=== PATIENT | female | born 1925 | race Caucasian/White ===

== ENCOUNTER 2016-10-11 13:05 | Inpatient (IN) ==
--- NOTE | 2016-10-11 13:19 | Emergency Department Note ---
Disposition Clinical Impression: CHF (congestive heart failure) Qualifiers: Congestive heart failure type: combined Congestive heart failure chronicity: acute on chronic Qualified Code(s): I50.43 - Acute on chronic combined systolic (congestive) and diastolic (congestive) heart failure Disposition: Admitted As Inpatient Condition: Fair SOB HPI - General Chief Complaint: ED Shortness of Breath/Dyspnea Stated Complaint: "CHF", DEVI, sent from Dr. Urbina Time Seen by Provider: 10/11/16 13:17 Source: patient, family Mode of arrival: EMS Limitations: no limitations Nursing Notes Reviewed: Yes Vital Signs Reviewed: Yes - History of Present Illness This is an 89-year-old who was seen by the loss prevention agent I spoke to about her care. Patient has increasing peripheral edema and shortness of breath with stage IV kidney disease. She does have a shunt for dialysis but refuses dialysis. The loss prevention agent sent the patient here for admission and possible IV Lasix diuresis. Pt Subjective Complaint: shortness of breath Onset (ago): Just [employer] Severity: moderate Consistency/Duration: constant Improves with: other Worsens with: nothing Known history of: congestive heart failure Associated symptoms: Denies: fever, cough Cough present: No - Related Data Home Medications Medication Instructions Recorded Confirmed Calcitriol [Rocaltrol] 0.25 mcg PO 1200 07/26/15 10/11/16 Furosemide [Lasix] 40 mg PO BID 07/26/15 10/11/16 Levothyroxine [Synthroid] 100 mcg PO QAM 07/26/15 10/11/16 Pravastatin Sodium [Pravachol] 80 mg PO 1200 07/26/15 10/11/16 TraZODone 25 mg PO 07/27/16 10/11/16 Allopurinol [Zyloprim] 100 mg PO 1200 10/11/16 10/11/16 Ascorbate Calcium [Vitamin C] 500 mg PO 10/11/16 10/11/16 Ergocalciferol (VITAMIN D2) 50,000 unit PO SA 10/11/16 10/11/16 [Vitamin D2] Gluc/MSM/C/[place]/Prim 1 each PO QAM 10/11/16 10/11/16 [Joint Support Complex Softgel] LORazepam [Ativan] 1 mg PO 10/11/16 10/11/16 Loratadine [Claritin] 10 mg PO QAM 10/11/16 10/11/16 Metoprolol Tartrate [Lopressor] 75 mg PO BID 10/11/16 10/11/16 Warfarin [Coumadin] 2.5 mg PO QAM 10/11/16 10/11/16 Allergies Allergy/AdvReac Type Severity Reaction Status Date / Time acetaminophen [From Percocet] Allergy Rash Verified 07/21/16 15:54 codeine Allergy Rash Verified 07/21/16 15:54 Oxycodone [From Percocet] Allergy Rash Verified 07/21/16 15:54 Constitutional: Denies: fever, chills, weakness, weight change Eyes: Denies: eye pain, eye discharge, vision change ENT ED: Denies: ear pain, throat pain, dental pain, hearing loss, epistaxis, congestion, dysphagia Cardiovascular: Reports: dyspnea on exertion. Denies: chest pain, palpitations , edema, syncope Respiratory: Reports: dyspnea. Denies: cough, wheezes, hemoptysis, stridor Gastrointestinal: Denies: abdominal pain, nausea, vomiting, diarrhea, constipation, hematemesis, melena, hematochezia Genitourinary: Denies: dysuria, frequency, hematuria, discharge Musculoskeletal: Denies: back pain, neck pain, arthralgia, myalgia Integumentary: Denies: rash, abrasion, lesions Neurological: Denies: headache, weakness, numbness, paresthesias, confusion, abnormal gait, vertigo Psychiatric: Denies: anxiety, depression, suicidal thoughts, homicidal thoughts , auditory hallucinations, visual hallucinations Endocrine: Denies: fatigue Hematological/Lymphatic: Denies: easy bleeding, easy bruising Allergic/Immunologic: Denies: facial swelling, urticaria Past Medical History - Past Medical History Medical history: Reports: atrial fibrillation, CHF (Diastolic), DVT, GI bleed, hyperlipidemia, hypertension, peripheral artery disease, renal disease (Stage IV ), SVT, thyroid disease, TIA, other (Carotid stenosis) Surgical history: Reports: cataract, cholecystectomy, other (Left arm fistula) Psychiatric history: Reports: no psych history LPN CARE MANAGER history: Reports: no LPN CARE MANAGER history - Social History Smoking Status: Never smoker Smokeless Tobacco Status: No Alcohol use: Reports: none Drug use: Reports: none Physical Exam - General Limitations: no limitations General appearance: alert, in no apparent distress - Head Head exam: atraumatic, normocephalic, normal inspection - Eye Eye exam: Present: normal appearance, PERRL, EOMI - ENT ENT exam: normal exam, normal oropharynx, mucous membranes moist - Neck Neck exam: Present: normal inspection, full ROM, trachea midline - Chest Chest inspection: Present: normal inspection, symmetric chest wall rise - Respiratory Respiratory exam: Present: other (Rales) - Cardiovascular Cardiovascular exam: Present: tachycardia - Abdominal Exam Abdominal exam: Present: soft, Non-Tender. Absent: tenderness, distention, guarding, rebound, rigidity - Extremities Exam Extremities exam: Present: pedal edema - Expanded Lower Extremity Exam Neurovascular/Tendon exam: Absent: motor deficit, sensory deficit, tendon deficit Gait: not tested/not observed - Back Exam Back exam: Present: normal inspection, full ROM. Absent: tenderness - Neurological Exam Neurological exam: Present: alert, oriented X3 - Psychiatric Psychiatric exam: Present: normal affect, normal mood - Skin Skin exam: Present: warm, dry, intact, normal color Course - Reevaluation(s) Reevaluation #1: 89-year-old with a history renal insufficiency was had increasing shortness of breath and peripheral edema. Patient was seen by the loss prevention agent today and felt was fluid overloaded center here to be diuresed. Time: 16:02 - Consultations Consultation #1: Discussed with , admit. Time: 16:02 Vital Signs Temperature 98.2 F 10/11/16 13:14 Pulse Rate 111 10/11/16 13:14 Respiratory Rate 18 10/11/16 13:14 Blood Pressure 135/111 10/11/16 13:14 O2 Sat by Pulse Oximetry 92 L 10/11/16 13:14 Temperature 97.5 F L 10/12/16 15:39 Pulse Rate 109 10/12/16 15:39 Respiratory Rate 16 10/12/16 15:39 Blood Pressure 146/90 10/12/16 15:39 O2 Sat by Pulse Oximetry 99 10/12/16 15:39 Oxygen Delivery Oxygen Delivery Room Air Shortness of Breath/Dyspnea - Lab Data Result diagrams: 10/12/16 06:51 10/12/16 06:51 Lab Results 10/11/16 10/11/16 10/11/16 Range/Units 14:38 14:38 14:38 WBC 8.1 (4.3-11.1) K/mcL RBC 4.11 (3.82-4.97) M/mcL Hgb 12.8 (11.5-15.4) g/dL Hct 39.8 (35.3-44.9) % MCV 96.8 (83.0-100.0) fL MCH 31.1 (28.0-33.3) pg MCHC 32.2 (31.6-35.5) g/dL RDW 14.2 (11.5-14.5) % Plt Count 141 (140-400) K/mcL MPV 10.6 (9.4-12.4) fL Immature Gran % 0.4 (0-4) % Seg Neutrophils % 66.3 % Lymphocytes % 24.9 % Monocytes % 6.8 % Eosinophils % 1.1 % Basophils % 0.5 % Neutrophils # 5.4 (1.6-8.9) K/mcL Lymphocytes # 2.0 (0.6-4.6) K/mcL Monocytes # 0.6 (0.0-1.3) K/mcL Eosinophils # 0.1 (0.0-0.6) K/mcL Basophils # 0.0 (0.0-0.2) K/mcL PT 48.7 H* (9.4-12.1) Seconds INR 4.3 APTT 39.8 H (26.0-36.0) Seconds Sodium 144 (136-145) mEq/L Potassium 3.7 (3.5-4.5) mEq/L Chloride 98 (98-109) mEq/L Carbon Dioxide 32 H (19-29) mEq/L BUN 33 H (7-20) mg/dL Creatinine 2.39 H (0.57-1.11) mg/dL Est GFR ( Amer) 23 L (> 60) Est GFR (Non-Af Amer) 19 L (> 60) BUN/Creatinine Ratio 14 (6-26) Glucose 154 H (70-99) mg/dL Calculated Osmolality 308 H (280-300) Calcium 9.5 (8.6-10.8) mg/dL Troponin I (0-0.03) ng/mL B-Natriuretic Peptide (0-100) pg/mL TSH (0.350-4.840) mcIU/mL 10/11/16 10/11/16 10/11/16 Range/Units 14:38 14:38 14:38 WBC (4.3-11.1) K/mcL RBC (3.82-4.97) M/mcL Hgb (11.5-15.4) g/dL Hct (35.3-44.9) % MCV (83.0-100.0) fL MCH (28.0-33.3) pg MCHC (31.6-35.5) g/dL RDW (11.5-14.5) % Plt Count (140-400) K/mcL MPV (9.4-12.4) fL Immature Gran % (0-4) % Seg Neutrophils % % Lymphocytes % % Monocytes % % Eosinophils % % Basophils % % Neutrophils # (1.6-8.9) K/mcL Lymphocytes # (0.6-4.6) K/mcL Monocytes # (0.0-1.3) K/mcL Eosinophils # (0.0-0.6) K/mcL Basophils # (0.0-0.2) K/mcL PT (9.4-12.1) Seconds INR APTT (26.0-36.0) Seconds Sodium (136-145) mEq/L Potassium (3.5-4.5) mEq/L Chloride (98-109) mEq/L Carbon Dioxide (19-29) mEq/L BUN (7-20) mg/dL Creatinine (0.57-1.11) mg/dL Est GFR ( Amer) (> 60) Est GFR (Non-Af Amer) (> 60) BUN/Creatinine Ratio (6-26) Glucose (70-99) mg/dL Calculated Osmolality (280-300) Calcium (8.6-10.8) mg/dL Troponin I 0.05 H* (0-0.03) ng/mL B-Natriuretic Peptide 1475 H (0-100) pg/mL TSH 3.501 (0.350-4.840) mcIU/mL
[2016-10-11 14:52] LABS: Basophils % 0.5 %; Eosinophils # 0.1 K/mcL (0.0-0.6); Eosinophils % 1.1 %; Hematocrit 39.8 % (35.3-44.9); Hemoglobin 12.8 g/dL (11.5-15.4); Immature Granulocytes % 0.4 % (0-4); Lymphocytes % 24.9 %; Mean Corpuscular HGB Conc 32.2 g/dL (31.6-35.5); Mean Corpuscular Hemoglobin 31.1 pg (28.0-33.3); Mean Corpuscular Volume 96.8 fL (83.0-100.0); Mean Platelet Volume 10.6 fL (9.4-12.4); Monocytes # 0.6 K/mcL (0.0-1.3); Monocytes % 6.8 %; Neutrophils # 5.4 K/mcL (1.6-8.9); Platelet Count 141 K/mcL (140-400); Red Blood Count 4.11 M/mcL (3.82-4.97); Red Cell Distribution Width 14.2 % (11.5-14.5); Segmented Neutrophils % 66.3 %
[2016-10-11 14:59] LABS: Activated Partial Thrombo Time 39.8 Seconds (26.0-36.0)
[2016-10-11 15:01] LABS: Calcium 9.5 mg/dL (8.6-10.8); Potassium 3.7 mEq/L (3.5-4.5)
[2016-10-11] MEDS ORDERED: Furosemide 40 MG/4 ML VIAL IVP ONE (15:06)
[2016-10-11 15:15] LABS: INR 4.3; Prothrombin Time 48.7 Seconds (9.4-12.1)
[2016-10-11] MEDS ORDERED: Naloxone 0.4 MG/ML INJ IVP PRN (17:08)
--- NOTE | 2016-10-11 17:17 | Internal Med History&Physical ---
Date of Encounter: 10/11/16 Time of Encounter: 17:14 Assessment and Plan (1) CHF (congestive heart failure) Current visit: Yes Status: Acute Acute on chronic CHF exacerbation with pulmonary edema Received one dose lasix in ER Will give additional 40mg IVP stat Lasix IV 40g bid Resume home dose of lopressor Not on ACEI/ARBs consider starting if renal function remains stable BiPAP now and prn to ease the work of breathing Strict intake/output monitoring Daily weight checks ECHO ordered Cardio consult a.m Patient is high risk for decompensation to respiratory failure However, she is DNR/DNI Plan of care discussed with family, verbalized understanding Qualifiers: Congestive heart failure type: combined Congestive heart failure chronicity : acute on chronic Qualified Code(s): I50.43 - Acute on chronic combined systolic (congestive) and diastolic (congestive) heart failure (2) Supratherapeutic INR Current visit: Yes Status: Acute Hold INR Monitor PT/PTT DVT prophylaxis with SCDs (3) Atrial fibrillation Current visit: Yes Status: Chronic Rate uncontrolled Resume lopressor and titrate up prn INR supratherapeutic, hold coumadin for now Risk of bleeding , hx of GI bleed Continuous cardiac monitoring Qualifiers: Atrial fibrillation type: unspecified Qualified Code(s): I48.91 - Unspecified atrial fibrillation (4) CKD (chronic kidney disease) stage 4, GFR 15-29 ml/min Current visit: Yes Status: Chronic Stable creatinine patient does not want hemodialysis Renal consult (5) DM type 2 (diabetes mellitus, type 2) Current visit: Yes Status: Chronic FS ACHS Diabetic diet Supplemental insulin Qualifiers: Diabetes mellitus complication status: with kidney complications Diabetes mellitus complication detail: with chronic kidney disease Diabetes mellitus intermediate designer insulin use: without group home use Chronic kidney disease stage: stage 4 (severe) Qualified Code(s): E11.22 - Type 2 diabetes mellitus with diabetic chronic kidney disease; N18.4 - Chronic kidney disease, stage 4 (severe ) (6) Gout Current visit: Yes Status: Chronic Hold allopurinol for now Qualifiers: Gout site: unspecified site Gout etiology: unspecified cause Chronicity: chronic Presence of tophus: without tophus Qualified Code(s): M1A.9XX0 - Chronic gout, unspecified, without tophus (tophi) (7) Hyperlipidemia Current visit: Yes Status: Chronic Resume home meds Qualifiers: Hyperlipidemia type: unspecified Qualified Code(s): E78.5 - Hyperlipidemia , unspecified (8) Hypothyroidism Current visit: Yes Status: Chronic TSH check Resume home dose of levothyroxine Qualifiers: Hypothyroidism type: unspecified Qualified Code(s): E03.9 - Hypothyroidism , unspecified Internal Medicine - H&P: HPI Chief complaint: Shortness of breath Admitted From: Home Plans for Post Hospital Care: Hospice - Home History of present illness: Ms. Solis is a 89 year old female with PMH of Afib on Coumadin, CKD IV, HD, Diastolic CHF, Hypothyroidism, TIA on home oxygen and home hospice Patient was seen at bedside in company of her daughter She presents with 6 weeks history of progressive lower extremity swelling, now involving her hips and abdomen, shortness of breath initially on minimal exertion, now at rest with 4-5 pillow orthopnea, patient is only able to sit upright now. Associated dry cough, anorexia, early satiety and abdominal distension. She denies fever or chills She denies chest pain or palpitations No bleeding from any orifices She reports chronic constipation with no diarrhea. She has been increasingly taking her home po lasix from alternate days now to daily but with no improvement, hence her presentation to ER. She reports insomnia as a result of orthopnea Denies any other complains Patient is DNR/DNI Past Med Surg Social Fam HX - Past Medical History Medical history: atrial fibrillation, CHF (Diastolic), DVT, GI bleed, hyperlipidemia, hypertension, peripheral artery disease, renal disease (Stage IV ), SVT, thyroid disease, TIA, other (Carotid stenosis) Psychiatric history: no psych history - Past Surgical History Surgical History: cataract, cholecystectomy, other (Left arm fistula) - Social History Smoking Status: Never smoker Smokeless Tobacco Status: No Alcohol use: none Drug use: none - Family History Mother Family Member Ethnicity: Non- Living Status: Hx Family Cardiac Disorders: Yes Hx Family Respiratory Disorders: Yes Hx Family Cancer: No Hx Family GI Disorders: No Hx Family Endocrine Disorder: No Hx Family Neuromuscular Disorders: No Hx Family Neurologic Disorders: No Hx Family HEENT Disorders: No Hx Family Autoimmune Disorders: No Internal Medicine - H&P: Meds Calcitriol [Rocaltrol] 0.25 mcg PO 1200 07/26/15 [History] Furosemide [Lasix] 40 mg PO BID 10/25/15 [History] Levothyroxine [Synthroid] 100 mcg PO QAM 07/26/15 [History] Pravastatin Sodium [Pravachol] 80 mg PO 1200 07/26/15 [History] TraZODone 25 mg PO 07/27/16 [History] Allopurinol [Zyloprim] 100 mg PO 1200 10/11/16 [History] Ascorbate Calcium [Vitamin C] 500 mg PO HS 10/11/16 [History] Ergocalciferol (VITAMIN D2) [Vitamin D2] 50,000 unit PO SA 10/11/16 [History] Gluc/MSM/C/[place]/Prim [Joint Support Complex Softgel] 1 each PO QA 07/18 [History] LORazepam [Ativan] 1 mg PO 10/11/16 [History] Loratadine [Claritin] 10 mg PO QA 10/11/16 [History] Metoprolol Tartrate [Lopressor] 75 mg PO BID 10/11/16 [History] Warfarin [Coumadin] 2.5 mg PO QA 10/11/16 [History] Allergies acetaminophen [From Percocet] Allergy (Verified 07/21/16 15:54) Rash codeine Allergy (Verified 07/21/16 15:54) Rash Oxycodone [From Percocet] Allergy (Verified 07/21/16 15:54) Rash All Systems PM: A 10-system review of systems was performed and is negative for pertinent findings except as documented above in the HPI. - Constitutional Constitutional: no chills, no fever(s), no night sweats - EENT Eyes: no change in vision, no discharge, no pain, no photophobia Ears: no ear discharge, no ear pain, no tinnitus Nose, mouth and throat: no dysphagia, no nasal discharge, no neck pain, no sore throat - Cardiovascular Cardiovascular ROS IM: as per HPI - Respiratory Respiratory: as per HPI - Gastrointestinal Gastrointestinal: as per HPI - Genitourinary Genitourinary: as per HPI - Musculoskeletal Musculoskeletal ROS IM: as per HPI - Integumentary Integumentary IM: as per HPI - Neurological Neurological ROS: as per HPI - Hematologic/Lymphatic Hematologic/Lymphatic: as per HPI - Constitutional Vitals: Temp Pulse Resp BP Pulse Ox 98.2 F 105 18 150/101 99 10/11/16 13:14 10/11/16 15:30 10/11/16 15:30 10/11/16 15:30 10/11/16 15:30 Exam: Physical Exam VSS. HR 105, RR 20-22, O2sat 100% on 2L oxygen by nasa cannula General: Dyspneic unable to complete sentences, not in painful distress, not using accessory muscles of respiration HEENT: Not cyanotic, anicteric, conjunctiva is not pale Chest: Equal chest movement on exam, bilateal coarse crackles up to mid-lung Heart: S1, S2, irregular, JVD up to the jaw, no murmurs Abdomen: Abdominal wall edema, Sacral edema, no tenderness to palpation, bowel sounds present. RUQ scar Extremities: Bilateral pitting pedal edema up to the thighs, no ulcers. Internal Med - H&P Results - Labs CBC & Chem 7: 10/11/16 14:38 10/11/16 14:38 Labs: Labs and Imaging reviewed: INR 4.3 CBC WN Chem with Cr at baseline 2.39 Troponin 0.05 BNP 1475 CXR: Pulmonary edema
[2016-10-11] MEDS: Furosemide 40 MG/4 ML VIAL IVP SCH (20:31)
[2016-10-11] MEDS: Ascorbic Acid 500 MG TABLET PO SCH (20:31)
[2016-10-11] MEDS: *HR* LORazepam 1 MG TABLET PO SCH (20:32)
[2016-10-11] MEDS: traZODone 50 MG TABLET PO SCH (20:32)
[2016-10-12 07:29] LABS: Basophils % 0.4 %; Eosinophils % 0.4 %; Hematocrit 39.9 % (35.3-44.9); Hemoglobin 12.9 g/dL (11.5-15.4); Immature Granulocytes % 0.2 % (0-4); Lymphocytes # 2.3 K/mcL (0.6-4.6); Lymphocytes % 28.7 %; Mean Corpuscular HGB Conc 32.3 g/dL (31.6-35.5); Mean Corpuscular Hemoglobin 31.3 pg (28.0-33.3); Mean Corpuscular Volume 96.8 fL (83.0-100.0); Monocytes # 0.6 K/mcL (0.0-1.3); Neutrophils # 5.1 K/mcL (1.6-8.9); Platelet Count 137 K/mcL (140-400); Red Blood Count 4.12 M/mcL (3.82-4.97); Red Cell Distribution Width 14.3 % (11.5-14.5); Segmented Neutrophils % 63.3 %
[2016-10-12 07:32] LABS: Albumin 3.3 g/dL (3.5-5.0); Albumin/Globulin Ratio 1.2 (1.1-2.2); Bilirubin,Total 0.8 mg/dL (0.2-1.2); Calcium 9.4 mg/dL (8.6-10.8); Globulin 2.8 g/dL (2.4-3.5); Potassium 3.7 mEq/L (3.5-4.5); Total Protein 6.1 g/dL (6.0-8.3)
[2016-10-12 07:45] LABS: INR 3.5; Prothrombin Time 39.6 Seconds (9.4-12.1)
[2016-10-12 07:48] LABS: Activated Partial Thrombo Time 37.7 Seconds (26.0-36.0)
--- NOTE | 2016-10-12 08:42 | Cardiology Consult Note ---
Date of Encounter: 10/12/16 Time of Encounter: 09:00 Assessment and Plan (1) CHF (congestive heart failure) Current Visit: Yes Status: Acute Per Cardiology: BNP elevated at 1475. Chest x-ray shows moderate pulmonary edema. On IV Lasix 40 mg twice a day. According to medical records patient net negative 350ml. On BB. Discussed with Dr. Torres, will switch to IV Bumex 1 mg twice a day. Continue with strict I&O, daily weights, fluid restriction. Education reinforced regarding low sodium diet and fluid restriction at home. Of note, patient recently discharged home with hospice care. At this time it appears they do not wish to rescind and elect to continue with hospice. Most recent echo in 2013 showed EF preserved 60%, no segmental wall motion abnormalities, diastolic function not assessed. Echo is currently ordered. I had lengthy discussion with patient and daughter, and at this point they would like to proceed with echo as ordered. Further recs after echo. Consult placed to palliative care for re- evaluation. Patient DNR/DNI/Comfort Care arrest. Qualifiers: Congestive heart failure type: combined Congestive heart failure chronicity : acute on chronic Qualified Code(s): I50.43 - Acute on chronic combined systolic (congestive) and diastolic (congestive) heart failure (2) CKD (chronic kidney disease) stage 4, GFR 15-29 ml/min Current Visit: Yes Status: Chronic Per Cardiology: History of CKD stage IV. Kidney function currently around baseline. Patient declines hemodialysis. (3) Atrial fibrillation Current Visit: Yes Status: Chronic Per Cardiology: Known history of atrial fibrillation and according to last office visit taking Cardizem CD 180 mg by mouth daily and metoprolol tartrate 50 mg by mouth twice a day, however daughter reports Cardizem has now been stopped and patient now on Lopressor 75 mg by mouth twice a day. Patient remains atrial fibrillation on telemetry with average heart rate in the 100s. Will increase to 100 mg by mouth twice a day for optimization of heart rate and blood pressure control. Qualifiers: Atrial fibrillation type: unspecified Qualified Code(s): I48.91 - Unspecified atrial fibrillation (4) Supratherapeutic INR Current Visit: Yes Status: Acute Per Cardiology: INR 4.3 on arrival. On Coumadin as outpatient. Currently on hold by primary service. Recommend resuming when/if able. Denies any active bleeding or blood loss. Discussion w patient/family: The assessment and plan as outlined above was discussed with the patient and/or family members who expressed understanding and agreement. All questions were answered. Thank you for involving us in the care of your patient. Please call with any questions. History of Present Illness Consult date: 10/12/16 Requesting physician: Zach Nielsen Consult reason: CHF Chief complaint: SOB History of present illness: Ms. Solis is a 89 year old female with a relevant past medical history of hyperlipidemia, hypertension, peripheral artery disease, hypothyroidism, TIA, DVT, history of nicotine abuse, and CHF. Seen by Dr. Urbina with cardiology yesterday and since the ER for worsening edema and shortness of breath. Of note , patient is DNR/couple care arrest/DNI and does not to proceed with hemodialysis. Patient seen today with daughter at bedside. They report she was recently discharged towards end of August to hospice care. They report increased bilateral lower actually swelling with short of breath over the past few days not responding to increased doses of Lasix. She reports worsening short of breath at rest and dry cough. Reports difficulty laying flat and sleeping. She denies any chest pain or palpitations. Denies any active bleeding or blood loss with Coumadin therapy being managed through hospice. Daughter reports Cardizem CD 180 mg discontinued and metoprolol was increased from 50 mg by mouth twice a day to 75 mg by mouth twice a day by hospice as well. They confirmed her desire to be DNR/couple care arrest/DNI. They also confirmed desire to not proceed with hemodialysis and has seen nephrology in the past. Past Med Surg Social Fam HX - Past Medical History Attestation: Yes The following information was validated with the patient. Source: patient, old records reviewed, obtained from family Medical history: atrial fibrillation, CHF, DVT, GI bleed, hyperlipidemia, hypertension, peripheral artery disease, renal disease, SVT, thyroid disease, TIA, other Psychiatric history: no psych history - Past Surgical History Surgical History: cataract, cholecystectomy, other - Social History Smoking Status: Never smoker Smokeless Tobacco Status: No Alcohol use: none Drug use: none - Family History Mother Family Member Ethnicity: Non- Living Status: Hx Family Cardiac Disorders: Yes Hx Family Respiratory Disorders: Yes Hx Family Cancer: No Hx Family GI Disorders: No Hx Family Endocrine Disorder: No Hx Family Neuromuscular Disorders: No Hx Family Neurologic Disorders: No Hx Family HEENT Disorders: No Hx Family Autoimmune Disorders: No Medications and Allergies Calcitriol [Rocaltrol] 0.25 mcg PO 1200 07/26/15 [History] Furosemide [Lasix] 40 mg PO BID 07/26/15 [History] Levothyroxine [Synthroid] 100 mcg PO QAM 07/26/15 [History] Pravastatin Sodium [Pravachol] 80 mg PO 1200 07/26/15 [History] TraZODone 25 mg PO HS 07/27/16 [History] Allopurinol [Zyloprim] 100 mg PO 1200 10/11/16 [History] Ascorbate Calcium [Vitamin C] 500 mg PO HS 10/11/16 [History] Ergocalciferol (VITAMIN D2) [Vitamin D2] 50,000 unit PO SA 10/11/16 [History] Gluc/MSM/C/[place]/Manganes/Prim [Joint Support Complex Softgel] 1 each PO QA 07/18 [History] LORazepam [Ativan] 1 mg PO HS 10/11/16 [History] Loratadine [Claritin] 10 mg PO QAM 10/11/16 [History] Metoprolol Tartrate [Lopressor] 75 mg PO BID 10/11/16 [History] Warfarin [Coumadin] 2.5 mg PO QAM 10/11/16 [History] Allergies acetaminophen [From Percocet] Allergy (Verified 07/21/16 15:54) Rash codeine Allergy (Verified 07/21/16 15:54) Rash Oxycodone [From Percocet] Allergy (Verified 07/21/16 15:54) Rash All Systems Review: A 10-system review of systems was performed and is negative for pertinent findings except as documented above in the HPI. - Constitutional Constitutional: daytime sleepiness, fatigue, lethargy - Cardiovascular Cardiovascular: as per HPI, dyspnea at rest, dyspnea on exertion, irregular heart rhythm, leg edema - Respiratory Respiratory: cough, dyspnea Physical Examination Vital Signs, Last 4 Hours Temp Pulse Resp BP Pulse Ox 10/12/16 07:40 97.4 F L 113 16 151/98 98 General: Conversant, No Apparent Distress HEENT: Atraumatic, Normocephaly, Mucus Membranes Moist Neck: Normal carotid pulses Cardiac: No Murmur, Other (Irregular irregular) Lungs: Other (Respirations mildly labored at rest, scattered rhonchi to bilateral bases) Neuro: Alert and responsive, No focal deficits noted Abdomen: Soft, Non-Tender, Other (Nondistended) Skin: No rashes noted on visualized skin Musculoskeletal: No Chest Wall Tenderness Extremities: Normal Pulses, Other (+2-3 pitting edema tro bilateral LE) Other: Powers draining clear yellow urine Results 10/12/16 06:51 10/12/16 06:51 Lab Results Laboratory Tests 09/06/16 09/22/16 10/11/16 12:47 12:30 14:38 INR 4.3 Creatinine Est GFR (Non-Af Amer) 15 L 22 L Troponin I B-Natriuretic Peptide Albumin TSH 10/11/16 10/11/16 10/11/16 14:38 14:38 14:38 INR Creatinine Est GFR (Non-Af Amer) Troponin I 0.05 H* B-Natriuretic Peptide 1475 H Albumin TSH 3.501 10/12/16 10/12/16 06:51 06:51 INR 3.5 Creatinine 2.42 H Est GFR (Non-Af Amer) 19 L Troponin I B-Natriuretic Peptide Albumin 3.3 L TSH ITS Impressions Chest X-Ray 10/11/16 13:12 IMPRESSION: CHF with moderate pulmonary edema that has increased from prior exam. D/ / Morris Delgado MD / Morris Delgado MD Interpreting Provider: Morris Delgado MD Intake & Output 10/09/16 10/10/16 10/11/16 10/12/16 23:59 23:59 23:59 23:59 Weight 88.632 kg 86.4 kg Active Medications Ascorbic Acid (Vitamin C) 500 mg PO HS [facility] Stop: 04/12/17 21:01 Last Admin: 10/11/16 20:31 Dose: 500 mg Calcitriol (Rocaltrol) 0.25 mcg PO 1200 [facility] Stop: 04/13/17 12:01 Ergocalciferol (Drisdol (50,000 Unit)) 50,000 unit PO SA [facility] Stop: 04/16/17 17:02 Furosemide (Lasix) 40 mg IVP ONCE ONE Stop: 10/12/16 09:01 Furosemide (Lasix) 40 mg IVP BID [facility] Stop: 04/12/17 21:01 Last Admin: 10/11/16 20:31 Dose: 40 mg Levothyroxine Sodium (Synthroid) 100 mcg PO QAM [facility] Stop: 04/13/17 09:01 Lorazepam (Ativan) 1 mg PO HS [facility] Stop: 04/12/17 21:01 Last Admin: 10/11/16 20:32 Dose: 1 mg Metoprolol Tartrate (Lopressor) 75 mg PO BID [facility] Stop: 04/12/17 21:01 Last Admin: 10/11/16 20:32 Dose: 75 mg Naloxone HCl (Narcan) 0.4 mg IVP Q2MIN PRN PRN Reason: Opioid Reversal Stop: 04/12/17 17:09 Pharmacy Profile Note (Patient Taking Own Medication) 0 each PO QAM [facility] Stop: 04/13/17 09:01 Trazodone HCl (Trazodone) 50 mg PO [facility] Stop: 04/12/17 21:01 Last Admin: 10/11/16 20:32 Dose: 50 mg - Imaging and Cardiology Chest Xray: report reviewed Echo: pending, report reviewed - EKG Interpretation EKG results cardiology: personally reviewed (Cody gibson with RVR in the 100s), other (24 hour telemetry reviewed with average heart rate 105, atrial fibrillation) Consult Discharge Plan - Plan Referrals: NO,PCP [Primary Care Provider] -
[2016-10-12] MEDS: MSM PO SCH (08:49)
[2016-10-12] MEDS: [UNRECOGNIZED DRUG - OTHER] PO SCH (08:49)
[2016-10-12] MEDS: GLUC PO SCH (08:49)
[2016-10-12] MEDS: Furosemide 40 MG/4 ML VIAL IVP SCH (08:49)
[2016-10-12] MEDS: BORON PO SCH (08:49)
[2016-10-12] MEDS ORDERED: Furosemide 40 MG/4 ML VIAL IVP ONE (09:00)
[2016-10-12] MEDS: Bumetanide 1 MG/4 ML VIAL IVP SCH ×2 (11:57→16:58)
--- NOTE | 2016-10-12 13:34 | Palliative - Consult Note ---
Date of Encounter: 10/12/16 Time of Encounter: 13:30 - Assessment and Plan (1) Dyspnea Current Visit: Yes Status: Acute Assessment and plan: Improved from admission. Continues on IV bumex/supportive oxygen. Echo pending. Cardiology eval reviewed. Qualifiers: Dyspnea type: unspecified Qualified Code(s): R06.00 - Dyspnea, unspecified (2) Counseling regarding advanced care planning and goals of care Current Visit: Yes Status: Acute Assessment and plan: Discussion with pt and daughter, DARREL Etienne. We have copy of pt living will on record, but not POA and Jaimie agreed to bring this in with next visit. She is established DNR/DNI at this time. Jaimie states pt was enrolled in [facility] from a referral from primary physician in the community. Called and confirmed she is enrolled with renal disease diagnosis. Stated that pt did not desire to pursue dialysis for her renal failure. At this point, they are desiring to resume hospice care when pt is discharged, however, daughter and pt desiring to proceed with echocardiogram and lab testing to see status of illnesses. Jaimie states that it took a while for lasix to be adjusted at home and that if this were done sooner, she thinks pt may have not had to come to hospital. Will follow closely and assist as needed. (3) CKD (chronic kidney disease) stage 4, GFR 15-29 ml/min Current Visit: Yes Status: Chronic (4) Atrial fibrillation Current Visit: Yes Status: Chronic Qualifiers: Atrial fibrillation type: unspecified Qualified Code(s): I48.91 - Unspecified atrial fibrillation (5) CHF (congestive heart failure) Current Visit: Yes Status: Acute Qualifiers: Congestive heart failure type: combined Congestive heart failure chronicity : acute on chronic Qualified Code(s): I50.43 - Acute on chronic combined systolic (congestive) and diastolic (congestive) heart failure Palliative-CN HPI - Data of Consult Consult date: 10/12/16 Requesting Physician: Zach Nielsen MD Primary Care Provider: PCP NO - Consult Narrative History of present illness: Ms. Solis is a 89 year old female with a history of stage IV renal disease, CHF, atrial fibrillation, Diabetes, Gout and Hypothyroidism, who presented with increasing shortness of breath and edema. According to daughter Jaimie (DARREL) at bedside, pt enrolled in hospice in Sep for renal disease, as she did not want dialysis. Over the last several weeks, pt has had increased difficulty with sleeping and becoming uncomfortable. Edema began to increase. Jaimie states that pt Lasix was only PRN at that time, and she attempted to contact Hospice to have this increased. Hospice did increase on Monday, but daughter states pt was "too far behind the 8-ball". Patient had a pre-scheduled appt with vision specialist, so daughter went ahead with that visit, and it was recommended she come to ER. Patient currently leaving for echo. Cardiology has seen pt. She states she feels better and breathing well. States slept well for first time in a long time last night. She is established DNR/DNI. CC: Zach Nielsen MD Past Med Surg Social Fam HX - Past Medical History Medical history: atrial fibrillation, CHF, DVT, GI bleed, hyperlipidemia, hypertension, peripheral artery disease, renal disease, SVT, thyroid disease, TIA, other Psychiatric history: no psych history - Past Surgical History Surgical History: cataract, cholecystectomy, other - Social History Smoking Status: Never smoker Smokeless Tobacco Status: No Alcohol use: none Drug use: none - Family History Mother Family Member Ethnicity: Non- Living Status: Hx Family Cardiac Disorders: Yes Hx Family Respiratory Disorders: Yes Hx Family Cancer: No Hx Family GI Disorders: No Hx Family Endocrine Disorder: No Hx Family Neuromuscular Disorders: No Hx Family Neurologic Disorders: No Hx Family HEENT Disorders: No Hx Family Autoimmune Disorders: No Medications and Allergies Calcitriol [Rocaltrol] 0.25 mcg PO 1200 07/26/15 [History] Furosemide [Lasix] 40 mg PO BID 07/26/15 [History] Levothyroxine [Synthroid] 100 mcg PO QAM 07/26/15 [History] Pravastatin Sodium [Pravachol] 80 mg PO 1200 07/26/15 [History] TraZODone 25 mg PO HS 07/27/16 [History] Allopurinol [Zyloprim] 100 mg PO 1200 10/11/16 [History] Ascorbate Calcium [Vitamin C] 500 mg PO HS 10/11/16 [History] Ergocalciferol (VITAMIN D2) [Vitamin D2] 50,000 unit PO SA 10/11/16 [History] Gluc/MSM/C/[place]/Manganes/Prim [Joint Support Complex Softgel] 1 each PO QAM 07/18 [History] LORazepam [Ativan] 1 mg PO HS 10/11/16 [History] Loratadine [Claritin] 10 mg PO QAM 10/11/16 [History] Metoprolol Tartrate [Lopressor] 75 mg PO BID 10/11/16 [History] Warfarin [Coumadin] 2.5 mg PO QAM 10/11/16 [History] Allergies acetaminophen [From Percocet] Allergy (Verified 07/21/16 15:54) Rash codeine Allergy (Verified 07/21/16 15:54) Rash Oxycodone [From Percocet] Allergy (Verified 07/21/16 15:54) Rash Review of systems: insomnia, poor appetite, shortness of breath, increased swelling of abdomen, lower extremies Palliative Care-Exam - Constitutional Vitals: Temp Pulse Resp BP Pulse Ox 97.3 F L 100 14 132/83 96 10/12/16 11:40 10/12/16 11:40 10/12/16 11:40 10/12/16 11:40 10/12/16 11:40 General appearance: Present: no acute distress - Head Head Exam: Present: normal inspection, normocephalic - Eye Eye exam: Present: normal appearance, PERRL - Expanded Respiratory Exam Location: rales: Left, Right, Lower - Cardiovascular Cardiovascular exam: Present: irregular rhythm - GI/Abdominal Exam GI/Abdominal exam: Present: distended, normal bowel sounds, soft - Catheter Type: Urethral (Powers) Additional comments: with clear yellow urine - Extremities Exam Additional comments: 3+ edema to lower extremities bilaterally - Neurological Exam Neurological exam: Present: alert, oriented X3, strengths equal and symetr throughout - Skin Skin exam: Present: dry, pallor, warm Additional comments: Some blistering to lower extremities Internal Medicine - CN: Reslt - Labs CBC & Chem 7: 10/12/16 06:51 10/12/16 06:51 Labs: Short CBC 10/12/16 Range/Units 06:51 WBC 8.1 (4.3-11.1) K/mcL Hgb 12.9 (11.5-15.4) g/dL Hct 39.9 (35.3-44.9) % Plt Count 137 L (140-400) K/mcL Neutrophils # 5.1 (1.6-8.9) K/mcL BMP 10/12/16 06:51 Sodium 145 Potassium 3.7 Chloride 98 Carbon Dioxide 35 H BUN 35 H Creatinine 2.42 H Glucose 123 H Calcium 9.4 Liver Function 10/12/16 Range/Units 06:51 Total Bilirubin 0.8 (0.2-1.2) mg/dL AST 29 (5-34) Units/L ALT 23 (0-55) Units/L Alkaline Phosphatase 57 (38-126) Units/L Albumin 3.3 L (3.5-5.0) g/dL - ABG Interpretation ABG results: PT/INR, D-dimer PT 39.6 Seconds (9.4-12.1) H 10/12/16 06:51 Consult Discharge Plan - Plan Referrals: NO,PCP [Primary Care Provider] - Palliative Quality Palliative Quality: Screen for Code Status: Yes, Screen for Goals of Care: Yes, Screen for Pain: Yes, If Pain Regimen Started, Initiate Bowel Regimen: NA, Screen for Nausea/Vomitting: Yes
--- NOTE | 2016-10-12 13:35 | Electrocardiograph Report ---
[facility] Test Date: 2016-10-11 Pat Name: Farida Solis Department: 103 Room: 2A47 Gender: F Manager Art: MSC : 1925 Requested By: Ra Michaels Order Number: [id number] Reading MD: Julianna Castillo Measurements Intervals [place] Rate: 107 P: CO: 0 QRS: -42 QRSD: 106 T: -12 QT: 357 QTc: 420 Interpretive Statements ATRIAL FIBRILLATION WITH RAPID VENTRICULAR RESPONSE MARKED LEFT AXIS DEVIATION NONSPECIFIC T-WAVE ABNORMALITY Electronically Signed On 10-12-16 13:34:54 EST by Julianna Castillo
--- NOTE | 2016-10-12 13:54 | Nephrology Consult Note ---
Date of Encounter: 10/12/16 Time of Encounter: 13:52 History of Present Illness - History of Present Illness This is an 89-year-old white female has been followed as an outpatient for stage IV chronic kidney disease. Patient was last in the office approximately a year ago. At that time her creatinine was 1.98 and GFR was 24. Currently the patient's creatinine is 139 with a GFR of 19. Patient was admitted for further evaluation and management of increasing swelling and shortness of breath. She has been diagnosed with diastolic congestive heart failure. She has a history of atrial fibrillation. Patient reports over the past few weeks using been experiencing increasing swelling despite taking Lasix 40 mg IV daily. She has worsening shortness of breath as well as some orthopnea. She denies any nausea vomiting fevers chills or chest pain. The patient has an AV fistula in place but she has never required dialysis. The patient has stage IV chronic kidney disease. She exhibits some slow progression since she was last seen a year ago. She currently is making urine. I would continue with the current diuretic regimen. We should monitor her I' s and O's closely. Lungs she can achieve negative fluid balance with improvement in her swelling and shortness of breath I would continue with medical treatment. At this point, I do not believe that the patient requires initiation of dialysis. I did have a discussion with the patient and the family. Should her renal function worsened during the course of treatment for congestive heart failure and if dialysis should become necessary the patient agrees that she would at that time be willing to have dialysis. Past Med Surg Social Fam HX - Past Medical History Medical history: atrial fibrillation, CHF, DVT, GI bleed, hyperlipidemia, hypertension, peripheral artery disease, renal disease, SVT, thyroid disease, TIA, other Psychiatric history: no psych history - Past Surgical History Surgical History: cataract, cholecystectomy, other - Social History Smoking Status: Never smoker Smokeless Tobacco Status: No Alcohol use: none Drug use: none - Family History Mother Family Member Ethnicity: Non- Living Status: Hx Family Cardiac Disorders: Yes Hx Family Respiratory Disorders: Yes Hx Family Cancer: No Hx Family GI Disorders: No Hx Family Endocrine Disorder: No Hx Family Neuromuscular Disorders: No Hx Family Neurologic Disorders: No Hx Family HEENT Disorders: No Hx Family Autoimmune Disorders: No Medications and Allergies Calcitriol [Rocaltrol] 0.25 mcg PO 1200 07/26/15 [History] Furosemide [Lasix] 40 mg PO BID 07/26/15 [History] Levothyroxine [Synthroid] 100 mcg PO QAM 07/26/15 [History] Pravastatin Sodium [Pravachol] 80 mg PO 1200 07/26/15 [History] TraZODone 25 mg PO HS 07/27/16 [History] Allopurinol [Zyloprim] 100 mg PO 1200 10/11/16 [History] Ascorbate Calcium [Vitamin C] 500 mg PO HS 10/11/16 [History] Ergocalciferol (VITAMIN D2) [Vitamin D2] 50,000 unit PO SA 10/11/16 [History] Gluc/MSM/C/[place]/Manganes/Prim [Joint Support Complex Softgel] 1 each PO QAM 07/18 [History] LORazepam [Ativan] 1 mg PO HS 10/11/16 [History] Loratadine [Claritin] 10 mg PO QAM 10/11/16 [History] Metoprolol Tartrate [Lopressor] 75 mg PO BID 10/11/16 [History] Warfarin [Coumadin] 2.5 mg PO QAM 10/11/16 [History] Allergies acetaminophen [From Percocet] Allergy (Verified 07/21/16 15:54) Rash codeine Allergy (Verified 07/21/16 15:54) Rash Oxycodone [From Percocet] Allergy (Verified 07/21/16 15:54) Rash Review of Systems Constitutional: as per HPI Eyes: bilateral: blurred vision (patient denies), diplopia (patient denies) Nose, mouth and throat: no dizziness, no headache(s) Cardiovascular: dyspnea, dyspnea on exertion, edema, irregular heart rhythm, orthopnea, palpitations, no chest pain Respiratory: dyspnea, dyspnea on exertion Gastrointestinal: no abdominal pain, no change in bowel habits Musculoskeletal: no muscle weakness, no numbness Integumentary: no hirsutism, no striae Neurological: weakness Psychiatric: no depression, no difficulty concentrating Endocrine: as per HPI Hematologic/Lymphatic: no easy bruising, no lymphadenopathy Exam - Vital Signs Vital signs: Initial Vital Signs Temp Pulse Resp BP Pulse Ox 98.2 F 111 18 135/111 92 L 10/11/16 13:14 10/11/16 13:14 10/11/16 13:14 10/11/16 13:14 10/11/16 13:14 Vital Signs - Last 8 Hours Temp Pulse Resp BP Pulse Ox 10/12/16 11:40 97.3 F L 100 14 132/83 96 10/12/16 07:40 97.4 F L 113 16 151/98 98 Intake and Output 10/11/16 10/12/16 10/12/16 23:59 07:59 15:59 Intake Total 50 / 50 Output Total 350 / 350 Balance -300 / -300 Intake: Oral 50 / 50 Output: Catheter 350 / 350 Other: Meal Lunch Percent of Meal Consumed 10% Weight 86.4 kg Patient Weight 10/12/16 23:59 Weight 86.4 kg - General Appearance Exam: Patient is sitting up in a chair. She is alert and oriented in no acute distress. Lungsbreath sounds otherwise clear. Heart irregular rate and rhythm consistent with atrial fibrillation. Abdomen shows normal bowel sounds are bruits masses, megaly or tenderness. Lower extremity showed 2+ lower extremity swelling. There is a functioning AV fistula in the upper portion of the left arm. Results - Lab Results 10/12/16 06:51 10/12/16 06:51 Most recent lab results Calcium 9.4 mg/dL (8.6-10.8) 10/12/16 06:51 Consult Discharge Plan - Plan Referrals: NO,PCP [Primary Care Provider] -
--- NOTE | 2016-10-12 15:00 | Event Note ---
Date of Encounter: 10/12/16 Time of Encounter: 15:00 - Cardiology Event Note Patient resting comfortably in chair with family visiting. Patient reports would be open to proceeding with hemodialysis now if deemed necessary. Echo pending. Continue with diuresis. We'll continue to follow. All questions answered.
--- NOTE | 2016-10-12 15:30 | Event Note ---
Date of Encounter: 10/12/16 Time of Encounter: 15:30 Nephrology consult reviewed and appreciated - pt now open to dialysis if needed. Did discuss with family that I called and verified with [facility] that they enrolled her with a diagnosis of renal disease in September, so this would affect discharge plan. Hospice may need transitioned to home health. Family verbalized understanding. Will follow clinical course.
--- NOTE | 2016-10-12 15:43 | ECHO - Doppler Report ---
Echocardiogram Name: Farida Solis Date of Study: 10/12/2016 Date: 1925 Ht: 63.0 in Medical Record#: [id number] Age: 89 Wt: 190.0 lb Gender: Female BSA: 1.89 Order #: [id number] Location: [facility] IP Room #: 2A47 Reading Physician: Kelly Wright DO Green Material Value Added Assessor: Stu Seo RDCS Ordering Physician: Zach Nielsen MD Primary Physician: None Indications: Congestive heart failure Impressions: LVEF 20%. Global LV systolic dysfunction with mild basal and mid inferior wall hypokinesis. No evidence of LV thrombus on this study although apex is not well seen in all views. Normal RV size with mild to moderate reduction in function. Mild aortic regurgitation. Moderate mitral regurgitation. Mild pulmonic regurgitation. Tricuspid regurgitation appears moderate if not severe in some views. Mild to moderate pulmonary hypertension, RVSP 46 mmHg. IVC is not dilated but demonstrates <50% respiratory collapse. Trivial pericardial effusion. A pleural effusion is present. Since prior echo, 05/07/2014, LV systolic function has declined. Report communicated to ordering provider by [place]. Left Ventricular Wall Motion: Rest Echo Findings The apex, apical inferior, mid inferior, basal inferior, apical anterior, mid anterior, basal anterior, apical septal, mid inferior septal, basal inferior septal, apical lateral, mid anterior lateral, basal anterior lateral, mid anterior septal, mid inferior lateral, basal anterior septal and basal inferior lateral peacock were hypokinetic. Findings: Study Quality * Technically adequate exam. ECG Findings * Atrial fibrillation. Mitral Valve * No mitral stenosis. * Mild mitral annular calcification * Mildly thickened mitral valve leaflets. * Moderate mitral regurgitation. Aortic Valve * Aortic valve not well visualized. * Mild aortic regurgitation. * No aortic stenosis. Tricuspid Valve * Normal tricuspid valve structure. * Moderate-severe tricuspid regurgitation. * Estimated RA pressure is 8 mmHg. * Estimated RVSP is 46 mmHg. * Mild to moderate pulmonary hypertension. Pulmonic Valve * Pulmonic valve is not well visualized. * No pulmonic stenosis. * Mild pulmonic regurgitation. Pulmonary Artery * Pulmonary artery not well visualized. Left Atrium * Moderately dilated left atrium. Left Ventricle * Indeterminate diastolic function. * LVEF 20%. * Normal LV size. Right Ventricle * Normal size with mild to moderate reduction in function. Right Atrium * Severely dilated right atrium. Interatrial Septum * No evidence of PFO by color Doppler. IVC * The IVC is not dilated. * < 50% respiratory change. Aorta * Normally sized aortic root. Pericardium * There is a trivial pericardial effusion present. Pleural Effusion * A pleural effusion is present. History Hypertension Hypercholesteremia Family History of CAD Congestive Heart Failure 05/07/14 a Previous Echo was performed. Measurements: BP: 132/ 83 2D Normal Values IVSd: 1.00 cm 0.6 - 1.0 cm LVIDd: 4.50 cm 3.7 - 5.6 cm LVPWd: 1.00 cm 0.6 - 1.1 cm LVIDs: 3.60 cm 1.5 - 3.6 cm AO: 2.60 cm < 4.0 cm LA: 3.80 cm 2.0 - 4.0cm %FS: 20.00 cm >25 % LA volume: 95 Mitral Valve Peak E:1.27 m/sec Peak E' Lat Jignesh:7.9 cm/s Peak E' Med Jignesh:5.36 cm/s E/E' Lat Ratio:16.1 E/E' Med Ratio:23.7 Aortic Valve AI pressure Half-time: 282.00 msec Tricuspid Valve TV Regurg Peak Grad: 38.00mmHg TV Regurg Peak Jignesh: 3.07m/sec Updated by Kelly Wright on 10/12/2016 3:34:46 PM electronically signed on 10/12/2016 3:37:30 PM with status of Final Wall Motion Felder: 1=Normal, 2=Hypokinesis, 3=Akinesis, 4=Dyskinesis, 5=Aneurysmal, 6=Hyperkinetic, X=Not Visualized (Blank)=Missing
--- NOTE | 2016-10-12 17:14 | Internal Med Progress Note ---
Date of Encounter: 10/12/16 Time of Encounter: 09:45 - Assessment and plan (1) CHF exacerbation Current Visit: Yes Status: Acute Assessment and plan: Patient has evidence of significant volume overload. Echocardiogram shows LV ejection fraction of 20%. Patient was seen by cardiology team and treatments to continue diuresis with intravenous Lasix. Her chronic kidney disease is also possibly contributing to her volume overload. I have discussed with the patient about nephrology consultation, and the patient is willing to discuss treatment options including hemodialysis. I have discussed with the Dr Sarmiento Qualifiers: Congestive heart failure type: systolic Qualified Code(s): I50.23 - Acute on chronic systolic (congestive) heart failure (2) Supratherapeutic INR Current Visit: Yes Status: Acute Assessment and plan: Hold warfarin for now. Monitor INR. Pharmacy to dose adjust warfarin based on INR. (3) Atrial fibrillation Current Visit: Yes Status: Chronic Assessment and plan: Rate is reasonably controlled. Continue metoprolol. Clinical Practice Consultant is consulted Qualifiers: Atrial fibrillation type: unspecified Qualified Code(s): I48.91 - Unspecified atrial fibrillation (4) CKD (chronic kidney disease) stage 4, GFR 15-29 ml/min Current Visit: Yes Status: Chronic Assessment and plan: Chronic kidney disease possibly contribute to volume overload in addition to systolic congestive heart failure. Nephrology consultation with Dr. Sarmiento (5) DM type 2 (diabetes mellitus, type 2) Current Visit: Yes Status: Chronic Assessment and plan: Blood sugars are well controlled. Diabetes diet. Monitor Accu-Cheks. Qualifiers: Diabetes mellitus complication status: with kidney complications Diabetes mellitus complication detail: with chronic kidney disease Diabetes mellitus terminal system operator insulin use: without terminal system operator use Chronic kidney disease stage: stage 4 (severe) Qualified Code(s): E11.22 - Type 2 diabetes mellitus with diabetic chronic kidney disease; N18.4 - Chronic kidney disease, stage 4 (severe ) (6) Hypothyroidism Current Visit: Yes Status: Chronic Assessment and plan: Continue Synthroid. TSH is normal. Qualifiers: Hypothyroidism type: unspecified Qualified Code(s): E03.9 - Hypothyroidism , unspecified (7) Acute and chronic respiratory failure with hypoxia Current Visit: Yes Status: Acute Assessment and plan: Possibly contributed with pulmonary edema. Continue supplemental oxygen / BiPAP - Subjective Interval history: Pt is seen and examined at the bedside and chart reviewed. Pt reports feeling a little better today. Denies significant pain, nausea, vomiting, fever, chills. I have discussed with the patient and the daughter at the bedside regarding her chronic renal disease. They are open to discuss with the tire mold engraver Dr. Persaud, regarding treatment options including hemodialysis. - Constitutional Vitals: Temp Pulse Resp BP Pulse Ox 97.5 F L 109 16 146/90 99 10/12/16 15:39 10/12/16 15:39 10/12/16 15:39 10/12/16 15:39 10/12/16 15:39 Exam: General: Not in acute distress at the time of my evaluation Lungs: Clear to auscultation Cardiac: Irregular rhythm. Systolic murmur Abdomen: Soft, non tender. Bowel sounds present Neurological: Alert and oriented. No gross localizing deficits Psych: Not agrressive or agitated Extremities: Bilateral lower extremity edema present Skin: No generalized rash Internal Medicine: Result - Labs CBC & Chem 7: 10/12/16 06:51 10/12/16 06:51 Labs: Short CBC 10/12/16 Range/Units 06:51 WBC 8.1 (4.3-11.1) K/mcL Hgb 12.9 (11.5-15.4) g/dL Hct 39.9 (35.3-44.9) % Plt Count 137 L (140-400) K/mcL Neutrophils # 5.1 (1.6-8.9) K/mcL BMP 10/12/16 06:51 Sodium 145 Potassium 3.7 Chloride 98 Carbon Dioxide 35 H BUN 35 H Creatinine 2.42 H Glucose 123 H Calcium 9.4 Liver Function 10/12/16 Range/Units 06:51 Total Bilirubin 0.8 (0.2-1.2) mg/dL AST 29 (5-34) Units/L ALT 23 (0-55) Units/L Alkaline Phosphatase 57 (38-126) Units/L Albumin 3.3 L (3.5-5.0) g/dL - ABG Interpretation ABG results: PT/INR, D-dimer PT 39.6 Seconds (9.4-12.1) H 10/12/16 06:51 - Impressions ITS Impressions Chest X-Ray 10/11/16 13:12 IMPRESSION: CHF with moderate pulmonary edema that has increased from prior exam. D/ / Morris Delgado MD / Morris Delgado MD Interpreting Provider: Morris Delgado MD - VTE Documentation of Mechanical Device: Intermittent pneumatic compression device Consult Discharge Plan - Plan Referrals: NO,PCP [Primary Care Provider] -
[2016-10-12] MEDS ORDERED: Warfarin perPT PO PRN (18:00)
[2016-10-12] MEDS: traZODone 50 MG TABLET PO SCH (20:10)
[2016-10-12] MEDS: *HR* LORazepam 1 MG TABLET PO SCH (20:10)
[2016-10-12] MEDS: Ascorbic Acid 500 MG TABLET PO SCH (20:10)
[2016-10-13 06:02] LABS: Hemoglobin 13.1 g/dL (11.5-15.4); Mean Corpuscular Volume 97.2 fL (83.0-100.0); Mean Platelet Volume 10.9 fL (9.4-12.4); Platelet Count 137 K/mcL (140-400); Red Blood Count 4.22 M/mcL (3.82-4.97); Red Cell Distribution Width 14.4 % (11.5-14.5)
[2016-10-13 06:04] LABS: INR 2.7; Prothrombin Time 29.7 Seconds (9.4-12.1)
[2016-10-13 06:23] LABS: Calcium 9.2 mg/dL (8.6-10.8); Potassium 3.4 mEq/L (3.5-4.5)
[2016-10-13] MEDS: [UNRECOGNIZED DRUG - OTHER] PO SCH (08:35)
[2016-10-13] MEDS: BORON PO SCH (08:35)
[2016-10-13] MEDS: MSM PO SCH (08:35)
[2016-10-13] MEDS: GLUC PO SCH (08:35)
--- NOTE | 2016-10-13 09:43 | Palliative Progress Note ---
Date of Encounter: 10/13/16 Time of Encounter: 09:40 - Assessment and plan (1) Dyspnea Current Visit: Yes Status: Acute Assessment and plan: Improved from admission, still with significant edema. Echo results noted - EF 20%. Patient deciding on heart cath. Qualifiers: Dyspnea type: unspecified Qualified Code(s): R06.00 - Dyspnea, unspecified (2) Counseling regarding advanced care planning and goals of care Current Visit: Yes Status: Acute Assessment and plan: Will continue to follow closely. She is aware heart cath may lead to dialysis - is discussing with daughter DARREL Etienne. I discussed that FADIA will have to most likely work on another discharge plan if dialysis is initiated as she is enrolled in [facility] for renal disease. (3) CKD (chronic kidney disease) stage 4, GFR 15-29 ml/min Current Visit: Yes Status: Chronic (4) Atrial fibrillation Current Visit: Yes Status: Chronic Qualifiers: Atrial fibrillation type: unspecified Qualified Code(s): I48.91 - Unspecified atrial fibrillation (5) CHF (congestive heart failure) Current Visit: Yes Status: Acute Qualifiers: Congestive heart failure type: combined Congestive heart failure chronicity : acute on chronic Qualified Code(s): I50.43 - Acute on chronic combined systolic (congestive) and diastolic (congestive) heart failure - Time Spent With Patient Total time spent is greater than 50% in coordination of care (as documented) at patient's floor/unit and/or counseling patient: 25 - 35 minutes - Subjective Interval history: Patient in bathroom - assisted back to chair. States breathing better, however does not think edema has improved. 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 Awaiting daughters arrival to assist pt with decision making. Denies pain. + small BM this am - Constitutional Vitals: Abnormal lab results Plt Count 137 K/mcL (140-400) L 10/13/16 05:40 PT 29.7 Seconds (9.4-12.1) H 10/13/16 05:40 APTT 37.7 Seconds (26.0-36.0) H 10/12/16 06:51 Potassium 3.4 mEq/L (3.5-4.5) L 10/13/16 05:40 Carbon Dioxide 34 mEq/L (19-29) H 10/13/16 05:40 BUN 35 mg/dL (7-20) H 10/13/16 05:40 Creatinine 2.41 mg/dL (0.57-1.11) H 10/13/16 05:40 Est GFR ( Amer) 23 (> 60) L 10/13/16 05:40 Est GFR (Non-Af Amer) 19 (> 60) L 10/13/16 05:40 Glucose 140 mg/dL (70-99) H 10/13/16 05:40 Calculated Osmolality 308 (280-300) H 10/13/16 05:40 Troponin I 0.05 ng/mL (0-0.03) H* 10/11/16 14:38 B-Natriuretic Peptide 1475 pg/mL (0-100) H 10/11/16 14:38 Albumin 3.3 g/dL (3.5-5.0) L 10/12/16 06:51 General appearance: Present: no acute distress - Respiratory Respiratory exam: Present: decreased breath sounds, CTAB - Cardiovascular Cardiovascular exam: Present: irregular rhythm - GI/Abdominal GI/Abdominal exam: Present: distended, normal bowel sounds, soft - Additional comments: Powers with clear yellow urine - Neurological Exam Neurological exam: Present: alert, oriented X3, strengths equal and symetr throughout - Skin Skin exam: Present: dry, warm Palliative Quality Palliative Quality: Screen for Code Status: Yes, Screen for Goals of Care: Yes, Screen for Pain: Yes, If Pain Regimen Started, Initiate Bowel Regimen: NA, Screen for Nausea/Vomitting: Yes - Labs CBC & Chem 7: 10/13/16 05:40 10/13/16 05:40 Labs: Laboratory Results - last 24 hr 10/13/16 10/13/16 10/13/16 05:40 05:40 05:40 WBC 7.8 RBC 4.22 Hgb 13.1 Hct 41.0 MCV 97.2 MCH 31.0 MCHC 32.0 RDW 14.4 Plt Count 137 L MPV 10.9 PT 29.7 H INR 2.7 Sodium 144 Potassium 3.4 L Chloride 99 Carbon Dioxide 34 H BUN 35 H Creatinine 2.41 H Est GFR ( Amer) 23 L Est GFR (Non-Af Amer) 19 L BUN/Creatinine Ratio 15 Glucose 140 H Calculated Osmolality 308 H Calcium 9.2 - ABG Interpretation ABG results: PT/INR, D-dimer PT 29.7 Seconds (9.4-12.1) H 10/13/16 05:40 Consult Discharge Plan - Plan Referrals: NO,PCP [Primary Care Provider] -
[2016-10-13] MEDS: Bumetanide 1 MG/4 ML VIAL IVP SCH ×2 (09:50→17:44)
--- NOTE | 2016-10-13 11:20 | Cardiology Progress Note ---
Date of Encounter: 10/13/16 Time of Encounter: 11:17 Assessment and Plan (1) Cardiomyopathy Current Visit: Yes Status: Acute EF previously 60% in 2014. Echo yesterday shows EF is 20%--global LV systolic dysfunction with mild basal and mid inferior wall hypokinesis. No evidence of LV thrombus. Normal RV size and mild-moderate reduction in function. Mild AR, moderate MR, TR appears moderate if not severe in some views. Mild-moderate phtn. Trivial pericardial effusion, pleural effusion noted. No known hx of CAD--no prior LHC. Given new low EF, recommend LHC to evaluate ischemic cause. However, it is likely that would develop contrast induced nephropathy, necessitating dialysis given her stage 4 CKD. This was discussed in detail with pt and family. All R/B/ A discussed, including option of medical management and no LHC. 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 Current INR 2.7--hold Coumadin. LHC when INR is in acceptable range. Continue BB, but switch to long acting. No KAYLA-I due to renal function. Qualifiers: Cardiomyopathy type: unspecified Qualified Code(s): I42.9 - Cardiomyopathy , unspecified (2) CHF exacerbation Current Visit: Yes Status: Acute BNP elevated at 1475. Chest x-ray shows moderate pulmonary edema. On IV Bumex 1 mg twice a day. I/O -180mL yesterday, -90mL today, not having success with diuresis at this point--complicated by stage 4 CKD/lack of output. Continue with strict I&O, daily weights, fluid restriction. Education reinforced regarding low sodium diet and fluid restriction at home. Echo in 2013 showed EF preserved 60%, no segmental wall motion abnormalities. Echo yesterday EF now 20%-global with mild basal and mid inferior wall hypokinesis. Plan as above. Discussed in detail with pt and family regarding LHC vs. medical management. They are aware that she will likely require dialysis if they proceed with LHC. LHC once INR is in acceptable range. Holding Coumadin. Qualifiers: Congestive heart failure type: systolic Qualified Code(s): I50.23 - Acute on chronic systolic (congestive) heart failure (3) Atrial fibrillation Current Visit: Yes Status: Chronic Per Cardiology: Lopressor increased yesterday to 100mg BID. 12 hour tele AVG HR 101. Will continue to monitor and adjust meds as necessary. Switch to long acting BB in AM. Qualifiers: Atrial fibrillation type: unspecified Qualified Code(s): I48.91 - Unspecified atrial fibrillation (4) CKD (chronic kidney disease) stage 4, GFR 15-29 ml/min Current Visit: Yes Status: Chronic Per Cardiology: History of CKD stage IV. Kidney function currently around baseline. Patient agreeable to hemodialysis if necessary. Nephrology following. Discussion w patient/family: The assessment and plan as outlined above was discussed with the patient and/or family members who expressed understanding and agreement. All questions were answered. Thank you for involving us in the care of your patient. Please call with any questions. I will discuss all the above with Dr. Torres and make changes as necessary. Subjective Principal diagnosis: CMP, CHF Interval history: Pt denies any acute complaints this AM. Reports breathing has improved, but not much improvement in lower extremity edema. Echo resulted--EF has declined from 60% in 2013 to current 20%--global with mild basal and mid inferior wall hypokinesis. Objective Vital Signs, Last 4 Hours Temp Pulse Resp BP Pulse Ox 10/13/16 10:40 98.2 F 109 17 134/89 98 Vital Signs Temp Pulse Resp BP Pulse Ox 10/13/16 10:40 98.2 F 109 17 134/89 98 10/13/16 06:38 98.4 F 103 19 144/63 93 L 10/13/16 05:36 97.9 F 108 17 135/93 99 10/13/16 01:29 97.8 F 107 18 145/89 98 10/12/16 20:10 100 10/12/16 19:54 98.1 F 116 19 146/92 100 10/12/16 15:39 97.5 F L 109 16 146/90 99 10/12/16 11:40 97.3 F L 100 14 132/83 96 Intake and Output 10/12/16 10/13/16 10/13/16 23:59 07:59 15:59 Intake Total 420 / 420 240 / 240 120 / 120 Output Total 450 / 450 Balance 420 / 420 -210 / -210 120 / 120 Intake: Oral 420 / 420 240 / 240 120 / 120 Output: Catheter 450 / 450 Other: Meal Dinner Breakfast Percent of Meal Consumed 30% 10% Weight 86.228 kg Patient Weight 10/13/16 23:59 Weight 86.228 kg General: Conversant, No Apparent Distress HEENT: Atraumatic, Normocephaly, Mucus Membranes Moist Neck: No JVD, Normal carotid pulses Cardiac: Other (irregularly irregular) Lungs: Other (diminished) Neuro: Alert and responsive, No focal deficits noted Abdomen: Soft, Non-Tender Skin: No rashes noted on visualized skin Musculoskeletal: No Chest Wall Tenderness Extremities: Other (2-3+ BLE edema up to thighs) Results 10/13/16 05:40 10/13/16 05:40 Lab Results 10/13/16 10/13/16 10/13/16 05:40 05:40 05:40 WBC 7.8 Hgb 13.1 Hct 41.0 Plt Count 137 L INR 2.7 Sodium 144 Potassium 3.4 L Chloride 99 Carbon Dioxide 34 H BUN 35 H Creatinine 2.41 H Glucose 140 H Calcium 9.2 Short CBC 10/13/16 Range/Units 05:40 WBC 7.8 (4.3-11.1) K/mcL Hgb 13.1 (11.5-15.4) g/dL Hct 41.0 (35.3-44.9) % Plt Count 137 L (140-400) K/mcL BMP 10/13/16 Range/Units 05:40 Sodium 144 (136-145) mEq/L Potassium 3.4 L (3.5-4.5) mEq/L Chloride 99 (98-109) mEq/L Carbon Dioxide 34 H (19-29) mEq/L BUN 35 H (7-20) mg/dL Creatinine 2.41 H (0.57-1.11) mg/dL Glucose 140 H (70-99) mg/dL Calcium 9.2 (8.6-10.8) mg/dL Active Medications Ascorbic Acid (Vitamin C) 500 mg PO HS THAIS Stop: 04/12/17 21:01 Last Admin: 10/12/16 20:10 Dose: 500 mg Bumetanide (Bumex) 1 mg IVP BIDDIURETIC THAIS Stop: 04/13/17 11:01 Last Admin: 10/13/16 09:50 Dose: 1 mg Calcitriol (Rocaltrol) 0.25 mcg PO 1200 THAIS Stop: 04/13/17 12:01 Last Admin: 10/12/16 11:57 Dose: 0.25 mcg Ergocalciferol (Drisdol (50,000 Unit)) 50,000 unit PO SA [facility] Stop: 04/16/17 17:02 Potassium Chloride (Potassium Chloride 10 Meq/100ml) 10 meq in 100 mls @ 100 mls/hr IVPB Q1H [facility] Stop: 10/13/16 14:44 Levothyroxine Sodium (Synthroid) 100 mcg PO QAM [facility] Stop: 04/13/17 09:01 Last Admin: 10/13/16 08:35 Dose: 100 mcg Lorazepam (Ativan) 1 mg PO [facility] Stop: 04/12/17 21:01 Last Admin: 10/12/16 20:10 Dose: 1 mg Metoprolol Tartrate (Lopressor) 100 mg PO BID [facility] Stop: 04/12/17 21:01 Last Admin: 10/13/16 08:35 Dose: 100 mg Naloxone HCl (Narcan) 0.4 mg IVP Q2MIN PRN PRN Reason: Opioid Reversal Stop: 04/12/17 17:09 Pharmacy Profile Note (Patient Taking Own Medication) 0 each PO QAM [facility] Stop: 04/13/17 09:01 Last Admin: 10/13/16 08:35 Dose: Not Given Trazodone HCl (Trazodone) 50 mg PO [facility] Stop: 04/12/17 21:01 Last Admin: 10/12/16 20:10 Dose: 50 mg - Imaging and Cardiology Echo: report reviewed (EF 20%, global LV systolic dysfunction with mild basal and mid inferior wall hypokinesis. No evidence of LV thrombus, normal RV size with mild-moderate reduction in function, mild AR, moderate MR, TR appears moderate if not severe in some views. Mild-moderate pulmonary htn, trivial pericardial effusion, pleural effusion noted.) - EKG Interpretation EKG results cardiology: other (12 hour tele AVG HR 102, A-Fib.) - VTE Documentation of Mechanical Device: Intermittent pneumatic compression device Consult Discharge Plan - Plan Referrals: NO,PCP [Primary Care Provider] -
--- NOTE | 2016-10-13 11:33 | Nephrology Progress Note ---
Date of Encounter: 10/13/16 Time of Encounter: 10:10 Subjective Principal diagnosis: CMP, CHF Interval history: Sitting up in bed, daughter at bedside. States she is breathing easier today. Daughter states patient to have LHC today. A/P-Discussed with patient and daughter risk of LHC with potential loss of renal fct requiring dialysis. Both verbalize understanding. Patient has left brachiocephalic AVF +bruit/faint thrill. Cardiology to evaluate CHF is adequately treated prior to procedure. Objective - Vital Signs Vital signs: Vital Signs Temp Pulse Resp BP Pulse Ox 10/13/16 10:40 98.2 F 109 17 134/89 98 10/13/16 06:38 98.4 F 103 19 144/63 93 L 10/13/16 05:36 97.9 F 108 17 135/93 99 10/13/16 01:29 97.8 F 107 18 145/89 98 10/12/16 20:10 100 10/12/16 19:54 98.1 F 116 19 146/92 100 10/12/16 15:39 97.5 F L 109 16 146/90 99 10/12/16 11:40 97.3 F L 100 14 132/83 96 Intake and Output 10/12/16 10/13/16 10/13/16 23:59 07:59 15:59 Intake Total 420 / 420 240 / 240 120 / 120 Output Total 450 / 450 Balance 420 / 420 -210 / -210 120 / 120 Intake: Oral 420 / 420 240 / 240 120 / 120 Output: Catheter 450 / 450 Other: Meal Dinner Breakfast Percent of Meal Consumed 30% 10% Weight 86.228 kg Patient Weight 10/13/16 23:59 Weight 86.228 kg - General Appearance General appearance: Present: frail EENT: Present: mucous membranes moist Neck: Present: no JVD Respiratory: Present: clear Cardiology: Present: irregular rhythm Additional Comments: 1+ pitting pedal and thigh edema. Has compression boots on. Gastrointestinal: Present: normoactive bowel sounds, no tenderness, no guarding Integumentary: Present: warm and dry Neurologic: Present: alert and oriented x3 Psychiatric: Present: mood/affect appropriate, cooperative - Lab 10/13/16 05:40 10/13/16 05:40 Most recent lab results Calcium 9.2 mg/dL (8.6-10.8) 10/13/16 05:40 - VTE Documentation of Mechanical Device: Intermittent pneumatic compression device Consult Discharge Plan - Plan Referrals: NO,PCP [Primary Care Provider] -
--- NOTE | 2016-10-13 20:11 | Internal Med Progress Note ---
Date of Encounter: 10/13/16 Time of Encounter: 13:20 - Assessment and plan (1) CHF exacerbation Current Visit: Yes Status: Acute Assessment and plan: Patient has evidence of significant volume overload. Echocardiogram shows LV ejection fraction of 20%. Pt is now on IV bumetanide. No significant diuresis at this time. Station Attendant recommends left heart catheterization - cardiology and the nephrology teams reportedly discussed at length with the patient and her daughter about the potential worsening renal function necessitating HD. Further management per cardiology team. Qualifiers: Congestive heart failure type: systolic Qualified Code(s): I50.23 - Acute on chronic systolic (congestive) heart failure (2) Supratherapeutic INR Current Visit: Yes Status: Acute Assessment and plan: Warfarin held for possible left heart catheterization. (3) Atrial fibrillation Current Visit: Yes Status: Chronic Assessment and plan: Rate is reasonably controlled. Continue metoprolol. Station Attendant is following the patient Qualifiers: Atrial fibrillation type: unspecified Qualified Code(s): I48.91 - Unspecified atrial fibrillation (4) CKD (chronic kidney disease) stage 4, GFR 15-29 ml/min Current Visit: Yes Status: Chronic Assessment and plan: Chronic kidney disease possibly contribute to volume overload in addition to systolic congestive heart failure. Nephrologis Dr. De La Vega is following the pt (5) DM type 2 (diabetes mellitus, type 2) Current Visit: Yes Status: Chronic Assessment and plan: Blood sugars are well controlled. Diabetes diet. Monitor Accu-Cheks. Qualifiers: Diabetes mellitus complication status: with kidney complications Diabetes mellitus complication detail: with chronic kidney disease Diabetes mellitus ferry terminal supervisor insulin use: without ferry terminal supervisor use Chronic kidney disease stage: stage 4 (severe) Qualified Code(s): E11.22 - Type 2 diabetes mellitus with diabetic chronic kidney disease; N18.4 - Chronic kidney disease, stage 4 (severe ) (6) Hypothyroidism Current Visit: Yes Status: Chronic Assessment and plan: Continue Synthroid. TSH is normal. Qualifiers: Hypothyroidism type: unspecified Qualified Code(s): E03.9 - Hypothyroidism , unspecified (7) Acute and chronic respiratory failure with hypoxia Current Visit: Yes Status: Acute Assessment and plan: Possibly contributed with pulmonary edema. Continue supplemental oxygen - Subjective Interval history: Pt is seen and examined at the bedside and chart reviewed. Pt reports feeling a little better today - shortness of breath and leg swelling improving. Denies significant pain, nausea, vomiting, fever, chills. Pt's daughter is not at the bedside. - Constitutional Vitals: Temp Pulse Resp BP Pulse Ox 97.6 F 111 18 128/100 99 10/13/16 16:04 10/13/16 16:04 10/13/16 16:04 10/13/16 16:04 10/13/16 16:04 Exam: General: Not in acute distress at the time of my evaluation Lungs: Bilateral basal crackles present Cardiac: Regular rate and rhythm. No significant murmurs Abdomen: Soft, non tender. Bowel sounds present Neurological: Alert and oriented. No gross localizing deficits Psych: Not agrressive or agitated Extremities: Bilateral lower extremity edema Skin: No generalized rash Internal Medicine: Result - Labs CBC & Chem 7: 10/13/16 05:40 10/13/16 05:40 Labs: Short CBC 10/13/16 Range/Units 05:40 WBC 7.8 (4.3-11.1) K/mcL Hgb 13.1 (11.5-15.4) g/dL Hct 41.0 (35.3-44.9) % Plt Count 137 L (140-400) K/mcL BMP 10/13/16 05:40 Sodium 144 Potassium 3.4 L Chloride 99 Carbon Dioxide 34 H BUN 35 H Creatinine 2.41 H Glucose 140 H Calcium 9.2 - ABG Interpretation ABG results: PT/INR, D-dimer PT 29.7 Seconds (9.4-12.1) H 10/13/16 05:40 - VTE Documentation of Mechanical Device: Intermittent pneumatic compression device Consult Discharge Plan - Plan Referrals: NO,PCP [Primary Care Provider] -
[2016-10-13] MEDS: Ascorbic Acid 500 MG TABLET PO SCH (20:56)
[2016-10-13] MEDS: *HR* LORazepam 1 MG TABLET PO SCH (20:56)
[2016-10-13] MEDS: traZODone 50 MG TABLET PO SCH (20:57)
[2016-10-14 04:36] LABS: Hematocrit 37.6 % (35.3-44.9); Mean Corpuscular HGB Conc 31.9 g/dL (31.6-35.5); Mean Corpuscular Hemoglobin 31.3 pg (28.0-33.3); Mean Corpuscular Volume 97.9 fL (83.0-100.0); Mean Platelet Volume 10.6 fL (9.4-12.4); Platelet Count 121 K/mcL (140-400); Red Blood Count 3.84 M/mcL (3.82-4.97); Red Cell Distribution Width 14.4 % (11.5-14.5)
[2016-10-14 04:55] LABS: Calcium 9.2 mg/dL (8.6-10.8); Potassium 3.8 mEq/L (3.5-4.5)
[2016-10-14 05:03] LABS: INR 2.4; Prothrombin Time 26.9 Seconds (9.4-12.1)
[2016-10-14] MEDS: BORON PO SCH (07:44)
[2016-10-14] MEDS: GLUC PO SCH (07:44)
[2016-10-14] MEDS: [UNRECOGNIZED DRUG - OTHER] PO SCH (07:44)
[2016-10-14] MEDS: MSM PO SCH (07:44)
--- NOTE | 2016-10-14 08:26 | Nephrology Progress Note ---
Date of Encounter: 10/14/16 Time of Encounter: 08:23 - Assessment and Plan (1) CKD (chronic kidney disease) stage 4, GFR 15-29 ml/min Current Visit: Yes Status: Chronic The patient has late stage XLII early stage V chronic kidney disease. Renal function is relatively stable. She continues to have signs and symptoms of acute systolic congestive heart failure. Urine output appears to be somewhat marginal. She still has a great deal of edema. I'm going to add Zaroxolyn to her medical regimen. (2) Systolic CHF, acute Current Visit: Yes Status: Acute (3) Atrial fibrillation Current Visit: Yes Status: Chronic Qualifiers: Atrial fibrillation type: unspecified Qualified Code(s): I48.91 - Unspecified atrial fibrillation Subjective Principal diagnosis: CMP, CHF Interval history: Patient reports that her breathing is better. Urine output is recorded is only 450 mL. She has continued lower extremity swelling. She has not lost any weight according to the nursing notes. She continues on Bumex 1 mg twice a day. She is going to eventually have a cardiac catheterization because of a new reduction in her left ventricular ejection fraction. Renal function remains relatively stable. Objective - Vital Signs Vital signs: Vital Signs Temp Pulse Resp BP Pulse Ox 10/14/16 07:28 97.4 F L 110 18 139/94 99 10/14/16 04:30 97.9 F 109 16 132/85 98 10/13/16 23:35 97.8 F 112 18 133/82 97 10/13/16 20:52 98 10/13/16 20:07 97.7 F 119 18 138/77 98 10/13/16 16:04 97.6 F 111 18 128/100 99 10/13/16 10:40 98.2 F 109 17 134/89 98 Intake and Output 10/13/16 10/14/16 10/14/16 23:59 07:59 15:59 Intake Total 150 / 150 Balance 150 / 150 Intake: Oral 150 / 150 Other: Weight 87.55 kg Patient Weight 10/14/16 23:59 Weight 87.55 kg - General Appearance Exam: Patient is alert. She is in no acute distress. Lungs diminished breath sounds. Heart irregular rate and rhythm. Abdomen is benign. There is 2+ lower extremity swelling up to the patient's knees and up to the thigh slightly. There is a functioning AV fistula in the left arm. - Lab 10/14/16 04:22 10/14/16 04:22 Most recent lab results Calcium 9.2 mg/dL (8.6-10.8) 10/14/16 04:22 - VTE Documentation of Mechanical Device: Intermittent pneumatic compression device Consult Discharge Plan - Plan Referrals: NO,PCP [Primary Care Provider] -
[2016-10-14] MEDS: Metoprolol XL (24 HR) Succ 50 MG TAB.ER.24H PO SCH (08:58)
[2016-10-14] MEDS: Bumetanide 1 MG/4 ML VIAL IVP SCH ×2 (08:58→17:01)
[2016-10-14] MEDS: metOLazone 5 MG TABLET PO SCH (09:02)
--- NOTE | 2016-10-14 09:12 | Cardiology Progress Note ---
Date of Encounter: 10/14/16 Time of Encounter: 09:09 Assessment and Plan (1) Cardiomyopathy Current Visit: Yes Status: Acute EF previously 60% in 2014. Echo shows EF is 20%--global LV systolic dysfunction with mild basal and mid inferior wall hypokinesis. No evidence of LV thrombus. Normal RV size and mild-moderate reduction in function. Mild AR, moderate MR, TR appears moderate if not severe in some views. Mild-moderate phtn. Trivial pericardial effusion, pleural effusion noted. No known hx of CAD--no prior LHC. Given new low EF, recommend LHC to evaluate ischemic cause. However, it is likely that would develop contrast induced nephropathy, necessitating dialysis given her stage 4 CKD. This was discussed in detail with pt and family. All R/B/ A discussed, including option of medical management and no LHC. Pt is agreeable to proceed with LHC and is aware it may cause her to go on dialysis group home. Current INR 2.4--holding Coumadin. LHC when INR is in acceptable range. Continue BB. No KAYLA-I due to renal function. Qualifiers: Cardiomyopathy type: unspecified Qualified Code(s): I42.9 - Cardiomyopathy , unspecified (2) CHF exacerbation Current Visit: Yes Status: Acute BNP elevated at 1475. Chest x-ray shows moderate pulmonary edema. On IV Bumex 1 mg twice a day. I/O positive +360mL yesterday, not having success with diuresis at this point--complicated by stage 4 CKD/lack of output. Zaroxolyn started by Dr. Sarmiento to improve diuresis. Continue with strict I&O, daily weights, fluid restriction. Education reinforced regarding low sodium diet and fluid restriction at home. Echo in 2013 showed EF preserved 60%, no segmental wall motion abnormalities. Echo currently EF now 20%-global with mild basal and mid inferior wall hypokinesis. Plan as above. Discussed in detail with pt and family regarding LHC vs. medical management. They are aware that she will likely require dialysis if they proceed with LHC. LHC once INR is in acceptable range. Holding Coumadin. Qualifiers: Congestive heart failure type: systolic Qualified Code(s): I50.23 - Acute on chronic systolic (congestive) heart failure (3) Atrial fibrillation Current Visit: Yes Status: Chronic Per Cardiology: BB switched to long acting this AM--Toprol XL 200mg daily. 12 hour tele AVG HR 106. Anticoagulated on Coumadin, but on hold to have LHC. INR still therapeutic 2.4. Consider starting heparin gtt when <2.0 for CVA prevention with her A-Fib. Discussed with Dr. Torres. Will add Digoxin (renal dosing) 125mcg QOD for better rate control. Continue to monitor. Qualifiers: Atrial fibrillation type: unspecified Qualified Code(s): I48.91 - Unspecified atrial fibrillation (4) CKD (chronic kidney disease) stage 4, GFR 15-29 ml/min Current Visit: Yes Status: Chronic Management per nephrology. The patient has late stage XLII early stage V chronic kidney disease. Renal function is relatively stable. Discussion w patient/family: The assessment and plan as outlined above was discussed with the patient and/or family members who expressed understanding and agreement. All questions were answered. Thank you for involving us in the care of your patient. Please call with any questions. I will discuss all the above with Dr. Torres and make changes as necessary. Subjective Principal diagnosis: CMP, CHF Interval history: Pt denies any acute complaints this AM--sleeping but responsive. Echo--EF has declined from 60% in 2014 to current 20%--global with mild basal and mid inferior wall hypokinesis. Objective Vital Signs, Last 4 Hours Temp Pulse Resp BP Pulse Ox 10/14/16 07:28 97.4 F L 110 18 139/94 99 Vital Signs Temp Pulse Resp BP Pulse Ox 10/14/16 07:28 97.4 F L 110 18 139/94 99 10/14/16 04:30 97.9 F 109 16 132/85 98 10/13/16 23:35 97.8 F 112 18 133/82 97 10/13/16 20:52 98 10/13/16 20:07 97.7 F 119 18 138/77 98 10/13/16 16:04 97.6 F 111 18 128/100 99 10/13/16 10:40 98.2 F 109 17 134/89 98 Intake and Output 10/13/16 10/14/16 10/14/16 23:59 07:59 15:59 Intake Total 150 / 150 Balance 150 / 150 Intake: Oral 150 / 150 Other: Weight 87.55 kg Patient Weight 10/14/16 23:59 Weight 87.55 kg General: Conversant, No Apparent Distress HEENT: Atraumatic, Normocephaly, Mucus Membranes Moist Neck: Normal carotid pulses Cardiac: Other (irregularly irregular) Lungs: Other (diminished) Neuro: Alert and responsive, No focal deficits noted Abdomen: Soft, Non-Tender Skin: No rashes noted on visualized skin Musculoskeletal: No Chest Wall Tenderness Extremities: Other (2-3+ BLE edema extending to thighs. ) Results 10/14/16 04:22 10/14/16 04:22 Lab Results 10/14/16 10/14/16 10/14/16 04:22 04:22 04:22 WBC 8.2 Hgb 12.0 Hct 37.6 Plt Count 121 L INR 2.4 Sodium 144 Potassium 3.8 Chloride 98 Carbon Dioxide 38 H BUN 36 H Creatinine 2.56 H Glucose 113 H Calcium 9.2 Short CBC 10/14/16 Range/Units 04:22 WBC 8.2 (4.3-11.1) K/mcL Hgb 12.0 (11.5-15.4) g/dL Hct 37.6 (35.3-44.9) % Plt Count 121 L (140-400) K/mcL BMP 10/14/16 Range/Units 04:22 Sodium 144 (136-145) mEq/L Potassium 3.8 (3.5-4.5) mEq/L Chloride 98 (98-109) mEq/L Carbon Dioxide 38 H (19-29) mEq/L BUN 36 H (7-20) mg/dL Creatinine 2.56 H (0.57-1.11) mg/dL Glucose 113 H (70-99) mg/dL Calcium 9.2 (8.6-10.8) mg/dL Active Medications Ascorbic Acid (Vitamin C) 500 mg PO HS THAIS Stop: 04/12/17 21:01 Last Admin: 10/13/16 20:56 Dose: 500 mg Bumetanide (Bumex) 1 mg IVP BIDDIURETIC THAIS Stop: 04/13/17 11:01 Last Admin: 10/14/16 08:58 Dose: 1 mg Calcitriol (Rocaltrol) 0.25 mcg PO 1200 THAIS Stop: 04/13/17 12:01 Last Admin: 10/13/16 12:22 Dose: 0.25 mcg Ergocalciferol (Drisdol (50,000 Unit)) 50,000 unit PO SA [facility] Stop: 04/16/17 17:02 Levothyroxine Sodium (Synthroid) 100 mcg PO QAM [facility] Stop: 04/13/17 09:01 Last Admin: 10/14/16 08:58 Dose: 100 mcg Lorazepam (Ativan) 1 mg PO HS [facility] Stop: 04/12/17 21:01 Last Admin: 10/13/16 20:56 Dose: 1 mg Metolazone (Zaroxolyn) 5 mg PO DAILY [facility] Stop: 04/15/17 09:01 Last Admin: 10/14/16 09:02 Dose: 5 mg Metoprolol Succinate (Toprol Xl) 200 mg PO DAILY [facility] Stop: 04/15/17 09:01 Last Admin: 10/14/16 08:58 Dose: 200 mg Naloxone HCl (Narcan) 0.4 mg IVP Q2MIN PRN PRN Reason: Opioid Reversal Stop: 04/12/17 17:09 Pharmacy Profile Note (Patient Taking Own Medication) [facility] [place]: 04/13/17 09:01 Last Admin: 10/14/16 07:44 Dose: Not Given Trazodone HCl (Trazodone) 50 mg PO HS [facility] Stop: 04/12/17 21:01 Last Admin: 10/13/16 20:57 Dose: 50 mg - Imaging and Cardiology Echo: report reviewed - EKG Interpretation EKG results cardiology: other (12 hour tele AVG HR 106, A-Fib.) - VTE Documentation of Mechanical Device: Intermittent pneumatic compression device Consult Discharge Plan - Plan Referrals: NO,PCP [Primary Care Provider] -
[2016-10-14] MEDS: *HR* Digoxin 0.125 MG TABLET PO SCH (10:39)
--- NOTE | 2016-10-14 11:03 | Event Note ---
Date of Encounter: 10/14/16 Time of Encounter: 11:00 Patient awake in bed, daughter at bedside. Nephrology and Cardiology notes reviewed. Patient with no current complaints other than discomfort from catheter. INR still 2.4 so heart cath will not be done today. Palliative following from distance at this point. Will f/u on clinical status Monday.
--- NOTE | 2016-10-14 12:30 | Event Note ---
Date of Encounter: 10/14/16 Time of Encounter: 12:30 - Cardiology Event Note Discussed with Dr. Torres, who is osteologist over the weekend. Possible LHC this weekend if INR trends down to acceptable range of 1.8 or less. NPO after midnight and will re-evaluate in AM.
--- NOTE | 2016-10-14 13:22 | Internal Med Progress Note ---
Date of Encounter: 10/14/16 Time of Encounter: 11:00 - Assessment and plan (1) CHF exacerbation Current Visit: Yes Status: Acute Assessment and plan: Patient has evidence of significant volume overload. Echocardiogram shows LV ejection fraction of 20%. Pt is now on IV bumetanide and metolazone. No significant diuresis at this time. Jewel Bearing Driller recommends left heart catheterization - cardiology and the nephrology teams reportedly discussed at length with the patient and her daughter about the potential worsening renal function necessitating HD. Further management per cardiology team. Can discontinue gould catheter Qualifiers: Congestive heart failure type: systolic Qualified Code(s): I50.23 - Acute on chronic systolic (congestive) heart failure (2) Supratherapeutic INR Current Visit: Yes Status: Resolved Assessment and plan: Warfarin held for possible left heart catheterization. (3) Atrial fibrillation Current Visit: Yes Status: Chronic Assessment and plan: Rate is reasonably controlled. Continue metoprolol. Jewel Bearing Driller is following the patient Qualifiers: Atrial fibrillation type: unspecified Qualified Code(s): I48.91 - Unspecified atrial fibrillation (4) CKD (chronic kidney disease) stage 4, GFR 15-29 ml/min Current Visit: Yes Status: Chronic Assessment and plan: Chronic kidney disease possibly contribute to volume overload in addition to systolic congestive heart failure. Nephrologis Dr. De La Vega is following the pt (5) DM type 2 (diabetes mellitus, type 2) Current Visit: Yes Status: Chronic Assessment and plan: Blood sugars are well controlled. Diabetes diet. Monitor Accu-Cheks. Qualifiers: Diabetes mellitus complication status: with kidney complications Diabetes mellitus complication detail: with chronic kidney disease Diabetes mellitus lens maker insulin use: without fci use Chronic kidney disease stage: stage 4 (severe) Qualified Code(s): E11.22 - Type 2 diabetes mellitus with diabetic chronic kidney disease; N18.4 - Chronic kidney disease, stage 4 (severe ) (6) Hypothyroidism Current Visit: Yes Status: Chronic Assessment and plan: Continue Synthroid. TSH is normal. Qualifiers: Hypothyroidism type: unspecified Qualified Code(s): E03.9 - Hypothyroidism , unspecified (7) Acute and chronic respiratory failure with hypoxia Current Visit: Yes Status: Acute Assessment and plan: Possibly contributed with pulmonary edema. Continue supplemental oxygen - Subjective Interval history: Pt is seen and examined at the bedside and chart reviewed. Pt reports feeling well today - shortness of breath and leg swelling improving. Denies significant pain, nausea, vomiting, fever, chills. She reports discomfort with Gould catheter and is requesting to remove. Pt's daughter is not at the bedside. - Constitutional Vitals: Temp Pulse Resp BP Pulse Ox 97.5 F L 110 18 136/72 99 10/14/16 11:10 10/14/16 11:10 10/14/16 11:10 10/14/16 11:10 10/14/16 11:10 Exam: General: Not in acute distress at the time of my evaluation Lungs: Occasional bibasilar crackles Cardiac: Irregular rhythm Abdomen: Soft, non tender. Bowel sounds present Neurological: Alert and oriented. No gross localizing deficits Psych: Not agrressive or agitated Extremities: Bilateral lower extremity edema Skin: No generalized rash Internal Medicine: Result - Labs CBC & Chem 7: 10/14/16 04:22 10/14/16 04:22 Labs: Short CBC 10/14/16 Range/Units 04:22 WBC 8.2 (4.3-11.1) K/mcL Hgb 12.0 (11.5-15.4) g/dL Hct 37.6 (35.3-44.9) % Plt Count 121 L (140-400) K/mcL [facility] 10/14/16 04:22 Sodium 144 Potassium 3.8 Chloride 98 Carbon Dioxide 38 H BUN 36 H Creatinine 2.56 H Glucose 113 H Calcium 9.2 - ABG Interpretation ABG results: PT/INR, D-dimer PT 26.9 Seconds (9.4-12.1) H 10/14/16 04:22 - VTE Documentation of Mechanical Device: Intermittent pneumatic compression device Consult Discharge Plan - Plan Referrals: NO,PCP [Primary Care Provider] -
[2016-10-14 15:30] LABS: Bilirubin,Urine Negative (Negative); Blood,Urine Large (Negative); Clarity,Urine Cloudy (Clear); Color,Urine Yellow (Yellow); Glucose,Urine (UA) Normal (Normal); Ketones,Urine Negative (Negative); Leukocyte Esterase,Urine Small (Negative); Nitrite,Urine Negative (Negative); Protein,Urine 100 mg/dL (Neg-Trace); Urobilinogen,Urine Normal (Normal)
[2016-10-14 15:31] LABS: Bacteria,Urine Moderate per hpf (None-Few); Hyaline Casts,Urine None Seen per lpf (None-Few); RBC,Urine TNTC per hpf (0-3); Squamous Epithelial Cell,Urine Moderate per lpf (None-Few); WBC,Urine 50-100 per hpf (0-3)
[2016-10-14] MEDS: Ascorbic Acid 500 MG TABLET PO SCH (20:21)
[2016-10-14] MEDS: *HR* LORazepam 1 MG TABLET PO SCH (20:21)
[2016-10-14] MEDS: traZODone 50 MG TABLET PO SCH (20:22)
[2016-10-15 07:26] LABS: Albumin 3.1 g/dL (3.5-5.0); Albumin/Globulin Ratio 1.1 (1.1-2.2); Calcium 9.6 mg/dL (8.6-10.8); Globulin 2.7 g/dL (2.4-3.5); Potassium 3.6 mEq/L (3.5-4.5); Total Protein 5.8 g/dL (6.0-8.3)
[2016-10-15 08:04] LABS: Hemoglobin A1C 6.3 %
[2016-10-15 08:07] LABS: Prothrombin Time 22.1 Seconds (9.4-12.1)
[2016-10-15] MEDS ORDERED: *HR* Phytonadione 5 MG TABLET PO ONE (08:47)
--- NOTE | 2016-10-15 08:50 | Event Note ---
Date of Encounter: 10/15/16 Time of Encounter: 07:00 - Cardiology Event Note Laboratory Tests 10/15/16 10/15/16 06:46 07:58 INR 2.0 Creatinine 2.44 H Est GFR (Non-Af Amer) 19 L Patient resting comfortably sleeping flat this morning. Denies any chest pain. Reports overall short of breath has improved. INR 2.0. Discussed and reviewed with Dr. Torres, will give vitamin K 2.5 mg by mouth 1 now. Repeat INR around 10 AM. Plan for left heart catheterization today. Further recs after catheterization.
--- NOTE | 2016-10-15 09:00 | Nephrology Progress Note ---
Date of Encounter: 10/15/16 Time of Encounter: 08:45 - Assessment and Plan (1) CKD (chronic kidney disease) stage 4, GFR 15-29 ml/min Current Visit: Yes Status: Chronic Renal fct stable. Urine output good. Edema improved. Discussed with patient and daughter risk of LHC with potential loss of renal fct requiring dialysis. Both verbalize understanding. Patient has left brachiocephalic AVF +bruit/faint thrill. Subjective Principal diagnosis: CMP, CHF Interval history: Laying flat in bed on side. Daughter at bedside. States breathing easier and swelling decreased. Daughter states INR improved and may do LHC today. Objective - Vital Signs Vital signs: Vital Signs Temp Pulse Resp BP Pulse Ox 10/15/16 07:57 97.4 F L 94 18 147/85 96 10/15/16 04:42 98.0 F 117 10 142/85 94 L 10/14/16 23:56 97.7 F 102 18 171/99 96 10/14/16 20:37 97.8 F 120 18 153/93 98 10/14/16 15:58 97.7 F 100 18 136/86 96 10/14/16 11:10 97.5 F L 110 18 136/72 99 Intake and Output 10/14/16 10/15/16 10/15/16 23:59 07:59 15:59 Intake Total 360 / 360 Output Total 650 / 650 400 / 400 Balance -290 / -290 -400 / -400 Intake: Oral 360 / 360 Output: Urine 200 / 200 400 / 400 Catheter 450 / 450 Other: Meal Dinner Percent of Meal Consumed 15% - General Appearance General appearance: Present: well-developed, well-nourished, appears started age EENT: Present: mucous membranes moist Neck: Present: no JVD Respiratory: Present: clear Cardiology: Present: regular rate, regular rhythm Additional Comments: Mild -1+ pitting edema LE Gastrointestinal: Present: normoactive bowel sounds, no tenderness Integumentary: Present: warm and dry Psychiatric: Present: mood/affect appropriate, cooperative - Lab 10/14/16 04:22 10/15/16 06:46 Most recent lab results Calcium 9.6 mg/dL (8.6-10.8) 10/15/16 06:46 - VTE Documentation of Mechanical Device: Intermittent pneumatic compression device Consult Discharge Plan - Plan Referrals: NO,PCP [Primary Care Provider] -
[2016-10-15] MEDS: Bumetanide 1 MG/4 ML VIAL IVP SCH ×2 (10:09→17:25)
[2016-10-15] MEDS: Lactobacillus 1 EACH CAP.SPRINK PO SCH ×2 (10:09→22:00)
[2016-10-15] MEDS: Metoprolol XL (24 HR) Succ 50 MG TAB.ER.24H PO SCH (10:09)
[2016-10-15] MEDS: metOLazone 5 MG TABLET PO SCH (10:10)
[2016-10-15] MEDS: BORON PO SCH (10:10)
[2016-10-15] MEDS: GLUC PO SCH (10:10)
[2016-10-15] MEDS: MSM PO SCH (10:10)
[2016-10-15] MEDS: [UNRECOGNIZED DRUG - OTHER] PO SCH (10:10)
[2016-10-15 11:15] LABS: INR 1.8; Prothrombin Time 19.6 Seconds (9.4-12.1)
[2016-10-15] MEDS ORDERED: Heparin 1,000 UNITS/500 mL NS 500 ML ONE (12:09)
[2016-10-15] MEDS ORDERED: Verapamil 5 MG/2 ML VIAL ONE (12:09)
[2016-10-15] MEDS ORDERED: 0.9 % Sodium Chloride 1,000 ML ONE ×2 (12:09→12:45)
[2016-10-15] MEDS ORDERED: *HR* Heparin 10,000 UNIT/10 ML VIAL ONE (12:09)
[2016-10-15] MEDS ORDERED: Nitroglycerin 1,000 MCG/10 ML VIAL IV ONE (12:09)
--- NOTE | 2016-10-15 12:22 | Pre-Sedation Evaluation ---
Pre-sedation evaluation - Pre-sedation checklist Date of procedure: 10/15/16 Procedure: Heart Cath Recent Vitals: Last Vital Signs Temp 97.5 F L 10/15/16 11:26 Pulse 111 10/15/16 11:26 Resp 18 10/15/16 11:26 BP 136/82 10/15/16 11:26 Pulse Ox 100 10/15/16 11:26 H&P (including ROS) documented in medical record: Yes Previous reaction to sedatives/anesthetics: No Dietary Status: NPO after Midnight Dentition: No loose teeth or bridges ASA Classification *see protocol: CLASS II-Mild systemic disease Plan of Care: Pt appropriate candidate for procedure/moderate/conscious sedation , Risks/benefits of procedure/sedation discussed w/ patient/family (Likelihood of KATE and need for temporary or permanent dialysis understood by patient and family. Nephrology has been following and AVF has been in place in anticipation of expected renal decline and dialysis in the near future.)
[2016-10-15] MEDS ORDERED: *HR* FentaNYL (PF) 100 MCG/2 ML VIAL ONE (12:45)
[2016-10-15] MEDS ORDERED: *HR* Midazolam HCl 2 MG/2 ML VIAL ONE (12:45)
--- NOTE | 2016-10-15 13:32 | Event Note ---
Date of Encounter: 10/15/16 Time of Encounter: 13:30 - Cardiology Event Note Nonischemic cardiomyopathy with EF 20% by echo. Limited contrast - 17cc given. LAD - 50%, LCx proximal 60%, OM 70% L PDA 50%. Amiodarone initiated and coumadin resumed.
--- NOTE | 2016-10-15 13:35 | Invasive Diagnostic Lab Proc ---
Name: Farida Solis Date of Study: 10/15/2016 Date: 1925 Ht: 63.0in Medical Record#: [id number] Age: 89 Wt: 194.01lb Gender: Female BSA: 1.91 Order #: [id number] BMI: 34.37 Physicians Procedure Physician: Steve Torres MD, [facility] Referring MD: Lino Urbina MD Referring MD: Staff Name Position Time In Kale Collins RN Monitor 12:40 PM Belkis Chow RN Integrity Specialist 12:40 PM Winnie Land RT (R) Scrub 12:40 PM Indications Indication Unstable Angina Procedures Performed Procedure L HRT ARTERY/VENTRICLE ANGIO Pre-Procedure Checklist Informed consent is complete signed and on chart. H\T\P is on chart. ID band is on and ID verified with patient. Patient NPO for procedure The procedure was described for the patient and questions were answered. Blood Pressure: 136/82 ECG is on chart. Rhythm: Atrial Fibrillation Plan of Care Patient will tolerate the procedure without complications. Adequate level of comfort will be maintained. Hemodynamics will remain stable Patient will recover from procedure without complications. Respiratory function will be maintained. Cardiac rhythm will remain stable. Patient temperature will be maintained. Patient and/or family have verbalized understanding of the procedure. Patient Education Chief Complaint/Reason for Test: Cardiac Cath Developmental Category: Geriatric (65+ years) Developmentally Appropriate for Age: Yes Learning Barriers: None Education Needs: Procedure Education Method: Verbal Information Taught: Cardiac Cath Educational Evaluation: Able to repeat information Intravenous Access Time IV Size Location DC'd Fluid/Drip Rate Units RN 12:42 PM EPIV Rt upper arm 0.9NaCl 25 ml/hr Belkis Chow RN Allergies codeine acetaminophen Oxycodone NKDA Vital Signs Time BP (mmHg) HR (bpm) O2 Sat. RR (bpm) LOC 12:41 PM 136 / 82 111 100 % 18 5 = Fully awake and oriented or at pre-proc level 12:41 PM / % 4 = Oriented but drowsy 12:56 PM / % 4 = Oriented but drowsy 12:54 PM 102 / 78 118 98 % 27 Procedural Medications Time Medication Dose Units Method Given By 12:41 PM Oxygen 2 L/min nasal cannula Belkis Chow RN 12:55 PM Versed 2 mg Intravenous Parsley, Belkis RN 12:55 PM Fentanyl 25 mcg Intravenous Belkis Chow RN 12:57 PM Lidocaine 2% 1 ml Subcutaneous Steve Torres MD, [facility] 12:58 PM Heparin 4000 units Nitroglycerin 200 mcg Verapamil 2.5 mg Intraarterial Steve Torres MD, [facility] ASA Classification: CLASS II- Mild systemic disease (i.e. well-controlled diabetes, hypertension, asthma, cigarette smoking) Nadine Score Preprocedure Postprocedure Activity 2- Moves 4 extremities sustained head lift Activity 2- Moves 4 extremities sustained head lift Circulation 2- SBP +/= 20 points of pre-anesthetic level Circulation 2- SBP +/= 20 points of pre-anesthetic level Consciousness 2- Awake and alert oriented x 3 Consciousness 1- Responds to verbal stimuli drowsy O2 Saturation 2- Able to maintain O2 satruation of 92% on room air O2 Saturation 1- Needs O2 inhalation to maintain O2 saturation of 90% Respiratory 2- Able to deep breathe and cough well Respiratory 2- Able to deep breathe and cough well Total Score 10 Total Score 8 Contrast Agent: Isovue Diagnostic Contrast: 17 ml Total Contrast: 17 ml Fluoro Dose: 473 mGy Procedure Log Time Note Enter By 12:39 PM CathStat 12:40 PM Pt arrived to tag and label cutter 2 at 12:40 [email or web address] 12:40 PM Kale Collins RN Position: Monitor [facility]: 12[email or web address] 12[facility] PM Belkis Chow RN Position: Integrity Specialist Time in: 12:40 [email or web address] 12:41 PM Winnie Land RT (R) Position: Scrub Time in: 12:40 [email or web address] 12:41 PM Patient charges- Angio tray pack, Navilyst 3mm J, Pulse Oximetry and ACIST tubing and transducer [email or web address] 12:41 PM ASA Class CLASS II- Mild systemic disease (i.e. well-controlled diabetes, hypertension, asthma, cigarette smoking) [email or web address] 12:41 PM Meet and greet completed [email or web address] 12:41 PM Sign in performed according to hospital policy. [email or web address] 12:41 PM Procedure start 12:41 [email or web address] 12:41 PM Case Start 12:41 PM Time: 12:41 Patient comfortable and pain free: Yes [email or web address] 12:41 PM Time: 12:41LOC: 5 = Fully awake and oriented or at pre-proc level [email or web address] 12:41 PM Time: 12:41 Oxygen on at 2 L/min per nasal cannula by Belkis Chow RN [email or web address] 12:41 PM Hair removed from procedure site in procedure lab using clippers. Right wrist \T\ right groin prepped with Chloraprep by Winnie Land (R) then patient draped. Skin intact. [email or web address] 12:44 PM Vitals capture started with the following parameters, Patient=Adult, Interval=5 min, Initial Rcbadcjb=427 mmHg, Deflation Rate=5 mmHg, Cuff placed on Right Arm 12:44 PM Reference ECG taken 12:44 PM Recorded ECG: BM=429 Condition=Condition 1 12:46 PM Vitals capture stopped. 12:47 PM Vitals capture started with the following parameters, Patient=Adult, Interval=5 min, Initial Ojomysxw=531 mmHg, Deflation Rate=5 mmHg, Cuff placed on Right Arm 12:50 PM Vitals capture stopped. 12:52 PM Vitals capture started with the following parameters, Patient=Adult, Interval=5 min, Initial Skenelqv=120 mmHg, Deflation Rate=5 mmHg, Cuff placed on Right Arm 12:54 PM DO=236 bpm, OOLR=369/78 mmhg, SpO2=98.0 %, Resp=27 B/min, Comment=afib 12:55 PM Time: 12:55 Versed 2 mg Intravenous Given by Belkis Chow RN csmith 12:55 PM Time: 12:55 Fentanyl 25 mcg Intravenous Given by Belkis Chow RN csmith 12:56 PM Time: 12:41 Patient comfortable and pain free: Yes csmith 12:56 PM Time: 12:41LOC: 4 = Oriented but drowsy csmith 12:57 PM Time out performed according to hospital policy csmith 12:57 PM Time: 12:57 1 ml Lidocaine 2% to right radial Subcutaneous Given by Steve Torres MD, [facility] csmith 12:58 PM Access obtained by percutaneous puncture. 5/6Fr 10cm Terumo Glidesheath sheath placed in right Radial artery. [id number] csmith 12:58 PM Time: 12:58 Patient given 4,000 units Heparin, 200 mcg Nitroglycerin, and 2.5 mg Verapamil Intraarterial by Steve Torres MD, [facility] csmith 12:59 PM 0.035 260cm Navilyst 3mmJ wire [id number] csmith 12:59 PM 5Fr TIG catheter inserted over the wire DN csmith 01:00 PM Vitals capture stopped. 01:01 PM Wire removed csmith 01:01 PM 0.035 150cm VSI Leopoldo-Torque wire [id number] csmith 01:02 PM Recorded Pressure: Ao, DO=395, Condition=Condition 1 (Aorta) Ao 97/60/76 01:05 PM Catheter removed csmith 01:05 PM 5Fr JL 3.5 catheter inserted over the wire [id number] csmith 01:06 PM LCA angiography performed in multiple views. csmith 01:06 PM Recorded Pressure: Ao, WX=088, Condition=Condition 1 (Aorta) Ao 93/69/80 01:06 PM difficulty in obtaining NIBP d/t LE edema and R arm arterial sheath and L arm shunt, will rely on AO for pressures during the cath csmith 01:07 PM Lesion found in Proximal Circumflex. Pre Stenosis: 60 Pre RONNIE Flow: csmith 01:07 PM Lesion found in 1st Marginal. Pre Stenosis: 80 Pre RONNIE Flow: csmith 01:08 PM Lesion found in Mid LAD. Pre Stenosis: 60 Pre RONNIE Flow: csmith 01:09 PM Lesion found in 1st LPL. Pre Stenosis: 60 Pre RONNIE Flow: csmith 01:09 PM Catheter removed csmith 01:09 PM 5Fr 3DRC catheter inserted over the wire [id number] csmith 01:11 PM Recorded Pressure: Ao, WV=450, Condition=Condition 1 (Aorta) Ao 120/69/90 01:12 PM Time: 12:56LOC: 4 = Oriented but drowsy csmith 01:12 PM Time: 12:56 Patient comfortable and pain free: Yes csmith 01:12 PM Catheter removed csmith 01:14 PM 5Fr AL1 catheter inserted over the wire [id number] csmith 01:14 PM Recorded Pressure: Ao, WU=401, Condition=Condition 1 (Aorta) Ao 124/72/95 01:15 PM NIBP STAT measurement started. 01:16 PM Catheter removed csmith 01:18 PM 5Fr Pigtail catheter inserted over the wire [facility] csmith 01:18 PM Pressure channel 2 zeroed. 01:18 PM Recorded Pressure: LV, HN=722, Condition=Condition 1 (Left Ventricle) LV 139/13/23 01:18 PM Vitals capture stopped. 01:18 PM Recorded Pressure: LV, Ao, [place]=575, Condition=Condition 1 (Left Ventricle) LV 141/14/39, (Aorta) Ao 137/78/104 01:19 PM Catheter selectively placed in left ventricle csmith 01:19 PM Procedure completed at 13:19 csmith 01:20 PM Sign out completed: Radiation Dose 473 mGy Fluoro Time: 6.4 Isovue 370 - 200ml contrast 17 ml given by Steve Torres MD, [facility]. Complications: NoneCardiac Rehab Consult needed: NoConfirmed administered medications: Yes csmith 01:22 PM Arterial sheath pulled, Vasc Band closure device used and was Successful S/N. csmith 01:22 PM 12 ml air in Vasc Band. csmith 01:22 PM Post ECG Atrial Fibrillation csmith 01:22 PM Post Blood Pressure 141/72 csmith 01:22 PM 13:22 Post Pulses Right radial 1+ csmith 01:22 PM Information taught Vasc Band csmith 01:22 PM Education needs Responsibilities of Patient in Care csmith 01:22 PM Learning barriers :None csmith 01:22 PM Education Methods Verbal csmith 01:22 PM Education evaluation Able to repeat information csmith 01:22 PM Site status No bleeding/hematoma - Rt Wrist as reported by Winnie Land RT (R) at 13:22 csmith 01:22 PM Plavix, Effient or Brilinta given No csmith 01:22 PM Family placed in consult room. csmith 01:29 PM Patient out of room: 13:[email or web address] Complications Complication None Hemodynamics Pressures Site Systolic/A Wave Diastolic/V Wave Mean AO 97 60 76 AO 93 69 80 AO 120 69 90 AO 124 72 95 LV 139 13 23 LV 141 14 39 AO 137 78 104 Post Procedure Information Blood Pressure: 141/72 mmHg Rhythm: Atrial Fibrillation Post procedural instructions were given Closure Device Time Device Success/Fail 10/15/2016 1:23:00 PM Mechanical compression Successful Site Checks Time Location Status Staff Sheath In? Note 01:22 PM Rt Wrist No bleeding/hematoma Winnie Land RT (R) Pulses Time Site Pre-Procedure Post-Procedure Note 10/15/2016 12:43:00 PM Bilateral DP 2+ 10/15/2016 12:43:00 PM Right radial 1+ normal lucrecia's test 1:22:00 PM Right radial 1+ Updated by RT Nona(R) on 10/15/2016 1:29:57 PM electronically signed on 10/15/2016 1:30:23 PM with status of Final
[2016-10-15] MEDS ORDERED: *HR* Heparin 5,000 UNIT/ML VIAL IVP PRN ×2 (13:39)
[2016-10-15] MEDS ORDERED: Heparin 25,000 UNIT/500 ML D5W 25,000 UNIT/500 ML MLS IVC SCH (13:45)
--- NOTE | 2016-10-15 14:08 | Invasive Diagnostic Lab ---
Mary Name: Farida Solis Date of Study: 10/15/2016 Date: 1925 Ht: 160.0 cm /63.0 in Medical Record#: [id number] Age: 89 Wt: 88. kg / 194.01 lb Account/Order#: [id number] Gender: Female BSA: 1.91 Order #: [id number] Fluoro Dose: 473 mGy BMI: 34.37 Procedure Physician: Steve Torres MD, [facility] Referring MD: Lino Urbina MD Referring MD: Procedures Performed: LEFT HEART CATH Indications: Unstable Angina, Congestive Heart Failure Impressions: Nonischemic cardiomyopathy with EF 20% by echo Severe 1 vessel disease, otherwise moderate disease 17cc contrast Recommendations: Optimal medical therapy of patient's disease. Aggressive risk factor modification. Hydration with NS 50cc/hr x 4 hours History/Risk Factors: CKD GOUT Diabetes Dyslipidemia CHF Procedure Access obtained in the right Radial artery by percutaneous puncture Complications: None Contrast: Isovue 17ml Closure Device: Mechanical compression Hemodynamics: Pressures Site Systolic/ A Wave Diastolic/ V Wave End Diastolic/ Mean HR AO 97 60 76 117 AO 93 69 80 118 AO 120 69 90 116 AO 124 72 95 116 LV 139 13 23 116 LV 141 14 39 116 AO 137 78 104 117 Coronary Dominance: Left Lesion Findings/Interventions * Left Main Coronary Artery The LMCA is angiographically free of disease. * Left Anterior Descending There is a 50-60% stenosis in the Mid LAD. * Circumflex There is a 50-60% stenosis in the Proximal Circumflex. There is a 70-80% stenosis in the 1st Marginal. There is a 50-60% stenosis in the LPDA. * Right Coronary Artery The right is non-dominant and does not appear to have any critical lesions with nonselective angiography under fluoro Updated by RT Nona(R) on 10/15/2016 1:28:59 PM Steve Torres MD, FACC electronically signed on 10/15/2016 2:04:16 PM with status of Final
[2016-10-15 14:36] LABS: Hematocrit 38.1 % (35.3-44.9); Hemoglobin 12.2 g/dL (11.5-15.4); Mean Corpuscular Hemoglobin 31.1 pg (28.0-33.3); Mean Corpuscular Volume 97.2 fL (83.0-100.0); Mean Platelet Volume 10.8 fL (9.4-12.4); Platelet Count 141 K/mcL (140-400); Red Blood Count 3.92 M/mcL (3.82-4.97); Red Cell Distribution Width 14.2 % (11.5-14.5)
[2016-10-15 14:37] LABS: INR 2.1; Prothrombin Time 22.6 Seconds (9.4-12.1)
[2016-10-15] MEDS: 0.9 % Sodium Chloride 1,000 ML IVC SCH (14:50)
[2016-10-15 14:57] LABS: Activated Partial Thrombo Time 114.8 Seconds (26.0-36.0)
[2016-10-15 15:07] LABS: Heparin anti-factor XA UFH 0.64 IU/mL (0.30-0.70)
[2016-10-15] MEDS: hydrALAZINE 25 MG TABLET PO SCH ×2 (17:25→23:40)
[2016-10-15] MEDS ORDERED: *HR* Warfarin 5 MG TABLET PO ONE (18:00)
[2016-10-15] MEDS ORDERED: Acetaminophen 325 MG TABLET PO PRN (18:09)
[2016-10-15] MEDS ORDERED: Artificial Tears SOLN 15 ML BOTTLE BOTH EYES PRN (18:43)
--- NOTE | 2016-10-15 18:53 | Internal Med Progress Note ---
Date of Encounter: 10/15/16 Time of Encounter: 14:00 - Assessment and plan (1) CHF exacerbation Current Visit: Yes Status: Acute Assessment and plan: Patient has evidence of significant volume overload. Echocardiogram shows LV ejection fraction of 20%. Pt is now on IV bumetanide and metolazone. No significant diuresis at this time. Pt is s/p cardiac cath today and shows 50% stenosis in LAD, 60% stenosis in proximal LCx, 70% stenosis in OM, 50% stenosis left PDA. [facility] is following the pt. Qualifiers: Congestive heart failure type: systolic Qualified Code(s): I50.23 - Acute on chronic systolic (congestive) heart failure (2) Supratherapeutic INR Current Visit: Yes Status: Resolved Assessment and plan: INR is therapeutic. Warfarin is restarted today. [facility] recommended heparin infusion, while INR is subtherapeutic. (3) Atrial fibrillation Current Visit: Yes Status: Chronic Assessment and plan: Rate is reasonably controlled. Continue metoprolol and amiodarone. [facility] is following the patient Qualifiers: Atrial fibrillation type: unspecified Qualified Code(s): I48.91 - Unspecified atrial fibrillation (4) CKD (chronic kidney disease) stage 4, GFR 15-29 ml/min Current Visit: Yes Status: Chronic Assessment and plan: Chronic kidney disease possibly contribute to volume overload in addition to systolic congestive heart failure. Pt is s/p cardiac cath today - will monitor renal function closely. Nephrologis Dr. De La Vega is following the pt (5) DM type 2 (diabetes mellitus, type 2) Current Visit: Yes Status: Chronic Assessment and plan: Blood sugars are well controlled. Diabetes diet. Monitor Accu-Cheks. Qualifiers: Diabetes mellitus complication status: with kidney complications Diabetes mellitus complication detail: with chronic kidney disease Diabetes mellitus longterm insulin use: without longterm use Chronic kidney disease stage: stage 4 (severe) Qualified Code(s): E11.22 - Type 2 diabetes mellitus with diabetic chronic kidney disease; N18.4 - Chronic kidney disease, stage 4 (severe ) (6) Hypothyroidism Current Visit: Yes Status: Chronic Assessment and plan: Continue Synthroid. TSH is normal. Qualifiers: Hypothyroidism type: unspecified Qualified Code(s): E03.9 - Hypothyroidism , unspecified (7) Acute and chronic respiratory failure with hypoxia Current Visit: Yes Status: Acute Assessment and plan: Possibly contributed with pulmonary edema. Continue supplemental oxygen (8) UTI (urinary tract infection) Current Visit: Yes Status: Ruled-out Assessment and plan: Urinalysis was abnormal but urine cultures are negative. Antibiotics discontinued. Qualifiers: Urinary tract infection type: acute cystitis Hematuria presence: without hematuria Qualified Code(s): N30.00 - Acute cystitis without hematuria - Subjective Interval history: Pt is seen and examined at the bedside and chart reviewed. Pt reports feeling well today - shortness of breath and leg swelling improving. Denies significant pain, nausea, vomiting, fever, chills. Pt is s/p Cardiac catheterization today. - Constitutional Vitals: Temp Pulse Resp BP Pulse Ox 97.7 F 109 18 141/75 97 10/15/16 17:46 10/15/16 17:46 10/15/16 17:46 10/15/16 17:46 10/15/16 17:46 Exam: General: Not in acute distress at the time of my evaluation Lungs: B/L posterior basal crackles present Cardiac: Irregular rhythm. No significant murmurs Abdomen: Soft, non tender. Bowel sounds present Neurological: Alert and oriented. No gross localizing deficits Psych: Not agrressive or agitated Extremities: B/L leg edema present Skin: No generalized rash Internal Medicine: Result - Labs CBC & Chem 7: 10/15/16 14:15 10/15/16 06:46 Labs: Short CBC 10/15/16 Range/Units 14:15 WBC 7.8 (4.3-11.1) K/mcL Hgb 12.2 (11.5-15.4) g/dL Hct 38.1 (35.3-44.9) % Plt Count 141 (140-400) K/mcL BMP 10/15/16 06:46 Sodium 146 H Potassium 3.6 Chloride 98 Carbon Dioxide 37 H BUN 38 H Creatinine 2.44 H Glucose 105 H Calcium 9.6 Liver Function 10/15/16 Range/Units 06:46 Total Bilirubin 1.0 (0.2-1.2) mg/dL AST 23 (5-34) Units/L ALT 16 (0-55) Units/L Alkaline Phosphatase 55 (38-126) Units/L Albumin 3.1 L (3.5-5.0) g/dL - ABG Interpretation ABG results: PT/INR, D-dimer PT 22.6 Seconds (9.4-12.1) H 10/15/16 14:15 - VTE Documentation of Mechanical Device: Intermittent pneumatic compression device Consult Discharge Plan - Plan Referrals: Cayetano Trevizo DO [Partnered Physician] - (web request on 10/15/2016 at [phone])
[2016-10-15] MEDS: traZODone 50 MG TABLET PO SCH (22:00)
[2016-10-15] MEDS: Ascorbic Acid 500 MG TABLET PO SCH (22:00)
[2016-10-15] MEDS: *HR* LORazepam 1 MG TABLET PO SCH (22:01)
--- NOTE | 2016-10-16 07:17 | Cardiology Progress Note ---
Date of Encounter: 10/16/16 Time of Encounter: 07:15 Assessment and Plan (1) CHF (congestive heart failure) Current Visit: Yes Status: Acute Per Cardiology: BNP elevated at 1475. Current Chest x-ray shows moderate pulmonary edema-- no significant change. EF down from 60% in 2013 to now 20%. On IV Bumex 1 mg twice a day. According to medical records, net total I&O - 200ml during hospital stay. Continue with strict I&O, daily weights, fluid restriction. Kidney function remains about baseline status post catheterization currently. Nephrology following. Discussed with the primary service this morning, okay to increase diuresis if okay with nephrology. Patient and family remain agreeable to consider dialysis if deemed appropriate. Patient may benefit clinically from dialysis. Patient remains DNR/DNI/Comfort Care arrest. Qualifiers: Congestive heart failure type: combined Congestive heart failure chronicity : acute on chronic Qualified Code(s): I50.43 - Acute on chronic combined systolic (congestive) and diastolic (congestive) heart failure (2) Cardiomyopathy Current Visit: Yes Status: Acute Per Cardiology: EF previously 60% in 2013. Echo shows EF is 20%--global LV systolic dysfunction with mild basal and mid inferior wall hypokinesis. No evidence of LV thrombus. Normal RV size and mild-moderate reduction in function. Mild AR, moderate MR, TR appears moderate if not severe in some views. Mild-moderate phtn. Trivial pericardial effusion, pleural effusion noted. Suspect multifactorial ( tachycardia-induced from afib with RVR?). Continue BB. No KAYLA-I due to renal function. Qualifiers: Cardiomyopathy type: unspecified Qualified Code(s): I42.9 - Cardiomyopathy , unspecified (3) Atrial fibrillation Current Visit: Yes Status: Chronic Per Cardiology: Remains A. fib with RVR. Average heart rate on telemetry the past 24 hours 105, atrial fibrillation. On Toprol XL 200mg daily, digoxin 0.125 mg by mouth every other day (renal dosing), and now on amiodarone 200 mg by mouth daily. Continue with rate control strategy. Anticipate will continue to be difficult to rate control until volume status improves. We'll continue to monitor. Do not anticipate DC cardioversion will be warranted in this situation. Regarding long-term anticoagulation, Coumadin was on hold for catheterization. Now on IV heparin drip until Coumadin back to therapeutic range 2.0-3.0. Current INR 1.8 this morning. Need to monitor closely with underlying anemia. Qualifiers: Atrial fibrillation type: unspecified Qualified Code(s): I48.91 - Unspecified atrial fibrillation (4) CKD (chronic kidney disease) stage 4, GFR 15-29 ml/min Current Visit: Yes Status: Chronic Per Cardiology: Patient has left brachiocephalic AVF +bruit/faint thrill. Nephrology currently following. Patient and family remain agreeable to consider dialysis if deemed appropriate. Will continue to monitor s/p catheterization. Monitor closely with diuresis. (5) CAD (coronary artery disease) Current Visit: Yes Status: Chronic Per Cardiology: Catheterization from yesterday reviewed and showed mid LAD 50-60% stenosis, proximal circumflex 50-60% stenosis, OM1 70-80% stenosis, left PDA 50-60% stenosis. No intervention performed. Per Dr. Torres, patient with nonischemic cardiomyopathy. On aspirin, statin, beta bhavik. Remains chest pain-free. Qualifiers: Coronary Disease-Associated Artery/Lesion type: [place] artery [place] vs. transplanted heart: [place] heart Associated angina: angina presence unspecified Qualified Code(s): I25.10 - Atherosclerotic heart disease of [place] coronary artery without angina pectoris (6) Mental status change Current Visit: Yes Status: Acute Per Cardiology: Per review of records patient apparently had a mental status change yesterday evening. Head CT showed no acute intracranial findings. Discussed with primary service, apparently has brain MRI pending today for further evaluation. Patient appears back to baseline functioning. Qualifiers: Altered mental status type: unspecified Qualified Code(s): R41.82 - Altered mental status, unspecified (7) Supratherapeutic INR Current Visit: Yes Status: Resolved Per Cardiology: INR 4.3 on arrival. On Coumadin as outpatient. Discussion w patient/family: The assessment and plan as outlined above was discussed with the patient and/or family members who expressed understanding and agreement. All questions were answered. Thank you for involving us in the care of your patient. Please call with any questions. Subjective Principal diagnosis: CMP, CHF Interval history: Patient seen today with family at bedside. Up out of bed to chair. Remains somewhat somnolent. She reports overall short of breath has improved somewhat during stay, however not back to baseline. She denies any chest pain or palpitations. Denies any concerns with her right wrist site. Denies any active bleeding or blood loss. Objective Vital Signs, Last 4 Hours Temp Pulse Resp BP Pulse Ox 10/16/16 06:33 97.5 F L 111 14 159/97 96 General: Conversant, No Apparent Distress HEENT: Atraumatic, Normocephaly Cardiac: No Murmur, Other (Irregular irregular) Lungs: Other (Bilateral crackles, slightly labored with speaking) Neuro: Alert and responsive, No focal deficits noted Abdomen: Soft, Non-Tender, Other (obese) Skin: Other (Right wrist site dry and intact, no hematoma, no ecchymosis, no bleeding, right radial pulse 2+ palpable) Extremities: Other (+2 nonpitting bilateral lower extremity edema) Results 10/16/16 06:58 10/16/16 06:58 Lab Results Laboratory Tests 10/15/16 06:46 Creatinine 2.44 H Est GFR (Non-Af Amer) [address] 10/15/16 18:59 IMPRESSION: No acute intracranial abnormality. Findings were discussed with Dr. Gonzalez of the [facility] emergency department at 7:49 pm on 10/15/2016. D/ / Sunny Collins MD / Sunny Collins MD Interpreting Provider: Sunny Collins MD Chest X-Ray 10/15/16 19:56 IMPRESSION: No significant interval change of congestive heart failure with persistent bilateral pleural effusions. D/ / Annika Urbina MD / Annika Urbina MD Interpreting Provider: Annika Urbina MD Intake & Output 10/13/16 10/14/16 10/15/16 10/16/16 23:59 23:59 23:59 23:59 Intake Total 810 / 810 560 / 560 220 / 220 Output Total 450 / 450 1250 / 1250 400 / 400 400 / 400 Balance 360 / 360 -690 / -690 -180 / -180 -400 / -400 Weight 86.228 kg 87.55 kg Active Medications Acetaminophen (Tylenol) 650 mg PO Q6HR PRN PRN Reason: Pain Stop: 04/16/17 18:10 Last Admin: 10/15/16 18:30 Dose: 650 mg Amiodarone HCl (Cordarone) 200 mg PO DAILY [facility] Stop: 04/17/17 09:01 Artificial Tears (Akwa Tears) 1 drop BOTH EYES QID PRN; Protocol PRN Reason: Dry Eyes Stop: 04/16/17 21:01 Ascorbic Acid (Vitamin C) 500 mg PO HS [facility] Stop: 04/12/17 21:01 Last Admin: 10/15/16 22:00 Dose: 500 mg Bumetanide (Bumex) 1 mg IVP BIDDIURETIC [facility] Stop: 04/13/17 11:01 Last Admin: 10/15/16 17:25 Dose: 1 mg Calcitriol (Rocaltrol) 0.25 mcg PO 1200 [facility] Stop: 04/13/17 12:01 Last Admin: 10/15/16 14:50 Dose: 0.25 mcg Digoxin (Lanoxin) 0.125 mg PO QOD [facility] Stop: 04/15/17 10:01 Last Admin: 10/14/16 10:39 Dose: 0.125 mg Ergocalciferol (Drisdol (50,000 Unit)) 50,000 unit PO SA [facility] Stop: 04/16/17 17:02 Last Admin: 10/15/16 17:25 Dose: 50,000 unit Heparin Sodium (Porcine) (Heparin) 6,100 unit 70 unit/kg (6100 unit) IVP Q6HR PRN PRN Reason: SEE COMMENTS Stop: 04/16/17 13:40 Heparin Sodium (Porcine) (Heparin) 3,100 unit 35 unit/kg (3100 unit) IVP Q6H PRN PRN Reason: SEE COMMENTS Stop: 04/16/17 13:40 Hydralazine HCl (Hydralazine) 25 mg PO Q8HR [facility] Stop: 04/16/17 16:01 Last Admin: 10/15/16 23:40 Dose: 25 mg Heparin Sodium/Dextrose (Heparin 25,000 Unit/500 Ml D5w) 25,000 unit in 500 mls @ 24.514 mls/hr IVC .[id number] [facility]IS; 14 UNIT/KG/HR PRN Reason: Protocol Stop: 04/16/17 13:46 Last Titration: 10/15/16 15:06 Dose: 0 unit/kg/hr, 0 mls/hr Sodium Chloride (0.9 % Sodium Chloride) 1,000 mls @ 50 mls/hr IVC .Q20H [facility] Stop: 04/16/17 14:16 Last Admin: 10/15/16 14:50 Dose: 50 mls/hr Isosorbide Dinitrate (Isordil) 5 mg PO TIDAC [facility] Stop: 04/16/17 16:31 Last Admin: 10/15/16 17:25 Dose: 5 mg Lactobacillus Acidophilus/Rhamnosus (Culturelle) 1 each PO BID [facility] Stop: 04/16/17 09:01 Last Admin: 10/15/16 22:00 Dose: 1 each Levothyroxine Sodium (Synthroid) 100 mcg PO QAM [facility] Stop: 04/13/17 09:01 Last Admin: 10/15/16 10:10 Dose: 100 mcg Lorazepam (Ativan) 1 mg PO HS [facility] Stop: 04/12/17 21:01 Last Admin: 10/15/16 22:01 Dose: 1 mg Metolazone (Zaroxolyn) 5 mg PO DAILY [facility] Stop: 04/15/17 09:01 Last Admin: 10/15/16 10:10 Dose: 5 mg Metoprolol Succinate (Toprol Xl) 200 mg PO DAILY [facility] Stop: 04/15/17 09:01 Last Admin: 10/15/16 10:09 Dose: 200 mg Naloxone HCl (Narcan) 0.4 mg IVP Q2MIN PRN PRN Reason: Opioid Reversal Stop: 04/12/17 17:09 Pharmacy Profile Note (Patient Taking Own Medication) 0 each PO QAM [facility] Stop: 04/13/17 09:01 Last Admin: 10/15/16 10:10 Dose: Not Given Trazodone HCl (Trazodone) 50 mg PO HS [facility] Stop: 04/12/17 21:01 Last Admin: 10/15/16 22:00 Dose: 50 mg - Imaging and Cardiology Chest Xray: report reviewed Cardiac cath: report reviewed - EKG Interpretation EKG results cardiology: other (avg HR 105 past 12 hrs on tele, afib) - VTE Documentation of Mechanical Device: Intermittent pneumatic compression device Consult Discharge Plan - Plan Referrals: Cayetano Trevizo DO [Partnered Physician] - (web request on 10/15/2016 at 1530)
[2016-10-16 07:28] LABS: Hematocrit 34.8 % (35.3-44.9); Hemoglobin 11.3 g/dL (11.5-15.4); Mean Corpuscular HGB Conc 32.5 g/dL (31.6-35.5); Mean Corpuscular Hemoglobin 31.4 pg (28.0-33.3); Mean Corpuscular Volume 96.7 fL (83.0-100.0); Mean Platelet Volume 10.7 fL (9.4-12.4); Platelet Count 124 K/mcL (140-400); Red Cell Distribution Width 14.1 % (11.5-14.5)
[2016-10-16 07:33] LABS: INR 1.8; Prothrombin Time 19.8 Seconds (9.4-12.1)
[2016-10-16 07:41] LABS: Calcium 9.3 mg/dL (8.6-10.8); Potassium 3.3 mEq/L (3.5-4.5)
--- NOTE | 2016-10-16 08:32 | Nephrology Progress Note ---
Date of Encounter: 10/16/16 Time of Encounter: 08:05 - Assessment and Plan (1) CKD (chronic kidney disease) stage 4, GFR 15-29 ml/min Current Visit: Yes Status: Chronic S/P LHC with minimal contrast. Renal fct stable. Urine output documented 400cc. Will continue to follow. Subjective Principal diagnosis: CMP, CHF Interval history: Sitting on edge of bed, eating breakfast. Denies CP. No new complaints. Objective - Vital Signs Vital signs: Vital Signs Temp Pulse Resp BP Pulse Ox 10/16/16 07:54 97.6 F 119 18 154/92 96 10/16/16 06:33 97.5 F L 111 14 159/97 96 10/16/16 03:07 97.3 F L 111 16 139/85 90 L 10/15/16 21:23 97.9 F 84 13 146/97 97 10/15/16 19:50 97.8 F 113 18 152/98 10/15/16 19:35 97.9 F 107 15 147/101 10/15/16 19:20 97.7 F 120 18 167/105 10/15/16 19:05 97.9 F 116 16 158/104 10/15/16 18:50 97.7 F 114 14 145/74 10/15/16 17:46 97.7 F 109 18 141/75 97 10/15/16 15:00 97 10/15/16 11:26 97.5 F L 111 18 136/82 100 Intake and Output 10/15/16 10/16/16 10/16/16 23:59 07:59 15:59 Intake Total 120 / 120 Output Total 400 / 400 Balance 120 / 120 -400 / -400 Intake: Oral 120 / 120 Output: Urine 400 / 400 Other: Blood Glucose* 111 - General Appearance General appearance: Present: well-developed, well-nourished, appears started age EENT: Present: mucous membranes moist Neck: Present: no JVD Respiratory: Present: clear Cardiology: Present: irregular rhythm Additional Comments: 1-2+pitting, knees down. Gastrointestinal: Present: normoactive bowel sounds, no tenderness Integumentary: Present: warm and dry Neurologic: Present: alert and oriented x3 Psychiatric: Present: mood/affect appropriate, cooperative - Lab 10/16/16 06:58 01/15/17 06:58 Most recent lab results Calcium 9.3 mg/dL (8.6-10.8) 10/16/16 06:58 - VTE Documentation of Mechanical Device: Intermittent pneumatic compression device Consult Discharge Plan - Plan Referrals: Cayetano Trevizo DO [Partnered Physician] - (web request on 10/15/2016 at 1535)
[2016-10-16] MEDS: 0.9 % Sodium Chloride 1,000 ML IVC SCH (09:30)
[2016-10-16] MEDS: Lactobacillus 1 EACH CAP.SPRINK PO SCH ×2 (09:30→21:01)
[2016-10-16] MEDS: hydrALAZINE 25 MG TABLET PO SCH ×3 (09:30→23:52)
[2016-10-16] MEDS: Bumetanide 1 MG/4 ML VIAL IVP SCH ×2 (09:30→17:18)
[2016-10-16] MEDS: Metoprolol XL (24 HR) Succ 50 MG TAB.ER.24H PO SCH (09:31)
[2016-10-16] MEDS: metOLazone 5 MG TABLET PO SCH (09:31)
[2016-10-16] MEDS: *HR* Amiodarone 200 MG TABLET PO SCH (09:31)
[2016-10-16] MEDS: *HR* Digoxin 0.125 MG TABLET PO SCH (09:32)
[2016-10-16] MEDS: BORON PO SCH (09:33)
[2016-10-16] MEDS: MSM PO SCH (09:33)
[2016-10-16] MEDS: GLUC PO SCH (09:33)
[2016-10-16] MEDS: [UNRECOGNIZED DRUG - OTHER] PO SCH (09:33)
[2016-10-16 10:39] LABS: Activated Partial Thrombo Time 30.1 Seconds (26.0-36.0)
--- NOTE | 2016-10-16 12:11 | Internal Med Progress Note ---
Date of Encounter: 10/16/16 Time of Encounter: 09:00 - Assessment and plan (1) CHF exacerbation Current Visit: Yes Status: Acute Assessment and plan: Patient has evidence of significant volume overload. Echocardiogram shows LV ejection fraction of 20%. Pt is now on IV bumetanide and metolazone. Pt is s/p cardiac cath on 10/15/16 and shows 50% stenosis in LAD, 60% stenosis in proximal LCx, 70% stenosis in OM, 50% stenosis left PDA. Dairy Farm Operator and sports physical therapist following the pt. Qualifiers: Congestive heart failure type: systolic Qualified Code(s): I50.23 - Acute on chronic systolic (congestive) heart failure (2) Supratherapeutic INR Current Visit: Yes Status: Resolved Assessment and plan: INR is subtherapeutic now. Warfarin is restarted on 10/15/16. Dairy Farm Operator recommended bridging heparin infusion, while INR is subtherapeutic. (3) Atrial fibrillation Current Visit: Yes Status: Chronic Assessment and plan: Rate is reasonably controlled. Continue metoprolol, digoxin and amiodarone. Dairy Farm Operator is following the patient Qualifiers: Atrial fibrillation type: unspecified Qualified Code(s): I48.91 - Unspecified atrial fibrillation (4) CKD (chronic kidney disease) stage 4, GFR 15-29 ml/min Current Visit: Yes Status: Chronic Assessment and plan: Chronic kidney disease possibly contributing to volume overload in addition to systolic congestive heart failure. Pt is s/p cardiac cath on 10/15/16 - will monitor renal function closely for contrast induced nephropathy. Nephrologis Dr. De La Vega is following the pt (5) DM type 2 (diabetes mellitus, type 2) Current Visit: Yes Status: Chronic Assessment and plan: Blood sugars are well controlled. Hemoglobin A1c 6.3%. Diabetes diet. Monitor Accu-Cheks. Qualifiers: Diabetes mellitus complication status: with kidney complications Diabetes mellitus complication detail: with chronic kidney disease Diabetes mellitus mcc insulin use: without mcc use Chronic kidney disease stage: stage 4 (severe) Qualified Code(s): E11.22 - Type 2 diabetes mellitus with diabetic chronic kidney disease; N18.4 - Chronic kidney disease, stage 4 (severe ) (6) Hypothyroidism Current Visit: Yes Status: Chronic Assessment and plan: Continue Synthroid. TSH is normal. Qualifiers: Hypothyroidism type: unspecified Qualified Code(s): E03.9 - Hypothyroidism , unspecified (7) Acute and chronic respiratory failure with hypoxia Current Visit: Yes Status: Acute Assessment and plan: Possibly contributed with pulmonary edema. Continue supplemental oxygen (8) UTI (urinary tract infection) Current Visit: Yes Status: Ruled-out Assessment and plan: Urinalysis was abnormal but urine cultures are negative. Antibiotics discontinued. Qualifiers: Urinary tract infection type: acute cystitis Hematuria presence: without hematuria Qualified Code(s): N30.00 - Acute cystitis without hematuria (9) Hypokalemia Current Visit: Yes Status: Acute Assessment and plan: Replenish potassium (10) CAD (coronary artery disease) Current Visit: Yes Status: Chronic Assessment and plan: cardiac cath on 10/15/16 showed 50% stenosis in LAD, 60% stenosis in proximal LCx , 70% stenosis in OM, 50% stenosis left PDA. Qualifiers: Coronary Disease-Associated Artery/Lesion type: [place] artery [place] vs. transplanted heart: [place] heart Associated angina: angina presence unspecified Qualified Code(s): I25.10 - Atherosclerotic heart disease of [place] coronary artery without angina pectoris (11) Pleural effusion due to CHF (congestive heart failure) Current Visit: Yes Status: Acute - Subjective Interval history: Pt is seen and examined at the bedside and chart reviewed. Pt reports feeling well today. Last night patient had an episode of slurred speech and a stroke protocol was started. CT head was negative for bleed. NIH stroke score was 3. Patient does not report any slurred speech this morning. Shortness of breath and leg swelling improving. Denies significant pain, nausea, vomiting, fever, chills. - Constitutional Vitals: Temp Pulse Resp BP Pulse Ox 97.7 F 109 16 133/84 98 10/16/16 11:12 10/16/16 11:12 10/16/16 11:12 10/16/16 11:12 10/16/16 11:12 Exam: General: Not in acute distress at the time of my evaluation Lungs: Bilateral posterobasal crackles Cardiac: Irregular rhythm. No significant murmurs Abdomen: Soft, non tender. Bowel sounds present Neurological: Alert and oriented. Able to move extremities. No gross localizing deficits Psych: Not aggressive or agitated Extremities: Bilateral leg edema Skin: No generalized rash Internal Medicine: Result - Labs CBC & Chem 7: 10/16/16 06:58 10/16/16 06:58 Labs: Short CBC 10/15/16 10/16/16 Range/Units 14:15 06:58 WBC 7.8 7.3 (4.3-11.1) K/mcL Hgb 12.2 11.3 L (11.5-15.4) g/dL Hct 38.1 34.8 L (35.3-44.9) % Plt Count 141 124 L (140-400) K/mcL BMP 10/16/16 06:58 Sodium 144 Potassium 3.3 L Chloride 97 L Carbon Dioxide 36 H BUN 38 H Creatinine 2.10 H Glucose 107 H Calcium 9.3 - ABG Interpretation ABG results: PT/INR, D-dimer PT 19.8 Seconds (9.4-12.1) H 10/16/16 06:58 - Impressions Impressions Head CT 10/15/16 18:59 IMPRESSION: No acute intracranial abnormality. Findings were discussed with Dr. Gonzalez of the [facility] emergency department at 7:49 pm on 10/15/2016. D/ / Sunny Collins MD / Sunny Collins MD Interpreting Provider: Sunny Collins MD Chest X-Ray 10/15/16 19:56 IMPRESSION: No significant interval change of congestive heart failure with persistent bilateral pleural effusions. D/ / Annika Urbina MD / Annika Urbina MD Interpreting Provider: Annika Urbina MD - VTE Documentation of Mechanical Device: Intermittent pneumatic compression device Consult Discharge Plan - Plan Referrals: Cayetano Trevizo DO [Partnered Physician] - (web request on 10/15/2016 at 2151)
[2016-10-16] MEDS ORDERED: *HR* Warfarin 5 MG TABLET PO ONE (18:00)
[2016-10-16 18:43] LABS: Activated Partial Thrombo Time > 360.0 Seconds (26.0-36.0)
[2016-10-16 18:49] LABS: Heparin anti-factor XA UFH 1.51 IU/mL (0.30-0.70)
[2016-10-16] MEDS: *HR* LORazepam 1 MG TABLET PO SCH (21:01)
[2016-10-16] MEDS: traZODone 50 MG TABLET PO SCH (21:01)
[2016-10-16] MEDS: Ascorbic Acid 500 MG TABLET PO SCH (21:01)
[2016-10-17 03:57] LABS: Hematocrit 35.4 % (35.3-44.9); Hemoglobin 11.6 g/dL (11.5-15.4); Mean Corpuscular HGB Conc 32.8 g/dL (31.6-35.5); Mean Corpuscular Hemoglobin 31.2 pg (28.0-33.3); Mean Corpuscular Volume 95.2 fL (83.0-100.0); Mean Platelet Volume 10.4 fL (9.4-12.4); Platelet Count 130 K/mcL (140-400); Red Blood Count 3.72 M/mcL (3.82-4.97); Red Cell Distribution Width 14.2 % (11.5-14.5)
[2016-10-17 04:04] LABS: INR 1.9; Prothrombin Time 21.3 Seconds (9.4-12.1)
[2016-10-17 04:16] LABS: Calcium 9.7 mg/dL (8.6-10.8); Magnesium 1.1 mg/dL (1.6-2.6); Potassium 3.2 mEq/L (3.5-4.5)
[2016-10-17] MEDS: 0.9 % Sodium Chloride 1,000 ML IVC SCH (06:29)
[2016-10-17] MEDS: Lactobacillus 1 EACH CAP.SPRINK PO SCH ×2 (08:02→21:20)
[2016-10-17] MEDS: *HR* Amiodarone 200 MG TABLET PO SCH (08:02)
[2016-10-17] MEDS: hydrALAZINE 25 MG TABLET PO SCH ×2 (08:02→17:34)
[2016-10-17] MEDS: metOLazone 5 MG TABLET PO SCH (08:03)
[2016-10-17] MEDS: Bumetanide 1 MG/4 ML VIAL IVP SCH ×2 (08:03→17:33)
[2016-10-17] MEDS: Metoprolol XL (24 HR) Succ 50 MG TAB.ER.24H PO SCH (08:03)
[2016-10-17] MEDS ORDERED: *HR* Heparin 5,000 UNIT/ML VIAL IVP PRN ×2 (08:35)
[2016-10-17] MEDS ORDERED: *HR* Heparin 5,000 UNIT/ML VIAL IVP ONE (08:35)
[2016-10-17] MEDS ORDERED: Heparin 25,000 UNIT/500 ML D5W 25,000 UNIT/500 ML MLS IVC SCH (08:45)
--- NOTE | 2016-10-17 08:57 | Nephrology Progress Note ---
Date of Encounter: 10/17/16 Time of Encounter: 08:45 - Assessment and Plan (1) CKD (chronic kidney disease) stage 4, GFR 15-29 ml/min Current Visit: Yes Status: Chronic S/P LHC with minimal contrast. Renal fct stable. No evidence of contrast induced nephropathy. Urine output documented 750cc. Will continue to follow. Subjective Principal diagnosis: CMP, CHF Interval history: Sitting up in chair, eating breakfast. Denies CP. No new complaints. Objective - Vital Signs Vital signs: Vital Signs Temp Pulse Resp BP Pulse Ox 10/17/16 08:11 98 10/17/16 07:06 98 F 96 16 181/66 100 10/17/16 05:14 98.3 F 76 18 130/74 97 10/17/16 00:53 97.8 F 94 18 124/73 98 10/16/16 21:04 97.7 F 97 18 148/69 98 10/16/16 15:45 97.5 F L 112 18 148/82 96 10/16/16 11:12 97.7 F 109 16 133/84 98 Intake and Output 10/16/16 10/17/16 10/17/16 23:59 07:59 15:59 Intake Total 692 / 692 1000 / 1000 Output Total 1700 / 1700 Balance 692 / 692 -700 / -700 Intake: IV Fluids 152 / 152 1000 / 1000 0.9 % Sodium Chloride 1, 1000 / 1000 000 ML @ 50 mls/hr IVC . Q20H [facility] Rx#:[id number] Heparin 25,000 UNIT/500 152 / 152 ML D5W 25,000 unit In 500 ml @ 14 UNIT/KG/HR 24. 514 mls/hr IVC .[id number] [facility] Rx#:[id number] Oral 540 / 540 Output: Urine 1700 / 1700 Other: Meal Dinner Percent of Meal Consumed 95% - General Appearance General appearance: Present: well-developed, well-nourished, appears started age EENT: Present: mucous membranes moist Neck: Present: no JVD Respiratory: Present: clear Cardiology: Present: irregular rhythm Additional Comments: 1= LE pitting edema Gastrointestinal: Present: normoactive bowel sounds, no tenderness Integumentary: Present: warm and dry Neurologic: Present: alert and oriented x3 Psychiatric: Present: mood/affect appropriate, cooperative - Lab 10/17/16 03:38 10/17/16 03:38 Most recent lab results Calcium 9.7 mg/dL (8.6-10.8) 10/17/16 03:38 Magnesium 1.1 mg/dL (1.6-2.6) L 10/17/16 03:38 - VTE Documentation of Mechanical Device: Intermittent pneumatic compression device Consult Discharge Plan - Plan Referrals: Cayetano Trevizo DO [Partnered Physician] - (web request on 10/15/2016 at 1622)
[2016-10-17] MEDS: GLUC PO SCH (09:09)
[2016-10-17] MEDS: [UNRECOGNIZED DRUG - OTHER] PO SCH (09:09)
[2016-10-17] MEDS: MSM PO SCH (09:09)
[2016-10-17] MEDS: BORON PO SCH (09:09)
--- NOTE | 2016-10-17 10:12 | Cardiology Progress Note ---
Date of Encounter: 10/17/16 Time of Encounter: 10:09 Assessment and Plan (1) CHF exacerbation Current Visit: Yes Status: Acute BNP elevated at 1475. Chest x-ray shows moderate pulmonary edema. On IV Bumex 1 mg twice a day. I/O cumulative -208mL, not having success with diuresis at this point--complicated by stage 4 CKD/lack of output. Zaroxolyn on board as well. Discussed with nephrology--will increase Bumex to 2mg IV BID to see if this helps with diuresis. Continue with strict I&O, daily weights, fluid restriction. Education reinforced regarding low sodium diet and fluid restriction at home. Echo in 2013 showed EF preserved 60%, no segmental wall motion abnormalities. Echo currently EF now 20%-global with mild basal and mid inferior wall hypokinesis. LHC revealed NICMP--severe 1 vessel CAD 70-80% 1st marginal stenosis not amendable to PCI, otherwise moderate disease. May be tachycardia induced. Will continue to follow fluid status/diuresis. Qualifiers: Congestive heart failure type: systolic Qualified Code(s): I50.23 - Acute on chronic systolic (congestive) heart failure (2) Cardiomyopathy Current Visit: Yes Status: Acute Per Cardiology: LHC reveals NICMP--severe 1 vessel CAD not amendable to PCI, otherwise moderate disease. EF previously 60% in 2014. Echo shows EF is 20%--global LV systolic dysfunction with mild basal and mid inferior wall hypokinesis. No evidence of LV thrombus. Normal RV size and mild-moderate reduction in function. Mild AR, moderate MR, TR appears moderate if not severe in some views. Mild-moderate phtn. Trivial pericardial effusion, pleural effusion noted. Suspect multifactorial (tachycardia-induced from afib with RVR?). Continue BB. No KAYLA- I due to renal function. Qualifiers: Cardiomyopathy type: unspecified Qualified Code(s): I42.9 - Cardiomyopathy , unspecified (3) Atrial fibrillation Current Visit: Yes Status: Chronic Per Cardiology: Rate improved. Average heart rate on telemetry the past 12 hours 94, atrial fibrillation. On Toprol XL 200mg daily, digoxin 0.125 mg by mouth every other day (renal dosing), and now on amiodarone 200 mg by mouth daily. Continue with rate control strategy. Anticipate will continue to be difficult to rate control until volume status improves. We'll continue to monitor. Do not anticipate DC cardioversion will be warranted in this situation. Regarding long-term anticoagulation, Coumadin was on hold for catheterization. Now on IV heparin drip until Coumadin back to therapeutic range 2.0-3.0. Current INR 1.9 this morning. Will go ahead and stop heparin gtt. Qualifiers: Atrial fibrillation type: unspecified Qualified Code(s): I48.91 - Unspecified atrial fibrillation (4) CKD (chronic kidney disease) stage 4, GFR 15-29 ml/min Current Visit: Yes Status: Chronic S/P LHC with minimal contrast. Renal fct stable. No evidence of contrast induced nephropathy. Nephrology following. Renal function has actually improved this AM--creatinine 1.99. Discussion w patient/family: The assessment and plan as outlined above was discussed with the patient and/or family members who expressed understanding and agreement. All questions were answered. Thank you for involving us in the care of your patient. Please call with any questions. I will discuss all the above with Dr. Hammer and make changes as necessary. Subjective Principal diagnosis: CMP, CHF Interval history: Pt denies any acute complaints this AM--denies chest pain, reports no worsening of dyspnea. Lower extremity edema no improvement. Cumulative I/O -208mL. 12 hour tele AVG HR 94, A-Fib. Objective Vital Signs, Last 4 Hours Temp Pulse Resp BP Pulse Ox 10/17/16 09:00 97 10/17/16 08:11 98 10/17/16 07:06 98 F 96 16 181/66 100 Vital Signs Temp Pulse Resp BP Pulse Ox 10/17/16 09:00 97 10/17/16 08:11 98 10/17/16 07:06 98 F 96 16 181/66 100 10/17/16 05:14 98.3 F 76 18 130/74 97 10/17/16 00:53 97.8 F 94 18 124/73 98 10/16/16 21:04 97.7 F 97 18 148/69 98 10/16/16 15:45 97.5 F L 112 18 148/82 96 10/16/16 11:12 97.7 F 109 16 133/84 98 Intake and Output 10/16/16 10/17/16 10/17/16 23:59 07:59 15:59 Intake Total 692 / 692 1000 / 1000 Output Total 1700 / 1700 Balance 692 / 692 -700 / -700 Intake: IV Fluids 152 / 152 1000 / 1000 0.9 % Sodium Chloride 1, 1000 / 1000 000 ML @ 50 mls/hr IVC . Q20H [facility] Rx#:[id number] Heparin 25,000 UNIT/500 152 / 152 ML D5W 25,000 unit In 500 ml @ 14 UNIT/KG/HR 24. 514 mls/hr IVC .[id number] [facility] Rx#:[id number] Oral 540 / 540 Output: Urine 1700 / 1700 Other: Meal Dinner Percent of Meal Consumed 95% General: Conversant, No Apparent Distress HEENT: Atraumatic, Normocephaly, Mucus Membranes Moist Neck: No JVD, Normal carotid pulses Cardiac: Other (irregularly irregular) Lungs: Other (diminished) Neuro: Alert and responsive, No focal deficits noted Abdomen: Soft, Non-Tender Skin: No rashes noted on visualized skin Musculoskeletal: No Chest Wall Tenderness Extremities: Other (2-3+ BLE edema extending to thighs.) Results 10/17/16 03:38 10/17/16 03:38 Lab Results 10/16/16 10/16/16 10/16/16 06:58 17:00 22:30 WBC Hgb Hct Plt Count INR 1.8 APTT 30.1 > 360.0 H* D 109.1 H D Sodium Potassium Chloride Carbon Dioxide BUN Creatinine Glucose Calcium Magnesium 10/17/16 10/17/16 10/17/16 03:38 03:38 03:38 WBC 6.4 Hgb 11.6 Hct 35.4 Plt Count 130 L INR 1.9 APTT Sodium 144 Potassium 3.2 L Chloride 95 L Carbon Dioxide 38 H BUN 34 H Creatinine 1.99 H Glucose 99 Calcium 9.7 Magnesium 1.1 L 10/17/16 07:58 WBC Hgb Hct Plt Count INR APTT 33.3 D Sodium Potassium Chloride Carbon Dioxide BUN Creatinine Glucose Calcium Magnesium Short CBC 10/17/16 Range/Units 03:38 WBC 6.4 (4.3-11.1) K/mcL Hgb 11.6 (11.5-15.4) g/dL Hct 35.4 (35.3-44.9) % Plt Count 130 L (140-400) K/mcL BMP 10/17/16 Range/Units 03:38 Sodium 144 (136-145) mEq/L Potassium 3.2 L (3.5-4.5) mEq/L Chloride 95 L (98-109) mEq/L Carbon Dioxide 38 H (19-29) mEq/L BUN 34 H (7-20) mg/dL Creatinine 1.99 H (0.57-1.11) mg/dL Glucose 99 (70-99) mg/dL Calcium 9.7 (8.6-10.8) mg/dL Impressions Brain MRI 10/16/16 10:00 IMPRESSION: 1. No acute intracranial abnormality. Specifically, no acute infarction. 2. Diffuse parenchymal volume loss and sequela of chronic microvascular ischemic changes. 3. Chronic occlusion of the left internal carotid artery. D/ / Arlene Khan MD / Arlene Khan MD Interpreting Provider: Arlene Khan MD Active Medications Acetaminophen (Tylenol) 650 mg PO Q6HR PRN PRN Reason: Pain Stop: 04/16/17 18:10 Last Admin: 10/15/16 18:30 Dose: 650 mg Amiodarone HCl (Cordarone) 200 mg PO DAILY [facility] Stop: 04/17/17 09:01 Last Admin: 10/17/16 08:02 Dose: 200 mg Artificial Tears (Akwa Tears) 1 drop BOTH EYES QID PRN; Protocol PRN Reason: Dry Eyes Stop: 04/16/17 21:01 Ascorbic Acid (Vitamin C) 500 mg PO HS [facility] Stop: 04/12/17 21:01 Last Admin: 10/16/16 21:01 Dose: 500 mg Bisacodyl (Dulcolax) 5 mg PO DAILY PRN PRN Reason: Constipation Stop: 04/17/17 11:04 Last Admin: 10/16/16 11:16 Dose: 5 mg Bumetanide (Bumex) 1 mg IVP BIDDIURETIC [facility] Stop: 04/13/17 11:01 Last Admin: 10/17/16 08:03 Dose: 1 mg Calcitriol (Rocaltrol) 0.25 mcg PO 1200 [facility] Stop: 04/13/17 12:01 Last Admin: 10/16/16 11:16 Dose: 0.25 mcg Digoxin (Lanoxin) 0.125 mg PO QOD [facility] Stop: 04/15/17 10:01 Last Admin: 10/16/16 09:32 Dose: 0.125 mg Ergocalciferol (Drisdol (50,000 Unit)) 50,000 unit PO SA [facility] Stop: 04/16/17 17:02 Last Admin: 10/15/16 17:25 Dose: 50,000 unit Heparin Sodium (Porcine) (Heparin) 4,000 unit IVP Q6HR PRN PRN Reason: SEE COMMENTS Stop: 04/18/17 08:36 Heparin Sodium (Porcine) (Heparin) 2,000 unit IVP Q6H PRN PRN Reason: SEE COMMENTS Stop: 04/18/17 08:36 Hydralazine HCl (Hydralazine) 25 mg PO Q8HR [facility] Stop: 04/16/17 16:01 Last Admin: 10/17/16 08:02 Dose: 25 mg Sodium Chloride (0.9 % Sodium Chloride) 1,000 mls @ 50 mls/hr IVC .Q20H [facility] Stop: 04/16/17 14:16 Last Admin: 10/17/16 06:29 Dose: 50 mls/hr Heparin Sodium/Dextrose (Heparin 25,000 Unit/500 Ml D5w) 25,000 unit in 500 mls @ 19.996 mls/hr IVC .Q24H [facility]; 11.42 UNIT/KG/HR PRN Reason: Protocol Stop: 04/18/17 08:46 Last Admin: 10/17/16 09:22 Dose: 11.42 unit/kg/hr, 19.996 mls/hr Isosorbide Dinitrate (Isordil) 5 mg PO TIDAC [facility] Stop: 04/16/17 16:31 Last Admin: 10/17/16 08:05 Dose: 5 mg Lactobacillus Acidophilus/Rhamnosus (Culturelle) 1 each PO BID [facility] Stop: 04/16/17 09:01 Last Admin: 10/17/16 08:02 Dose: 1 each Levothyroxine Sodium (Synthroid) 100 mcg PO QAM [facility] Stop: 04/13/17 09:01 Last Admin: 10/17/16 08:03 Dose: 100 mcg Lorazepam (Ativan) 1 mg PO HS [facility] Stop: 04/12/17 21:01 Last Admin: 10/16/16 21:01 Dose: 1 mg Metolazone (Zaroxolyn) 5 mg PO DAILY [facility] Stop: 04/15/17 09:01 Last Admin: 10/17/16 08:03 Dose: 5 mg Metoprolol Succinate (Toprol Xl) 200 mg PO DAILY [facility] Stop: 04/15/17 09:01 Last Admin: 10/17/16 08:03 Dose: 200 mg Naloxone HCl (Narcan) 0.4 mg IVP Q2MIN PRN PRN Reason: Opioid Reversal Stop: 04/12/17 17:09 Pharmacy Profile Note (Patient Taking Own Medication) 0 each PO QAM [facility] Stop: 04/13/17 09:01 Last Admin: 10/17/16 09:09 Dose: Not Given Potassium Chloride (Potassium Chloride) 20 meq PO DAILY [facility] Stop: 04/17/17 09:01 Last Admin: 10/17/16 08:03 Dose: 20 meq Trazodone HCl (Trazodone) 50 mg PO HS [facility] Stop: 04/12/17 21:01 Last Admin: 10/16/16 21:01 Dose: 50 mg - Imaging and Cardiology Echo: report reviewed Cardiac cath: report reviewed - EKG Interpretation EKG results cardiology: other (12 hour tele AVG HR 94, A-Fib.) - VTE Documentation of Mechanical Device: Intermittent pneumatic compression device Consult Discharge Plan - Plan Referrals: Cayetano Trevizo DO [Partnered Physician] - (web request on 10/15/2016 at 1537)
[2016-10-17] MEDS ORDERED: Bumetanide 1 MG/4 ML VIAL IVP ONE (10:17)
--- NOTE | 2016-10-17 11:53 | Event Note ---
Date of Encounter: 10/17/16 Time of Encounter: 11:50 Brief visit with pt/daughter. Cath results noted from this weekend. Renal function slightly improved. Cardiology/nephrology notes reviewed. Patient still with significant edema despite diuretics. D/W Bobbi Temple who will be speaking with Dr. Sarmiento. Patient and daughter Jaimie desire [facility] Home health care upon discharge and do not want re-enrolled in hospice at this time. Palliative will follow at a distance.
[2016-10-17] MEDS: Aspirin 81 MG TAB.CHEW PO SCH (12:47)
--- NOTE | 2016-10-17 13:56 | Internal Med Progress Note ---
Date of Encounter: 10/17/16 Time of Encounter: 13:54 - Assessment and plan (1) Acute and chronic respiratory failure with hypoxia Current Visit: Yes Status: Acute Assessment and plan: Possibly contributed with pulmonary edema. Continue supplemental oxygen (2) CHF exacerbation Current Visit: Yes Status: Acute Assessment and plan: Patient still has b/l massive lower leg swelling. Echocardiogram shows LV ejection fraction of 20%. Pt is now on IV bumetanide and metolazone. Pt is s/p cardiac cath on 10/15/16 and shows 50% stenosis in LAD, 60% stenosis in proximal LCx, 70% stenosis in OM, 50% stenosis left PDA. Press Assistant And Feeder and cataloging assistant following the pt. Qualifiers: Congestive heart failure type: systolic Qualified Code(s): I50.23 - Acute on chronic systolic (congestive) heart failure (3) Atrial fibrillation Current Visit: Yes Status: Chronic Assessment and plan: Rate is controlled. Continue metoprolol, digoxin and amiodarone. Press Assistant And Feeder is following the patient Qualifiers: Atrial fibrillation type: unspecified Qualified Code(s): I48.91 - Unspecified atrial fibrillation (4) CKD (chronic kidney disease) stage 4, GFR 15-29 ml/min Current Visit: Yes Status: Chronic Assessment and plan: Chronic kidney disease possibly contributing to volume overload in addition to systolic congestive heart failure. Pt is s/p cardiac cath on 10/15/16 - will monitor renal function closely for contrast induced nephropathy. Nephrologis Dr. De La Vega is following the pt (5) DM type 2 (diabetes mellitus, type 2) Current Visit: Yes Status: Chronic Assessment and plan: Blood sugars are well controlled. Hemoglobin A1c 6.3%. Diabetes diet. Monitor Accu-Cheks. Qualifiers: Diabetes mellitus complication status: with kidney complications Diabetes mellitus complication detail: with chronic kidney disease Diabetes mellitus intermediate project manager insulin use: without longterm use Chronic kidney disease stage: stage 4 (severe) Qualified Code(s): E11.22 - Type 2 diabetes mellitus with diabetic chronic kidney disease; N18.4 - Chronic kidney disease, stage 4 (severe ) (6) Supratherapeutic INR Current Visit: Yes Status: Resolved Assessment and plan: INR is subtherapeutic now. Warfarin is restarted on 10/15/16. Press Assistant And Feeder recommended bridging heparin infusion, until INR is therapeutic. - Time Spent With Patient 25 - 35 minutes - Subjective Interval history: Patient seen at the bedside. Denies any complaints of bilateral lower leg swelling. Being followed by renal and cardiology. denies wanting to go back to hospice. - Constitutional Vitals: Temp Pulse Resp BP Pulse Ox 97.3 F L 97 16 150/83 98 10/17/16 10:58 10/17/16 10:58 10/17/16 10:58 10/17/16 10:58 10/17/16 10:58 General appearance: Present: A&O X 3, no acute distress Exam: General: Conversant, No Apparent Distress HEENT: Atraumatic, Normocephaly, Mucus Membranes Moist Neck: No JVD, Normal carotid pulses Cardiac: Other (irregularly irregular) Lungs: Other (diminished) Neuro: Alert and responsive, No focal deficits noted Abdomen: Soft, Non-Tender Skin: No rashes noted on visualized skin Musculoskeletal: No Chest Wall Tenderness Extremities: Other (2-3+ BLE edema extending to thighs.) Internal Medicine: Result - Labs CBC & Chem 7: 10/17/16 03:38 10/17/16 03:38 Labs: Short CBC 10/17/16 Range/Units 03:38 WBC 6.4 (4.3-11.1) K/mcL Hgb 11.6 (11.5-15.4) g/dL Hct 35.4 (35.3-44.9) % Plt Count 130 L (140-400) K/mcL BMP 10/17/16 03:38 Sodium 144 Potassium 3.2 L Chloride 95 L Carbon Dioxide 38 H BUN 34 H Creatinine 1.99 H Glucose 99 Calcium 9.7 - ABG Interpretation ABG results: PT/INR, D-dimer PT 21.3 Seconds (9.4-12.1) H 10/17/16 03:38 - Impressions Impressions Brain MRI 10/16/16 10:00 IMPRESSION: 1. No acute intracranial abnormality. Specifically, no acute infarction. 2. Diffuse parenchymal volume loss and sequela of chronic microvascular ischemic changes. 3. Chronic occlusion of the left internal carotid artery. D/ / Arlene Khan MD / Arlene Khan MD Interpreting Provider: Arlene Khan MD - VTE Documentation of Mechanical Device: Intermittent pneumatic compression device Consult Discharge Plan - Plan Referrals: Cayetano Trevizo DO [Partnered Physician] - (web request on 10/15/2016 at 1530)
[2016-10-17] MEDS: *HR* Warfarin 2 MG TABLET PO SCH (17:34)
[2016-10-17] MEDS ORDERED: Warfarin perPT PO PRN (18:00)
[2016-10-17] MEDS: *HR* LORazepam 1 MG TABLET PO SCH (21:19)
[2016-10-17] MEDS: traZODone 50 MG TABLET PO SCH (21:19)
[2016-10-17] MEDS: Ascorbic Acid 500 MG TABLET PO SCH (21:20)
[2016-10-18] MEDS: 0.9 % Sodium Chloride 1,000 ML IVC SCH (01:44)
[2016-10-18] MEDS: hydrALAZINE 25 MG TABLET PO SCH ×4 (01:45→23:47)
[2016-10-18] MEDS: MSM PO SCH (07:44)
[2016-10-18] MEDS: GLUC PO SCH (07:44)
[2016-10-18] MEDS: BORON PO SCH (07:44)
[2016-10-18] MEDS: [UNRECOGNIZED DRUG - OTHER] PO SCH (07:44)
[2016-10-18] MEDS: Aspirin 81 MG TAB.CHEW PO SCH (07:51)
[2016-10-18] MEDS: *HR* Digoxin 0.125 MG TABLET PO SCH (07:51)
[2016-10-18] MEDS: metOLazone 5 MG TABLET PO SCH (07:51)
[2016-10-18] MEDS: Lactobacillus 1 EACH CAP.SPRINK PO SCH ×2 (07:51→21:02)
[2016-10-18] MEDS: *HR* Amiodarone 200 MG TABLET PO SCH (07:51)
[2016-10-18] MEDS: Metoprolol XL (24 HR) Succ 50 MG TAB.ER.24H PO SCH (07:51)
[2016-10-18] MEDS: Bumetanide 1 MG/4 ML VIAL IVP SCH ×2 (07:52→16:49)
--- NOTE | 2016-10-18 08:17 | Nephrology Progress Note ---
Date of Encounter: 10/18/16 Time of Encounter: 08:15 - Assessment and Plan (1) CKD (chronic kidney disease) stage 4, GFR 15-29 ml/min Current Visit: Yes Status: Chronic Patient continues to have significant lower extremity edema. Her urine output increased yesterday after increasing the Bumex. She also continues on metolazone 5 mg daily. Today's lab is pending. She needs continued diuresis. It seems as though she is responding adequately to the increased dose of Bumex. I will continue the same medical regimen for now. She is on a maintenance IV at 50 mL per hour. Reason is uncertain. I will take the liberty of discontinuing the maintenance IV. (2) Systolic CHF, acute Current Visit: Yes Status: Acute (3) Atrial fibrillation Current Visit: Yes Status: Chronic Qualifiers: Atrial fibrillation type: unspecified Qualified Code(s): I48.91 - Unspecified atrial fibrillation Subjective Principal diagnosis: CMP, CHF Interval history: The patient denies any new complaints. She denies any shortness of breath. Bumex was increased yesterday. Urine output is recorded as 3.6 L. Today's lab is pending. The patient's lower extremity edema looks essentially the same. Objective - Vital Signs Vital signs: Vital Signs Temp Pulse Resp BP Pulse Ox 10/18/16 07:05 97.6 F 88 16 154/75 96 10/18/16 04:58 98.2 F 92 16 158/86 10/18/16 04:21 98.2 F 92 16 158/86 99 10/18/16 01:30 97.3 F L 94 16 145/85 10/18/16 01:26 97.3 F L 94 16 145/85 96 10/17/16 21:42 97.8 F 103 18 155/77 99 10/17/16 21:30 98.7 F 103 18 155/77 10/17/16 16:19 97.9 F 98 16 149/78 99 10/17/16 10:58 97.3 F L 97 16 150/83 98 10/17/16 09:00 97 Intake and Output 10/17/16 10/18/16 10/18/16 23:59 07:59 15:59 Intake Total 120 / 120 1000 / 1000 Output Total 1000 / 1000 850 / 850 Balance -880 / -880 150 / 150 Intake: IV Fluids 1000 / 1000 0.9 % Sodium Chloride 1, 1000 / 1000 000 ML @ 50 mls/hr IVC . Q20H [facility] Rx#:[id number] Oral 120 / 120 Output: Urine 1000 / 1000 850 / 850 Other: Meal BEETS # Voids 2 Weight 81.828 kg Patient Weight 10/18/16 23:59 Weight 81.828 kg - General Appearance Exam: Patient is in no acute distress. She is alert and oriented. Lungs diminished breath sounds. Heart irregular rate and rhythm consistent with atrial fibrillation. Abdomen is benign. Patient continues to have 2+ lower extremity swelling. There is a functioning AV fistula in the left arm. - Lab 10/17/16 03:38 10/17/16 03:38 Most recent lab results Calcium 9.7 mg/dL (8.6-10.8) 10/17/16 03:38 Magnesium 1.1 mg/dL (1.6-2.6) L 10/17/16 03:38 - VTE Documentation of Mechanical Device: Intermittent pneumatic compression device Consult Discharge Plan - Plan Referrals: Cayetano Trevizo DO [Partnered Physician] - (web request on 10/15/2016 at 1536)
[2016-10-18 08:41] LABS: Basophils % 0.3 %; Eosinophils # 0.2 K/mcL (0.0-0.6); Hematocrit 35.2 % (35.3-44.9); Hemoglobin 11.5 g/dL (11.5-15.4); Immature Granulocytes % 0.3 % (0-4); Lymphocytes # 2.2 K/mcL (0.6-4.6); Lymphocytes % 31.3 %; Mean Corpuscular HGB Conc 32.7 g/dL (31.6-35.5); Mean Corpuscular Hemoglobin 31.4 pg (28.0-33.3); Mean Corpuscular Volume 96.2 fL (83.0-100.0); Mean Platelet Volume 10.3 fL (9.4-12.4); Monocytes # 0.8 K/mcL (0.0-1.3); Neutrophils # 3.8 K/mcL (1.6-8.9); Platelet Count 125 K/mcL (140-400); Red Blood Count 3.66 M/mcL (3.82-4.97); Red Cell Distribution Width 14.3 % (11.5-14.5); Segmented Neutrophils % 54.1 %
[2016-10-18 08:55] LABS: Albumin 3.1 g/dL (3.5-5.0); Albumin/Globulin Ratio 1.1 (1.1-2.2); Bilirubin,Total 0.9 mg/dL (0.2-1.2); Calcium 9.3 mg/dL (8.6-10.8); Globulin 2.8 g/dL (2.4-3.5); Potassium 3.9 mEq/L (3.5-4.5); Total Protein 5.9 g/dL (6.0-8.3)
--- NOTE | 2016-10-18 09:52 | Cardiology Progress Note ---
Date of Encounter: 10/18/16 Time of Encounter: 09:49 Assessment and Plan (1) CHF exacerbation Current Visit: Yes Status: Acute On IV Bumex 2 mg BID--was increased yesterday. Output has improved I/O today - 2460Ml, cumulative -1818mL. Zaroxolyn on board as well. Still with lower extremity edema--may have slight improvement today. Expect pt to have chronic lower extremity edema--this is not entirely new. Will continue with increased Bumex. Continue with strict I&O, daily weights, fluid restriction. Education reinforced regarding low sodium diet and fluid restriction at home. Echo in 2013 showed EF preserved 60%, no segmental wall motion abnormalities. Echo currently EF now 20%-global with mild basal and mid inferior wall hypokinesis. [facility] revealed NICMP--severe 1 vessel CAD 70-80% 1st marginal stenosis not amendable to PCI, otherwise moderate disease. May be tachycardia induced. Will continue to follow fluid status/diuresis. Qualifiers: Congestive heart failure type: systolic Qualified Code(s): I50.23 - Acute on chronic systolic (congestive) heart failure (2) Cardiomyopathy Current Visit: Yes Status: Acute Per Cardiology: C reveals NICMP--severe 1 vessel CAD not amendable to PCI, otherwise moderate disease. EF previously 60% in 2014. Echo shows EF is 20%--global LV systolic dysfunction with mild basal and mid inferior wall hypokinesis. No evidence of LV thrombus. Normal RV size and mild-moderate reduction in function. Mild AR, moderate MR, TR appears moderate if not severe in some views. Mild-moderate phtn. Trivial pericardial effusion, pleural effusion noted. Suspect multifactorial (tachycardia-induced from afib with RVR?). Continue BB. No KAYLA- I due to renal function. Qualifiers: Cardiomyopathy type: unspecified Qualified Code(s): I42.9 - Cardiomyopathy , unspecified (3) Atrial fibrillation Current Visit: Yes Status: Chronic Per Cardiology: Rate improved. Average heart rate on telemetry the past 12 hours 92, atrial fibrillation. On Toprol XL 200mg daily, digoxin 0.125 mg by mouth every other day (renal dosing), and amiodarone 200 mg by mouth daily. Continue with rate control strategy. Anticipate will continue to be difficult to rate control until volume status improves. We'll continue to monitor. Do not anticipate DC cardioversion will be warranted in this situation. Regarding long-term anticoagulation, on Coumadin. INR yesterday 1.9--pharmacy dosing/managing while inpt. Qualifiers: Atrial fibrillation type: unspecified Qualified Code(s): I48.91 - Unspecified atrial fibrillation (4) CKD (chronic kidney disease) stage 4, GFR 15-29 ml/min Current Visit: Yes Status: Chronic Nephrology following. Currently stable--creatinine 1.99. (5) CAD (coronary artery disease) Current Visit: Yes Status: Chronic Per Cardiology: Catheterization from yesterday reviewed and showed mid LAD 50-60% stenosis, proximal circumflex 50-60% stenosis, OM1 70-80% stenosis, left PDA 50-60% stenosis. No intervention performed. Per Dr. Torres, patient with nonischemic cardiomyopathy. On aspirin, statin, beta bhavik. Qualifiers: Coronary Disease-Associated Artery/Lesion type: [place] artery [place] vs. transplanted heart: [place] heart Associated angina: angina presence unspecified Qualified Code(s): I25.10 - Atherosclerotic heart disease of [place] coronary artery without angina pectoris (6) Essential hypertension Current Visit: Yes Status: Acute BP not at goal--150s systolic. Will increase Hydralazine to 50mg TID. Discussion w patient/family: The assessment and plan as outlined above was discussed with the patient and/or family members who expressed understanding and agreement. All questions were answered. Thank you for involving us in the care of your patient. Please call with any questions. I will discuss all the above with Dr. Hammer and make changes as necessary. Subjective Principal diagnosis: CMP, CHF Interval history: Pt denies any acute complaints this AM--denies chest pain, reports no worsening of dyspnea. Bumex was increased yesterday and per I/O recordings has had improved diuresis. I/O today -2460mL. Cumulative now -1818mL. Renal function remains stable. 12 hour tele AVG HR 92, A-Fib Objective Vital Signs, Last 4 Hours Temp Pulse Resp BP Pulse Ox 10/18/16 07:05 97.6 F 88 16 154/75 96 Vital Signs Temp Pulse Resp BP Pulse Ox 10/18/16 07:05 97.6 F 88 16 154/75 96 10/18/16 04:58 98.2 F 92 16 158/86 10/18/16 04:21 98.2 F 92 16 158/86 99 10/18/16 01:30 97.3 F L 94 16 145/85 10/18/16 01:26 97.3 F L 94 16 145/85 96 10/17/16 21:42 97.8 F 103 18 155/77 99 10/17/16 21:30 98.7 F 103 18 155/77 10/17/16 16:19 97.9 F 98 16 149/78 99 10/17/16 10:58 97.3 F L 97 16 150/83 98 Intake and Output 10/17/16 10/18/16 10/18/16 23:59 07:59 15:59 Intake Total 120 / 120 1000 / 1000 Output Total 1000 / 1000 850 / 850 Balance -880 / -880 150 / 150 Intake: IV Fluids 1000 / 1000 0.9 % Sodium Chloride 1, 1000 / 1000 000 ML @ 50 mls/hr IVC . Q20H THAIS Rx#:[id number] Oral 120 / 120 Output: Urine 1000 / 1000 850 / 850 Other: Meal BEETS # Voids 2 Weight 81.828 kg Patient Weight 10/18/16 23:59 Weight 81.828 kg General: Conversant, No Apparent Distress HEENT: Atraumatic, Normocephaly, Mucus Membranes Moist Neck: Normal carotid pulses Cardiac: Other (irregularly irregular) Lungs: Normal Breath Sounds, No Wheeze, Rales, Rhonchi Neuro: Alert and responsive, No focal deficits noted Abdomen: Soft, Non-Tender Skin: No rashes noted on visualized skin Musculoskeletal: No Chest Wall Tenderness Extremities: Other (2+ BLE edema) Results 10/18/16 08:30 10/18/16 08:30 Lab Results 10/18/16 10/18/16 08:30 08:30 WBC 7.0 Hgb 11.5 Hct 35.2 L Plt Count 125 L Sodium 144 Potassium 3.9 Chloride 98 Carbon Dioxide 36 H BUN 31 H Creatinine 1.99 H Glucose 109 H Calcium 9.3 Total Bilirubin 0.9 AST 24 ALT 16 Alkaline Phosphatase 48 Short CBC 10/18/16 Range/Units 08:30 WBC 7.0 (4.3-11.1) K/mcL Hgb 11.5 (11.5-15.4) g/dL Hct 35.2 L (35.3-44.9) % Plt Count 125 L (140-400) K/mcL Neutrophils # 3.8 (1.6-8.9) K/mcL BMP 10/18/16 Range/Units 08:30 Sodium 144 (136-145) mEq/L Potassium 3.9 (3.5-4.5) mEq/L Chloride 98 (98-109) mEq/L Carbon Dioxide 36 H (19-29) mEq/L BUN 31 H (7-20) mg/dL Creatinine 1.99 H (0.57-1.11) mg/dL Glucose 109 H (70-99) mg/dL Calcium 9.3 (8.6-10.8) mg/dL Liver Function 10/18/16 Range/Units 08:30 Total Bilirubin 0.9 (0.2-1.2) mg/dL AST 24 (5-34) Units/L ALT 16 (0-55) Units/L Alkaline Phosphatase 48 (38-126) Units/L Albumin 3.1 L (3.5-5.0) g/dL Active Medications Acetaminophen (Tylenol) 650 mg PO Q6HR PRN PRN Reason: Pain Stop: 04/16/17 18:10 Last Admin: 10/15/16 18:30 Dose: 650 mg Amiodarone HCl (Cordarone) 200 mg PO DAILY THAIS Stop: 04/17/17 09:01 Last Admin: 10/18/16 07:51 Dose: 200 mg Artificial Tears (Akwa Tears) 1 drop BOTH EYES QID PRN; Protocol PRN Reason: Dry Eyes Stop: 04/16/17 21:01 Ascorbic Acid (Vitamin C) 500 mg PO HS THAIS Stop: 04/12/17 21:01 Last Admin: 10/17/16 21:20 Dose: 500 mg Aspirin (Aspirin) 81 mg PO DAILY THAIS Stop: 04/18/17 12:31 Last Admin: 10/18/16 07:51 Dose: 81 mg Atorvastatin Calcium (Lipitor) 20 mg PO HS THAIS Stop: 04/18/17 21:01 Last Admin: 10/17/16 21:20 Dose: 20 mg Bisacodyl (Dulcolax) 5 mg PO DAILY PRN PRN Reason: Constipation Stop: 04/17/17 11:04 Last Admin: 10/17/16 12:47 Dose: 5 mg Bumetanide (Bumex) 2 mg IVP BIDDIURETIC THAIS Stop: 04/18/17 17:01 Last Admin: 10/18/16 07:52 Dose: 2 mg Calcitriol (Rocaltrol) 0.25 mcg PO 1200 THAIS Stop: 04/13/17 12:01 Last Admin: 10/17/16 10:50 Dose: 0.25 mcg Digoxin (Lanoxin) 0.125 mg PO QOD THAIS Stop: 04/15/17 10:01 Last Admin: 10/18/16 07:51 Dose: 0.125 mg Ergocalciferol (Drisdol (50,000 Unit)) 50,000 unit PO SA THAIS Stop: 04/16/17 17:02 Last Admin: 10/15/16 17:25 Dose: 50,000 unit Hydralazine HCl (Hydralazine) 25 mg PO Q8HR THAIS Stop: 04/16/17 16:01 Last Admin: 10/18/16 07:51 Dose: 25 mg Isosorbide Dinitrate (Isordil) 5 mg PO TIDAC THAIS Stop: 04/16/17 16:31 Last Admin: 10/18/16 07:54 Dose: 5 mg Lactobacillus Acidophilus/Rhamnosus (Culturelle) 1 each PO BID THAIS Stop: 04/16/17 09:01 Last Admin: 10/18/16 07:51 Dose: 1 each Levothyroxine Sodium (Synthroid) 100 mcg PO QAM THAIS Stop: 04/13/17 09:01 Last Admin: 10/18/16 07:51 Dose: 100 mcg Lorazepam (Ativan) 1 mg PO HS THAIS Stop: 04/12/17 21:01 Last Admin: 10/17/16 21:19 Dose: 1 mg Metolazone (Zaroxolyn) 5 mg PO DAILY THAIS Stop: 04/15/17 09:01 Last Admin: 10/18/16 07:51 Dose: 5 mg Metoprolol Succinate (Toprol Xl) 200 mg PO DAILY THAIS Stop: 04/15/17 09:01 Last Admin: 10/18/16 07:51 Dose: 200 mg Naloxone HCl (Narcan) 0.4 mg IVP Q2MIN PRN PRN Reason: Opioid Reversal Stop: 04/12/17 17:09 Pharmacy Profile Note (Patient Taking Own Medication) 0 each PO QAM THAIS Stop: 04/13/17 09:01 Last Admin: 10/18/16 07:44 Dose: Not Given Potassium Chloride (Potassium Chloride) 20 meq PO DAILY [facility] Stop: 04/17/17 09:01 Last Admin: 10/18/16 07:52 Dose: 20 meq Trazodone HCl (Trazodone) 50 mg PO HS [facility] Stop: 04/12/17 21:01 Last Admin: 10/17/16 21:19 Dose: 50 mg Warfarin Sodium (Coumadin Perpt) 1 each PO DAILY@1800 PRN PRN Reason: SEE COMMENTS Stop: 04/18/17 18:01 Warfarin Sodium (Coumadin) 2 mg PO 1800 [facility] Stop: 04/18/17 18:01 Last Admin: 10/17/16 17:34 Dose: 2 mg - Imaging and Cardiology Echo: report reviewed Cardiac cath: report reviewed - EKG Interpretation EKG results cardiology: other (12 hour tele AVG HR 92, A-Fib.) - VTE Documentation of Mechanical Device: Intermittent pneumatic compression device Consult Discharge Plan - Plan Referrals: Cayetano Trevizo DO [Partnered Physician] - (web request on 10/15/2016 at 1538)
[2016-10-18 11:08] LABS: INR 2.6; Prothrombin Time 28.8 Seconds (9.4-12.1)
--- NOTE | 2016-10-18 14:43 | Internal Med Progress Note ---
Date of Encounter: 10/18/16 Time of Encounter: 14:40 - Assessment and plan (1) Acute and chronic respiratory failure with hypoxia Current Visit: Yes Status: Acute Assessment and plan: Possibly contributed with pulmonary edema. Continue supplemental oxygen continued on IV diuretics as directed by cardio and renal recommendations. maintaining sats currentlly at 2 l NC. (2) CHF exacerbation Current Visit: Yes Status: Acute Assessment and plan: Patient still has b/l massive lower leg swelling. Echocardiogram shows LV ejection fraction of 20%. Pt is now on IV bumetanide and metolazone. Pt is s/p cardiac cath on 10/15/16 and shows 50% stenosis in LAD, 60% stenosis in proximal LCx, 70% stenosis in OM, 50% stenosis left PDA. 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 IV fluid has been stopped. will continue to monitor. Qualifiers: Congestive heart failure type: systolic Qualified Code(s): I50.23 - Acute on chronic systolic (congestive) heart failure (3) Atrial fibrillation Current Visit: Yes Status: Chronic Assessment and plan: Rate is controlled. Continue metoprolol, digoxin and amiodarone. Cardiology is following the patient Qualifiers: Atrial fibrillation type: unspecified Qualified Code(s): I48.91 - Unspecified atrial fibrillation (4) CKD (chronic kidney disease) stage 4, GFR 15-29 ml/min Current Visit: Yes Status: Chronic Assessment and plan: Chronic kidney disease possibly contributing to volume overload in addition to systolic congestive heart failure. Pt is s/p cardiac cath on 10/15/16 - nephrology following, will follow recommendations. (5) DM type 2 (diabetes mellitus, type 2) Current Visit: Yes Status: Chronic Assessment and plan: Blood sugars are well controlled. Hemoglobin A1c 6.3%. Diabetes diet. Monitor Accu-Cheks. Qualifiers: Diabetes mellitus complication status: with kidney complications Diabetes mellitus complication detail: with chronic kidney disease Diabetes mellitus termite exterminator insulin use: without termite exterminator use Chronic kidney disease stage: stage 4 (severe) Qualified Code(s): E11.22 - Type 2 diabetes mellitus with diabetic chronic kidney disease; N18.4 - Chronic kidney disease, stage 4 (severe ) (6) Supratherapeutic INR Current Visit: Yes Status: Resolved Assessment and plan: INR is subtherapeutic now. Warfarin is restarted on 10/15/16. INR therapeutic today, will conitnue coumadin, heparin has been stopped. - Time Spent With Patient 25 - 35 minutes - Subjective Interval history: Patient seen at the bedside. Still has bilateral lower leg swelling. Being followed by renal and cardiology. denies wanting to go back to hospice. - Constitutional Vitals: Temp Pulse Resp BP Pulse Ox 97.7 F 92 16 128/74 98 10/18/16 11:01 10/18/16 11:01 10/18/16 11:01 10/18/16 11:01 10/18/16 11:01 General appearance: Present: A&O X 3, no acute distress Exam: General appearance: Present: A&O X 3, no acute distress General: Conversant, No Apparent Distress HEENT: Atraumatic, Normocephaly, Mucus Membranes Moist Neck: No JVD, Normal carotid pulses Cardiac: Other (irregularly irregular) Lungs: b/l mild basal creptns, no wheezing. Neuro: Alert and responsive, No focal deficits noted Abdomen: Soft, Non-Tender Skin: No rashes noted on visualized skin Musculoskeletal: No Chest Wall Tenderness Extremities: Other (2-3+ BLE edema extending to thighs.) Internal Medicine: Result - Labs CBC & Chem 7: 10/18/16 08:30 10/18/16 08:30 Labs: Short CBC 10/18/16 Range/Units 08:30 WBC 7.0 (4.3-11.1) K/mcL Hgb 11.5 (11.5-15.4) g/dL Hct 35.2 L (35.3-44.9) % Plt Count 125 L (140-400) K/mcL Neutrophils # 3.8 (1.6-8.9) K/mcL BMP 10/18/16 08:30 Sodium 144 Potassium 3.9 Chloride 98 Carbon Dioxide 36 H BUN 31 H Creatinine 1.99 H Glucose 109 H Calcium 9.3 Liver Function 10/18/16 Range/Units 08:30 Total Bilirubin 0.9 (0.2-1.2) mg/dL AST 24 (5-34) Units/L ALT 16 (0-55) Units/L Alkaline Phosphatase 48 (38-126) Units/L Albumin 3.1 L (3.5-5.0) g/dL - ABG Interpretation ABG results: PT/INR, D-dimer PT 28.8 Seconds (9.4-12.1) H 10/18/16 10:49 - VTE Documentation of Mechanical Device: Intermittent pneumatic compression device Consult Discharge Plan - Plan Referrals: Cayetano Trevizo DO [Partnered Physician] - (web request on 10/15/2016 at 153)
[2016-10-18] MEDS: *HR* Warfarin 2 MG TABLET PO SCH (17:00)
--- NOTE | 2016-10-18 17:04 | Electrocardiograph Report ---
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
[2016-10-18] MEDS: Ascorbic Acid 500 MG TABLET PO SCH (21:02)
[2016-10-18] MEDS: traZODone 50 MG TABLET PO SCH (21:02)
[2016-10-18] MEDS: *HR* LORazepam 1 MG TABLET PO SCH (21:02)
[2016-10-19 04:51] LABS: INR 2.7; Prothrombin Time 30.4 Seconds (9.4-12.1)
[2016-10-19 06:29] LABS: Albumin 2.9 g/dL (3.5-5.0); Albumin/Globulin Ratio 1.1 (1.1-2.2); Bilirubin,Total 0.9 mg/dL (0.2-1.2); Calcium 9.4 mg/dL (8.6-10.8); Globulin 2.6 g/dL (2.4-3.5); Potassium 3.9 mEq/L (3.5-4.5); Total Protein 5.5 g/dL (6.0-8.3)
[2016-10-19] MEDS: Lactobacillus 1 EACH CAP.SPRINK PO SCH ×2 (08:48→21:25)
[2016-10-19] MEDS: *HR* Amiodarone 200 MG TABLET PO SCH (08:48)
[2016-10-19] MEDS: Bumetanide 1 MG/4 ML VIAL IVP SCH ×2 (08:49→17:12)
[2016-10-19] MEDS: Metoprolol XL (24 HR) Succ 50 MG TAB.ER.24H PO SCH (08:49)
[2016-10-19] MEDS: hydrALAZINE 25 MG TABLET PO SCH ×2 (08:49→17:11)
[2016-10-19] MEDS: Aspirin 81 MG TAB.CHEW PO SCH (08:49)
[2016-10-19] MEDS: metOLazone 5 MG TABLET PO SCH (08:49)
[2016-10-19] MEDS: MSM PO SCH (08:50)
[2016-10-19] MEDS: BORON PO SCH (08:50)
[2016-10-19] MEDS: [UNRECOGNIZED DRUG - OTHER] PO SCH (08:50)
[2016-10-19] MEDS: GLUC PO SCH (08:50)
--- NOTE | 2016-10-19 09:04 | Event Note ---
Date of Encounter: 10/19/16 Time of Encounter: 08:50 Patient up in chair, daughter at bedside. Discussed with them that goals of care have been established and currently palliative not managing any symptoms, so will sign off. Please re-consult if needed.
--- NOTE | 2016-10-19 09:37 | Nephrology Progress Note ---
Date of Encounter: 10/19/16 Time of Encounter: 09:30 - Assessment and Plan (1) CKD (chronic kidney disease) stage 4, GFR 15-29 ml/min Current Visit: Yes Status: Chronic S/P LHC with minimal contrast. Renal fct stable. Continues to have significant LE edema. Excellent urine output. Will continue to follow. Subjective Principal diagnosis: CMP, CHF Interval history: Sitting up in chair. States tired all of the time. Daughter at bedside. Denies CP. No new complaints. Objective - Vital Signs Vital signs: Vital Signs Temp Pulse Resp BP Pulse Ox 10/19/16 08:04 96 10/19/16 06:35 98.4 F 93 16 158/67 96 10/19/16 04:25 98.4 F 89 16 147/79 96 10/19/16 00:12 98.4 F 104 16 160/85 96 10/18/16 21:10 94 L 10/18/16 19:25 98.6 F 108 17 134/73 96 10/18/16 15:00 98.4 F 80 16 150/82 98 10/18/16 11:01 97.7 F 92 16 128/74 98 Intake and Output 10/18/16 10/19/16 10/19/16 23:59 07:59 15:59 Intake Total 120 / 120 Output Total 900 / 900 300 / 300 Balance -900 / -900 -300 / -300 120 / 120 Intake: Oral 120 / 120 Output: Urine 900 / 900 300 / 300 Other: Meal Breakfast Percent of Meal Consumed 75% Stool Size Moderate Stool Consistency soft Stool Characteristics Normal for Patient Stool Color Brown Weight 82 kg Patient Weight 10/19/16 23:59 Weight 82 kg - General Appearance General appearance: Present: well-developed, well-nourished, appears started age EENT: Present: mucous membranes moist Respiratory: Present: clear Cardiology: Present: edema, irregular rhythm Additional Comments: 1-2+ knees down Gastrointestinal: Present: normoactive bowel sounds, no tenderness Integumentary: Present: warm and dry Neurologic: Present: alert and oriented x3 Psychiatric: Present: mood/affect appropriate, cooperative - Lab 10/18/16 08:30 10/19/16 05:50 Most recent lab results Calcium 9.4 mg/dL (8.6-10.8) 10/19/16 05:50 Magnesium 1.1 mg/dL (1.6-2.6) L 10/17/16 03:38 - VTE Documentation of Mechanical Device: Intermittent pneumatic compression device Consult Discharge Plan - Plan Referrals: Cayetano Trevizo DO [Partnered Physician] - (web request on 10/15/2016 at 2730)
--- NOTE | 2016-10-19 10:10 | Cardiology Progress Note ---
Date of Encounter: 10/19/16 Time of Encounter: 10:08 Assessment and Plan (1) CHF exacerbation Current Visit: Yes Status: Acute On IV Bumex 2 mg BID--Output has improved I/O today -1250mL, cumulative - 2460mL. Zaroxolyn on board as well. Still with lower extremity edema. Expect pt to have chronic lower extremity edema--this is not entirely new. Will continue with increased Bumex. Continue with strict I&O, daily weights, fluid restriction. Education reinforced regarding low sodium diet and fluid restriction at home. Echo in 2013 showed EF preserved 60%, no segmental wall motion abnormalities. Echo currently EF now 20%-global with mild basal and mid inferior wall hypokinesis. LHC revealed NICMP--severe 1 vessel CAD 70-80% 1st marginal stenosis not amendable to PCI, otherwise moderate disease. May be tachycardia induced. Will continue to follow fluid status/diuresis. Qualifiers: Congestive heart failure type: systolic Qualified Code(s): I50.23 - Acute on chronic systolic (congestive) heart failure (2) Cardiomyopathy Current Visit: Yes Status: Acute Per Cardiology: LHC reveals NICMP--severe 1 vessel CAD not amendable to PCI, otherwise moderate disease. EF previously 60% in 2013. Echo shows EF is 20%--global LV systolic dysfunction with mild basal and mid inferior wall hypokinesis. No evidence of LV thrombus. Normal RV size and mild-moderate reduction in function. Mild AR, moderate MR, TR appears moderate if not severe in some views. Mild-moderate phtn. Trivial pericardial effusion, pleural effusion noted. Suspect multifactorial (tachycardia-induced from afib with RVR?). Continue BB. No KAYLA- I due to renal function. Qualifiers: Cardiomyopathy type: unspecified Qualified Code(s): I42.9 - Cardiomyopathy , unspecified (3) Atrial fibrillation Current Visit: Yes Status: Chronic Per Cardiology: Rate improved. Average heart rate on telemetry the past 12 hours 90, atrial fibrillation. On Toprol XL 200mg daily, digoxin 0.125 mg by mouth every other day (renal dosing), and amiodarone 200 mg by mouth daily. Continue with rate control strategy. Anticipate will continue to be difficult to rate control until volume status improves. We'll continue to monitor. Do not anticipate DC cardioversion will be warranted in this situation. Regarding long-term anticoagulation, on Coumadin. INR yesterday 2.7--pharmacy dosing/managing while inpt. Qualifiers: Atrial fibrillation type: unspecified Qualified Code(s): I48.91 - Unspecified atrial fibrillation (4) CKD (chronic kidney disease) stage 4, GFR 15-29 ml/min Current Visit: Yes Status: Chronic S/P LHC with minimal contrast. Renal fct stable. Nephrology following. (5) CAD (coronary artery disease) Current Visit: Yes Status: Chronic Per Cardiology: Catheterization from yesterday reviewed and showed mid LAD 50-60% stenosis, proximal circumflex 50-60% stenosis, OM1 70-80% stenosis, left PDA 50-60% stenosis. No intervention performed. Per Dr. Torres, patient with nonischemic cardiomyopathy. On aspirin, statin, beta bhavik. Qualifiers: Coronary Disease-Associated Artery/Lesion type: [place] artery [place] vs. transplanted heart: [place] heart Associated angina: angina presence unspecified Qualified Code(s): I25.10 - Atherosclerotic heart disease of [place] coronary artery without angina pectoris (6) Essential hypertension Current Visit: Yes Status: Acute BP not at goal--150s systolic. Increased Hydralazine to 50mg TID yesterday. Discussion w patient/family: The assessment and plan as outlined above was discussed with the patient and/or family members who expressed understanding and agreement. All questions were answered. Thank you for involving us in the care of your patient. Please call with any questions. I will discuss all the above with Dr. Hammer and make changes as necessary. Subjective Principal diagnosis: CMP, CHF Interval history: Pt denies any acute complaints this AM--denies chest pain, reports no worsening of dyspnea. Continues to have improved diuresis. I/O today -1250mL. Cumulative now -3518mL. Renal function remains stable. 12 hour tele AVG HR 90, A-Fib Objective Vital Signs, Last 4 Hours Temp Pulse Resp BP Pulse Ox 10/19/16 08:04 96 10/19/16 06:35 98.4 F 93 16 158/67 96 Vital Signs Temp Pulse Resp BP Pulse Ox 10/19/16 08:04 96 10/19/16 06:35 98.4 F 93 16 158/67 96 10/19/16 04:25 98.4 F 89 16 147/79 96 10/19/16 00:12 98.4 F 104 16 160/85 96 10/18/16 21:10 94 L 10/18/16 19:25 98.6 F 108 17 134/73 96 10/18/16 15:00 98.4 F 80 16 150/82 98 10/18/16 11:01 97.7 F 92 16 128/74 98 Intake and Output 10/18/16 10/19/16 10/19/16 23:59 07:59 15:59 Intake Total 120 / 120 Output Total 900 / 900 300 / 300 Balance -900 / -900 -300 / -300 120 / 120 Intake: Oral 120 / 120 Output: Urine 900 / 900 300 / 300 Other: Meal Breakfast Percent of Meal Consumed 75% Stool Size Moderate Stool Consistency soft Stool Characteristics Normal for Patient Stool Color Brown Weight 82 kg Patient Weight 10/19/16 23:59 Weight 82 kg General: Conversant, No Apparent Distress HEENT: Atraumatic, Normocephaly, Mucus Membranes Moist Neck: Normal carotid pulses Cardiac: Other (irregularly irregular) Lungs: Normal Breath Sounds, No Wheeze, Rales, Rhonchi Neuro: Alert and responsive, No focal deficits noted Abdomen: Soft, Non-Tender Skin: No rashes noted on visualized skin Musculoskeletal: No Chest Wall Tenderness Extremities: Other (2+ BLE edema) Results 10/18/16 08:30 10/19/16 05:50 Lab Results 10/18/16 10/19/16 10/19/16 10:49 04:30 05:50 INR 2.6 2.7 Sodium 144 Potassium 3.9 Chloride 96 L Carbon Dioxide 39 H BUN 30 H Creatinine 1.96 H Glucose 101 H Calcium 9.4 Total Bilirubin 0.9 AST 25 ALT 16 Alkaline Phosphatase 50 BMP 10/19/16 Range/Units 05:50 Sodium 144 (136-145) mEq/L Potassium 3.9 (3.5-4.5) mEq/L Chloride 96 L (98-109) mEq/L Carbon Dioxide 39 H (19-29) mEq/L BUN 30 H (7-20) mg/dL Creatinine 1.96 H (0.57-1.11) mg/dL Glucose 101 H (70-99) mg/dL Calcium 9.4 (8.6-10.8) mg/dL Liver Function 10/19/16 Range/Units 05:50 Total Bilirubin 0.9 (0.2-1.2) mg/dL AST 25 (5-34) Units/L ALT 16 (0-55) Units/L Alkaline Phosphatase 50 (38-126) Units/L Albumin 2.9 L (3.5-5.0) g/dL Active Medications Acetaminophen (Tylenol) 650 mg PO Q6HR PRN PRN Reason: Pain Stop: 04/16/17 18:10 Last Admin: 10/15/16 18:30 Dose: 650 mg Amiodarone HCl (Cordarone) 200 mg PO DAILY THAIS Stop: 04/17/17 09:01 Last Admin: 10/19/16 08:48 Dose: 200 mg Artificial Tears (Akwa Tears) 1 drop BOTH EYES QID PRN; Protocol PRN Reason: Dry Eyes Stop: 04/16/17 21:01 Ascorbic Acid (Vitamin C) 500 mg PO HS THAIS Stop: 04/12/17 21:01 Last Admin: 10/18/16 21:02 Dose: 500 mg Aspirin (Aspirin) 81 mg PO DAILY THAIS Stop: 04/18/17 12:31 Last Admin: 10/19/16 08:49 Dose: 81 mg Atorvastatin Calcium (Lipitor) 20 mg PO HS THAIS Stop: 04/18/17 21:01 Last Admin: 10/18/16 21:02 Dose: 20 mg Bisacodyl (Dulcolax) 5 mg PO DAILY PRN PRN Reason: Constipation Stop: 04/17/17 11:04 Last Admin: 10/18/16 12:00 Dose: 5 mg Bumetanide (Bumex) 2 mg IVP BIDDIURETIC THAIS Stop: 04/18/17 17:01 Last Admin: 10/19/16 08:49 Dose: 2 mg Calcitriol (Rocaltrol) 0.25 mcg PO 1200 THAIS Stop: 04/13/17 12:01 Last Admin: 10/18/16 11:52 Dose: 0.25 mcg Digoxin (Lanoxin) 0.125 mg PO QOD THAIS Stop: 04/15/17 10:01 Last Admin: 10/18/16 07:51 Dose: 0.125 mg Ergocalciferol (Drisdol (50,000 Unit)) 50,000 unit PO SA THAIS Stop: 04/16/17 17:02 Last Admin: 10/15/16 17:25 Dose: 50,000 unit Hydralazine HCl (Hydralazine) 50 mg PO Q8HR [facility] Stop: 04/19/17 16:01 Last Admin: 10/19/16 08:49 Dose: 50 mg Isosorbide Dinitrate (Isordil) 5 mg PO TIDAC [facility] Stop: 04/16/17 16:31 Last Admin: 10/19/16 08:56 Dose: 5 mg Lactobacillus Acidophilus/Rhamnosus (Culturelle) 1 each PO BID THAIS Stop: 04/16/17 09:01 Last Admin: 10/19/16 08:48 Dose: 1 each Levothyroxine Sodium (Synthroid) 100 mcg PO QAM [facility] Stop: 04/13/17 09:01 Last Admin: 10/19/16 08:49 Dose: 100 mcg Lorazepam (Ativan) 1 mg PO HS [facility] Stop: 04/12/17 21:01 Last Admin: 10/18/16 21:02 Dose: 1 mg Metolazone (Zaroxolyn) 5 mg PO DAILY THAIS Stop: 04/15/17 09:01 Last Admin: 10/19/16 08:49 Dose: 5 mg Metoprolol Succinate (Toprol Xl) 200 mg PO DAILY [facility] Stop: 04/15/17 09:01 Last Admin: 10/19/16 08:49 Dose: 200 mg Naloxone HCl (Narcan) 0.4 mg IVP Q2MIN PRN PRN Reason: Opioid Reversal Stop: 04/12/17 17:09 Pharmacy Profile Note (Patient Taking Own Medication) 0 each PO QAM [facility] Stop: 04/13/17 09:01 Last Admin: 10/19/16 08:50 Dose: Not Given Potassium Chloride (Potassium Chloride) 20 meq PO DAILY THAIS Stop: 04/17/17 09:01 Last Admin: 10/19/16 08:49 Dose: 20 meq Trazodone HCl (Trazodone) 50 mg PO HS [facility] Stop: 04/12/17 21:01 Last Admin: 10/18/16 21:02 Dose: 50 mg Warfarin Sodium (Coumadin Perpt) 1 each PO DAILY@1800 PRN PRN Reason: SEE COMMENTS Stop: 04/18/17 18:01 Warfarin Sodium (Coumadin) 2 mg PO 1800 [facility] Stop: 04/18/17 18:01 Last Admin: 10/18/16 17:00 Dose: 2 mg - Imaging and Cardiology Echo: report reviewed Cardiac cath: report reviewed - EKG Interpretation EKG results cardiology: other (12 hour tele AVG HR 90, A-Fib) - VTE Documentation of Mechanical Device: Intermittent pneumatic compression device Consult Discharge Plan - Plan Referrals: Cayetano Trevizo DO [Partnered Physician] - (web request on 10/15/2016 at 1530)
--- NOTE | 2016-10-19 13:05 | Internal Med Progress Note ---
Date of Encounter: 10/19/16 Time of Encounter: 13:03 - Assessment and plan (1) Acute and chronic respiratory failure with hypoxia Current Visit: Yes Status: Acute Assessment and plan: Possibly contributed to pulmonary edema. Continue supplemental oxygen continued on IV diuretics as directed by cardio and renal recommendations. good urine output. maintaining sats currentlly at 2 l NC. (2) CHF exacerbation Current Visit: Yes Status: Acute Assessment and plan: Patient still has b/l lower leg swelling. Echocardiogram shows LV ejection fraction of 20%. Pt is now on IV bumetanide and metolazone. Pt is s/p cardiac cath on 10/15/16 and shows 50% stenosis in LAD, 60% stenosis in proximal LCx, 70 % stenosis in OM, 50% stenosis left PDA. [employer] and manager business planning following the pt. IV fluid has been stopped. will continue to monitor. Qualifiers: Congestive heart failure type: systolic Qualified Code(s): I50.23 - Acute on chronic systolic (congestive) heart failure (3) Atrial fibrillation Current Visit: Yes Status: Chronic Assessment and plan: Rate is controlled. Continue metoprolol, digoxin and amiodarone. Cardiology is following the patient Qualifiers: Atrial fibrillation type: unspecified Qualified Code(s): I48.91 - Unspecified atrial fibrillation (4) CKD (chronic kidney disease) stage 4, GFR 15-29 ml/min Current Visit: Yes Status: Chronic Assessment and plan: Chronic kidney disease possibly contributing to volume overload in addition to systolic congestive heart failure. Pt is s/p cardiac cath on 10/15/16 - nephrology following, will follow recommendations. (5) DM type 2 (diabetes mellitus, type 2) Current Visit: Yes Status: Chronic Assessment and plan: Blood sugars are well controlled. Hemoglobin A1c 6.3%. Diabetes diet. Monitor Accu-Cheks. Qualifiers: Diabetes mellitus complication status: with kidney complications Diabetes mellitus complication detail: with chronic kidney disease Diabetes mellitus fci insulin use: without fci use Chronic kidney disease stage: stage 4 (severe) Qualified Code(s): E11.22 - Type 2 diabetes mellitus with diabetic chronic kidney disease; N18.4 - Chronic kidney disease, stage 4 (severe ) (6) Supratherapeutic INR Current Visit: Yes Status: Resolved Assessment and plan: Warfarin is restarted on 1/14/17. INR therapeutic today, will conitnue coumadin , heparin has been stopped. - Time Spent With Patient 25 - 35 minutes - Subjective Interval history: Patient seen at the bedside. Still has bilateral lower leg swelling. Being followed by renal and cardiology. denies any other complains other than feeling weak and tired. - Constitutional Vitals: Temp Pulse Resp BP Pulse Ox 98.2 F 105 14 95/54 96 10/19/16 10:54 10/19/16 10:54 10/19/16 10:54 10/19/16 10:54 10/19/16 10:54 General appearance: Present: A&O X 3, no acute distress Exam: General appearance: Present: A&O X 3, no acute distress General: Conversant, No Apparent Distress HEENT: Atraumatic, Normocephaly, Mucus Membranes Moist Neck: No JVD, Normal carotid pulses Cardiac: Other (irregularly irregular) Lungs: b/l clear, no wheezing. Neuro: Alert and responsive, No focal deficits noted Abdomen: Soft, Non-Tender Skin: No rashes noted on visualized skin Musculoskeletal: No Chest Wall Tenderness Extremities: Other (2-3+ BLE edema extending to thighs.) Internal Medicine: Result - Labs CBC & Chem 7: 10/18/16 08:30 10/19/16 05:50 Labs: BMP 10/19/16 05:50 Sodium 144 Potassium 3.9 Chloride 96 L Carbon Dioxide 39 H BUN 30 H Creatinine 1.96 H Glucose 101 H Calcium 9.4 Liver Function 10/19/16 Range/Units 05:50 Total Bilirubin 0.9 (0.2-1.2) mg/dL AST 25 (5-34) Units/L ALT 16 (0-55) Units/L Alkaline Phosphatase 50 (38-126) Units/L Albumin 2.9 L (3.5-5.0) g/dL - ABG Interpretation ABG results: PT/INR, D-dimer PT 30.4 Seconds (9.4-12.1) H 10/19/16 04:30 - VTE Documentation of Mechanical Device: Intermittent pneumatic compression device Consult Discharge Plan - Plan Referrals: Cayetano Trevizo DO [Partnered Physician] - (web request on 10/15/2016 at 1536)
[2016-10-19] MEDS: *HR* Warfarin 2 MG TABLET PO SCH (17:11)
[2016-10-19] MEDS: *HR* LORazepam 1 MG TABLET PO SCH (21:25)
[2016-10-19] MEDS: Ascorbic Acid 500 MG TABLET PO SCH (21:25)
[2016-10-19] MEDS: traZODone 50 MG TABLET PO SCH (21:25)
[2016-10-20] MEDS: hydrALAZINE 25 MG TABLET PO SCH ×3 (00:38→17:02)
[2016-10-20 05:06] LABS: INR 2.9; Prothrombin Time 32.7 Seconds (9.4-12.1)
[2016-10-20] MEDS: Metoprolol XL (24 HR) Succ 50 MG TAB.ER.24H PO SCH (07:52)
[2016-10-20] MEDS: Bumetanide 1 MG/4 ML VIAL IVP SCH ×2 (07:53→17:02)
[2016-10-20] MEDS: metOLazone 5 MG TABLET PO SCH (07:53)
[2016-10-20] MEDS: Aspirin 81 MG TAB.CHEW PO SCH (07:53)
[2016-10-20] MEDS: Lactobacillus 1 EACH CAP.SPRINK PO SCH ×2 (07:53→20:01)
[2016-10-20] MEDS: *HR* Amiodarone 200 MG TABLET PO SCH (07:53)
[2016-10-20] MEDS: *HR* Digoxin 0.125 MG TABLET PO SCH (07:54)
[2016-10-20] MEDS: [UNRECOGNIZED DRUG - OTHER] PO SCH (07:54)
[2016-10-20] MEDS: GLUC PO SCH (07:54)
[2016-10-20] MEDS: BORON PO SCH (07:54)
[2016-10-20] MEDS: MSM PO SCH (07:54)
--- NOTE | 2016-10-20 09:23 | Cardiology Progress Note ---
Date of Encounter: 10/20/16 Time of Encounter: 08:30 Assessment and Plan (1) CHF exacerbation Current Visit: Yes Status: Acute On IV Bumex 2 mg BID--Output has improved I/O today -1200mL, cumulative - 4448mL. Zaroxolyn on board as well. Lower extremity edema appears to be improved --recommend application of KAYLA wraps to BLE today. Keeps legs elevated when able. Expect pt to have chronic lower extremity edema--this is not entirely new. Will continue with increased Bumex. Continue with strict I&O, daily weights, fluid restriction. Education reinforced regarding low sodium diet and fluid restriction at home. TTE 2014: EF preserved 60%, no segmental wall motion abnormalities. Current TTE: EF 20%-global with mild basal and mid inferior wall hypokinesis. LHC demonstrated NICMP--severe 1 vessel CAD 70-80% 1st marginal stenosis not amendable to PCI, otherwise moderate disease. Suspect cardiomyopathy may be tachycardia induced. Will continue to follow fluid status/diuresis. Qualifiers: Congestive heart failure type: systolic Qualified Code(s): I50.23 - Acute on chronic systolic (congestive) heart failure (2) Cardiomyopathy Current Visit: Yes Status: Acute Per Cardiology: LHC reveals NICMP--severe 1 vessel CAD not amendable to PCI, otherwise moderate disease. EF previously 60% in 2014. Echo shows EF is 20%--global LV systolic dysfunction with mild basal and mid inferior wall hypokinesis. No evidence of LV thrombus. Normal RV size and mild-moderate reduction in function. Mild AR, moderate MR, TR appears moderate if not severe in some views. Mild-moderate phtn. Trivial pericardial effusion, pleural effusion noted. Suspect multifactorial (tachycardia-induced from afib with RVR?). Continue BB and diuretics. No ACEi/ARB due to renal insufficiency. Qualifiers: Cardiomyopathy type: unspecified Qualified Code(s): I42.9 - Cardiomyopathy , unspecified (3) Essential hypertension Current Visit: Yes Status: Acute BP not at goal--150s systolic. Increased Hydralazine to 50mg TID yesterday. (4) Atrial fibrillation Current Visit: Yes Status: Chronic Per Cardiology: Average heart rate on telemetry the past 12 hours 96, atrial fibrillation. ContinueToprol XL 200mg daily, digoxin 0.125 mg by mouth every other day (renal dosing), and amiodarone 200 mg by mouth daily. Recommend continuation of rate control strategy--she is asymptomatic. Anticipate will continue to be difficult to rate control until volume status improves. We'll continue to monitor. Do not anticipate DC cardioversion will be warranted in this situation. On Coumadin for anticoagulation, pharmacy dosing as inpt. Qualifiers: Atrial fibrillation type: unspecified Qualified Code(s): I48.91 - Unspecified atrial fibrillation (5) CAD (coronary artery disease) Current Visit: Yes Status: Chronic Per Cardiology: LHC: mid LAD 50-60% stenosis, proximal circumflex 50-60% stenosis, OM1 70-80% stenosis, left PDA 50-60% stenosis, medical management recommended. Per Dr. Torres, patient with nonischemic cardiomyopathy. Continue aspirin, statin, beta bhavik. Qualifiers: Coronary Disease-Associated Artery/Lesion type: [place] artery [place] vs. transplanted heart: [place] heart Associated angina: angina presence unspecified Qualified Code(s): I25.10 - Atherosclerotic heart disease of [place] coronary artery without angina pectoris (6) CKD (chronic kidney disease) stage 4, GFR 15-29 ml/min Current Visit: Yes Status: Chronic Kidney function stable. Discussion w patient/family: The assessment and plan as outlined above was discussed with the patient and/or family members who expressed understanding and agreement. All questions were answered. Thank you for involving us in the care of your patient. Please call with any questions. The patient will be discussed and reviewed with Dr. Hammer; changes to be made accordingly. Subjective Principal diagnosis: CMP, CHF Interval history: Seen and examined. Denies acute complaints overnight. Concern with generalized weakness. CHF education discussed. Objective Vital Signs, Last 4 Hours Temp Pulse Resp BP Pulse Ox 10/20/16 08:10 97 10/20/16 07:36 98.0 F 99 16 127/80 96 General: Conversant HEENT: Atraumatic, Normocephaly Cardiac: Other (irregularly irregular) Lungs: Other (Bibasilar rales) Neuro: Alert and responsive Abdomen: Soft Skin: No rashes noted on visualized skin Musculoskeletal: No Chest Wall Tenderness Extremities: Other (Large BLE, +2-3 edema to knees) Results 10/18/16 08:30 10/19/16 05:50 Lab Results 10/20/16 04:45 INR 2.9 - Imaging and Cardiology Echo: report reviewed Cardiac cath: report reviewed Other Results: Tele: avg HR=96 afib - EKG Interpretation EKG results cardiology: personally reviewed - VTE Documentation of Mechanical Device: Intermittent pneumatic compression device Consult Discharge Plan - Plan Referrals: Cayetano Trevizo DO [Primary Care Provider] - (web request on 10/15/2016 at 1535 )
--- NOTE | 2016-10-20 13:36 | Nephrology Progress Note ---
Date of Encounter: 10/20/16 Time of Encounter: 13:10 - Assessment and Plan (1) CKD (chronic kidney disease) stage 4, GFR 15-29 ml/min Current Visit: Yes Status: Chronic No current labs, ordered. LE edema improving. Documented urine output 300 cc for yesterday, though family members state voided at least 500cc for family member yesterday. Will continue to follow. Subjective Principal diagnosis: CMP, CHF Interval history: Sitting up in chair. several family members in room at bedside. Daughter states LE swelling improved. Denies CP. No new complaints. Objective - Vital Signs Vital signs: Vital Signs Temp Pulse Resp BP Pulse Ox 10/20/16 11:20 98.2 F 98 17 132/74 96 10/20/16 08:10 97 10/20/16 07:36 98.0 F 99 16 127/80 96 10/20/16 04:30 98.5 F 93 14 138/70 96 10/20/16 00:06 97.9 F 112 14 132/78 97 10/19/16 20:19 97.5 F L 82 14 167/61 99 10/19/16 20:12 98.4 F 110 16 134/73 96 10/19/16 15:52 98.7 F 75 16 126/70 96 Intake and Output 10/19/16 10/20/16 10/20/16 23:59 07:59 15:59 Intake Total 0 / 0 Output Total 1050 / 1050 700 / 700 Balance 0 / 0 -1050 / -1050 -700 / -700 Intake: Oral 0 / 0 Output: Urine 1050 / 1050 700 / 700 - General Appearance General appearance: Present: well-developed, well-nourished, appears started age EENT: Present: mucous membranes moist Neck: Present: no JVD Respiratory: Present: clear Cardiology: Present: edema, irregular rhythm Additional Comments: Edema improved, 1+ Gastrointestinal: Present: normoactive bowel sounds, no tenderness Integumentary: Present: warm and dry Neurologic: Present: alert and oriented x3 Psychiatric: Present: mood/affect appropriate, cooperative - Lab 10/18/16 08:30 10/19/16 05:50 Most recent lab results Calcium 9.4 mg/dL (8.6-10.8) 10/19/16 05:50 Magnesium 1.1 mg/dL (1.6-2.6) L 10/17/16 03:38 - VTE Documentation of Mechanical Device: Intermittent pneumatic compression device Consult Discharge Plan - Plan Referrals: Anabella Hodgson MD [Partnered Physician] - 10/21/16 1:30 pm
[2016-10-20 14:55] LABS: Albumin 2.9 g/dL (3.5-5.0); Albumin/Globulin Ratio 1.2 (1.1-2.2); Bilirubin,Total 0.7 mg/dL (0.2-1.2); Calcium 9.4 mg/dL (8.6-10.8); Globulin 2.4 g/dL (2.4-3.5); Potassium 3.8 mEq/L (3.5-4.5); Total Protein 5.3 g/dL (6.0-8.3)
--- NOTE | 2016-10-20 16:01 | Internal Med Progress Note ---
Date of Encounter: 10/20/16 Time of Encounter: 15:55 - Assessment and plan (1) Acute and chronic respiratory failure with hypoxia Current Visit: Yes Status: Acute Assessment and plan: Possibly contributed to pulmonary edema. Continue supplemental oxygen continued on IV diuretics as directed by cardio and renal recommendations. good urine output. maintaining sats currentlly at 2 l NC. (2) CHF exacerbation Current Visit: Yes Status: Acute Assessment and plan: Patient still has b/l lower leg swelling. Echocardiogram shows LV ejection fraction of 20%. Pt is now on IV bumetanide and metolazone. Pt is s/p cardiac cath on 10/15/16 and shows 50% stenosis in LAD, 60% stenosis in proximal LCx, 70 % stenosis in OM, 50% stenosis left PDA. Retail Planning Manager and wave solder offbearer following the pt. IV fluid has been stopped. will continue to monitor. planned for transition to oral diuretics tomm. Qualifiers: Congestive heart failure type: systolic Qualified Code(s): I50.23 - Acute on chronic systolic (congestive) heart failure (3) Atrial fibrillation Current Visit: Yes Status: Chronic Assessment and plan: Rate is controlled. Continue metoprolol, digoxin and amiodarone. Cardiology is following the patient Qualifiers: Atrial fibrillation type: unspecified Qualified Code(s): I48.91 - Unspecified atrial fibrillation (4) CKD (chronic kidney disease) stage 4, GFR 15-29 ml/min Current Visit: Yes Status: Chronic Assessment and plan: Chronic kidney disease possibly contributing to volume overload in addition to systolic congestive heart failure. Pt is s/p cardiac cath on 10/15/16 - nephrology following, will follow recommendations. (5) DM type 2 (diabetes mellitus, type 2) Current Visit: Yes Status: Chronic Assessment and plan: Blood sugars are well controlled. Hemoglobin A1c 6.3%. Diabetes diet. Monitor Accu-Cheks. Qualifiers: Diabetes mellitus complication status: with kidney complications Diabetes mellitus complication detail: with chronic kidney disease Diabetes mellitus predatory animal exterminator insulin use: without predatory animal exterminator use Chronic kidney disease stage: stage 4 (severe) Qualified Code(s): E11.22 - Type 2 diabetes mellitus with diabetic chronic kidney disease; N18.4 - Chronic kidney disease, stage 4 (severe ) (6) Supratherapeutic INR Current Visit: Yes Status: Resolved Assessment and plan: Warfarin is restarted on 10/15/16. INR therapeutic , will conitnue coumadin, heparin has been stopped. - Time Spent With Patient 25 - 35 minutes - Subjective Interval history: Patient seen at the bedside. has bilateral lower leg swelling, looks mildly decreased and looks less tense. Being followed by renal and cardiology. denies any other complains other than feeling weak and tired. - Constitutional Vitals: Temp Pulse Resp BP Pulse Ox 98.2 F 98 17 132/74 96 10/20/16 11:20 10/20/16 11:20 10/20/16 11:20 10/20/16 11:20 10/20/16 11:20 General appearance: Present: A&O X 3, no acute distress Exam: General appearance: Present: A&O X 3, no acute distress General: Conversant, No Apparent Distress HEENT: Atraumatic, Normocephaly, Mucus Membranes Moist Neck: No JVD, Normal carotid pulses Cardiac: Other (irregularly irregular) Lungs: b/l clear, no wheezing. Neuro: Alert and responsive, No focal deficits noted Abdomen: Soft, Non-Tender Skin: No rashes noted on visualized skin Musculoskeletal: No Chest Wall Tenderness Extremities: Other (2-3+ BLE edema extending to thighs.) Internal Medicine: Result - Labs CBC & Chem 7: 10/18/16 08:30 10/20/16 14:30 Labs: BMP 10/20/16 14:30 Sodium 143 Potassium 3.8 Chloride 95 L Carbon Dioxide 40 H* Creatinine 2.28 H Glucose 174 H Calcium 9.4 Liver Function 10/20/16 Range/Units 14:30 Total Bilirubin 0.7 (0.2-1.2) mg/dL AST 22 (5-34) Units/L ALT 13 (0-55) Units/L Alkaline Phosphatase 47 (38-126) Units/L Albumin 2.9 L (3.5-5.0) g/dL - ABG Interpretation ABG results: PT/INR, D-dimer PT 32.7 Seconds (9.4-12.1) H 10/20/16 04:45 - VTE Documentation of Mechanical Device: Intermittent pneumatic compression device Consult Discharge Plan - Plan Referrals: Anabella Hodgson MD [Partnered Physician] - 10/21/16 1:30 pm
[2016-10-20] MEDS ORDERED: *HR* Warfarin 1 MG TABLET PO SCH (18:00)
[2016-10-20] MEDS: traZODone 50 MG TABLET PO SCH (20:01)
[2016-10-20] MEDS: *HR* LORazepam 1 MG TABLET PO SCH (20:02)
[2016-10-20] MEDS: Ascorbic Acid 500 MG TABLET PO SCH (20:02)
[2016-10-21] MEDS: hydrALAZINE 25 MG TABLET PO SCH ×4 (00:12→23:32)
[2016-10-21 05:09] LABS: INR 3.2; Prothrombin Time 36.1 Seconds (9.4-12.1)
[2016-10-21] MEDS: Lactobacillus 1 EACH CAP.SPRINK PO SCH ×2 (08:27→20:04)
[2016-10-21] MEDS: Bumetanide 1 MG/4 ML VIAL IVP SCH (08:27)
[2016-10-21] MEDS: Aspirin 81 MG TAB.CHEW PO SCH (08:27)
[2016-10-21] MEDS: [UNRECOGNIZED DRUG - OTHER] PO SCH (08:27)
[2016-10-21] MEDS: metOLazone 5 MG TABLET PO SCH (08:27)
[2016-10-21] MEDS: GLUC PO SCH (08:27)
[2016-10-21] MEDS: MSM PO SCH (08:27)
[2016-10-21] MEDS: Metoprolol XL (24 HR) Succ 50 MG TAB.ER.24H PO SCH (08:27)
[2016-10-21] MEDS: BORON PO SCH (08:27)
[2016-10-21] MEDS: *HR* Amiodarone 200 MG TABLET PO SCH (08:27)
--- NOTE | 2016-10-21 09:08 | Nephrology Progress Note ---
Date of Encounter: 10/21/16 Time of Encounter: 09:00 - Assessment and Plan (1) CKD (chronic kidney disease) stage 4, GFR 15-29 ml/min Current Visit: Yes Status: Chronic No current labs, ordered. Yesterdays renal fct stable. Excellent urine output, edema improved. If discharged will follow in office 1-2 weeks. Subjective Principal diagnosis: CMP, CHF Interval history: Sitting up in chair. several family members in room at bedside. Denies CP. No new complaints. Objective - Vital Signs Vital signs: Vital Signs Temp Pulse Resp BP Pulse Ox 10/21/16 07:35 98.2 F 94 18 133/75 97 10/21/16 04:56 98.5 F 91 18 159/67 92 L 10/21/16 00:09 98.8 F 109 16 129/75 95 10/20/16 20:58 98.5 F 113 18 132/80 95 10/20/16 20:16 94 L 10/20/16 20:15 94 L 10/20/16 16:16 98.1 F 92 18 129/7 95 10/20/16 11:20 98.2 F 98 17 132/74 96 Intake and Output 10/20/16 10/21/16 10/21/16 23:59 07:59 15:59 Intake Total 60 / 60 30 / 30 Output Total 850 / 850 100 / 100 Balance -790 / -790 -70 / -70 Intake: Oral 60 / 60 30 / 30 Output: Urine 850 / 850 100 / 100 - General Appearance General appearance: Present: well-developed, well-nourished, appears started age EENT: Present: mucous membranes moist Neck: Present: no JVD Respiratory: Present: clear Cardiology: Present: edema, regular rate, regular rhythm, irregular rhythm Additional Comments: Mild pitting Gastrointestinal: Present: normoactive bowel sounds, no tenderness Integumentary: Present: warm and dry Neurologic: Present: alert and oriented x3 Psychiatric: Present: mood/affect appropriate, cooperative - Lab 10/18/16 08:30 10/20/16 14:30 Most recent lab results Calcium 9.4 mg/dL (8.6-10.8) 10/20/16 14:30 Magnesium 1.1 mg/dL (1.6-2.6) L 10/17/16 03:38 - VTE Documentation of Mechanical Device: Intermittent pneumatic compression device Consult Discharge Plan - Plan Referrals: Anabella Hodgson MD [Partnered Physician] - 10/21/16 1:30 pm
--- NOTE | 2016-10-21 15:37 | Internal Med Progress Note ---
Date of Encounter: 10/21/16 Time of Encounter: 15:34 - Assessment and plan (1) Acute and chronic respiratory failure with hypoxia Current Visit: Yes Status: Acute Assessment and plan: Possibly contributed to pulmonary edema. Continue supplemental oxygen continued on IV diuretics as directed by cardio and renal recommendations. good urine output. maintaining sats currentlly at 2 l NC. (2) CHF exacerbation Current Visit: Yes Status: Acute Assessment and plan: Patient still has b/l lower leg swelling. Echocardiogram shows LV ejection fraction of 20%. Pt is now on IV bumetanide and metolazone. Pt is s/p cardiac cath on 10/15/16 and shows 50% stenosis in LAD, 60% stenosis in proximal LCx, 70 % stenosis in OM, 50% stenosis left PDA. Set Up And Lay Out Inspector and academic support assistant following the pt. IV fluid has been stopped. will continue to monitor. changed IV bumex to oral today and possible dc tomm. Qualifiers: Congestive heart failure type: systolic Qualified Code(s): I50.23 - Acute on chronic systolic (congestive) heart failure (3) Atrial fibrillation Current Visit: Yes Status: Chronic Assessment and plan: Rate is controlled. Continue metoprolol, digoxin and amiodarone. on coumadin Qualifiers: Atrial fibrillation type: unspecified Qualified Code(s): I48.91 - Unspecified atrial fibrillation (4) CKD (chronic kidney disease) stage 4, GFR 15-29 ml/min Current Visit: Yes Status: Chronic Assessment and plan: Chronic kidney disease possibly contributing to volume overload in addition to systolic congestive heart failure. Pt is s/p cardiac cath on 10/15/16 - nephrology following, possible plan for dc tomm. (5) DM type 2 (diabetes mellitus, type 2) Current Visit: Yes Status: Chronic Assessment and plan: Blood sugars are well controlled. Hemoglobin A1c 6.3%. Diabetes diet. Monitor Accu-Cheks. Qualifiers: Diabetes mellitus complication status: with kidney complications Diabetes mellitus complication detail: with chronic kidney disease Diabetes mellitus termite control servicer insulin use: without termite control servicer use Chronic kidney disease stage: stage 4 (severe) Qualified Code(s): E11.22 - Type 2 diabetes mellitus with diabetic chronic kidney disease; N18.4 - Chronic kidney disease, stage 4 (severe ) (6) Supratherapeutic INR Current Visit: Yes Status: Resolved Assessment and plan: Warfarin is restarted on 10/15/16. INR therapeutic , will conitnue coumadin, heparin has been stopped. - Time Spent With Patient 25 - 35 minutes - Subjective Interval history: Patient seen at the bedside. has bilateral lower leg swelling, looks improved. reports that she was able to walk on the hallway yesterday. Being followed by renal and cardiology. denies any other complains other than feeling weak and tired. - Constitutional Vitals: Temp Pulse Resp BP Pulse Ox 98.5 F 98 16 109/66 95 10/21/16 12:35 10/21/16 12:35 10/21/16 12:35 10/21/16 12:35 10/21/16 12:35 General appearance: Present: A&O X 3, no acute distress Exam: General appearance: Present: A&O X 3, no acute distress General: Conversant, No Apparent Distress HEENT: Atraumatic, Normocephaly, Mucus Membranes Moist Neck: No JVD, Normal carotid pulses Cardiac: Other (irregularly irregular) Lungs: b/l clear, no wheezing. Neuro: Alert and responsive, No focal deficits noted Abdomen: Soft, Non-Tender Skin: No rashes noted on visualized skin Musculoskeletal: No Chest Wall Tenderness Extremities: edema has improved, still has 1-2+ pitting edema Internal Medicine: Result - Labs CBC & Chem 7: 10/18/16 08:30 10/20/16 14:30 Labs: BMP 10/20/16 14:30 Sodium 143 Potassium 3.8 Chloride 95 L Carbon Dioxide 40 H* BUN 31 H Creatinine 2.28 H Glucose 174 H Calcium 9.4 Liver Function 10/20/16 Range/Units 14:30 Total Bilirubin 0.7 (0.2-1.2) mg/dL AST 22 (5-34) Units/L ALT 13 (0-55) Units/L Alkaline Phosphatase 47 (38-126) Units/L Albumin 2.9 L (3.5-5.0) g/dL - ABG Interpretation ABG results: PT/INR, D-dimer PT 36.1 Seconds (9.4-12.1) H 10/21/16 04:38 - VTE Documentation of Mechanical Device: Intermittent pneumatic compression device Consult Discharge Plan - Plan Referrals: Anabella Hodgson MD [Partnered Physician] - 10/21/16 1:30 pm
[2016-10-21] MEDS: Bumetanide 1 MG TABLET PO SCH (15:49)
[2016-10-21 16:15] LABS: Basophils % 0.3 %; Eosinophils # 0.1 K/mcL (0.0-0.6); Eosinophils % 1.7 %; Hematocrit 37.3 % (35.3-44.9); Immature Granulocytes % 0.4 % (0-4); Immature Platelets 5.4 % (1.1-6.1); Lymphocytes # 2.4 K/mcL (0.6-4.6); Lymphocytes % 32.5 %; Mean Corpuscular HGB Conc 32.2 g/dL (31.6-35.5); Mean Corpuscular Hemoglobin 31.2 pg (28.0-33.3); Mean Corpuscular Volume 96.9 fL (83.0-100.0); Mean Platelet Volume 10.6 fL (9.4-12.4); Monocytes # 0.8 K/mcL (0.0-1.3); Monocytes % 10.8 %; Platelet Count 146 K/mcL (140-400); Red Blood Count 3.85 M/mcL (3.82-4.97); Red Cell Distribution Width 14.1 % (11.5-14.5); Segmented Neutrophils % 54.3 %
[2016-10-21 16:26] LABS: Calcium 9.7 mg/dL (8.6-10.8); Potassium 4.1 mEq/L (3.5-4.5)
[2016-10-21] MEDS: traZODone 50 MG TABLET PO SCH (20:04)
[2016-10-21] MEDS: Ascorbic Acid 500 MG TABLET PO SCH (20:04)
[2016-10-21] MEDS: *HR* LORazepam 1 MG TABLET PO SCH (20:04)
[2016-10-21] MEDS ORDERED: Melatonin 3 MG TABLET PO SCH (23:30)
[2016-10-22 04:08] LABS: Basophils % 0.5 %; Eosinophils # 0.2 K/mcL (0.0-0.6); Eosinophils % 2.1 %; Hematocrit 35.3 % (35.3-44.9); Hemoglobin 11.5 g/dL (11.5-15.4); Immature Granulocytes % 0.3 % (0-4); Lymphocytes # 2.5 K/mcL (0.6-4.6); Lymphocytes % 34.1 %; Mean Corpuscular HGB Conc 32.6 g/dL (31.6-35.5); Mean Corpuscular Hemoglobin 31.3 pg (28.0-33.3); Mean Corpuscular Volume 95.9 fL (83.0-100.0); Mean Platelet Volume 10.8 fL (9.4-12.4); Monocytes # 0.8 K/mcL (0.0-1.3); Monocytes % 10.9 %; Neutrophils # 3.9 K/mcL (1.6-8.9); Platelet Count 129 K/mcL (140-400); Red Blood Count 3.68 M/mcL (3.82-4.97); Segmented Neutrophils % 52.1 %
[2016-10-22 04:11] LABS: INR 2.7; Prothrombin Time 29.9 Seconds (9.4-12.1)
[2016-10-22 04:21] LABS: Albumin/Globulin Ratio 1.1 (1.1-2.2); Bilirubin,Total 0.7 mg/dL (0.2-1.2); Calcium 9.9 mg/dL (8.6-10.8); Globulin 2.8 g/dL (2.4-3.5); Potassium 4.2 mEq/L (3.5-4.5); Total Protein 5.8 g/dL (6.0-8.3)
[2016-10-22 07:48] VITALS: BP 115/77
--- NOTE | 2016-10-22 09:39 | Nephrology Progress Note ---
Date of Encounter: 10/22/16 Time of Encounter: 09:33 - Assessment and Plan (1) CKD (chronic kidney disease) stage 4, GFR 15-29 ml/min Current Visit: Yes Status: Chronic Acute on chronic renal failure. Baseline creatinine around 2. serum creatinine is slowly trending up probably secondary to diuresis Wt has decreased from 87-81 kg Continue by mouth Bumex 2 mg twice a day, decrease metabolism to 5 mg 3 times a week can be d/c ed home from renal standpoint Advised to Monitor BP and daily weights at home after discharge, call for weight gain of 3 pounds a day or 5 pounds a week renal panel in 1 week, f/u with Dr. De La Vega in 2 weeks (2) Essential hypertension Current Visit: Yes Status: Acute BP stable. 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 Had cardiac cath, continue medical management Qualifiers: Congestive heart failure type: combined Congestive heart failure chronicity : acute on chronic Qualified Code(s): I50.43 - Acute on chronic combined systolic (congestive) and diastolic (congestive) heart failure (4) Secondary hyperparathyroidism Current Visit: Yes Status: Acute Continue calcitriol and vitamin D supplements. follow-up vitamin D and PTH levels as an outpatient. Subjective Principal diagnosis: CMP, CHF Interval history: Did not sleep well last night, denies chest pain or shortness of breath IV Bumex was changed to by mouth yesterday Bp is stable, heart rate 90-100, UO 745 ML, 200 ml neg fluid balance Objective - Vital Signs Vital signs: Vital Signs Temp Pulse Resp BP Pulse Ox 10/22/16 07:47 98.2 F 94 18 115/77 97 10/22/16 04:00 98.5 F 104 16 138/70 97 10/22/16 00:19 98.0 F 102 16 137/79 99 10/21/16 20:12 98 10/21/16 19:53 98.1 F 108 16 131/76 98 10/21/16 15:50 98.5 F 92 18 130/68 96 10/21/16 12:35 98.5 F 98 16 109/66 95 Intake and Output 10/21/16 10/22/16 10/22/16 23:59 07:59 15:59 Intake Total 200 / 200 Output Total 200 / 200 1999 Balance 0 0 -1999 Intake: Oral 200 / 200 Output: Urine 200 / 200 1999 Other: Meal Dinner Percent of Meal Consumed 75% # Voids 3 Weight 81 kg Blood Glucose* 143 Patient Weight 10/22/16 23:59 Weight 81 kg - General Appearance Exam: CVS; s1s2 present, irregular, no murmurs RESP; decreased air entry, clear to auscultation ABD; soft, NT, BS present, no organomegaly, EXT; 1+ edema, SEWER BRICKLAYER; wants to sleep, answering questions - Lab 10/22/16 03:50 10/22/16 03:50 Most recent lab results Calcium 9.9 mg/dL (8.6-10.8) 10/22/16 03:50 Magnesium 1.1 mg/dL (1.6-2.6) L 10/17/16 03:38 - VTE Documentation of Mechanical Device: Intermittent pneumatic compression device Consult Discharge Plan - Plan Referrals: Anabella Hodgson MD [Partnered Physician] - 10/21/16 1:30 pm Lino Urbina MD [Partnered Physician] - 11/01/16 9:00 am
[2016-10-22] MEDS: metOLazone 5 MG TABLET PO SCH (10:22)
[2016-10-22] MEDS: Aspirin 81 MG TAB.CHEW PO SCH (10:22)
[2016-10-22] MEDS: hydrALAZINE 25 MG TABLET PO SCH (10:22)
[2016-10-22] MEDS: *HR* Digoxin 0.125 MG TABLET PO SCH (10:22)
[2016-10-22] MEDS: Bumetanide 1 MG TABLET PO SCH (10:22)
[2016-10-22] MEDS: Metoprolol XL (24 HR) Succ 50 MG TAB.ER.24H PO SCH (10:23)
[2016-10-22] MEDS: Lactobacillus 1 EACH CAP.SPRINK PO SCH (10:23)
[2016-10-22] MEDS: *HR* Amiodarone 200 MG TABLET PO SCH (10:23)
[2016-10-22] MEDS: [UNRECOGNIZED DRUG - OTHER] PO SCH (10:25)
[2016-10-22] MEDS: BORON PO SCH (10:25)
[2016-10-22] MEDS: MSM PO SCH (10:25)
[2016-10-22] MEDS: GLUC PO SCH (10:25)
[2016-10-22 11:09] LABS: Bilirubin,Urine Negative (Negative); Blood,Urine Negative (Negative); Clarity,Urine Cloudy (Clear); Color,Urine Yellow (Yellow); Glucose,Urine (UA) Normal (Normal); Ketones,Urine Negative (Negative); Leukocyte Esterase,Urine Moderate (Negative); Nitrite,Urine Negative (Negative); PH,Urine 7.5 pH Units (5.0-8.0); Protein,Urine 100 mg/dL (Neg-Trace); Specific Gravity,Urine 1.012 (1.010-1.025); Urobilinogen,Urine Normal (Normal)
--- NOTE | 2016-10-22 11:12 | Discharge Summary ---
Date of Encounter: 10/22/16 Time of Encounter: 11:03 - Discharge Diagnosis (1) Acute and chronic respiratory failure with hypoxia Priority: Primary Status: Acute (2) CHF exacerbation Priority: Primary Status: Acute Qualifiers: Congestive heart failure type: systolic Qualified Code(s): I50.23 - Acute on chronic systolic (congestive) heart failure (3) Atrial fibrillation Priority: Primary Status: Chronic Qualifiers: Atrial fibrillation type: unspecified Qualified Code(s): I48.91 - Unspecified atrial fibrillation (4) CKD (chronic kidney disease) stage 4, GFR 15-29 ml/min Priority: Primary Status: Chronic (5) DM type 2 (diabetes mellitus, type 2) Priority: Secondary Status: Chronic Qualifiers: Diabetes mellitus complication status: with kidney complications Diabetes mellitus complication detail: with chronic kidney disease Diabetes mellitus halfway insulin use: without manager terminal use Chronic kidney disease stage: stage 4 (severe) Qualified Code(s): E11.22 - Type 2 diabetes mellitus with diabetic chronic kidney disease; N18.4 - Chronic kidney disease, stage 4 (severe ) (6) Supratherapeutic INR Priority: Primary Status: Resolved - Discharge Medications Prescriptions: HydrALAZINE 50 mg PO Q8HR #90 tablet Amiodarone [Cordarone] 200 mg PO DAILY #30 tablet Atorvastatin [Lipitor] 20 mg PO HS #30 tablet Bumetanide [Bumex] 2 mg PO BIDDIURETIC #60 tablet Ciprofloxacin HCl [Cipro] 500 mg PO BID #14 tablet Digoxin [Lanoxin] 0.125 mg PO QOD 30 Days Isosorbide DInitrate [Isordil] 5 mg PO TIDAC #90 tablet Metolazone [Zaroxolyn] 5 mg PO DAILY #60 tablet Metoprolol XL (24 HR) Succ [Toprol Xl] 200 mg PO DAILY #30 tab.er.24h Home Medications: Calcitriol [Rocaltrol] 0.25 mcg PO 1200 07/26/15 [History] Levothyroxine [Synthroid] 100 mcg PO QAM 07/26/15 [History] TraZODone 25 mg PO HS 07/27/16 [History] Allopurinol [Zyloprim] 100 mg PO 1200 10/11/16 [History] Ascorbate Calcium [Vitamin C] 500 mg PO HS 10/11/16 [History] Ergocalciferol (VITAMIN D2) [Vitamin D2] 50,000 unit PO SA 10/11/16 [History] Gluc/MSM/C/Tyrone/Manganes/Prim [Joint Support Complex Softgel] 1 each PO QAM 07/18 [History] LORazepam [Ativan] 1 mg PO HS 10/11/16 [History] Loratadine [Claritin] 10 mg PO QAM 10/11/16 [History] Warfarin [Coumadin] 2.5 mg PO QAM 10/11/16 [History] Amiodarone [Cordarone] 200 mg PO DAILY #30 tablet 10/22/16 [Rx] Atorvastatin [Lipitor] 20 mg PO HS #30 tablet 10/22/16 [Rx] Bumetanide [Bumex] 2 mg PO BIDDIURETIC #60 tablet 10/22/16 [Rx] Ciprofloxacin HCl [Cipro] 500 mg PO BID #14 tablet 10/22/16 [Rx] Digoxin [Lanoxin] 0.125 mg PO QOD 30 Days 10/22/16 [Rx] HydrALAZINE 50 mg PO Q8HR #90 tablet 10/22/16 [Rx] Isosorbide DInitrate [Isordil] 5 mg PO TIDAC #90 tablet 10/22/16 [Rx] Metolazone [Zaroxolyn] 5 mg PO DAILY #60 tablet 10/22/16 [Rx] Metoprolol XL (24 HR) Succ [Toprol Xl] 200 mg PO DAILY #30 tab.er.24h 10/22/16 [ Rx] Allergies/Adverse Reactions: Allergies acetaminophen [From Percocet] Allergy (Verified 07/21/16 15:54) Rash codeine Allergy (Verified 07/21/16 15:54) Rash Oxycodone [From Percocet] Allergy (Verified 07/21/16 15:54) Rash Date of admission: 10/11/16 18:51 Primary care physician: Cayetano Trevizo, Consults: 10/12/16 10:46 Consult to Palliative Care [CONS] Routine Comment: discussed with Pat Gao, patient has Hospice Consulting Provider: Palliative Care [place] 10/15/16 13:24 Consult to Cardiac Rehabilitation-Phase1 [CONS] Routine Comment: Reason for Consult: post op cath Call Completed: Yes Discharging clinician: Roman Lyles Anticipated date of discharge: 10/22/16 - Patient Status Disposition: Home Health Service Condition: Fair Functional capacity at discharge: uses cane/walker Overall status at discharge: patient is progressing back to baseline - Discharge Instructions Instructions: Heart Failure (DC) Follow Up With: Anabella Hodgson MD [Partnered Physician] - (Hospital follow-up requested via web. Office will call you next week with an appointment. Please have your blood drawn by the [facility] and sent to Dr. Montanez on October 25.) Lino Urbina MD [Partnered Physician] - 11/01/16 9:00 am Additional Instructions: Please have your PT/INR drawn on October 25 by home health nurse. Please have results faxed to PCP. - Diet and Activity Activity: as per physical therapy Diet: other (cardiac diet) Interval History: Ms. Solis is a 89 year old female with PMH of Afib on Coumadin, CKD IV, HD, Diastolic CHF, Hypothyroidism, TIA on home oxygen and home hospice She presents with 6 weeks history of progressive lower extremity swelling, now involving her hips and abdomen, shortness of breath initially on minimal exertion, now at rest with 4-5 pillow orthopnea, patient is only able to sit upright now. Associated dry cough, anorexia, early satiety and abdominal distension. She denies fever or chills She denies chest pain or palpitations No bleeding from any orifices She reports chronic constipation with no diarrhea. She has been increasingly taking her home po lasix from alternate days now to daily but with no improvement, hence her presentation to ER. She reports insomnia as a result of orthopnea Denies any other complains Patient is DNR/DNI Hospital course: Ms. Solis is a 89 year old female EF previously 60% in 2013. Echo on this admission shows EF is 20%--global LV systolic dysfunction with mild basal and mid inferior wall hypokinesis. No evidence of LV thrombus. Normal RV size and mild-moderate reduction in function. Mild AR, moderate MR, TR appears moderate if not severe in some views. Mild-moderate phtn. Trivial pericardial effusion, pleural effusion noted. No known hx of CAD--no prior LHC. Given new low EF, cardio recommended LHC to evaluate ischemic cause. Limited contrast - 17cc given. SHe underwent LHC , LAD - 50%, LCx proximal 60%, OM 70% L PDA 50%. Amiodarone initiated,Cath without severe disease. 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 she was continued on bb, digoxin, amiodarone, coumadin, asa, statin with which the rate was controlled and she improved clinically. renal was also consulted for assistance with diuresis, she was started on IV bumex and metolazone. her renal fxn improved gradually,the swelling has somewhat improved as well. she is bieng dc today in stable condition to [facility] and will f/u as OP with renal and cardiology. Her initial UA was negative however at the D of discharge, she complained of difficulty in passing urine with burning sensation, UA was done which shows positive leukocyte esterase, she is being discharged on oral ciprofloxacin to complete 7 days. Time spent discussing smoking cessation with patient: more than 10 minutes - Time Spent with Patient Total time spent providing and/or coordinating discharge services: Greater than 30 minutes - Constitutional Vitals: Temp Pulse Resp BP Pulse Ox 98.2 F 94 18 115/77 96 10/22/16 07:47 10/22/16 07:47 10/22/16 07:47 10/22/16 07:47 10/22/16 10:39 General appearance: Present: A&O X 3, no acute distress Exam: General: Conversant, No Apparent Distress HEENT: Atraumatic, Normocephaly, Mucus Membranes Moist Neck: Normal carotid pulses Cardiac: Other (irregularly irregular) Lungs: Normal Breath Sounds, No Wheeze, Rales, Rhonchi Neuro: Alert and responsive, No focal deficits noted Abdomen: Soft, Non-Tender Skin: No rashes noted on visualized skin Musculoskeletal: No Chest Wall Tenderness Extremities: Other (2+ BLE edema) - VTE Documentation of Mechanical Device: Intermittent pneumatic compression device
[2016-10-22 11:13] LABS: Bacteria,Urine Many per hpf (None-Few); Hyaline Casts,Urine Few per lpf (None-Few); Squamous Epithelial Cell,Urine Moderate per lpf (None-Few); WBC,Urine TNTC per hpf (0-3)
--- NOTE | 2016-10-22 11:14 | Physician Discharge Referral ---
Home Health/Hosp Referral Info Transfer to: Home Health Attending Provider: nissa horvath - Diagnosis (1) Acute and chronic respiratory failure with hypoxia Status: Acute (2) CHF exacerbation Status: Acute (3) Atrial fibrillation Status: Chronic (4) CKD (chronic kidney disease) stage 4, GFR 15-29 ml/min Status: Chronic (5) DM type 2 (diabetes mellitus, type 2) Status: Chronic (6) Supratherapeutic INR Status: Resolved - Respiratory Orders Oxygen / L per min (2l) Smoking Cessation: Smoking cessation has been advised. For more information, call the [employer] Tobacco Quit Line at 4-706-EAOU-NOW. - Diet/Nutrition Diet/Nutrition Orders: Regular - Activity Activity Orders: Ambulate, Chair, Walker - Services Needed Following services are medically necessary services: Nursing, Home Health Aide, Physical Therapy, Occupational Therapy - Transfer Medications Prescriptions: HydrALAZINE 50 mg PO Q8HR #90 tablet Amiodarone [Cordarone] 200 mg PO DAILY #30 tablet Atorvastatin [Lipitor] 20 mg PO HS #30 tablet Bumetanide [Bumex] 2 mg PO BIDDIURETIC #60 tablet Ciprofloxacin HCl [Cipro] 500 mg PO BID #14 tablet Digoxin [Lanoxin] 0.125 mg PO QOD 30 Days Isosorbide DInitrate [Isordil] 5 mg PO TIDAC #90 tablet Metolazone [Zaroxolyn] 5 mg PO DAILY #60 tablet Metoprolol XL (24 HR) Succ [Toprol Xl] 200 mg PO DAILY #30 tab.er.24h Home Medications: Calcitriol [Rocaltrol] 0.25 mcg PO 1200 07/26/15 [History] Levothyroxine [Synthroid] 100 mcg PO QAM 07/26/15 [History] TraZODone 25 mg PO HS 07/27/16 [History] Allopurinol [Zyloprim] 100 mg PO 1200 10/11/16 [History] Ascorbate Calcium [Vitamin C] 500 mg PO HS 10/11/16 [History] Ergocalciferol (VITAMIN D2) [Vitamin D2] 50,000 unit PO SA 10/11/16 [History] Gluc/MSM/C/Coats/[place]anganes/Prim [Joint Support Complex Softgel] 1 each PO QAM 07/18 [History] LORazepam [Ativan] 1 mg PO 10/11/16 [History] Loratadine [Claritin] 10 mg PO QAM 10/11/16 [History] Warfarin [Coumadin] 2.5 mg PO QAM 10/11/16 [History] Amiodarone [Cordarone] 200 mg PO DAILY #30 tablet 10/22/16 [Rx] Atorvastatin [Lipitor] 20 mg PO HS #30 tablet 10/22/16 [Rx] Bumetanide [Bumex] 2 mg PO BIDDIURETIC #60 tablet 10/22/16 [Rx] Ciprofloxacin HCl [Cipro] 500 mg PO BID #14 tablet 10/22/16 [Rx] Digoxin [Lanoxin] 0.125 mg PO QOD 30 Days 10/22/16 [Rx] HydrALAZINE 50 mg PO Q8HR #90 tablet 10/22/16 [Rx] Isosorbide DInitrate [Isordil] 5 mg PO TIDAC #90 tablet 10/22/16 [Rx] Metolazone [Zaroxolyn] 5 mg PO DAILY #60 tablet 10/22/16 [Rx] Metoprolol XL (24 HR) Succ [Toprol Xl] 200 mg PO DAILY #30 tab.er.24h 10/22/16 [ Rx] Allergies/Adverse Reactions: Allergies acetaminophen [From Percocet] Allergy (Verified 07/21/16 15:54) Rash codeine Allergy (Verified 07/21/16 15:54) Rash Oxycodone [From Percocet] Allergy (Verified 07/21/16 15:54) Rash Certification: Further, I certify that my clinical findings support that this patient is homebound (i.e. absences from home require considerable and taxing effort and are for medical reasons or episcopalian services or infrequently or short duration when for other reasons) because: Homebound Reason: Patient requires assistance of a person or device to safely leave home Attestation: My signature below is to certify that this patient is under my care and that I, or nurse practitioner, or a physician's office support assistant working with me, has a face-to -face encounter with this patient.
[2016-10-22] MEDS ORDERED: *HR* Warfarin 1 MG TABLET PO SCH (18:00)
== END 2016-10-22 15:00 | disposition home health service (06) | DRG 286 ==
LOC: EMEROO 13:05 → 2ANU 13:05 → SUATTDRO 18:51 → 2ANU 10-17 19:30
PROVIDERS: ADMIT Internal Medicine; ATTEND Internal Medicine Endocrinology, Diabetes & Metabolism

== ENCOUNTER 2016-10-26 09:41 | Inpatient (IN) ==
[2016-10-26 10:04] LABS: Basophils # 0.1 K/mcL (0.0-0.2); Basophils % 0.6 %; Eosinophils # 0.1 K/mcL (0.0-0.6); Eosinophils % 0.8 %; Hematocrit 42.9 % (35.3-44.9); Immature Granulocytes % 0.3 % (0-4); Lymphocytes # 2.6 K/mcL (0.6-4.6); Lymphocytes % 30.4 %; Mean Corpuscular HGB Conc 32.6 g/dL (31.6-35.5); Mean Corpuscular Hemoglobin 31.2 pg (28.0-33.3); Mean Corpuscular Volume 95.5 fL (83.0-100.0); Mean Platelet Volume 10.4 fL (9.4-12.4); Neutrophils # 4.8 K/mcL (1.6-8.9); Platelet Count 175 K/mcL (140-400); Red Blood Count 4.49 M/mcL (3.82-4.97); Red Cell Distribution Width 13.6 % (11.5-14.5); Segmented Neutrophils % 55.9 %
--- NOTE | 2016-10-26 10:12 | Emergency Department Note ---
Disposition Clinical Impression: ESRD (end stage renal disease) Chronic heart failure Qualifiers: Heart failure type: unspecified heart failure type Qualified Code(s): I50.9 - Heart failure, unspecified Abdominal pain Qualifiers: Abdominal location: generalized Qualified Code(s): R10.84 - Generalized abdominal pain Disposition: Admitted As Inpatient Condition: Serious Time of Disposition: 12:05 Arrhythmia/Palpitations HPI - General Chief Complaint: ED Arrhythmia/Palpitations Stated Complaint: low heart rate from PCP Source: patient, family Nursing Notes Reviewed: Yes Vital Signs Reviewed: Yes - History of Present Illness HPI Narrative: Patient is an 89-year-old female complains of sore pulse and abdominal pain and was brought over from her production support supervisor's office Dr. Urbina. Patient states that she has been having abdominal pain over the past 8 weeks. No imaging has been done. Patient has a history of A. fib and end-stage renal disease stage IV. Patient presents with slow heart rate in 40s. Patient states that she had chest pain 12 hours ago was 8 out of 10 last about 5 minutes midsternal pressure with radiation to both arms. Patient had second instance of chest pain 5 hours ago same pattern 10 out of 10 last about 5 minutes as well. Patient did not take any medication for. Patient is on Coumadin. Patient is not on aspirin - Related Data Home Medications Medication Instructions Recorded Confirmed Calcitriol [Rocaltrol] 0.25 mcg PO 1200 07/26/15 10/26/16 Levothyroxine [Synthroid] 100 mcg PO QAM 07/26/15 10/26/16 TraZODone 50 mg PO 07/27/16 10/26/16 Allopurinol [Zyloprim] 100 mg PO 1200 10/11/16 10/26/16 Ascorbate Calcium [Vitamin C] 500 mg PO 10/11/16 10/26/16 Ergocalciferol (VITAMIN D2) 50,000 unit PO SA 10/11/16 10/26/16 [Vitamin D2] Gluc/MSM/C/[place]/Prim 1 cap PO QAM 10/11/16 10/26/16 [Joint Support Complex Softgel] LORazepam [Ativan] 1 mg PO HS 10/11/16 10/26/16 Loratadine [Claritin] 10 mg PO QAM 10/11/16 10/26/16 Warfarin [Coumadin] 2.5 mg PO 1200 10/11/16 10/26/16 Bumetanide [Bumex] 2 mg PO BID 10/26/16 10/26/16 Metolazone [Zaroxolyn] 5 mg PO QMWF 10/26/16 10/26/16 Metoprolol XL (24 HR) Succ [Toprol 200 mg PO QAM 10/26/16 10/26/16 Xl] Previous Rx's Medication Instructions Recorded Amiodarone [Cordarone] 200 mg PO DAILY #30 tablet 10/22/16 Atorvastatin [Lipitor] 20 mg PO HS #30 tablet 10/22/16 Ciprofloxacin HCl [Cipro] 500 mg PO BID #14 tablet 10/22/16 Digoxin [Lanoxin] 0.125 mg PO QOD 30 Days 10/22/16 HydrALAZINE 50 mg PO Q8HR #90 tablet 10/22/16 Isosorbide DInitrate [Isordil] 5 mg PO TIDAC #90 tablet 10/22/16 Allergies Allergy/AdvReac Type Severity Reaction Status Date / Time acetaminophen [From Percocet] Allergy Rash Verified 10/26/16 09:50 codeine Allergy Rash Verified 10/26/16 09:50 Oxycodone [From Percocet] Allergy Rash Verified 10/26/16 09:50 Past Medical History - Past Medical History Attestation: Yes The following information was validated with the patient. Medical history: Reports: atrial fibrillation, CHF, DVT, GI bleed, hyperlipidemia, hypertension, peripheral artery disease, renal disease, SVT, thyroid disease, TIA, other Surgical history: Reports: cataract, cholecystectomy, other Psychiatric history: Reports: no psych history BIOLOGICAL SCIENCES PROFESSOR history: Reports: no BIOLOGICAL SCIENCES PROFESSOR history - Social History Smoking Status: Never smoker Smokeless Tobacco Status: No Alcohol use: Reports: none Drug use: Reports: none Physical Exam Vital Signs Temperature 97.7 F 10/26/16 09:47 Pulse Rate 44 10/26/16 09:47 Respiratory Rate 16 10/26/16 09:47 Blood Pressure 134/58 10/26/16 09:47 O2 Sat by Pulse Oximetry 97 10/26/16 09:47 Temperature 97.7 F 10/26/16 09:47 Pulse Rate 44 10/26/16 09:47 Respiratory Rate 16 01/25/17 09:47 Blood Pressure 134/58 01/25/17 09:47 O2 Sat by Pulse Oximetry 97 10/26/16 09:47 Oxygen Delivery Oxygen Delivery Room Air -General Appearance: Patient is a 89-year-old female who is alert and oriented 3. Patient appears very weak. Patient is slow to answer questions and speaks softly. -Neurological exam: Cranial nerves II-12 grossly intact no focal deficits observed - Head Head exam: atraumatic, normocephalic, normal inspection - Eye Eye exam: Present: normal appearance, PERRL, EOMI, negative for scleral icterus negative for conjunctival pallor - ENT ENT exam: normal exam, normal oropharynx, mucous membranes moist - Neck Neck exam: Present: normal inspection, full ROM, trachea midline, negative JVD - Chest Chest inspection: Present: Patient has bilateral equal rise and fall of chest wall. Non-tender to palpation. - Respiratory Respiratory exam: Clear to auscultation bilaterally without wheezes rales or rhonchi Cardiovascular Cardiovascular exam: Present: iregular rate, irregular rhythm, normal heart sounds, without murmurs rubs or gallops. Slight delay in pulse from right to left and upper extremities felt had right radial first - Abdominal Exam Abdominal exam: Present: soft, nondistended, tender to palpation diffusely Bowel sounds normoactive throughout all 4 quadrants. Negative for hyper or hyperresonance. - Extremities Exam Extremities exam: Present: normal inspection, full ROM - Psychiatric Psychiatric exam: Present: normal affect, normal mood - Skin Skin exam: Present: warm, dry, intact, normal color - General General appearance: alert, in no apparent distress Course Course Narrative: Patient seen and examined. Labs ordered UA ordered EKG ordered imaging ordered chest x-ray and CT abdomen and pelvis. - Reevaluation(s) Reevaluation #1: Patient suffered a transient for second loss of consciousness some spastic movements. Patient regained consciousness and was not confused. Transient loss was witnessed by nurse. Patient does have nausea following LOC and has been sent for CT of the head. Time: 10:40 - Consultations Consultation #1: Lab: critical level for troponin of 0.21 Time: 10:29 Consultation #2: Dr. Sarmiento 's consult and states that does not think that is primarily renal right now. He agrees that we need to find a source for possible abdominal pain and reason for her bradycardia. He states he will see the patient once she is admitted to the hospital. He states he will see the patient once patient is admitted Time: 10:49 Consultation #3: Dr. Treadwell of cardiology was consulted concerning the patient's condition. He states weight until we have digoxin level CVA start Digibind otherwise standby and further interventions the patient is not hypotensive 1152 hrs. gave update to the patient's digoxin level is 1.4. No Digibind will be given at this time. He agrees with this. He will be seen once she is admitted to the hospital. Time: 11:11 Additional Consultation(s): Dr. Leong was accepted for admission at [address] Doherty the Counter Help was consult the at 1258 hrs. Patient was accepted into the ICU. Vital Signs Temperature 97.7 F 10/26/16 09:47 Pulse Rate 44 10/26/16 09:47 Respiratory Rate 16 10/26/16 09:47 Blood Pressure 134/58 10/26/16 09:47 O2 Sat by Pulse Oximetry 97 10/26/16 09:47 Temperature 97.8 F 10/26/16 13:17 Pulse Rate 38 10/26/16 14:16 Respiratory Rate 16 10/26/16 14:16 Blood Pressure 131/52 10/26/16 14:16 O2 Sat by Pulse Oximetry 98 10/26/16 14:16 Oxygen Delivery Oxygen Delivery Nasal Cannula Arrhythmia/Palpitations - [facility] Narrative Medical decision making narrative: Ms. Wilson is an 89-year-old female who presents bradycardic and weak with a history of generalized abdominal pain 8 weeks who is brought in from Dr. Urbina' s office. Dr. Urbina is her production support supervisor. Patient has a history of stage IV heart failure and stage IV end-stage renal disease. Patient's history and exam concerning for worsening heart failure, worsening renal failure, patient is recently started on digoxin so it could be toxicity from that. Patient has abdominal pain past 8 weeks without clear source. Possible ischemic bowel is concerning as well. Cardiac workup initiated, CT of abdomen and pelvis ordered , lactate and UA ordered. Patient's CBC is unremarkable, and patient's BNP showed normal potassium level, BUN 39, creatinine of 4.60. Nephrology was consult to and will see the patient when she is admitted to the hospital. Patient also has a troponin level of 0.21. Digoxin level 1.4. No digibind recommended at this time. CT abdomen and pelvis that show any acute abnormalities. Patient does have a 3 mm AAA. Chest x-ray shows stable cardiomegaly with bilateral pleural effusions and bibasilar atelectasis. Head CT showed no acute intracranial abnormalities. Patient continues to feel ill. Admission is recommended at this time for follow -up inpatient care with cardiology and nephrology. Patient is otherwise stable and current condition. Patient's digoxin will be held. Patient will be monitored to see what happens when the digoxin has left system. Dr. Treadwell came to the emergency department and saw the patient. He decided to start Digibind on patient. Patient will be going to ICU for follow-up care. Patient is DNR CCA. Dr. Leong as the patient for admission. - Medical Records Medical records reviewed: Yes I reviewed the patient's medical records. - Lab Data Lab results reviewed: Yes I reviewed the patient's lab results. Lab results narrative: Short CBC 10/26/16 Range/Units 09:56 WBC 8.6 (4.3-11.1) K/mcL Hgb 14.0 D (11.5-15.4) g/dL Hct 42.9 (35.3-44.9) % Plt Count 175 (140-400) K/mcL Neutrophils # 4.8 (1.6-8.9) K/mcL BMP 10/26/16 Range/Units 09:56 Sodium 140 (136-145) mEq/L Potassium 4.1 (3.5-4.5) mEq/L Chloride 88 L (98-109) mEq/L Carbon Dioxide 38 H (19-29) mEq/L BUN 39 H (7-20) mg/dL Creatinine 4.60 H (0.57-1.11) mg/dL Glucose 139 H (70-99) mg/dL Calcium 10.0 (8.6-10.8) mg/dL Cardiac Enzymes 10/26/16 Range/Units 09:56 Troponin I 0.21 H* (0-0.03) ng/mL Urine 10/26/16 Range/Units 10:38 Urine Color [place] A (Yellow) Urine Clarity Slightly Hazy (Clear) Urine pH 5.0 (5.0-8.0) pH Units Ur Specific [place] 1.020 (1.010-1.025) Urine Protein 100 H (Neg-Trace) mg/dL Urine Glucose (UA) Normal (Normal) mg/dL Result diagrams: 10/26/16 09:56 10/26/16 14:03 Lab Results 10/26/16 10/26/16 10/26/16 Range/Units 09:52 09:56 09:56 WBC 8.6 (4.3-11.1) K/mcL RBC 4.49 (3.82-4.97) M/mcL Hgb 14.0 D (11.5-15.4) g/dL Hct 42.9 (35.3-44.9) % MCV 95.5 (83.0-100.0) fL MCH 31.2 (28.0-33.3) pg MCHC 32.6 (31.6-35.5) g/dL RDW 13.6 (11.5-14.5) % Plt Count 175 (140-400) K/mcL MPV 10.4 (9.4-12.4) fL Immature Gran % 0.3 (0-4) % Seg Neutrophils % 55.9 % Lymphocytes % 30.4 % Monocytes % 12.0 % Eosinophils % 0.8 % Basophils % 0.6 % Neutrophils # 4.8 (1.6-8.9) K/mcL Lymphocytes # 2.6 (0.6-4.6) K/mcL Monocytes # 1.0 (0.0-1.3) K/mcL Eosinophils # 0.1 (0.0-0.6) K/mcL Basophils # 0.1 (0.0-0.2) K/mcL PT 21.9 H (9.4-12.1) Seconds INR 2.0 Sodium 140 (136-145) mEq/L Potassium 4.1 (3.5-4.5) mEq/L Chloride 88 L (98-109) mEq/L Carbon Dioxide 38 H (19-29) mEq/L BUN 39 H (7-20) mg/dL Creatinine 4.60 H (0.57-1.11) mg/dL Est GFR ( Amer) 11 L (> 60) Est GFR (Non-Af Amer) 9 L (> 60) BUN/Creatinine Ratio 8 (6-26) Glucose 139 H (70-99) mg/dL Calculated Osmolality 302 H (280-300) Calcium 10.0 (8.6-10.8) mg/dL Phosphorus 4.0 (2.3-4.7) mg/dL Magnesium 1.0 L (1.6-2.6) mg/dL Lactate Dehydrogenase 270 (159-327) Units/L Troponin I (0-0.03) ng/mL Urine Color (Yellow) Urine Clarity (Clear) Urine pH (5.0-8.0) pH Units Ur Specific [place] (1.010-1.025) Urine Protein (Neg-Trace) mg/dL Urine Glucose (UA) (Normal) mg/dL Urine Ketones (Negative) mg/dL Urine Blood (Negative) Urine Nitrite (Negative) Urine Bilirubin (Negative) Urine Urobilinogen (Normal) mg/dL Ur Leukocyte Esterase (Negative) Urine Microscopic RBC (0-3) per hpf Urine Microscopic WBC (0-3) per hpf Ur Squamous Epith Cells (None-Few) per lpf Ur Renal Epithelial Cell (None-Few) per hpf Amorphous Sediment (Few) Urine Bacteria (None-Few) per hpf Hyaline Casts (None-Few) per lpf Ur Culture Indicated? (NO) Digoxin 1.4 (0.8-2.0) ng/mL 10/26/16 10/26/16 Range/Units 09:56 10:38 WBC (4.3-11.1) K/mcL RBC (3.82-4.97) M/mcL Hgb (11.5-15.4) g/dL Hct (35.3-44.9) % MCV (83.0-100.0) fL MCH (28.0-33.3) pg MCHC (31.6-35.5) g/dL RDW (11.5-14.5) % Plt Count (140-400) K/mcL MPV (9.4-12.4) fL Immature Gran % (0-4) % Seg Neutrophils % % Lymphocytes % % Monocytes % % Eosinophils % % Basophils % % Neutrophils # (1.6-8.9) K/mcL Lymphocytes # (0.6-4.6) K/mcL Monocytes # (0.0-1.3) K/mcL Eosinophils # (0.0-0.6) K/mcL Basophils # (0.0-0.2) K/mcL PT (9.4-12.1) Seconds INR Sodium (136-145) mEq/L Potassium (3.5-4.5) mEq/L Chloride (98-109) mEq/L Carbon Dioxide (19-29) mEq/L BUN (7-20) mg/dL Creatinine (0.57-1.11) mg/dL Est GFR ( Amer) (> 60) Est GFR (Non-Af Amer) (> 60) BUN/Creatinine Ratio (6-26) Glucose (70-99) mg/dL Calculated Osmolality (280-300) Calcium (8.6-10.8) mg/dL Phosphorus (2.3-4.7) mg/dL Magnesium (1.6-2.6) mg/dL Lactate Dehydrogenase (159-327) Units/L Troponin I 0.21 H* (0-0.03) ng/mL Urine Color [place] A (Yellow) Urine Clarity Slightly Hazy (Clear) Urine pH 5.0 (5.0-8.0) pH Units Ur Specific [place] 1.020 (1.010-1.025) Urine Protein 100 H (Neg-Trace) mg/dL Urine Glucose (UA) Normal (Normal) mg/dL Urine Ketones Trace H (Negative) mg/dL Urine Blood Negative (Negative) Urine Nitrite Negative (Negative) Urine Bilirubin Negative (Negative) Urine Urobilinogen Normal (Normal) mg/dL Ur Leukocyte Esterase Negative (Negative) Urine Microscopic RBC 3-5 H (0-3) per hpf Urine Microscopic WBC 5-15 H (0-3) per hpf Ur Squamous Epith Cells Many H (None-Few) per lpf Ur Renal Epithelial Cell Moderate H (None-Few) per hpf Amorphous Sediment Many H (Few) Urine Bacteria Many H (None-Few) per hpf Hyaline Casts Many H (None-Few) per lpf Ur Culture Indicated? YES A (NO) Digoxin (0.8-2.0) ng/mL - Radiology Data Radiology results reviewed: Yes I reviewed the patient's radiology results. Chest X-Ray 10/26/16 09:49 IMPRESSION: 1. Stable cardiomegaly with bilateral pleural effusions and bibasilar atelectasis. D/ / Curt Rosenthal MD / Curt Rosenthal MD Interpreting Provider: Curt Rosenthal MD Abdomen/Pelvis CT 10/26/16 10:20 IMPRESSION: 1. No acute abdominopelvic process demonstrated 2. Prominent gallbladder, unchanged from the prior study. Would correlate with any clinical findings of biliary obstruction 3. 3 cm abdominal aortic aneurysm 4. Cardiomegaly with small bilateral pleural effusions D/ / Sergio Walter MD / Sergio Walter MD Interpreting Provider: Sergio Walter MD Head CT 10/26/16 10:45 IMPRESSION: No acute intracranial abnormality. Age related changes including chronic small vessel ischemic disease and cerebral atrophy. D/ / 10/26/2016 11:33:02 Angy Gamez MD / [email or web address] Interpreting Provider: Angy Gamez MD - EKG Data EKG attestation: Yes I reviewed and interpreted this EKG. EKG results narrative: EKG taken 2509 2016 0950 hrs. shows bradycardia at a rate of 43 bpm no discernible P waves T-wave inversions in leads 23 V3 and V4 V5 and 6. ST depression in V5 and V6. Previous EKG taken 2509 2016 at 0909 hrs. which looks equivocal. Attestation Statement - Attestation Attestation: I examined this patient and my medical decision-making was reviewed with the Resident Physician. I agree with the documented findings, disposition and treatment plan as described except to the extent set forth below. Very compelling history for dig toxicity - recently started treatment, worsening renal function, signs on EKG both of dig effect (U-wave, T-wave changes, +/- scooped ST segment in one lead) and dig toxicity (junctional escape rhythm, PVCs, later in ED course runs of polymorphic VT). Dig level only 1.4 however. Cardiology evaluated pt in ED, elected to try Digibind and Magnesium. Re-affirmed DNR-CCA status. BP normal throughout the visit. Admitted. Critical care time: I was directly and primarily involved in the care of this pt for 35 minutes excluding procedures.
[2016-10-26 10:18] LABS: Potassium 4.1 mEq/L (3.5-4.5)
[2016-10-26 10:29] LABS: Prothrombin Time 21.9 Seconds (9.4-12.1)
[2016-10-26] MEDS ORDERED: Aspirin 81 MG TAB.CHEW PO ONE (10:30)
[2016-10-26] MEDS ORDERED: Promethazine 25 MG in 0.9 % Sodium Chloride 50 ML IVPB ONE (10:46)
[2016-10-26] MEDS ORDERED: *HR* Promethazine 25 MG/ML VIAL IVP PRN (10:46)
[2016-10-26 10:52] LABS: Bilirubin,Urine Negative (Negative); Blood,Urine Negative (Negative); Glucose,Urine (UA) Normal (Normal); Ketones,Urine Trace mg/dL (Negative); Leukocyte Esterase,Urine Negative (Negative); Nitrite,Urine Negative (Negative); Protein,Urine 100 mg/dL (Neg-Trace); Urobilinogen,Urine Normal (Normal)
[2016-10-26 10:53] LABS: Clarity,Urine Slightly Hazy (Clear); Color,Urine Orange (Yellow)
[2016-10-26 10:55] LABS: Squamous Epithelial Cell,Urine Many per lpf (None-Few)
[2016-10-26 11:02] LABS: Amorphous Sediment,Urine Many (Few); Hyaline Casts,Urine Many per lpf (None-Few)
[2016-10-26 11:03] LABS: Bacteria,Urine Many per hpf (None-Few); Renal Epithelial Cells,Urine Moderate per hpf (None-Few)
[2016-10-26 11:31] LABS: Digoxin 1.4 ng/mL (0.8-2.0)
--- NOTE | 2016-10-26 11:39 | Cardiology Consult Note ---
Date of Encounter: 10/26/16 Time of Encounter: 11:36 Assessment and Plan (1) Digoxin toxicity Current Visit: Yes Status: Acute - Clinical picture consistent with digoxin toxicity despite digoxin level of 1.4 - Patient having increasingly frequent runs of non-sustained V-tach and polymorphic/bi-directional V-tach - Also having bradycardia versus slow A-fib (p-waves intermittently present) - Reportedly hypotensive earlier this morning, normotensive currently - Will give Digibind, 1 Vial, repeat if needed - Will need admission to the ICU - Discussed goals of care with family, they do want the patient to be a DNR-CCA at this point - Will continue aggressive symptomatic and supportive care although the patient has a poor prognosis - Further recommendations pending attending evaluation Qualifiers: Encounter type: initial encounter Injury intent: accidental or unintentional Qualified Code(s): T46.0X1A - Poisoning by cardiac-stimulant glycosides and drugs of similar action, accidental (unintentional), initial encounter (2) Bradycardia Current Visit: Yes Status: Acute - likely secondary to digoxin toxicity versus acute renal failure - transcutaenous pacer pads placed in the ED - Continue to monitor closely with continuous cardiac monitoring - Aggressive electrolyte replacement, gave 4gm Magnesium in the ED since last Mag level was 1.1, repeat as indicated - K 4.1, follow closely - Further recommendations pending attending evaluation (3) ESRD (end stage renal disease) Current Visit: Yes Status: Acute - Significantly worse than baseline - Cr 4.6 from 2.42 - Oliguric now - Further recommendations pending nephrology evaluation, patient may need dialysis Discussion w patient/family: The assessment and plan as outlined above was discussed with the patient and/or family members who expressed understanding and agreement. All questions were answered. Thank you for involving us in the care of your patient. Please call with any questions. History of Present Illness Consult date: 10/26/16 Requesting physician: Jose Rowe Consult reason: Bradycardia Chief complaint: fatigue, sent from Dr. Urbina History of present illness: Ms. Solis is a 89 year old female who presents from Dr. Urbina's office after a f/u visit today from recent hospitalization for CHF. 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 Last EF from [facility] was 20% , down from 60%. She was also recently started on Digoxin. On Coumadin for A- fib. She presented to Dr. Urbina's office today and was noted to be hypotensive with SBP in the 90's, per report and was sent over to the ED. Patient reports feeling very fatigued and weak since hospital discharge, gradually worsening. Denies and chest pain. Does complain of decreased urination, shortness of breath, and chronic/unchanged epigastric abdominal pain. Family reports she has the abdominal pain daily. They are concerned about her fatigue and decreasing mental status. No appetite. Past Med Surg Social Fam HX - Past Medical History Medical history: atrial fibrillation, CHF, DVT, GI bleed, hyperlipidemia, hypertension, peripheral artery disease, renal disease, SVT, thyroid disease, TIA, other Psychiatric history: no psych history - Past Surgical History Surgical History: cataract, cholecystectomy, other - Social History Smoking Status: Never smoker Smokeless Tobacco Status: No Alcohol use: none Drug use: none - Family History Mother Family Member Ethnicity: Non- Living Status: Hx Family Cardiac Disorders: Yes Hx Family Respiratory Disorders: Yes Hx Family Cancer: No Hx Family GI Disorders: No Hx Family Endocrine Disorder: No Hx Family Neuromuscular Disorders: No Hx Family Neurologic Disorders: No Hx Family HEENT Disorders: No Hx Family Autoimmune Disorders: No Medications and Allergies Calcitriol [Rocaltrol] 0.25 mcg PO 1200 07/26/15 [History] Levothyroxine [Synthroid] 100 mcg PO QAM 07/26/15 [History] TraZODone 50 mg PO HS 07/27/16 [History] Allopurinol [Zyloprim] 100 mg PO 1200 10/11/16 [History] Ascorbate Calcium [Vitamin C] 500 mg PO HS 10/11/16 [History] Ergocalciferol (VITAMIN D2) [Vitamin D2] 50,000 unit PO SA 10/11/16 [History] Gluc/MSM/C/[place]anganes/Prim [Joint Support Complex Softgel] 1 cap PO QAM 07/18 [History] LORazepam [Ativan] 1 mg PO HS 10/11/16 [History] Loratadine [Claritin] 10 mg PO QAM 10/11/16 [History] Warfarin [Coumadin] 2.5 mg PO 1200 10/11/16 [History] Amiodarone [Cordarone] 200 mg PO DAILY #30 tablet 10/22/16 [Rx] Atorvastatin [Lipitor] 20 mg PO HS #30 tablet 10/22/16 [Rx] Ciprofloxacin HCl [Cipro] 500 mg PO BID #14 tablet 10/22/16 [Rx] Digoxin [Lanoxin] 0.125 mg PO QOD 30 Days 10/22/16 [Rx] HydrALAZINE 50 mg PO Q8HR #90 tablet 10/22/16 [Rx] Isosorbide DInitrate [Isordil] 5 mg PO TIDAC #90 tablet 10/22/16 [Rx] Bumetanide [Bumex] 2 mg PO BID 10/26/16 [History] Metolazone [Zaroxolyn] 5 mg PO QMWF 10/26/16 [History] Metoprolol XL (24 HR) Succ [Toprol Xl] 200 mg PO QAM 10/26/16 [History] Allergies acetaminophen [From Percocet] Allergy (Verified 10/26/16 09:50) Rash codeine Allergy (Verified 10/26/16 09:50) Rash Oxycodone [From Percocet] Allergy (Verified 10/26/16 09:50) Rash All Systems Review: A 10-system review of systems was performed and is negative for pertinent findings except as documented above in the HPI. - Constitutional Constitutional: anorexia, daytime sleepiness, fatigue, lethargy, malaise, weakness (generalized ), no fever(s), no headache(s), no night sweats - EENT Eyes: no blurred vision - Cardiovascular Cardiovascular: dyspnea at rest, dyspnea on exertion, leg edema, no chest pain at rest, no diaphoresis, no palpitations - Respiratory Respiratory: dyspnea, no cough, no hemoptysis, no wheezing - Gastrointestinal Gastrointestinal: abdominal pain, nausea - Genitourinary Genitourinary: no dysuria - Musculoskeletal Musculoskeletal: other (as per HPI) - Integumentary Integumentary: no rash - Neurological Neurological: no abnormal speech, no dizziness, no focal weakness, no loss of vision, no syncope - Hematological/Lymphatic Hematologic/Lymphatic: no easy bleeding, no easy bruising Physical Examination Vital Signs, Last 4 Hours Temp Pulse Resp BP Pulse Ox 10/26/16 10:48 41 16 132/59 96 10/26/16 09:47 97.7 F 44 16 134/58 97 General: Other (Somnolent, however, easily arousable, answers simple questions) HEENT: Atraumatic, Normocephaly, Mucus Membranes Moist Neck: No JVD, Normal carotid pulses Cardiac: Other (Systolic murmur, bradycardic, regular rhythm) Lungs: Other (Decreased breath sounds bilaterally, poor expiratory effort, no respiratory distress, Rales bilateral bases) Neuro: Alert and responsive, No focal deficits noted, Other (somnolent but is easily arousable, alert) Abdomen: Soft, Non-Tender Skin: No rashes noted on visualized skin Musculoskeletal: No Chest Wall Tenderness Extremities: No Clubbing, No Cyanosis, Normal Pulses, Other (mild peripheral edema to bilateral lower extremities, improved from previous ) Results 10/26/16 09:56 10/26/16 09:56 Lab Results 10/26/16 10/26/16 10/26/16 09:52 09:56 09:56 WBC 8.6 Hgb 14.0 D Hct 42.9 Plt Count 175 INR 2.0 Sodium 140 Potassium 4.1 Chloride 88 L Carbon Dioxide 38 H BUN 39 H Creatinine 4.60 H Glucose 139 H Calcium 10.0 Troponin I 10/26/16 09:56 WBC Hgb Hct Plt Count INR Sodium Potassium Chloride Carbon Dioxide BUN Creatinine Glucose Calcium Troponin I 0.21 H* - Imaging and Cardiology Chest Xray: report reviewed, image reviewed - EKG Interpretation EKG results cardiology: personally reviewed, sinus rhythm, other (inverted T- waves in leads II,III, aVF, V3-6, changed from previous on 10/15/16 which showed A-tach with RVR, LAFB, non-specific ST/T changes) Consult Discharge Plan - Plan Referrals: Anabella Hodgson MD [Primary Care Provider] -
[2016-10-26] MEDS ORDERED: *HR* HYDROmorphone 2 MG/ML SYRINGE IV ONE (11:45)
[2016-10-26] MEDS ORDERED: DIGOXIN IMMUNE FAB IVPB ONE ×2 (12:13→17:59)
[2016-10-26] MEDS ORDERED: SODIUM CHLORIDE 0.9% IVPB ONE ×2 (12:13→17:59)
[2016-10-26] MEDS ORDERED: Magnesium Sulfate 4 GM in D5% in Water 100 ML IVPB ONE ×2 (12:22→13:06)
--- NOTE | 2016-10-26 14:12 | Electrocardiograph Report ---
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
[2016-10-26 14:18] LABS: Magnesium 2.6 mg/dL (1.6-2.6); Potassium 4.1 mEq/L (3.5-4.5)
--- NOTE | 2016-10-26 14:23 | Pulmonology Consult Note ---
Date of Encounter: 10/26/16 Time of Encounter: 14:15 Assessment and Plan (1) Bradycardia Current Visit: Yes Status: Acute Bradycardia in this particular individual in light of her clinical history is more than likely due to dig toxicity. Aside from intermittent dosing with Digibind, given the patient's near end-stage renal disease and lack of intrinsic renal clearance of digoxin, the patient will require chemotherapy dialytic support for clearance of dig antibody complexes. To the same man, Dr. De La Vega was directly contacted by myself and per our conversation, he will arrange for a session of hemodialysis since the patient is stable from a hemodynamic viewpoint and does not profoundly hypervolemic, ultrafiltration will not be provided with dialytic support. In order to mitigate other potential factors additive to dig toxicity, magnesium and potassium levels will be carefully monitored and repleted as necessary in order to maintain them within normal acceptable ranges. I reviewed the management strategy with the patient family and all agree to proceed as outlined. As well known, both Lidocaine and Dilantin can be provided for control of ventricular arrhythmias if necessary (or "overdrive pacing"). Profound persistent symptomatic hemodynamically unstable bradycardia which is non- responsive to digoxin removal may require either temporary transvenous pacemaker placement,transcutaneous pacemaker use (which would pose some difficulties with this particular individual given her CODE STATUS) or intravenous pressor-catecholamine agents (which also have significant arrhythmogenic potential). Code(s): R00.1 - Bradycardia, unspecified SNOMED Code(s): 49428444 History of Present Illness Consult date: 10/26/16 Chief complaint: Bradycardia History of present illness: The patient is an 89-year-old female who was admitted to the intensive care unit with profound bradycardia, fatigue and mild abdominal discomfort. 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 While in the emergency room, the patient developed intermittent and persistent profound bradycardia suggestive of possible high-grade heart block (chronic atrial fibrillation) and several salvos of wide complex tachycardia consistent with ventricular tachycardia. Given the patient's history as outlined in conjunction with use of digoxin, concern was raised regarding dig toxicity hence aside from correcting electrolyte disturbance (hypomagnesemia, note normal potassium level ) the patient received Digibind intravenously. Since administration of Digibind and presumptive correction of hypomagnesemia, no additional salvos of wide complex tachycardia have been noted that the patient remains persistently bradycardic (atrial fibrillation as background). In spite of bradycardia, the patient has acceptable blood pressure, mentation and no longer complains of mild abdominal discomfort. Given the aforenoted clinical scenario, in spite of the fact that the patient's CODE STATUS is that of DNR CC DNI, the patient was admitted to the intensive care unit setting. Of note, the patient has undergone creation of left upper extremity AV fistula several years ago. According to the family and in specific the daughter, patient has not required access of the fistula for institution of dialytic support. Past Med Surg Social Fam HX - Past Medical History Medical history: atrial fibrillation, CHF, DVT, GI bleed, hyperlipidemia, hypertension, peripheral artery disease, renal disease, SVT, thyroid disease, TIA, other Psychiatric history: no psych history - Past Surgical History Surgical History: cataract, cholecystectomy, other - Social History Smoking Status: Never smoker Smokeless Tobacco Status: No Alcohol use: none Drug use: none - Family History Mother Family Member Ethnicity: Non- Living Status: Hx Family Cardiac Disorders: Yes Hx Family Respiratory Disorders: Yes Hx Family Cancer: No Hx Family GI Disorders: No Hx Family Endocrine Disorder: No Hx Family Neuromuscular Disorders: No Hx Family Neurologic Disorders: No Hx Family HEENT Disorders: No Hx Family Autoimmune Disorders: No Medications and Allergies Calcitriol [Rocaltrol] 0.25 mcg PO 1200 07/26/15 [History] Levothyroxine [Synthroid] 100 mcg PO QAM 07/26/15 [History] TraZODone 50 mg PO HS 07/27/16 [History] Allopurinol [Zyloprim] 100 mg PO 1200 10/11/16 [History] Ascorbate Calcium [Vitamin C] 500 mg PO HS 10/11/16 [History] Ergocalciferol (VITAMIN D2) [Vitamin D2] 50,000 unit PO SA 10/11/16 [History] Gluc/MSM/C/[place]/Manganes/Prim [Joint Support Complex Softgel] 1 cap PO QAM 07/18 [History] LORazepam [Ativan] 1 mg PO HS 10/11/16 [History] Loratadine [Claritin] 10 mg PO QAM 10/11/16 [History] Warfarin [Coumadin] 2.5 mg PO 1200 10/11/16 [History] Amiodarone [Cordarone] 200 mg PO DAILY #30 tablet 10/22/16 [Rx] Atorvastatin [Lipitor] 20 mg PO HS #30 tablet 10/22/16 [Rx] Ciprofloxacin HCl [Cipro] 500 mg PO BID #14 tablet 10/22/16 [Rx] Digoxin [Lanoxin] 0.125 mg PO QOD 30 Days 10/22/16 [Rx] HydrALAZINE 50 mg PO Q8HR #90 tablet 10/22/16 [Rx] Isosorbide DInitrate [Isordil] 5 mg PO TIDAC #90 tablet 10/22/16 [Rx] Bumetanide [Bumex] 2 mg PO BID 10/26/16 [History] Metolazone [Zaroxolyn] 5 mg PO QMWF 10/26/16 [History] Metoprolol XL (24 HR) Succ [Toprol Xl] 200 mg PO QAM 10/26/16 [History] Allergies acetaminophen [From Percocet] Allergy (Verified 10/26/16 09:50) Rash codeine Allergy (Verified 10/26/16 09:50) Rash Oxycodone [From Percocet] Allergy (Verified 10/26/16 09:50) Rash All Systems: A 10-system review of systems was performed and is negative for pertinent findings except as documented above in the HPI. - Constitutional Constitutional: as per HPI - Cardiovascular Cardiovascular: as per HPI - Respiratory Respiratory: as per HPI - Gastrointestinal Gastrointestinal: as per HPI - Genitourinary Genitourinary: as per HPI Physical Examination Vital Signs: Vital Signs, Last 4 Hours Pulse Resp BP Pulse Ox 10/26/16 13:00 16 155/57 10/26/16 12:45 41 16 155/57 98 General appearance: other (Elderly female, hard of hearing but in no distress. Vitals reviewed.) Eyes: nonicteric ENT: oropharynx moist Neck: no JVD Effort: normal Auscultation: bilateral: diminished breath sounds, other (Note absence of significant crackles.) Cardiovascular: irregular rhythm, murmur noted Gastrointestinal: normoactive bowel sounds, soft, non-distended Integumentary: normal, other (Note areas of ecchymosis upper extremities, no rash or eruption) Extremities: other (Very mild to minimal lower extremity and upper extremity edema, left upper extremity AV fistula palpable with thrill) normal mental status, non-focal exam mood appropriate Results - Laboratory Findings CBC and BMP: 10/26/16 09:56 10/26/16 09:56 PT/INR, D-dimer PT 21.9 Seconds (9.4-12.1) H 10/26/16 09:52 Abnormal lab findings: Abnormal lab results PT 21.9 Seconds (9.4-12.1) H 10/26/16 09:52 Chloride 88 mEq/L (98-109) L 10/26/16 09:56 Carbon Dioxide 38 mEq/L (19-29) H 10/26/16 09:56 BUN 39 mg/dL (7-20) H 10/26/16 09:56 Creatinine 4.60 mg/dL (0.57-1.11) H 10/26/16 09:56 Est GFR ( Amer) 11 (> 60) L 10/26/16 09:56 Est GFR (Non-Af Amer) 9 (> 60) L 10/26/16 09:56 Glucose 139 mg/dL (70-99) H 10/26/16 09:56 POC Glucose 147 (58-89) H 10/26/16 13:12 Calculated Osmolality 302 (280-300) H 10/26/16 09:56 Magnesium 1.0 mg/dL (1.6-2.6) L 10/26/16 09:56 Troponin I 0.21 ng/mL (0-0.03) H* 10/26/16 09:56 Urine Color [place] (Yellow) A 10/26/16 10:38 Urine Protein 100 mg/dL (Neg-Trace) H 10/26/16 10:38 Urine Ketones Trace mg/dL (Negative) H 10/26/16 10:38 Urine Microscopic RBC 3-5 per hpf (0-3) H 10/26/16 10:38 Urine Microscopic WBC 5-15 per hpf (0-3) H 10/26/16 10:38 Ur Squamous Epith Cells Many per lpf (None-Few) H 10/26/16 10:38 Ur Renal Epithelial Cell Moderate per hpf (None-Few) H 10/26/16 10:38 Amorphous Sediment Many (Few) H 10/26/16 10:38 Urine Bacteria Many per hpf (None-Few) H 10/26/16 10:38 Hyaline Casts Many per lpf (None-Few) H 10/26/16 10:38 Ur Culture Indicated? YES (NO) A 10/26/16 10:38 - Clinical Findings Intake & Output: Intake & Output 10/25/16 10/26/16 10/26/16 23:59 07:59 15:59 Intake Total Balance Consult Discharge Plan - Plan Referrals: Anabella Hodgson MD [Primary Care Provider] -
[2016-10-26] MEDS ORDERED: 0.9 % Sodium Chloride 250 ML IV PRN (14:28)
[2016-10-26] MEDS ORDERED: 0.9 % Sodium Chloride 1,000 ML PRIME SCH (14:30)
[2016-10-26] MEDS ORDERED: 0.9 % Sodium Chloride 2,000 ML ONE (14:37)
[2016-10-26 18:55] LABS: Magnesium 2.5 mg/dL (1.6-2.6); Potassium 4.4 mEq/L (3.5-4.5)
--- NOTE | 2016-10-27 07:51 | Nephrology Consult Note ---
Date of Encounter: 10/27/16 Time of Encounter: 07:49 Assessment and Plan (1) Acute kidney failure, unspecified Current Visit: Yes Status: Acute The patient has acute kidney injury superimposed on stage IV chronic kidney disease in the setting of hypotension bradycardia and recent treatment for acute systolic congestive heart failure. Patient was thought to be possibly dig toxic because of her cardiac arrhythmias and bradycardia. Patient underwent urgent dialysis last night following the administration of Digibind. Today she remains bradycardic. Repeat lab is currently pending. Her bradycardia may be more related to intrinsic conduction defects as well as other medications including amiodarone and metoprolol as well as the digoxin. All these medications are currently on hold. We will not proceed with dialysis again today unless we have an indication regards to electrolyte abnormalities and/or continued evidence for digoxin toxicity. The patient's volume status is adequate. Clinically she does not appear to be volume overloaded. Qualifiers: Acute renal failure type: unspecified Qualified Code(s): N17.9 - Acute kidney failure, unspecified (2) Chronic kidney disease, stage IV (severe) Current Visit: Yes Status: Acute (3) Chronic systolic CHF (congestive heart failure) Current Visit: Yes Status: Acute (4) Bradycardia Current Visit: Yes Status: Acute (5) Atrial fibrillation Current Visit: No Status: Chronic Qualifiers: Atrial fibrillation type: unspecified Qualified Code(s): I48.91 - Unspecified atrial fibrillation (6) CAD (coronary artery disease) Current Visit: No Status: Chronic Qualifiers: Coronary Disease-Associated Artery/Lesion type: [place] artery [place] vs. transplanted heart: [place] heart Associated angina: without angina Qualified Code(s): I25.10 - Atherosclerotic heart disease of [place] coronary artery without angina pectoris History of Present Illness - History of Present Illness This is an 89-year-old female who is following for stage IV chronic kidney disease. Patient was admitted with symptomatic bradycardia. 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 Patient was recently hospitalized for systolic congestive heart failure. At that time she underwent a cardiac catheterization. She had a single coronary lesion which was not amenable to intervention. She was noted to have an ejection fraction of 20%. She was discharged on amiodarone metoprolol and digoxin. Patient presents emergency room with bradycardia as well as intermittent V. tach. Patient was thought to be dig toxic. Her dig level was 1.4. Her creatinine is increased to 4.60. Patient was symptomatic complaining of fatigue. She denied any shortness of breath or chest discomfort. Patient received Digibind. Following that patient had urgent dialysis because of possible dig toxicity. This morning the patient feels tired. She denies any other complaints. She continues to experience bradycardia with a heart rate running in the low to mid 30s. The patient was unable to have her AV fistula successfully cannulated. She underwent insertion of a temporary dialysis catheter last evening in order to have urgent dialysis. Past Med Surg Social Fam HX - Past Medical History Medical history: atrial fibrillation, CHF, DVT, GI bleed, hyperlipidemia, hypertension, peripheral artery disease, renal disease, SVT, thyroid disease, TIA, other Psychiatric history: no psych history - Past Surgical History Surgical History: cataract, cholecystectomy, other - Social History Smoking Status: Never smoker Smokeless Tobacco Status: No Alcohol use: none Drug use: none - Family History Mother Adopted: [place]: RENUKA MCMAHAN Family Member Ethnicity: Non- Living Status: Cause of : HEART PROBLEMS Hx Family Cardiac Disorders: Yes Hx Family Respiratory Disorders: Yes Hx Family Cancer: No Hx Family GI Disorders: No Hx Family Genitourinary Disorders: No Hx Family Endocrine Disorder: No Hx Family Neuromuscular Disorders: No Hx Family Neurologic Disorders: No Hx Family HEENT Disorders: No Hx Family Autoimmune Disorders: No Medications and Allergies Calcitriol [Rocaltrol] 0.25 mcg PO 1200 07/26/15 [History] Levothyroxine [Synthroid] 100 mcg PO QAM 07/26/15 [History] TraZODone 50 mg PO HS 07/27/16 [History] Allopurinol [Zyloprim] 100 mg PO 1200 10/11/16 [History] Ascorbate Calcium [Vitamin C] 500 mg PO HS 10/11/16 [History] Ergocalciferol (VITAMIN D2) [Vitamin D2] 50,000 unit PO SA 10/11/16 [History] Gluc/MSM/C/[place]/Manganes/Prim [Joint Support Complex Softgel] 1 cap PO QAM 07/18 [History] LORazepam [Ativan] 1 mg PO HS 10/11/16 [History] Loratadine [Claritin] 10 mg PO QAM 10/11/16 [History] Warfarin [Coumadin] 2.5 mg PO 1200 10/11/16 [History] Amiodarone [Cordarone] 200 mg PO DAILY #30 tablet 10/22/16 [Rx] Atorvastatin [Lipitor] 20 mg PO HS #30 tablet 10/22/16 [Rx] Ciprofloxacin HCl [Cipro] 500 mg PO BID #14 tablet 10/22/16 [Rx] Digoxin [Lanoxin] 0.125 mg PO QOD 30 Days 10/22/16 [Rx] HydrALAZINE 50 mg PO Q8HR #90 tablet 10/22/16 [Rx] Isosorbide DInitrate [Isordil] 5 mg PO TIDAC #90 tablet 10/22/16 [Rx] Bumetanide [Bumex] 2 mg PO BID 10/26/16 [History] Metolazone [Zaroxolyn] 5 mg PO QMWF 10/26/16 [History] Metoprolol XL (24 HR) Succ [Toprol Xl] 200 mg PO QAM 10/26/16 [History] Allergies acetaminophen [From Percocet] Allergy (Verified 10/26/16 09:50) Rash codeine Allergy (Verified 10/26/16 09:50) Rash Oxycodone [From Percocet] Allergy (Verified 10/26/16 09:50) Rash Review of Systems Constitutional: malaise, weakness, no excessive sweating, no weight loss Eyes: bilateral: blurred vision (patient denies), diplopia (patient denies) Nose, mouth and throat: no dizziness, no headache(s) Cardiovascular: as per HPI, edema, irregular heart rhythm, slow heart rate Respiratory: dyspnea on exertion Gastrointestinal: no abdominal pain, no change in bowel habits Musculoskeletal: no muscle weakness, no numbness Neurological: as per HPI, weakness Psychiatric: no depression, no difficulty concentrating Endocrine: as per HPI Exam - Vital Signs Vital signs: Initial Vital Signs Temp Pulse Resp BP Pulse Ox 97.7 F 44 16 134/58 97 10/26/16 09:47 10/26/16 09:47 10/26/16 09:47 10/26/16 09:47 10/26/16 09:47 Vital Signs - Last 8 Hours Temp Pulse Resp BP Pulse Ox 10/27/16 05:45 35 18 105/55 100 10/27/16 04:57 97.5 F L 10/27/16 04:54 76 18 103/47 100 10/27/16 03:56 37 18 101/49 100 10/27/16 03:00 37 16 103/46 100 10/27/16 02:00 36 16 114/75 100 10/27/16 00:54 36 12 100/53 100 10/27/16 00:50 97.5 F L 10/27/16 00:25 97.4 F L 12 108/43 10/27/16 00:07 98/57 10/27/16 00:05 89/44 10/27/16 00:00 35 16 89/44 100 10/26/16 23:50 100/48 Intake and Output 10/26/16 10/26/16 10/27/16 15:59 23:59 07:59 Intake Total 600 / 600 50 / 50 Output Total 0 / 0 800 / 800 Balance 600 / 600 -750 / -750 Intake: IV Fluids 100 / 100 Digifab 40 MG In 0.9 % 100 / 100 Sodium Chloride 100 ML @ 200 mls/hr IVPB ONCE ONE Rx#:[id number] Oral 0 / 0 50 / 50 Intake, Rinseback and 500 / 500 Flushes Output: Urine 0 / 0 300 / 300 Total Dialysis Output 500 / 500 Other: Hemodialysis Net Fluid 413 0 Removed (mL) - General Appearance Exam: Patient is alert and oriented. She is in no acute distress. She appears fatigued. Neck is supple. Lungs diminished breath sounds especially in the bases otherwise clear. No rales wheezing or rhonchi. Heart regular rate and rhythm. There is systolic murmur. Heart rate is in the low to mid 30s. Abdomen normal bowel sounds are bruits masses or organomegaly or tenderness. Lower extremities show minimal swelling. There is an AV fistula in the upper portion of the left arm. There is a temporary dialysis catheter in the femoral vein. Results - Lab Results 10/26/16 09:56 10/26/16 18:38 Most recent lab results Calcium 10.0 mg/dL (8.6-10.8) 10/26/16 09:56 Phosphorus 4.0 mg/dL (2.3-4.7) 10/26/16 09:56 Magnesium 2.5 mg/dL (1.6-2.6) 01/25/17 18:38 Consult Discharge Plan - Plan Referrals: Anabella Hodgson MD [Primary Care Provider] -
--- NOTE | 2016-10-27 08:59 | Cardiology Progress Note ---
Date of Encounter: 10/27/16 Time of Encounter: 08:57 Assessment and Plan (1) Bradycardia Current Visit: Yes Status: Acute - No clear etiology and is likely multifactorial - Continues to have brief runs of non-sustained V-tach and returns to bradycardia in the 30s - Normotensive - Received dialysis last night - Will continue aggressive symptomatic and supportive care - AM labs pending will f/u on results - Mag level from 1.0 to 2.6 after 8grams given yesterday, did seem to help reduce although not eliminate VT occurrence although she remains bradycardic - Repeat EKG today 10/27 - Consult to EP placed today for possible PPM, discussed with Dr. Castillo, will evaluate the patient tomorrow unless clinical condition declines. - Will continue to follow closely - Further recommendations pending attending evaluation (2) Digoxin toxicity Current Visit: Yes Status: Acute - received 2 vials digibind, dialysis, and had a normal level prior - remains persistently bradycardic, will consider other causes as primary - Plan as above Qualifiers: Encounter type: initial encounter Injury intent: accidental or unintentional Qualified Code(s): T46.0X1A - Poisoning by cardiac-stimulant glycosides and drugs of similar action, accidental (unintentional), initial encounter (3) ESRD (end stage renal disease) Current Visit: Yes Status: Acute - Received HD last night - AM labs pending - Nephro following as well Discussion w patient/family: The assessment and plan as outlined above was discussed with the patient and/or family members who expressed understanding and agreement. All questions were answered. Thank you for involving us in the care of your patient. Please call with any questions. Subjective Principal diagnosis: Bradycardia Interval history: Family reports patient has still been having runs of V-tach and the patient remains bradycardic. Family also reports issues with "seizures" They describe generalized shaking that last very briefly but occurs only when the patient will have runs of VT. States the shaking resolves when her heart rate returns to the 30s. Has continued to be sleep and lethargic. Did receive dialysis last night. Objective Vital Signs, Last 4 Hours Temp Pulse Resp BP Pulse Ox 10/27/16 08:04 97.5 F L 10/27/16 05:45 35 18 105/55 100 General: Conversant (when spoken to), No Apparent Distress HEENT: Atraumatic, Normocephaly, Mucus Membranes Moist Neck: No JVD, Normal carotid pulses Cardiac: No Murmur, Other (bradycardic, rate in 30s) Lungs: Normal Breath Sounds, No Wheeze, Rales, Rhonchi (faint rales, significantly improved from yesterday ) Neuro: Alert and responsive (when spoken to GCS 14 (E3,V5,M6)), No focal deficits noted Abdomen: Soft, Non-Tender Skin: No rashes noted on visualized skin Musculoskeletal: No Chest Wall Tenderness Extremities: No Clubbing, No Cyanosis, Normal Pulses, Other (trace peripheral edema ) Results 10/27/16 09:20 10/26/16 18:38 Lab Results 10/26/16 18:38 Potassium 4.4 Magnesium 2.5 - VTE Reasons for not Prescribing Prophylaxis: Not indicated-Anticoagulated or INR therapeutic Consult Discharge Plan - Plan Referrals: Anabella Hodgson MD [Primary Care Provider] -
--- NOTE | 2016-10-27 09:21 | Event Note ---
Date of Encounter: 10/27/16 Time of Encounter: 09:14 Overnight, given the inability to achieve functionality of the left upper extremity AV fistula for dialysis, IR placed a temporary catheter. In spite of the fact that the patient underwent dialysis yesterday and in spite of the fact that electrolyte disturbances have been corrected (magnesium and potassium) the patient remains profoundly bradycardic. In spite of bradycardia, patient's clinical, mental status and hemodynamics are acceptable. Auscultation of the chest is notable for reduction of breath sounds at the bases with very faint crackles. Cardiac examination discloses an irregular rate and rhythm system systolic murmur. Extremities were warm there is trace edema at all extremity stations. The left upper extremity AV fistula is palpable and only minimal thrill is noted. In spite of appropriate treatment for possible dig toxicity, the patient's bradycardia has not improved. She has not experienced however any additional [place] complex tachycardia overnight following HD. Perhaps, the patient has primary conduction system failure as the etiology of persistent bradycardia and therefore if she is to receive aggressive care perhaps PPM will be necessary. Obviously, I defer this decision to the cardiology service.
[2016-10-27 09:34] LABS: Basophils % 0.3 %; Eosinophils % 0.4 %; Immature Granulocytes % 0.4 % (0-4); Lymphocytes # 2.1 K/mcL (0.6-4.6); Lymphocytes % 21.4 %; Mean Corpuscular HGB Conc 32.7 g/dL (31.6-35.5); Mean Corpuscular Hemoglobin 30.9 pg (28.0-33.3); Mean Corpuscular Volume 94.3 fL (83.0-100.0); Mean Platelet Volume 11.2 fL (9.4-12.4); Neutrophils # 6.8 K/mcL (1.6-8.9); Platelet Count 124 K/mcL (140-400); Red Cell Distribution Width 13.8 % (11.5-14.5); Segmented Neutrophils % 67.5 %
[2016-10-27 09:36] LABS: Hemoglobin 10.8 g/dL (11.5-15.4)
--- NOTE | 2016-10-27 09:41 | Pulmonology Progress Note ---
Date of Encounter: 10/27/16 Time of Encounter: 09:39 Assessment and Plan (1) Bradycardia Current Visit: Yes Status: Acute Patient continued to have nonsustained v-tach and return to bradycardia in the 30s overnight despite receiving 2 vials of digibind and dialysis yesterday. Yesterday bradycardia was suspected to be due to digoxin toxicity, though level was 1.4. In light of appropriate treatment for digoxin toxicity, bradycardia may be due to other causes including conduction disturbance/failure. Will defer additional management for bradycardia to Cardiology. (2) ESRD (end stage renal disease) Current Visit: Yes Status: Acute IR placed shunt yesterday, Dialysis performed last night. Will continue to monitor electrolytes and defer additional treatment to nephrology. Subjective Principal diagnosis: Bradycardia Interval history: Overnight reported patient had continued runs of v-tach overnight and patient returns to bradycardia despite 2 vials of digibind. Patient did receive dialysis last night with correction of electrolytes. Patient continues to be somnolent and very tired, but arousable. No additional complaints. Objective PUL Vital signs: Last Vital Signs Temp 97.5 F L 10/27/16 08:04 Pulse 35 10/27/16 05:45 Resp 18 10/27/16 05:45 BP 105/55 10/27/16 05:45 Pulse Ox 100 10/27/16 05:45 General appearance: no acute distress, alert, other (somnolent, but easily arousable) Eyes: nonicteric ENT: oropharynx moist Neck: supple, no JVD Effort: normal Auscultation: bilateral: diminished breath sounds Cardiovascular: irregular rhythm, murmur noted (systolic) Gastrointestinal: normoactive bowel sounds, soft, non-tender Integumentary: normal Extremities: no cyanosis, no edema, pink and warm, pulses normal Musculoskeletal: no deformities normal mental status, non-focal exam, pupils equal and round mood appropriate, affect normal Results - Laboratory Findings CBC and BMP: 10/27/16 09:20 10/27/16 09:20 PT/INR, D-dimer PT 21.9 Seconds (9.4-12.1) H 10/26/16 09:52 Abnormal lab findings: Abnormal lab results PT 21.9 Seconds (9.4-12.1) H 10/26/16 09:52 Chloride 88 mEq/L (98-109) L 10/26/16 09:56 Carbon Dioxide 38 mEq/L (19-29) H 10/26/16 09:56 BUN 39 mg/dL (7-20) H 10/26/16 09:56 Creatinine 4.60 mg/dL (0.57-1.11) H 10/26/16 09:56 Est GFR ( Amer) 11 (> 60) L 10/26/16 09:56 Est GFR (Non-Af Amer) 9 (> 60) L 10/26/16 09:56 Glucose 139 mg/dL (70-99) H 10/26/16 09:56 POC Glucose 94 (58-89) H 10/26/16 23:34 Calculated Osmolality 302 (280-300) H 10/26/16 09:56 Troponin I 0.21 ng/mL (0-0.03) H* 10/26/16 09:56 Urine Color [place] (Yellow) A 10/26/16 10:38 Urine Protein 100 mg/dL (Neg-Trace) H 10/26/16 10:38 Urine Ketones Trace mg/dL (Negative) H 10/26/16 10:38 Urine Microscopic RBC 3-5 per hpf (0-3) H 10/26/16 10:38 Urine Microscopic WBC 5-15 per hpf (0-3) H 10/26/16 10:38 Ur Squamous Epith Cells Many per lpf (None-Few) H 10/26/16 10:38 Ur Renal Epithelial Cell Moderate per hpf (None-Few) H 10/26/16 10:38 Amorphous Sediment Many (Few) H 10/26/16 10:38 Urine Bacteria Many per hpf (None-Few) H 10/26/16 10:38 Hyaline Casts Many per lpf (None-Few) H 10/26/16 10:38 Ur Culture Indicated? YES (NO) A 10/26/16 10:38 - Clinical Findings Intake & Output: Intake & Output 10/26/16 10/27/16 10/27/16 23:59 07:59 15:59 Intake Total 600 / 600 50 / 50 Output Total 0 / 0 800 / 800 Balance 600 / 600 -750 / -750 - VTE Reasons for not Prescribing Prophylaxis: Not indicated-Anticoagulated or INR therapeutic Consult Discharge Plan - Plan Referrals: Anabella Hodgson MD [Primary Care Provider] -
[2016-10-27 09:53] LABS: Ionized Calcium 0.98 mmol/L (1.15-1.35)
[2016-10-27 09:56] LABS: Alanine Aminotransferase 29 Units/L (0-55); Albumin 3.4 g/dL (3.5-5.0); Albumin/Globulin Ratio 1.3 (1.1-2.2); Alkaline Phosphatase 49 Units/L (38-126); Aspartate Amino Transferase 41 Units/L (5-34); BUN/Creatinine Ratio 6 (6-26); Bilirubin,Total 0.7 mg/dL (0.2-1.2); Calcium 8.8 mg/dL (8.6-10.8); Carbon Dioxide 28 mEq/L (19-29); Chloride 96 mEq/L (98-109); Globulin 2.7 g/dL (2.4-3.5); Glucose 119 mg/dL (70-99); Osmolality,Calculated 286 (280-300); Phosphorous 3.3 mg/dL (2.3-4.7); Potassium 4.9 mEq/L (3.5-4.5); Sodium 136 mEq/L (136-145); Total Protein 6.1 g/dL (6.0-8.3); eGFR For African Americans 16 (> 60); eGFR For Non-African Americans 13 (> 60)
[2016-10-27 10:01] LABS: Blood Urea Nitrogen 21 mg/dL (7-20)
[2016-10-27 10:52] LABS: Digoxin > 8.0 ng/mL (0.8-2.0)
[2016-10-27] MEDS ORDERED: ceFAZolin 2,000 MG in D5% in Water 100 ML IVPB ONE (12:34)
[2016-10-27 13:24] LABS: INR 1.9; Prothrombin Time 20.7 Seconds (9.4-12.1)
[2016-10-27 13:27] LABS: Activated Partial Thrombo Time 31.9 Seconds (26.0-36.0)
[2016-10-27] MEDS ORDERED: *HR* Midazolam HCl 2 MG/2 ML VIAL ONE (15:43)
[2016-10-27] MEDS ORDERED: *HR* FentaNYL (PF) 100 MCG/2 ML VIAL ONE (15:44)
[2016-10-27] MEDS ORDERED: Water for inj. (sterile) 10 ML IV ONE (15:44)
[2016-10-27] MEDS ORDERED: 0.9 % Sodium Chloride 500 ML ONE (15:44)
[2016-10-27] MEDS ORDERED: D5% in Water (Mini-Bag+) 100 ML IVPB ONE (15:44)
[2016-10-27] MEDS ORDERED: 0.9 % Sodium Chloride 1,000 ML ONE (16:26)
--- NOTE | 2016-10-27 16:32 | Pre-Sedation Evaluation ---
Pre-sedation evaluation - Pre-sedation checklist Date of procedure: 10/27/16 Procedure: Heart Cath Recent Vitals: Last Vital Signs Temp 97.3 F L 10/27/16 15:44 Pulse 35 10/27/16 13:00 Resp 25 10/27/16 13:00 BP 135/98 10/27/16 13:00 Pulse Ox 99 10/27/16 13:00 H&P (including ROS) documented in medical record: Yes Previous reaction to sedatives/anesthetics: No Dietary Status: NPO after Midnight Airway Assessment: Patient can open mouth completely, TMJ function normal Dentition: No loose teeth or bridges Possible difficult airway: No ASA Classification *see protocol: CLASS II-Mild systemic disease Plan of Care: Pt appropriate candidate for procedure/moderate/conscious sedation , Risks/benefits of procedure/sedation discussed w/ patient/family
[2016-10-27] MEDS ORDERED: *HR* Morphine 2 MG/ML SYRINGE IVP PRN (17:49)
[2016-10-27] MEDS ORDERED: Acetaminophen 325 MG TABLET PO PRN (17:49)
--- NOTE | 2016-10-27 18:03 | Invasive Diagnostic Lab ---
Dual Chamber Pacemaker Insertion Name: Farida Solis Date of Study: 10/27/2016 Date: 1925 Ht: 157.0 cm / 61.8 in Medical Record#: [id number] Age: 89 Wt: 72.0 kg / 158.7 lb Gender: Female BSA: 1.73 Location: Fluoro Dose: 111 mGy BMI: 29.21 Performing MD: Patricio Castillo MD, [facility] Procedures Performed: Procedure PM INSERTION DUAL LEADS Indications: Description Symptomatic bradycardia Impressions: * Successful implant of dual chamber pacemaker generator. Degree of difficulty was moderate. Appropriate functionality was observed at the end of the case. Procedure completed without incident. Recommendations: The patient will follow-up in 4-6 weeks for a post-pacemaker interrogation and evaluation with their Senior Software Developer. Procedure Description: After informed consent was obtained, the patient was brought to the laboratory in the fasting, post absorptive state. The left subclavicular region was prepped and draped in sterile fashion. Local anesthesia was performed using 1% Lidocaine. A 4cm incision was created two fingerbreadths below and parallel to the clavicle and carried down to the prepectoral fascia. At that level, a pocket was created to accomodate and size the hardware. This portion of the procedure used sharp dissection, blunt dissection and electrocautery. Venous access was obtained using a dual axillary vein stick with the modified Seldinger technique using two 7 Fr. Safe sheaths. The right ventricular lead was manipulated under direct fluoroscopy to find a physically stable and electrically optimal location in the RV [place]. Next, the right atrial lead was placed and again manipulated under direct fluoroscopy to find a physically stable electrically optimal location in the RA appendage. Hemostasis was obtained. The pocket was copiously irrigated with antibiotic solution. The device was connected to the leads in standard fashion and set screws deployed. The device was placed in the pocket. No anchoring sutures were placed. The wound was closed in layers starting with 2-0 Vicryl for the deep layer and 4-0 Vicryl for the skin. Steri-Strips were placed and 4x4s secured with tape. The patient tolerated the procedure well. Complications: None Disposition: The patient was returned to the recovery room. Patient will be scheduled to have a follow-up wound check in one week here at [facility]. PPM Device Information: Gambling Dealer Model Name Model No. Serial No. Medtronic Syd ADAMES MRI [id number] PPM Lead(s) Information: Gambling Dealer Model Name Model No. Serial No. Placement Medtronic CapSure Fix Novus 5076-52 [id number] RV Willits Medtronic CapSure Fix Novus [id number] [id number] RA appendage Device Measurement Data: Sensing (mV) Threshold (V) / (msec) Impedance (Ohms) Atrial Lead RV Lead 5 0.7 / 0.5 732 LV Lead Device Settings: MODE: AAIR-DDDR Lower Rate: 60 bpm ALLI Delay: Upper Rate: 120 bpm PAV Delay: Procedure Medications: Time Medication Dose Unit Route 04:31 PM Oxygen 2 L/min nasal cannula 04:37 PM Versed 1 Mg Intravenous 04:37 PM Fentanyl 25 Mcg Intravenous 04:34 PM Ancef 1 gram Intravenous 04:46 PM Lidocaine 2% 5 mL Subcutaneous Contrast: Isovue 0 ml. Complications: No complications occurred during the procedure. Complication None Updated by Patricio Castillo MD, FACC on 10/27/2016 5:56:16 PM electronically signed on 10/27/2016 5:57:23 PM with status of Final
[2016-10-27] MEDS: ceFAZolin 2,000 MG in D5% in Water 100 ML IVPB SCH (23:28)
[2016-10-28 03:18] LABS: Hematocrit 33.8 % (35.3-44.9); Mean Corpuscular HGB Conc 32.5 g/dL (31.6-35.5); Mean Corpuscular Hemoglobin 30.7 pg (28.0-33.3); Mean Corpuscular Volume 94.4 fL (83.0-100.0); Mean Platelet Volume 11.5 fL (9.4-12.4); Platelet Count 120 K/mcL (140-400); Red Blood Count 3.58 M/mcL (3.82-4.97); Red Cell Distribution Width 13.7 % (11.5-14.5)
[2016-10-28 03:32] LABS: Albumin 3.4 g/dL (3.5-5.0); Albumin/Globulin Ratio 1.2 (1.1-2.2); Bilirubin,Total 0.5 mg/dL (0.2-1.2); Calcium 8.7 mg/dL (8.6-10.8); Globulin 2.9 g/dL (2.4-3.5); Potassium 4.3 mEq/L (3.5-4.5); Total Protein 6.3 g/dL (6.0-8.3)
[2016-10-28] MEDS ORDERED: 0.9 % Sodium Chloride 250 ML IV PRN ×2 (08:09→10:26)
--- NOTE | 2016-10-28 08:09 | Nephrology Progress Note ---
Date of Encounter: 10/28/16 Time of Encounter: 08:07 - Assessment and Plan (1) Acute kidney failure, unspecified Current Visit: Yes Status: Acute Patient will undergo dialysis again today. She will be dialyzed on a 4K bath. No volume removal. If her renal function fails to improve she may require placement of a tunneled dialysis catheter until her fistula is usable. Qualifiers: Acute renal failure type: unspecified Qualified Code(s): N17.9 - Acute kidney failure, unspecified (2) Chronic kidney disease, stage IV (severe) Current Visit: Yes Status: Acute (3) Chronic systolic CHF (congestive heart failure) Current Visit: Yes Status: Acute (4) Bradycardia Current Visit: Yes Status: Acute (5) Atrial fibrillation Current Visit: No Status: Chronic Qualifiers: Atrial fibrillation type: unspecified Qualified Code(s): I48.91 - Unspecified atrial fibrillation (6) CAD (coronary artery disease) Current Visit: No Status: Chronic Qualifiers: Coronary Disease-Associated Artery/Lesion type: [place] artery [place] vs. transplanted heart: [place] heart Associated angina: without angina Qualified Code(s): I25.10 - Atherosclerotic heart disease of [place] coronary artery without angina pectoris Subjective Principal diagnosis: Bradycardia Interval history: Patient voices no complaints this morning. She is status post pacemaker placement yesterday. Heart rate is 60. Urine output was 500 mL yesterday. Azotemia is worse. She will undergo dialysis again today. Objective - Vital Signs Vital signs: Vital Signs Temp Pulse Resp BP Pulse Ox 10/28/16 06:00 60 20 132/53 98 10/28/16 05:00 60 21 138/70 98 10/28/16 04:00 59 21 115/46 98 10/28/16 03:00 97.6 F 59 21 146/67 100 10/28/16 02:00 59 17 156/61 100 10/28/16 01:00 59 17 153/65 100 10/28/16 00:00 59 18 140/58 100 10/27/16 23:00 97.6 F 70 18 120/57 100 10/27/16 22:00 70 16 139/67 100 10/27/16 21:00 73 16 119/55 98 10/27/16 20:02 98 F 73 18 126/62 98 10/27/16 20:00 98 F 73 18 126/62 98 10/27/16 19:32 98 10/27/16 19:30 98 F 73 18 126/62 98 10/27/16 19:00 97.9 F 74 18 122/58 98 10/27/16 18:31 97.9 F 74 23 136/87 100 10/27/16 17:49 97.8 F 73 17 144/71 100 10/27/16 15:44 97.3 F L 10/27/16 15:00 35 10/27/16 13:00 35 25 135/98 99 10/27/16 12:00 34 18 97/51 100 10/27/16 11:17 97.5 F L 10/27/16 11:00 36 16 121/82 97 10/27/16 09:00 35 15 109/47 97 Intake and Output 10/27/16 10/28/16 10/28/16 23:59 07:59 15:59 Intake Total 50 / 50 100 / 100 Output Total 200 / 200 250 / 250 Balance -150 / -150 -150 / -150 Intake: IV Fluids 100 / 100 Ancef 2,000 MG In 100 / 100 Dextrose 5% 100 ML @ 200 mls/hr IVPB Q8HR [facility] Rx#: [id number] Oral 50 / 50 Output: Urine 200 / 200 250 / 250 Other: Stool Size Small Moderate Stool Consistency formed formed Stool Color Brown Brown - General Appearance Exam: Patient is alert and oriented. She is in no acute distress. Lungs symmetric breath sounds otherwise clear. Heart regular rate and rhythm. She has a paced rhythm on the monitor with a heart rate of 60. Abdomen is benign. There is no lower extremity swelling. There is an AV fistula in the left arm. There is a temporary dialysis catheter in the femoral vein. - Lab 10/28/16 03:05 10/28/16 03:05 Most recent lab results Calcium 8.7 mg/dL (8.6-10.8) 10/28/16 03:05 Phosphorus 3.3 mg/dL (2.3-4.7) 10/27/16 09:20 Magnesium 2.0 mg/dL (1.6-2.6) 10/27/16 09:20 - VTE Reasons for not Prescribing Prophylaxis: Not indicated-Anticoagulated or INR therapeutic Documentation of Mechanical Device: Intermittent pneumatic compression device Consult Discharge Plan - Plan Referrals: Anabella Hodgson MD [Primary Care Provider] -
[2016-10-28] MEDS: ceFAZolin 2,000 MG in D5% in Water 100 ML IVPB SCH (08:20)
[2016-10-28] MEDS ORDERED: *HR* Amiodarone 200 MG TABLET PO SCH ×2 (09:00→12:30)
[2016-10-28] MEDS ORDERED: Metoprolol XL (24 HR) Succ 50 MG TAB.ER.24H PO SCH ×2 (09:00→12:30)
--- NOTE | 2016-10-28 09:15 | Event Note ---
Date of Encounter: 10/28/16 Time of Encounter: 09:10 Patient examined, chart and all data reviewed as well as recent imaging studies. The patient underwent implantation of permanent pacemaker yesterday. Device seemingly is functioning well and currently, the patient has acceptable heart rate as well as acceptable hemodynamics. Per my conversation with Dr. De La Vega, the patient will undergo another session of dialysis today. The patient currently denies any specific complaints other than notable fatigue. Examination of the chest reveals clear angel bilaterally save for faint bibasilar crackles. Exam is notable for faint systolic murmur. Abdomen was soft bowel sounds were present throughout. Her extremities were warm trace chronic edema noted upper and lower extremities. Patient will be transferred out of the intensive care unit today to to a telemetry monitoring. Based upon the evaluation performed to date, it is uncertain if the patient truly had digitalis toxicity. Profound bradycardia may more than likley been combinational effects of all rate control medications she was previously provided for treatment of A. fib with RVR (long-acting beta bhavik, amiodarone in combination with digoxin). Additional management per discretion of primary hospital service and cardiology service. Chas
--- NOTE | 2016-10-28 09:48 | Cardiology Progress Note ---
Date of Encounter: 10/28/16 Time of Encounter: 09:46 Assessment and Plan (1) Bradycardia Current Visit: Yes Status: Acute - PPM placed yesterday - HR 59-60 - Seems to have significantly improved patients mentation - Device interrogation today - Continue to hold home cardiac meds for now, will restart when appropriate - Further recommendations pending device interrogation and attending evaluation (2) Digoxin toxicity Current Visit: Yes Status: Acute - received 2 vials digibind, dialysis, and had a normal level prior - Continue to hold Dig Qualifiers: Encounter type: initial encounter Injury intent: accidental or unintentional Qualified Code(s): T46.0X1A - Poisoning by cardiac-stimulant glycosides and drugs of similar action, accidental (unintentional), initial encounter (3) ESRD (end stage renal disease) Current Visit: Yes Status: Acute - Cr increasing again - Dialysis scheduled for today - Further management per nephrology Discussion w patient/family: The assessment and plan as outlined above was discussed with the patient and/or family members who expressed understanding and agreement. All questions were answered. Thank you for involving us in the care of your patient. Please call with any questions. Subjective Principal diagnosis: Bradycardia Interval history: Pacemaker placed last night. Patient much more awake and alert now. Able to sit up in bed, communicating. No acute issues overnight. Objective Vital Signs, Last 4 Hours Temp Pulse Resp BP Pulse Ox 10/28/16 08:19 97.6 F 10/28/16 07:45 59 18 118/46 98 10/28/16 06:00 60 20 132/53 98 General: Conversant, No Apparent Distress HEENT: Atraumatic, Normocephaly, Mucus Membranes Moist Neck: No JVD, Normal carotid pulses Cardiac: Reg Rate and Rhythm, Normal S1 and S2, Other (faint systolic murmur) Lungs: Normal Breath Sounds, Other (faint rales B bases) Neuro: Alert and responsive, No focal deficits noted Abdomen: Soft, Non-Tender Skin: No rashes noted on visualized skin Musculoskeletal: Other (R chest wall tenderness, as expected s/p PPM placement ) Extremities: No Clubbing, No Cyanosis, Normal Pulses, Other (trace pedal edema, improved) Results 10/28/16 03:05 10/28/16 03:05 Lab Results 10/27/16 10/27/16 10/28/16 09:20 09:20 03:05 WBC 10.3 Hgb 11.0 L Hct 33.8 L Plt Count 120 L INR 1.9 APTT 31.9 Sodium 136 Potassium 4.9 H Chloride 96 L Carbon Dioxide 28 BUN 21 H D Creatinine 3.38 H Glucose 119 H Calcium 8.8 Magnesium 2.0 Total Bilirubin 0.7 AST 41 H ALT 29 Alkaline Phosphatase 49 10/28/16 03:05 WBC Hgb Hct Plt Count INR APTT Sodium 138 Potassium 4.3 Chloride 96 L Carbon Dioxide 30 H BUN 30 H Creatinine 4.23 H Glucose 111 H Calcium 8.7 Magnesium Total Bilirubin 0.5 AST 37 H ALT 24 Alkaline Phosphatase 51 - Imaging and Cardiology Chest Xray: pending - VTE Reasons for not Prescribing Prophylaxis: Not indicated-Anticoagulated or INR therapeutic Documentation of Mechanical Device: Intermittent pneumatic compression device Consult Discharge Plan - Plan Referrals: Anabella Hodgson MD [Primary Care Provider] -
[2016-10-28] MEDS ORDERED: 0.9 % Sodium Chloride 1,000 ML PRIME SCH (10:26)
[2016-10-28] MEDS ORDERED: *HR* Promethazine 25 MG/ML VIAL IVP PRN (10:26)
[2016-10-28] MEDS ORDERED: *HR* Morphine 2 MG/ML SYRINGE IVP PRN (10:26)
--- NOTE | 2016-10-28 17:01 | Event Note ---
Date of Encounter: 10/28/16 Time of Encounter: 16:00 I have evaluated the patient at the bedside and discussed the care with the patient's family. Farida was transferred from the ICU today after having a permanent pacemaker placed yesterday for bradycardia. On exam she is asleep in distress, heart regular rhythm, S1-S2, lungs clear, abdomen soft. Plan: Symptomatic bradycardia she had a pacemaker placed, Monitor on telemetry. Follow-up with nephrology tomorrow since she skipped hemodialysis today she may need hemodialysis. Discharge tomorrow. Continue her chronic medication.
[2016-10-29 06:52] LABS: Potassium 3.8 mEq/L (3.5-4.5)
[2016-10-29 06:53] LABS: Albumin/Globulin Ratio 1.1 (1.1-2.2); Bilirubin,Total 0.6 mg/dL (0.2-1.2); Calcium 8.8 mg/dL (8.6-10.8); Globulin 2.8 g/dL (2.4-3.5); Total Protein 5.8 g/dL (6.0-8.3)
[2016-10-29 07:25] LABS: Basophils % 0.3 %; Eosinophils # 0.1 K/mcL (0.0-0.6); Immature Granulocytes % 0.5 % (0-4); Lymphocytes # 2.6 K/mcL (0.6-4.6); Lymphocytes % 27.9 %; Mean Corpuscular HGB Conc 33.3 g/dL (31.6-35.5); Mean Corpuscular Hemoglobin 30.8 pg (28.0-33.3); Mean Corpuscular Volume 92.4 fL (83.0-100.0); Mean Platelet Volume 11.5 fL (9.4-12.4); Monocytes # 0.9 K/mcL (0.0-1.3); Monocytes % 9.6 %; Neutrophils # 5.6 K/mcL (1.6-8.9); Platelet Count 123 K/mcL (140-400); Red Blood Count 3.57 M/mcL (3.82-4.97); Red Cell Distribution Width 13.4 % (11.5-14.5); Segmented Neutrophils % 60.7 %
--- NOTE | 2016-10-29 08:45 | Nephrology Progress Note ---
Date of Encounter: 10/29/16 Time of Encounter: 08:43 - Assessment and Plan (1) Acute kidney failure, unspecified Current Visit: Yes Status: Acute Patient's renal function is improved today compared to yesterday. The plan is to not do any further dialysis and see where her renal function settles out. We will remove the temporary dialysis catheter from the femoral vein. The patient states she would agree to chronic hemodialysis if she ends up needing it Qualifiers: Acute renal failure type: unspecified Qualified Code(s): N17.9 - Acute kidney failure, unspecified (2) Chronic kidney disease, stage IV (severe) Current Visit: Yes Status: Acute (3) Chronic systolic CHF (congestive heart failure) Current Visit: Yes Status: Acute (4) Bradycardia Current Visit: Yes Status: Acute (5) Atrial fibrillation Current Visit: No Status: Chronic Qualifiers: Atrial fibrillation type: unspecified Qualified Code(s): I48.91 - Unspecified atrial fibrillation (6) CAD (coronary artery disease) Current Visit: No Status: Chronic Qualifiers: Coronary Disease-Associated Artery/Lesion type: [place] artery [place] vs. transplanted heart: [place] heart Associated angina: without angina Qualified Code(s): I25.10 - Atherosclerotic heart disease of [place] coronary artery without angina pectoris Subjective Principal diagnosis: Bradycardia Interval history: Patient ended up declining dialysis yesterday. Her renal function is actually better today. Sam urine output is recorded as 400 mL. Her only complaint is that of some right foot pain. Objective - Vital Signs Vital signs: Vital Signs Temp Pulse Resp BP Pulse Ox 10/29/16 08:14 97.5 F L 81 15 133/70 91 L 10/28/16 23:20 98.7 F 68 20 139/61 94 L 10/28/16 19:51 98.8 F 60 18 103/48 96 10/28/16 10:49 97.6 F 60 16 164/75 100 10/28/16 09:30 73 20 132/66 97 10/28/16 08:45 66 19 103/72 97 Intake and Output 10/28/16 10/29/16 10/29/16 23:59 07:59 15:59 Other: Weight 71 kg Blood Glucose* 175 Patient Weight 10/29/16 23:59 Weight 71 kg - General Appearance Exam: Patient is alert and oriented. She is in no acute distress. Lungsbreath sounds otherwise clear. Heart regular rate and rhythm. Heart rate is 68. Abdomen is benign. There is no lower extremity swelling. There is an AV fistula in the upper portion of the left arm. - Lab 10/29/16 06:26 10/29/16 06:26 Most recent lab results Calcium 8.8 mg/dL (8.6-10.8) 10/29/16 06:26 Phosphorus 3.3 mg/dL (2.3-4.7) 10/27/16 09:20 Magnesium 2.0 mg/dL (1.6-2.6) 10/27/16 09:20 - VTE Reasons for not Prescribing Prophylaxis: Not indicated-Anticoagulated or INR therapeutic Documentation of Mechanical Device: Intermittent pneumatic compression device Consult Discharge Plan - Plan Referrals: Anabella Hodgson MD [Primary Care Provider] -
[2016-10-29] MEDS ORDERED: *HR* Amiodarone 200 MG TABLET PO SCH ×2 (09:00)
[2016-10-29] MEDS ORDERED: Metoprolol XL (24 HR) Succ 50 MG TAB.ER.24H PO SCH (09:00)
[2016-10-29] MEDS: Metoprolol XL (24 HR) Succ 50 MG TAB.ER.24H PO SCH (09:31)
[2016-10-29] MEDS: *HR* Amiodarone 200 MG TABLET PO SCH (09:31)
[2016-10-29 11:07] LABS: INR 1.8; Prothrombin Time 20.3 Seconds (9.4-12.1)
[2016-10-29 11:10] LABS: Activated Partial Thrombo Time 28.7 Seconds (26.0-36.0)
--- NOTE | 2016-10-29 11:33 | Internal Med Progress Note ---
Date of Encounter: 10/29/16 Time of Encounter: 11:30 - Assessment and plan (1) Acute kidney injury superimposed on CKD Current Visit: Yes Status: Acute Assessment and plan: Improving Monitor renal function (2) Bradycardia Current Visit: Yes Status: Resolved Assessment and plan: Resolved s/p PCM Monitor closely (3) Chronic systolic CHF (congestive heart failure) Current Visit: Yes Status: Chronic Assessment and plan: NO current evidence of fluid overload, however, patient has been receiving HD d/c femoral catheter per renal recommendation Will restart home bumex at half dose On metoprolol and amiodarone, continue same BP is low normal, will continue to hold Isosorbide and Hydralazine for now Digoxin is held, continue same Per cardiology, restart Coumadin in one week, will continue to hold Monitor closely (4) Digoxin toxicity Current Visit: Yes Status: Resolved Assessment and plan: Resolved Qualifiers: Encounter type: initial encounter Injury intent: accidental or unintentional Qualified Code(s): T46.0X1A - Poisoning by cardiac-stimulant glycosides and drugs of similar action, accidental (unintentional), initial encounter (5) Essential hypertension Current Visit: Yes Status: Chronic Assessment and plan: As above (6) Atrial fibrillation Current Visit: No Status: Chronic Assessment and plan: as in CHF Qualifiers: Atrial fibrillation type: unspecified Qualified Code(s): I48.91 - Unspecified atrial fibrillation (7) CAD (coronary artery disease) Current Visit: No Status: Chronic Qualifiers: Coronary Disease-Associated Artery/Lesion type: [place] artery [place] vs. transplanted heart: [place] heart Associated angina: without angina Qualified Code(s): I25.10 - Atherosclerotic heart disease of [place] coronary artery without angina pectoris (8) DM type 2 (diabetes mellitus, type 2) Current Visit: No Status: Chronic Assessment and plan: FS acceptable Sliding scale prn Qualifiers: Diabetes mellitus complication status: with kidney complications Diabetes mellitus complication detail: with chronic kidney disease Diabetes mellitus [facility] insulin use: without [facility] use Chronic kidney disease stage: stage 4 (severe) Qualified Code(s): E11.22 - Type 2 diabetes mellitus with diabetic chronic kidney disease; N18.4 - Chronic kidney disease, stage 4 (severe ) (9) Gout Current Visit: No Status: Chronic Assessment and plan: Restart allopurinol Qualifiers: Gout site: unspecified site Gout etiology: unspecified cause Chronicity: chronic Presence of tophus: without tophus Qualified Code(s): M1A.9XX0 - Chronic gout, unspecified, without tophus (tophi) (10) Hyperlipidemia Current Visit: No Status: Chronic Qualifiers: Hyperlipidemia type: unspecified Qualified Code(s): E78.5 - Hyperlipidemia , unspecified (11) Hypothyroidism Current Visit: No Status: Chronic Qualifiers: Hypothyroidism type: unspecified Qualified Code(s): E03.9 - Hypothyroidism , unspecified - Subjective Interval history: 89 Y/O F DNR-CC-A who was admitted to the ICU wth Symptomatic bradycardia, LEYDA on CKD, Digoxin toxicity She has a PMH of CHFrEF EF 20%, Afib on Coumadin, CKD IV with baseline Cr of ~2 , DM2, Hypothyroid, Gout, HLD, chronic respiratory failure on home O2 She is seen at bedside with her daughter He only complain is of pain in the pacemaker site She is s/p PCM insertion 2 days ago She has also been receiving HD for LEYDA on CKD via a femoral catheter, nephrology is on board - Constitutional Vitals: Temp Pulse Resp BP Pulse Ox 97.5 F L 81 15 133/70 91 L 10/29/16 08:14 10/29/16 08:14 10/29/16 08:14 10/29/16 08:14 10/29/16 09:00 Gen: NAD, sitting up comfortably in bed HEENT: No JVD, moist oral mucosa Chest: R chest wall PCM pocket , clean wound dressing, mild tenderness Heart: S1, S2 only, irregular. Abdomen: Soft, not tender Extremities: Left forearm AVF, palpable thrill, no pedal edema Internal Medicine: Result - Labs CBC & Chem 7: 10/29/16 06:26 10/29/16 06:26 Labs: Short CBC 10/29/16 Range/Units 06:26 WBC 9.2 (4.3-11.1) K/mcL Hgb 11.0 L (11.5-15.4) g/dL Hct 33.0 L (35.3-44.9) % Plt Count 123 L (140-400) K/mcL Neutrophils # 5.6 (1.6-8.9) K/mcL BMP 10/29/16 06:26 Sodium 139 Potassium 3.8 Chloride 100 Carbon Dioxide 28 BUN 32 H Creatinine 3.24 H Glucose 102 H Calcium 8.8 Liver Function 10/29/16 Range/Units 06:26 Total Bilirubin 0.6 (0.2-1.2) mg/dL AST 30 (5-34) Units/L ALT 6 (0-55) Units/L Alkaline Phosphatase 52 (38-126) Units/L Albumin 3.0 L (3.5-5.0) g/dL - ABG Interpretation ABG results: PT/INR, D-dimer PT 20.3 Seconds (9.4-12.1) H 10/29/16 10:45 - Impressions Impressions Chest X-Ray 10/28/16 06:00 IMPRESSION: Cardiomegaly with an indwelling dual lead pacer device. No pneumothorax or other acute process. D/ / Óscar Ruiz MD / Óscar Ruiz MD Interpreting Provider: Óscar Ruiz MD Liver Ultrasound 10/28/16 11:30 IMPRESSION: Unchanged dilation of the common bile duct, likely related to prior cholecystectomy. The gallbladder fossa appears unremarkable. D/ / Judd Arteaga MD / Judd Arteaga MD Interpreting Provider: Judd Arteaga MD - VTE Reasons for not Prescribing Prophylaxis: Not indicated-Anticoagulated or INR therapeutic Documentation of Mechanical Device: Intermittent pneumatic compression device Consult Discharge Plan - Plan Referrals: Anabella Hodgson MD [Primary Care Provider] -
--- NOTE | 2016-10-29 15:29 | Cardiology Progress Note ---
Date of Encounter: 10/29/16 Time of Encounter: 15:27 Assessment and Plan (1) Bradycardia Current Visit: Yes Status: Resolved Status post PPM. Follow-up chest x-ray showed no complications. Follow-up device check showed normal functioning device. Follow-up will be scheduled by [facility]. She will have a device check in one week to assess her wound. Device check in one month. Restart Coumadin in 5 days. Follow-up with Dr. Urbina will be made in 2 weeks. Cardiology will sign off. Call with questions. (2) Acute kidney failure, unspecified Current Visit: Yes Status: Acute Following with nephrology with the plan to not repeat dialysis at this time but to continue to monitor closely. Qualifiers: Acute renal failure type: unspecified Qualified Code(s): N17.9 - Acute kidney failure, unspecified (3) Chronic heart failure Current Visit: Yes Status: Chronic Known EF 20% on TTE 10/12/16. Currently euvolemic on exam status post recent dialysis. Agree with restarting Bumex at discharge. CHF education reviewed with patient and family. Low-sodium diet and daily weights. Qualifiers: Heart failure type: systolic Qualified Code(s): I50.22 - Chronic systolic ( congestive) heart failure (4) Atrial fibrillation Current Visit: No Status: Chronic Rate controlled atrial fibrillation. Average heart rate was 82 bpm over the last 12 hours. Continue amiodarone and Toprol. Patient should restart her Coumadin in 5 days. Home health to draw INRs. Qualifiers: Atrial fibrillation type: unspecified Qualified Code(s): I48.91 - Unspecified atrial fibrillation Discussion w patient/family: The assessment and plan as outlined above was discussed with the patient and/or family members who expressed understanding and agreement. All questions were answered. Thank you for involving us in the care of your patient. Please call with any questions. Subjective Principal diagnosis: Bradycardia Interval history: Pt is doing well. Denies pain. Denies SOB. Objective Vital Signs, Last 4 Hours Temp Pulse Resp BP Pulse Ox 10/29/16 11:55 98.1 F 80 18 117/65 96 General: Conversant, No Apparent Distress HEENT: Atraumatic, Normocephaly, Mucus Membranes Moist Neck: No JVD, Normal carotid pulses Cardiac: Reg Rate and Rhythm, Normal S1 and S2, No Murmur, Other (Left upper chest dressing dry and intact) Lungs: Normal Breath Sounds, No Wheeze, Rales, Rhonchi Neuro: Alert and responsive, No focal deficits noted Abdomen: Soft, Non-Tender Skin: No rashes noted on visualized skin Musculoskeletal: No Chest Wall Tenderness Extremities: No Clubbing, No Cyanosis, No Edema, Normal Pulses Results 10/29/16 06:26 10/29/16 06:26 Lab Results 10/29/16 10/29/16 10/29/16 06:26 06:26 10:45 WBC 9.2 Hgb 11.0 L Hct 33.0 L Plt Count 123 L INR 1.8 APTT 28.7 Sodium 139 Potassium 3.8 Chloride 100 Carbon Dioxide 28 BUN 32 H Creatinine 3.24 H Glucose 102 H Calcium 8.8 Total Bilirubin 0.6 AST 30 ALT 6 Alkaline Phosphatase 52 - VTE Reasons for not Prescribing Prophylaxis: Not indicated-Anticoagulated or INR therapeutic Documentation of Mechanical Device: Intermittent pneumatic compression device Consult Discharge Plan - Plan Referrals: Anabella Hodgson MD [Primary Care Provider] -
[2016-10-29] MEDS: Bumetanide 1 MG TABLET PO SCH (17:46)
[2016-10-29] MEDS ORDERED: *HR* Warfarin 2.5 MG TABLET PO SCH (18:00)
[2016-10-29] MEDS: *HR* LORazepam 1 MG TABLET PO SCH (21:38)
[2016-10-29] MEDS: Ascorbic Acid 500 MG TABLET PO SCH (21:38)
[2016-10-29] MEDS: traZODone 50 MG TABLET PO PRN (22:12)
[2016-10-30 07:15] LABS: INR 1.6
[2016-10-30 07:18] LABS: Activated Partial Thrombo Time 27.8 Seconds (26.0-36.0)
[2016-10-30 07:25] LABS: Albumin 2.8 g/dL (3.5-5.0); Bilirubin,Total 0.7 mg/dL (0.2-1.2); Calcium 8.9 mg/dL (8.6-10.8); Globulin 2.9 g/dL (2.4-3.5); Potassium 3.7 mEq/L (3.5-4.5); Total Protein 5.7 g/dL (6.0-8.3)
--- NOTE | 2016-10-30 08:25 | Event Note ---
Date of Encounter: 10/30/16 Time of Encounter: 08:24 Patient is sleeping. I did not awaken her. I did discuss her status with the family member. Family member reports the patient has been feeling better. Her renal function continues to improve. She no longer requires dialysis. She is close to her previous baseline renal function.
[2016-10-30] MEDS: Bumetanide 1 MG TABLET PO SCH ×2 (09:26→17:52)
[2016-10-30] MEDS: Metoprolol XL (24 HR) Succ 50 MG TAB.ER.24H PO SCH (09:26)
[2016-10-30] MEDS: *HR* Amiodarone 200 MG TABLET PO SCH (09:27)
[2016-10-30] MEDS: Loratadine 10 MG TABLET PO SCH (09:27)
[2016-10-30] MEDS: Acetaminophen 325 MG TABLET PO PRN (11:58)
--- NOTE | 2016-10-30 15:59 | Internal Med Progress Note ---
Date of Encounter: 10/30/16 Time of Encounter: 13:00 - Assessment and plan (1) Acute kidney injury superimposed on CKD Current Visit: Yes Status: Acute Assessment and plan: Improving Monitor renal function (2) Bradycardia Current Visit: Yes Status: Resolved Assessment and plan: Resolved s/p PCM Monitor closely (3) Chronic systolic CHF (congestive heart failure) Current Visit: Yes Status: Chronic Assessment and plan: NO current evidence of fluid overload Continue Bumex at same dose On metoprolol and amiodarone, continue same BP is low normal, will continue to hold Isosorbide and Hydralazine for now Digoxin is held, continue same Per cardiology, restart Coumadin in one week, will continue to hold Monitor closely (4) Digoxin toxicity Current Visit: Yes Status: Resolved Assessment and plan: Resolved Qualifiers: Encounter type: initial encounter Injury intent: accidental or unintentional Qualified Code(s): T46.0X1A - Poisoning by cardiac-stimulant glycosides and drugs of similar action, accidental (unintentional), initial encounter (5) Essential hypertension Current Visit: Yes Status: Chronic Assessment and plan: As above (6) Atrial fibrillation Current Visit: No Status: Chronic Assessment and plan: as in CHF Qualifiers: Atrial fibrillation type: unspecified Qualified Code(s): I48.91 - Unspecified atrial fibrillation (7) CAD (coronary artery disease) Current Visit: No Status: Chronic Qualifiers: Coronary Disease-Associated Artery/Lesion type: [place] artery [place] vs. 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 Chronic kidney disease stage: stage 4 (severe) Qualified Code(s): E11.22 - Type 2 diabetes mellitus with diabetic chronic kidney disease; N18.4 - Chronic kidney disease, stage 4 (severe ) (9) Gout Current Visit: No Status: Chronic Assessment and plan: Restart allopurinol Qualifiers: Gout site: unspecified site Gout etiology: unspecified cause Chronicity: chronic Presence of tophus: without tophus Qualified Code(s): M1A.9XX0 - Chronic gout, unspecified, without tophus (tophi) (10) Hyperlipidemia Current Visit: No Status: Chronic Qualifiers: Hyperlipidemia type: unspecified Qualified Code(s): E78.5 - Hyperlipidemia , unspecified (11) Hypothyroidism Current Visit: No Status: Chronic Qualifiers: Hypothyroidism type: unspecified Qualified Code(s): E03.9 - Hypothyroidism , unspecified (12) Dysphagia Current Visit: Yes Status: Acute Assessment and plan: Speech eval noted Barium swallow am NPO tonight Qualifiers: Dysphagia type: unspecified Qualified Code(s): R13.10 - Dysphagia, unspecified - Subjective Interval history: 89 Y/O F DNR-CC-A who was admitted to the ICU wth Symptomatic bradycardia, LEYDA on CKD, Digoxin toxicity She has a PMH of CHFrEF EF 20%, Afib on Coumadin, CKD IV with baseline Cr of ~2 , DM2, Hypothyroid, Gout, HLD, chronic respiratory failure on home O2 She is seen at bedside with her daughter He only complain is of pain in the pacemaker site Her renal function has improved and is trending towards baseline She complained of "food sticking to her chest" last evening, she was placed on soft mechanical diet till speech eval Speech/Swallow eval today recommended Barum swallow She is otherwise stable - Constitutional Vitals: Temp Pulse Resp BP Pulse Ox 97.6 F 61 16 129/54 93 L 10/30/16 12:34 10/30/16 12:34 10/30/16 12:34 10/30/16 12:34 10/30/16 12:34 General appearance: Present: A&O X 3, pleasant, no acute distress - Head Head exam: Present: atraumatic, normocephalic - Eye Eye exam: Present: PERRL, conjuntiva pink, sclera anicteric Pupils: Present: PERRL - Neck Neck exam general surgery: Present: supple, trachea midline. Absent: lymphadenopathy - Respiratory Respiratory exam: Present: CTAB - Cardiovascular Cardiovascular exam: Present: irregular rhythm, +S1, +S2, systolic murmur - GI/Abdominal GI/Abdominal exam: Present: normal bowel sounds, soft, no peritoneal signs. Absent: tenderness - Extremities Exam Extremities exam: Absent: pedal edema Additional comments: LUE AVF thrill - Neurological Exam Neurological exam: Present: CN II-XII intact, oriented X3, no focal deficits. Absent: pronater drift, facial droop, speech deficit - Skin Skin exam: Present: dry Internal Medicine: Result - Labs CBC & Chem 7: 10/29/16 06:26 10/30/16 06:02 Labs: BMP 10/30/16 06:02 Sodium 141 Potassium 3.7 Chloride 101 Carbon Dioxide 28 BUN 34 H Creatinine 2.77 H Glucose 91 Calcium 8.9 Liver Function 10/30/16 Range/Units 06:02 Total Bilirubin 0.7 (0.2-1.2) mg/dL AST 31 (5-34) Units/L ALT 6 (0-55) Units/L Alkaline Phosphatase 50 (38-126) Units/L Albumin 2.8 L (3.5-5.0) g/dL - ABG Interpretation ABG results: PT/INR, D-dimer PT 17.0 Seconds (9.4-12.1) H 10/30/16 06:02 - VTE Reasons for not Prescribing Prophylaxis: Not indicated-Anticoagulated or INR therapeutic Documentation of Mechanical Device: Intermittent pneumatic compression device Consult Discharge Plan - Plan Referrals: Anabella Hodgson MD [Primary Care Provider] -
[2016-10-30] MEDS: Ascorbic Acid 500 MG TABLET PO SCH (20:49)
[2016-10-30] MEDS: *HR* LORazepam 1 MG TABLET PO SCH (20:49)
[2016-10-30] MEDS: traZODone 50 MG TABLET PO PRN (20:49)
[2016-10-31] MEDS: Acetaminophen 325 MG TABLET PO PRN (01:31)
[2016-10-31] MEDS: Loratadine 10 MG TABLET PO SCH (09:07)
[2016-10-31] MEDS: Bumetanide 1 MG TABLET PO SCH ×2 (09:07→16:45)
[2016-10-31] MEDS: Metoprolol XL (24 HR) Succ 50 MG TAB.ER.24H PO SCH (09:07)
[2016-10-31] MEDS: *HR* Amiodarone 200 MG TABLET PO SCH (09:07)
--- NOTE | 2016-10-31 10:11 | Nephrology Progress Note ---
Date of Encounter: 10/31/16 Time of Encounter: 10:10 - Assessment and Plan (1) Acute kidney failure, unspecified Current Visit: Yes Status: Acute Today's lab is pending. Hopefully the patient will not require any further dialysis. Qualifiers: Acute renal failure type: unspecified Qualified Code(s): N17.9 - Acute kidney failure, unspecified (2) Chronic kidney disease, stage IV (severe) Current Visit: Yes Status: Acute (3) Chronic systolic CHF (congestive heart failure) Current Visit: Yes Status: Chronic (4) Bradycardia Current Visit: Yes Status: Resolved (5) Atrial fibrillation Current Visit: No Status: Chronic Qualifiers: Atrial fibrillation type: unspecified Qualified Code(s): I48.91 - Unspecified atrial fibrillation (6) CAD (coronary artery disease) Current Visit: No Status: Chronic Qualifiers: Coronary Disease-Associated Artery/Lesion type: [place] artery [place] vs. transplanted heart: [place] heart Associated angina: without angina Qualified Code(s): I25.10 - Atherosclerotic heart disease of [place] coronary artery without angina pectoris Subjective Principal diagnosis: Bradycardia Interval history: The patient apparently is having some difficulty with swallowing. She reports that she has a good appetite. Today's lab is pending. Objective - Vital Signs Vital signs: Vital Signs Temp Pulse Resp BP Pulse Ox 10/31/16 07:08 97.5 F L 60 17 163/72 92 L 10/31/16 04:06 98.3 F 62 17 171/64 95 10/31/16 00:10 98.8 F 60 18 174/68 96 10/30/16 20:03 98.2 F 60 17 163/64 89 L 10/30/16 16:59 98.4 F 60 15 122/72 94 L 10/30/16 12:34 97.6 F 61 16 129/54 93 L Intake and Output 10/30/16 10/31/16 10/31/16 23:59 07:59 15:59 Intake Total 0 / 0 Output Total 0 / 0 Balance 0 / 0 Intake: Oral 0 / 0 Output: Urine 0 / 0 Other: Weight 69.9 kg Blood Glucose* 155 115 Patient Weight 10/31/16 23:59 Weight 69.9 kg - General Appearance Exam: Patient is resting comfortably. Lungs clear to auscultation. Heart irregular rate and rhythm. Abdomen is benign. There is minimal lower extremity swelling. There is an AV fistula in the left arm. - Lab 10/29/16 06:26 10/30/16 06:02 Most recent lab results Calcium 8.9 mg/dL (8.6-10.8) 10/30/16 06:02 Phosphorus 3.3 mg/dL (2.3-4.7) 10/27/16 09:20 Magnesium 2.0 mg/dL (1.6-2.6) 10/27/16 09:20 - VTE Reasons for not Prescribing Prophylaxis: Not indicated-Anticoagulated or INR therapeutic Documentation of Mechanical Device: Intermittent pneumatic compression device Consult Discharge Plan - Plan Referrals: Anabella Hodgson MD [Primary Care Provider] -
[2016-10-31 10:46] LABS: Albumin 2.8 g/dL (3.5-5.0); Bilirubin,Total 0.7 mg/dL (0.2-1.2); Calcium 9.3 mg/dL (8.6-10.8); Globulin 2.9 g/dL (2.4-3.5); Potassium 3.5 mEq/L (3.5-4.5); Total Protein 5.7 g/dL (6.0-8.3)
[2016-10-31] MEDS ORDERED: *HR* HYDROcodone/Acet 7.5/325 mg TABLET PO PRN (11:40)
[2016-10-31] MEDS ORDERED: *HR* HYDROcodone/Acet 5/325 mg TABLET PO PRN (11:40)
[2016-10-31] MEDS: hydrALAZINE 25 MG TABLET PO SCH (16:45)
--- NOTE | 2016-10-31 17:44 | Internal Med Progress Note ---
Date of Encounter: 10/31/16 Time of Encounter: 13:10 - Assessment and plan (1) Acute kidney injury superimposed on CKD Current Visit: Yes Status: Acute Assessment and plan: Improved, creatinine and GFR returning towards baseline (2) Bradycardia Current Visit: Yes Status: Resolved Assessment and plan: Resolved s/p PCM Monitor closely (3) Chronic systolic CHF (congestive heart failure) Current Visit: Yes Status: Chronic Assessment and plan: NO current evidence of fluid overload Continue Bumex at same dose On metoprolol and amiodarone, continue same Resume Isosorbide and Hydralazine Digoxin is held, continue to hold Per cardiology, restart Coumadin in one week, will continue to hold Monitor closely (4) Digoxin toxicity Current Visit: Yes Status: Resolved Assessment and plan: Resolved Qualifiers: Encounter type: initial encounter Injury intent: accidental or unintentional Qualified Code(s): T46.0X1A - Poisoning by cardiac-stimulant glycosides and drugs of similar action, accidental (unintentional), initial encounter (5) Essential hypertension Current Visit: Yes Status: Chronic Assessment and plan: As above (6) Atrial fibrillation Current Visit: No Status: Chronic Assessment and plan: as in CHF Qualifiers: Atrial fibrillation type: unspecified Qualified Code(s): I48.91 - Unspecified atrial fibrillation (7) CAD (coronary artery disease) Current Visit: No Status: Chronic Qualifiers: Coronary Disease-Associated Artery/Lesion type: [place] artery [place] vs. transplanted heart: three [place] heart Associated angina: without angina Qualified Code(s): I25.10 - Atherosclerotic heart disease of [place] coronary artery without angina pectoris (8) DM type 2 (diabetes mellitus, type 2) Current Visit: No Status: Chronic Assessment and plan: FS acceptable Sliding scale prn Qualifiers: Diabetes mellitus complication status: with kidney complications Diabetes mellitus complication detail: with chronic kidney disease Diabetes mellitus fci insulin use: without fci use Chronic kidney disease stage: stage 4 (severe) Qualified Code(s): E11.22 - Type 2 diabetes mellitus with diabetic chronic kidney disease; N18.4 - Chronic kidney disease, stage 4 (severe ) (9) Gout Current Visit: No Status: Chronic Assessment and plan: Restart allopurinol Qualifiers: Gout site: unspecified site Gout etiology: unspecified cause Chronicity: chronic Presence of tophus: without tophus Qualified Code(s): M1A.9XX0 - Chronic gout, unspecified, without tophus (tophi) (10) Hyperlipidemia Current Visit: No Status: Chronic Qualifiers: Hyperlipidemia type: unspecified Qualified Code(s): E78.5 - Hyperlipidemia , unspecified (11) Hypothyroidism Current Visit: No Status: Chronic Qualifiers: Hypothyroidism type: unspecified Qualified Code(s): E03.9 - Hypothyroidism , unspecified (12) Dysphagia Current Visit: Yes Status: Acute Assessment and plan: barium swallow resulted, noted GI consult Qualifiers: Dysphagia type: unspecified Qualified Code(s): R13.10 - Dysphagia, unspecified (13) Esophageal dysmotility Current Visit: Yes Status: Acute - Subjective Interval history: 89 Y/O F DNR-CC-A who was admitted to the ICU wth Symptomatic bradycardia, LEYDA on CKD, Digoxin toxicity She has a PMH of CHFrEF EF 20%, Afib on Coumadin, CKD IV with baseline Cr of ~2 , DM2, Hypothyroid, Gout, HLD, chronic respiratory failure on home O2 She is seen at bedside with her daughter She has no new complain Her renal function has improved and is trending towards baseline She complained of "food sticking to her chest" 2 days ago and is awaiting barium swallow - Constitutional Vitals: Temp Pulse Resp BP Pulse Ox 98.3 F 61 17 124/62 96 10/31/16 16:28 10/31/16 16:28 10/31/16 16:28 10/31/16 16:28 10/31/16 16:28 General appearance: Present: A&O X 3, pleasant, no acute distress - Head Head exam: Present: atraumatic, normocephalic - Eye Eye exam: Present: PERRL, conjuntiva pink, sclera anicteric Pupils: Present: PERRL - Neck Neck exam general surgery: Present: supple, trachea midline. Absent: lymphadenopathy - Respiratory Respiratory exam: Present: CTAB - Cardiovascular Cardiovascular exam: Present: irregular rhythm, +S1, +S2, systolic murmur - GI/Abdominal GI/Abdominal exam: Present: normal bowel sounds, soft, no peritoneal signs. Absent: tenderness - Extremities Exam Extremities exam: Present: pedal edema - Neurological Exam Neurological exam: Present: CN II-XII intact, oriented X3, no focal deficits. Absent: pronater drift, facial droop, speech deficit - Skin Skin exam: Present: dry Internal Medicine: Result - Labs CBC & Chem 7: 10/29/16 06:26 10/31/16 10:23 Labs: BMP 10/31/16 10:23 Sodium 141 Potassium 3.5 Chloride 100 Carbon Dioxide 29 BUN 34 H Creatinine 2.56 H Glucose 107 H Calcium 9.3 Liver Function 10/31/16 Range/Units 10:23 Total Bilirubin 0.7 (0.2-1.2) mg/dL AST 25 (5-34) Units/L ALT 7 (0-55) Units/L Alkaline Phosphatase 53 (38-126) Units/L Albumin 2.8 L (3.5-5.0) g/dL - ABG Interpretation ABG results: PT/INR, D-dimer PT 17.0 Seconds (9.4-12.1) H 10/30/16 06:02 - Impressions Impressions Barium Swallow X-Ray 10/31/16 00:00 IMPRESSION: 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 Mild to moderate gastroesophageal reflux. D/ / 10/31/2016 14:21:49 Julian Vaughn MD / Courtney Johnston Interpreting Provider: Julian Vaughn MD - VTE Reasons for not Prescribing Prophylaxis: Not indicated-Anticoagulated or INR therapeutic Documentation of Mechanical Device: Intermittent pneumatic compression device Consult Discharge Plan - Plan Referrals: Anabella Hodgson MD [Primary Care Provider] - Patricio Castillo MD [Partnered Physician] - 01/27/17 10:00 am (PLease follow up on November 03 at 10:30am for your wound check. December 02 at 8:00am will be your device check.)
[2016-10-31] MEDS: *HR* LORazepam 1 MG TABLET PO SCH (20:41)
[2016-10-31] MEDS: Ascorbic Acid 500 MG TABLET PO SCH (20:42)
[2016-10-31] MEDS: traZODone 50 MG TABLET PO PRN (20:43)
[2016-11-01] MEDS: hydrALAZINE 25 MG TABLET PO SCH ×3 (00:44→16:03)
[2016-11-01] MEDS: *HR* Amiodarone 200 MG TABLET PO SCH (08:59)
[2016-11-01] MEDS: Bumetanide 1 MG TABLET PO SCH ×2 (08:59→16:03)
[2016-11-01] MEDS: Metoprolol XL (24 HR) Succ 50 MG TAB.ER.24H PO SCH (09:00)
[2016-11-01] MEDS: Loratadine 10 MG TABLET PO SCH (09:00)
--- NOTE | 2016-11-01 11:20 | Nephrology Progress Note ---
Date of Encounter: 11/01/16 Time of Encounter: 11:10 - Assessment and Plan (1) Chronic kidney disease, stage IV (severe) Current Visit: Yes Status: Acute Today labs pending, creat trending downward on yesterdays labs. No I/O recorded for several days. Will continue to follow. Subjective Principal diagnosis: Bradycardia Interval history: Resting quietly in bed, family at bedside. States to have EGD tomorrow for difficulty swallowing. Patient states feels well. Objective - Vital Signs Vital signs: Vital Signs Temp Pulse Resp BP Pulse Ox 11/01/16 06:51 98.3 F 60 17 148/70 93 L 11/01/16 04:03 98.6 F 69 17 105/61 94 L 11/01/16 00:30 98.1 F 58 18 148/63 95 10/31/16 21:32 97.9 F 61 17 154/66 96 10/31/16 16:28 98.3 F 61 17 124/62 96 Intake and Output 10/31/16 11/01/16 11/01/16 23:59 07:59 15:59 Other: # Voids 4 Weight 70.1 kg Blood Glucose* 153 113 Patient Weight 11/01/16 23:59 Weight 70.1 kg - General Appearance General appearance: Present: well-developed, well-nourished, appears started age EENT: Present: mucous membranes moist Neck: Present: no JVD Respiratory: Present: clear Cardiology: Present: regular rate, regular rhythm Additional Comments: mild LE edema Gastrointestinal: Present: normoactive bowel sounds, no tenderness Integumentary: Present: warm and dry Neurologic: Present: alert and oriented x3 Psychiatric: Present: mood/affect appropriate, cooperative - Lab 10/29/16 06:26 10/31/16 10:23 Most recent lab results Calcium 9.3 mg/dL (8.6-10.8) 10/31/16 10:23 Phosphorus 3.3 mg/dL (2.3-4.7) 10/27/16 09:20 Magnesium 2.0 mg/dL (1.6-2.6) 10/27/16 09:20 - VTE Reasons for not Prescribing Prophylaxis: Not indicated-Anticoagulated or INR therapeutic Documentation of Mechanical Device: Intermittent pneumatic compression device Consult Discharge Plan - Plan Referrals: Anabella Hodgson MD [Primary Care Provider] - Patricio Castillo MD [Partnered Physician] - 01/27/17 10:00 am (PLease follow up on November 03 at 10:30am for your wound check. December 02 at 8:00am will be your device check.)
--- NOTE | 2016-11-01 12:09 | Gastroenterology Consult Note ---
<Sharath Benitez Steph - Last Filed: 11/01/16 12:07> Date of Encounter: 11/01/16 Time of Encounter: 10:40 - Assessment and plan (1) Dysphagia Current Visit: Yes Status: Acute Assessment and plan: Barium swallow study showed severe esophageal dymotility with patulous esophagus. Plan for EGD with possible dilation tomorrow. NPO at midnight. Qualifiers: Dysphagia type: unspecified Qualified Code(s): R13.10 - Dysphagia, unspecified (2) [place] esophagus Current Visit: Yes Status: Acute Assessment and plan: Noted on barium swallow study. Plan for EGD with biopsies and possible dilation tomorrow. (3) Chronic kidney disease, stage IV (severe) Current Visit: Yes Status: Acute - Time Spent With Patient Total time spent is greater than 50% in coordination of care (as documented) at patient's floor/unit and/or counseling patient: GI History of Present Illness - Data of Consult Patient: new to practice Consult date: 11/01/16 Requesting Physician: Fredy Rdz - Consult Narrative Reason for consult: Dysphagia History of present illness: Ms. Solis is a 89 year old female with PMHx of Afib, CHF, DVT, GI bleed, HLD, HTN, PVD, renal disease, TIA, SVT who presented with profound bradycardia, fatigue, and mild abdominal discomfort. She was admitted to the ICU with symptomatic bradycardia and Digoxin toxicity. 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 She began to complain of "food sticking in her chest" on 10/29/16 and Speech therapy evaluated the pt. Barrium swallow shoed severe esophageal dymotility with patulous esophagus. Procedures: Colonoscopy 07/05/11 Dr. Bella: lipoma in ascending colon and diverticulosis. EGD 07/05/2011 Dr. Bella: Tortuous esophagus, dilation of GE junction. NSAIDs: None Anticoagulation: Coumadin Past Med Surg Social Fam HX - Past Medical History Medical history: atrial fibrillation, CHF, DVT, GI bleed, hyperlipidemia, hypertension, peripheral artery disease, renal disease, SVT, thyroid disease, TIA, other Psychiatric history: no psych history - Past Surgical History Surgical History: cataract, cholecystectomy, other - Social History Smoking Status: Never smoker Smokeless Tobacco Status: No Alcohol use: none Drug use: none - Family History Mother Adopted: [place]: RENUKA MCMAHAN Family Member Ethnicity: Non- Living Status: Cause of : HEART PROBLEMS Hx Family Cardiac Disorders: Yes Hx Family Respiratory Disorders: Yes Hx Family Cancer: No Hx Family GI Disorders: No Hx Family Genitourinary Disorders: No Hx Family Endocrine Disorder: No Hx Family Neuromuscular Disorders: No Hx Family Neurologic Disorders: No Hx Family HEENT Disorders: No Hx Family Autoimmune Disorders: No - Gastrointestinal Gastrointestinal: Present: as per HPI - Constitutional Constitutional: as per HPI - EENT Eyes: as per HPI Ears: Present: as per HPI Nose, mouth and throat: Present: as per HPI - Cardiovascular Cardiovascular ROS: Present: as per HPI - Respiratory Respiratory IM: Present: as per HPI - Genitourinary Genitourinary: Absent: change in color, Urinary frequency - Neurological ROS Neurological GI: Present: as per HPI - Hematologic/Lymphatic Hematologic/Lymphatic pediatric: Present: as per HPI - Musculoskeletal Musculoskeletal ROS GI: Present: as per HPI - Integumentary Integumentary GI: Present: as per HPI - Psychiatric ROS Psychiatric GI: Present: as per HPI - Endocrine Endocrine IM: Present: as per HPI - Constitutional Vitals: Temp Pulse Resp BP Pulse Ox 98.3 F 60 17 148/70 93 L 11/01/16 06:51 11/01/16 06:51 11/01/16 06:51 11/01/16 06:51 11/01/16 06:51 General appearance: Present: cooperative, A&O X 3, no acute distress, answers questions appropriately - Head Head exam: Present: atraumatic, normocephalic - Eye Eye exam: Present: normal appearance, sclera anicteric - ENT ENT exam: Present: mucous membranes moist - Neck Neck exam general surgery: Present: normal inspection, trachea midline - Respiratory Respiratory exam: Present: CTAB. Absent: rales, rhonchi - Cardiovascular Cardiovascular exam: Present: RRR, +S1, +S2 - GI/Abdominal GI/Abdominal exam: Present: soft, no peritoneal signs. Absent: distended, firm , guarding, tenderness - Rectal Rectal exam: Present: deferred - Extremities Exam Extremities exam: Present: warm - Neurological Exam Neurological exam: Present: no focal deficits - Psychiatric Psychiatric exam: Present: normal affect, normal mood - Skin Skin exam: Present: dry, intact, normal color, warm Results - Labs CBC & Chem 7: 10/29/16 06:26 10/31/16 10:23 Labs: Last Result Calcium 9.3 mg/dL (8.6-10.8) 10/31/16 10:23 Troponin I 0.21 ng/mL (0-0.03) H* 10/26/16 09:56 Entire Visit Hgb 11.0 g/dL (11.5-15.4) L 10/29/16 06:26 Hct 33.0 % (35.3-44.9) L 10/29/16 06:26 PT 17.0 Seconds (9.4-12.1) H 10/30/16 06:02 Total Bilirubin 0.7 mg/dL (0.2-1.2) 10/31/16 10:23 AST 25 Units/L (5-34) 10/31/16 10:23 ALT 7 Units/L (0-55) 10/31/16 10:23 - ABG ABG results: PT/INR, D-dimer PT 17.0 Seconds (9.4-12.1) H 10/30/16 06:02 - Impressions Impressions Barium Swallow X-Ray 10/31/16 00:00 IMPRESSION: 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 Mild to moderate gastroesophageal reflux. D/ / 10/31/2016 14:21:49 Julian Vaughn MD / Courtney Johnston Interpreting Provider: Julian Vaughn MD Consult Discharge Plan - Plan Referrals: Anabella Hodgson MD [Primary Care Provider] - Patricio Castillo MD [Partnered Physician] - 01/27/17 10:00 am (PLease follow up on November 03 at 10:30am for your wound check. December 02 at 8:00am will be your device check.) <Terri Edgar - Last Filed: 11/01/16 17:27> Time of Encounter: 14:00 - Time Spent With Patient Total time spent is greater than 50% in coordination of care (as documented) at patient's floor/unit and/or counseling patient: GI History of Present Illness - Data of Consult Requesting Physician: Fredy Rdz - Consult Narrative History of present illness: Ms. Solis is a 89 year old female - Constitutional Vitals: Temp Pulse Resp BP Pulse Ox 98.3 F 60 17 148/70 93 L 11/01/16 06:51 11/01/16 06:51 11/01/16 06:51 11/01/16 06:51 11/01/16 06:51 Results - Labs CBC & Chem 7: 10/29/16 06:26 10/31/16 10:23 Labs: Last Result Calcium 9.3 mg/dL (8.6-10.8) 10/31/16 10:23 Troponin I 0.21 ng/mL (0-0.03) H* 10/26/16 09:56 Entire Visit Hgb 11.0 g/dL (11.5-15.4) L 10/29/16 06:26 Hct 33.0 % (35.3-44.9) L 10/29/16 06:26 PT 17.0 Seconds (9.4-12.1) H 10/30/16 06:02 Total Bilirubin 0.7 mg/dL (0.2-1.2) 10/31/16 10:23 AST 25 Units/L (5-34) 10/31/16 10:23 ALT 7 Units/L (0-55) 10/31/16 10:23 - ABG ABG results: PT/INR, D-dimer PT 17.0 Seconds (9.4-12.1) H 10/30/16 06:02 - Attending Attestation I examined this patient and my medical decision-making was reviewed with the SPIKE DRIVER/PA/Advanced Practice Nurse/Resident Physician. I agree with the documented findings, disposition and treatment plan as described except to the extent set forth below.
[2016-11-01] MEDS ORDERED: Nitroglycerin 0.4 MG TAB.SUBL SL PRN (14:44)
--- NOTE | 2016-11-01 14:48 | Internal Med Progress Note ---
Date of Encounter: 11/01/16 Time of Encounter: 14:46 - Assessment and plan (1) Chronic kidney disease, stage IV (severe) Current Visit: Yes Status: Acute Assessment and plan: acute on chronic renal failure, improving, had 1 HD (2) Dysphagia Current Visit: Yes Status: Acute Assessment and plan: Barium swallow study showed severe esophageal dymotility with patulous esophagus. Plan for EGD with possible dilation tomorrow. NPO at midnight. GI consulted Qualifiers: Dysphagia type: unspecified Qualified Code(s): R13.10 - Dysphagia, unspecified (3) Esophageal dysmotility Current Visit: Yes Status: Acute Assessment and plan: esophageal spasms Nitro SL prn consider CCB (4) Nutcracker esophagus Current Visit: Yes Status: Acute (5) Chronic systolic CHF (congestive heart failure) Current Visit: Yes Status: Chronic Assessment and plan: EF 20 % chronic systolic CHF compensated NO current evidence of fluid overload Continue Bumex at same dose On metoprolol and amiodarone, Resume Isosorbide and Hydralazine Digoxin is held, continue to hold Per cardiology, restart Coumadin in one week, will continue to hold Monitor closely (6) Bradycardia Current Visit: Yes Status: Resolved Assessment and plan: Resolved s/p PCM Monitor closely (7) Digoxin toxicity Current Visit: Yes Status: Resolved Assessment and plan: received digibind and HD Resolved Qualifiers: Encounter type: initial encounter Injury intent: accidental or unintentional Qualified Code(s): T46.0X1A - Poisoning by cardiac-stimulant glycosides and drugs of similar action, accidental (unintentional), initial encounter (8) Atrial fibrillation Current Visit: No Status: Chronic Assessment and plan: metoprolol, amiodarones hold digoxin hold coumadin Qualifiers: Atrial fibrillation type: unspecified Qualified Code(s): I48.91 - Unspecified atrial fibrillation (9) CAD (coronary artery disease) Current Visit: No Status: Chronic Qualifiers: Coronary Disease-Associated Artery/Lesion type: [place] artery [place] vs. transplanted heart: [place] heart Associated angina: without angina Qualified Code(s): I25.10 - Atherosclerotic heart disease of [place] coronary artery without angina pectoris (10) DM type 2 (diabetes mellitus, type 2) Current Visit: No Status: Chronic Assessment and plan: FS acceptable Sliding scale prn Qualifiers: Diabetes mellitus complication status: with kidney complications Diabetes mellitus complication detail: with chronic kidney disease Diabetes mellitus alf insulin use: without long term care social worker use Chronic kidney disease stage: stage 4 (severe) Qualified Code(s): E11.22 - Type 2 diabetes mellitus with diabetic chronic kidney disease; N18.4 - Chronic kidney disease, stage 4 (severe ) - Time Spent With Patient Greater than 35 minutes - Subjective Interval history: complains of trouble swallowing at times, denies chest pain at the moment. No SOB, no dysuria, no diarrhea, no fever or headaches - Constitutional Vitals: Temp Pulse Resp BP Pulse Ox 98.3 F 60 17 148/70 93 L 11/01/16 06:51 11/01/16 06:51 11/01/16 06:51 11/01/16 06:51 11/01/16 06:51 General appearance: Present: A&O X 3, pleasant, no acute distress - Head Head exam: Present: atraumatic, normocephalic - Eye Eye exam: Present: PERRL, conjuntiva pink, sclera anicteric Pupils: Present: PERRL - Neck Neck exam general surgery: Present: supple, trachea midline. Absent: lymphadenopathy - Respiratory Respiratory exam: Present: CTAB. Absent: accessory muscle use, rales, rhonchi, wheezes - Cardiovascular Cardiovascular exam: Present: RRR, +S1, +S2. Absent: diastolic murmur, gallop, rubs, systolic murmur - GI/Abdominal GI/Abdominal exam: Present: normal bowel sounds, soft, no peritoneal signs. Absent: distended, tenderness - Extremities Exam Extremities exam: Present: warm, radial pulses palpable and symetrical. Absent : calf tenderness, cyanotic, pedal edema - Neurological Exam Neurological exam: Present: CN II-XII intact, oriented X3, no focal deficits. Absent: pronater drift, facial droop, speech deficit - Skin Skin exam: Present: dry, intact Internal Medicine: Result - Labs CBC & Chem 7: 10/29/16 06:26 10/31/16 10:23 - ABG Interpretation ABG results: PT/INR, D-dimer PT 17.0 Seconds (9.4-12.1) H 10/30/16 06:02 - VTE Reasons for not Prescribing Prophylaxis: Not indicated-Anticoagulated or INR therapeutic Documentation of Mechanical Device: Intermittent pneumatic compression device Consult Discharge Plan - Plan Referrals: Anabella Hodgson MD [Primary Care Provider] - Patricio Castillo MD [Partnered Physician] - 01/27/17 10:00 am (PLease follow up on November 03 at 10:30am for your wound check. December 02 at 8:00am will be your device check.)
[2016-11-01] MEDS ORDERED: Lactulose Oral Soln 20 GM/30 ML UDC PO PRN (15:45)
[2016-11-01] MEDS: *HR* LORazepam 1 MG TABLET PO SCH (22:26)
[2016-11-01] MEDS: Ascorbic Acid 500 MG TABLET PO SCH (22:27)
[2016-11-01] MEDS: traZODone 50 MG TABLET PO PRN (22:30)
[2016-11-02] MEDS: hydrALAZINE 25 MG TABLET PO SCH ×3 (00:24→14:36)
[2016-11-02 04:39] LABS: Calcium 9.8 mg/dL (8.6-10.8); Potassium 3.2 mEq/L (3.5-4.5)
--- NOTE | 2016-11-02 09:47 | Nephrology Progress Note ---
Date of Encounter: 11/02/16 Time of Encounter: 09:35 - Assessment and Plan (1) Chronic kidney disease, stage IV (severe) Current Visit: Yes Status: Acute Renal fct stable. No I/O recorded for several days. Edema improved. EGD today with possible dilation for difficulty swallow. Will continue to follow. Subjective Principal diagnosis: Bradycardia Interval history: Resting quietly in bed, family at bedside. EGD scheduled later today for difficulty swallowing. Patient states feels well. Objective - Vital Signs Vital signs: Vital Signs Temp Pulse Resp BP Pulse Ox 11/02/16 07:42 98.2 F 60 16 150/67 95 11/02/16 04:04 98.1 F 66 16 138/54 97 11/01/16 21:54 97.8 F 60 16 132/65 95 Intake and Output 11/01/16 11/02/16 11/02/16 23:59 07:59 15:59 Intake Total 0 / 0 Balance 0 / 0 Intake: Oral 0 / 0 Other: Meal npo Weight 69.9 kg Blood Glucose* 177 132 Patient Weight 11/02/16 23:59 Weight 69.9 kg - General Appearance General appearance: Present: well-developed, well-nourished, appears started age EENT: Present: mucous membranes moist Neck: Present: no JVD Respiratory: Present: clear Cardiology: Present: regular rate, regular rhythm Additional Comments: mild edema Gastrointestinal: Present: normoactive bowel sounds, no tenderness Integumentary: Present: warm and dry Neurologic: Present: alert and oriented x3 Psychiatric: Present: mood/affect appropriate, cooperative - Lab 10/29/16 06:26 11/02/16 03:41 Most recent lab results Calcium 9.8 mg/dL (8.6-10.8) 11/02/16 03:41 Phosphorus 3.3 mg/dL (2.3-4.7) 10/27/16 09:20 Magnesium 2.0 mg/dL (1.6-2.6) 10/27/16 09:20 - VTE Reasons for not Prescribing Prophylaxis: Not indicated-Anticoagulated or INR therapeutic Documentation of Mechanical Device: Intermittent pneumatic compression device Consult Discharge Plan - Plan Referrals: Anabella Hodgson MD [Primary Care Provider] - Patricio Castillo MD [Partnered Physician] - 01/27/17 10:00 am (PLease follow up on November 03 at 10:30am for your wound check. December 02 at 8:00am will be your device check.)
[2016-11-02] MEDS: *HR* Amiodarone 200 MG TABLET PO SCH (11:01)
[2016-11-02] MEDS: Metoprolol XL (24 HR) Succ 50 MG TAB.ER.24H PO SCH (11:01)
[2016-11-02] MEDS: Bumetanide 1 MG TABLET PO SCH ×2 (11:01→14:36)
[2016-11-02] MEDS: Loratadine 10 MG TABLET PO SCH ×2 (11:01→14:31)
--- NOTE | 2016-11-02 12:24 | Anesthesia Evaluation PreOp ---
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 MECHANIC History: TIA Other Medical History: Renal (esrd), Diabetes Type II, Thyroid, Other (gout) Anesthesia History: No Prior Anesthetic Complications, Past Anesthesia (pm, cataract, cholecyst) Alcohol Use: none Drug use: none Medications and Allergies Calcitriol [Rocaltrol] 0.25 mcg PO 1200 07/26/15 [History] Levothyroxine [Synthroid] 100 mcg PO QAM 07/26/15 [History] TraZODone 50 mg PO HS 07/27/16 [History] Allopurinol [Zyloprim] 100 mg PO 1200 10/11/16 [History] Ascorbate Calcium [Vitamin C] 500 mg PO HS 10/11/16 [History] Ergocalciferol (VITAMIN D2) [Vitamin D2] 50,000 unit PO SA 10/11/16 [History] Gluc/MSM/C/[place]anganes/Prim [Joint Support Complex Softgel] 1 cap PO QAM 07/18 [History] LORazepam [Ativan] 1 mg PO HS 10/11/16 [History] Loratadine [Claritin] 10 mg PO QAM 10/11/16 [History] Warfarin [Coumadin] 2.5 mg PO 1200 10/11/16 [History] Amiodarone [Cordarone] 200 mg PO DAILY #30 tablet 10/22/16 [Rx] Atorvastatin [Lipitor] 20 mg PO HS #30 tablet 10/22/16 [Rx] Ciprofloxacin HCl [Cipro] 500 mg PO BID #14 tablet 10/22/16 [Rx] Digoxin [Lanoxin] 0.125 mg PO QOD 30 Days 10/22/16 [Rx] HydrALAZINE 50 mg PO Q8HR #90 tablet 10/22/16 [Rx] Isosorbide DInitrate [Isordil] 5 mg PO TIDAC #90 tablet 10/22/16 [Rx] Bumetanide [Bumex] 2 mg PO BID 10/26/16 [History] Metolazone [Zaroxolyn] 5 mg PO QMWF 10/26/16 [History] Metoprolol XL (24 HR) Succ [Toprol Xl] 200 mg PO QAM 10/26/16 [History] Allergies acetaminophen [From Percocet] Allergy (Verified 10/26/16 09:50) Rash codeine Allergy (Verified 10/26/16 09:50) Rash Oxycodone [From Percocet] Allergy (Verified 10/26/16 09:50) Rash - Meds/Allergy Pre-op Review Medications Reviewed: Yes Allergies Reviewed: Yes Beta Blockers on Current Med List: Yes If Beta Blockers taken, Date/Time (Last Dose taken): metoprolol (not given today ) Anesthesia Results - Labs 10/29/16 06:26 11/02/16 03:41 - Imaging EKG: pending Anesthesia Exam Vital Signs/O2 Sat/Glucose, Most Current Temp Pulse Resp BP Pulse Ox 11/02/16 10:59 98.4 F 70 18 133/69 95 Height: 1.57 Weight: 70 NPO (# of Hours): >8 - HEENT Pupil (Motor): Pupils equal, EOMI Mallampati: II Teeth: Edentulous Oral Opening: Greater than 3 - SET UP MECHANIC LOC: Oriented SET UP MECHANIC Motor: Deficit RUE, Deficit LUE, Deficit RLE, Deficit LLE, Deficit Face SET UP MECHANIC Sensory: Deficit: RUE, LUE, RLE, LLE, Face - Cardiac Rhythm: Regular Murmur: None - Pulmonary Breath Sounds: bilateral Clear Respiratory Effort: Symmetrical Anesthesia Assess/Plan ASA Score: 4 Modified [place] Scale for Level of Consciousness: Cooperative, oriented, and tranquil Anesthetic Plan: MAC Monitoring Plan: Standard Monitors Recovery Plan: Other
--- NOTE | 2016-11-02 14:55 | Discharge Summary ---
Date of Encounter: 11/02/16 Time of Encounter: 14:53 - Discharge Diagnosis (1) Chronic kidney disease, stage IV (severe) Priority: Primary Status: Acute Comments: acute on chronic renal failure Had hemodialysis due to digoxin toxicity (2) Dysphagia Priority: Secondary Status: Acute Comments: Barium swallow study showed severe esophageal dymotility with patulous esophagus. EGD with possible dilation was not able to be performed as the patient lost IV access, had multiple attempts. Dr. Edgar will follow as outpatient if needed Continue nitroglycerin as needed Qualifiers: Dysphagia type: unspecified Qualified Code(s): R13.10 - Dysphagia, unspecified (3) Esophageal dysmotility Priority: Secondary Status: Acute (4) Nutcracker esophagus Priority: Secondary Status: Acute (5) Chronic systolic CHF (congestive heart failure) Priority: Secondary Status: Chronic Comments: EF 20 % chronic systolic CHF compensated Continue Bumex On metoprolol and amiodarone, Resume Isosorbide and Hydralazine Digoxin is held Per cardiology, restart Coumadin in one week (6) Bradycardia Priority: Primary Status: Resolved Comments: Status post pacemaker placement (7) Digoxin toxicity Priority: Primary Status: Resolved Qualifiers: Encounter type: initial encounter Injury intent: accidental or unintentional Qualified Code(s): T46.0X1A - Poisoning by cardiac-stimulant glycosides and drugs of similar action, accidental (unintentional), initial encounter (8) Atrial fibrillation Priority: Secondary Status: Chronic Comments: Continue metoprolol and amiodarone Qualifiers: Atrial fibrillation type: unspecified Qualified Code(s): I48.91 - Unspecified atrial fibrillation (9) CAD (coronary artery disease) Priority: Secondary Status: Chronic Qualifiers: Coronary Disease-Associated Artery/Lesion type: [place] artery [place] vs. transplanted heart: [place] heart Associated angina: without angina Qualified Code(s): I25.10 - Atherosclerotic heart disease of [place] coronary artery without angina pectoris (10) DM type 2 (diabetes mellitus, type 2) Priority: Secondary Status: Chronic Qualifiers: Diabetes mellitus complication status: with kidney complications Diabetes mellitus complication detail: with chronic kidney disease Diabetes mellitus technician terminal and repeater insulin use: without care home use Chronic kidney disease stage: stage 4 (severe) Qualified Code(s): E11.22 - Type 2 diabetes mellitus with diabetic chronic kidney disease; N18.4 - Chronic kidney disease, stage 4 (severe ) - Discharge Medications Prescriptions: Nitroglycerin 0.4 mg SL Q5MIN PRN #30 tab.subl PRN Reason: Swallowing Pain Amiodarone [Cordarone] 200 mg PO DAILY #30 tablet Bumetanide [Bumex] 2 mg PO BID 30 Days LORazepam [Ativan] 1 mg PO HS PRN #30 tablet PRN Reason: Anxiety Metoprolol XL (24 HR) Succ [Toprol Xl] 200 mg PO QAM #30 tab.er.24h Omeprazole [PriLOSEC] 40 mg PO DAILY #30 capsule.dr Home Medications: Calcitriol [Rocaltrol] 0.25 mcg PO 1200 07/26/15 [History] Levothyroxine [Synthroid] 100 mcg PO QAM 07/26/15 [History] TraZODone 50 mg PO HS 07/27/16 [History] Allopurinol [Zyloprim] 100 mg PO 1200 10/11/16 [History] Ascorbate Calcium [Vitamin C] 500 mg PO HS 10/11/16 [History] Ergocalciferol (VITAMIN D2) [Vitamin D2] 50,000 unit PO SA 10/11/16 [History] Gluc/MSM/C/[place]anganes/Prim [Joint Support Complex Softgel] 1 cap PO QAM 07/18 [History] Loratadine [Claritin] 10 mg PO QAM 10/11/16 [History] Warfarin [Coumadin] 2.5 mg PO 1200 10/11/16 [History] Atorvastatin [Lipitor] 20 mg PO HS #30 tablet 10/22/16 [Rx] HydrALAZINE 50 mg PO Q8HR #90 tablet 10/22/16 [Rx] Isosorbide DInitrate [Isordil] 5 mg PO TIDAC #90 tablet 10/22/16 [Rx] Metolazone [Zaroxolyn] 5 mg PO QMWF 10/26/16 [History] Amiodarone [Cordarone] 200 mg PO DAILY #30 tablet 11/02/16 [Rx] Bumetanide [Bumex] 2 mg PO BID 30 Days 11/02/16 [Rx] LORazepam [Ativan] 1 mg PO HS PRN #30 tablet 11/02/16 [Rx] Metoprolol XL (24 HR) Succ [Toprol Xl] 200 mg PO QAM #30 tab.er.24h 11/02/16 [Rx ] Nitroglycerin 0.4 mg SL Q5MIN PRN #30 tab.subl 11/02/16 [Rx] Omeprazole [PriLOSEC] 40 mg PO DAILY #30 capsule.dr 11/02/16 [Rx] Allergies/Adverse Reactions: Allergies acetaminophen [From Percocet] Allergy (Verified 10/26/16 09:50) Rash codeine Allergy (Verified 10/26/16 09:50) Rash Oxycodone [From Percocet] Allergy (Verified 10/26/16 09:50) Rash Date of admission: 10/26/16 15:47 Primary care physician: Anabella Hodgson Consults: 10/27/16 09:18 Consult to Electrophysiology (EP) [CONS] Stat Consulting Provider: Electrophysiology Z[facility]ay Reason for Consult: bradycardia Call Completed: No 10/28/16 08:15 Consult to Dialysis [CONS] ONCE 10/29/16 12:57 Consult to Speech Therapy [CONS] Routine Comment: Evaluate, develop and implement POC Reason for Consult: pt states difficulty swallowing food and liquids, states they get stuck Time Notified: 12:50 Call Completed: Yes 10/31/16 17:41 Consult to Gastroenterology [CONS] Routine Consulting Provider: Gastroenterology Zulay Reason for Consult: Dysphagia, barium swallow with esophageal dysmotility, please evaluate, thank you. Call Completed: No - Patient Status Disposition: Home, Self-Care Condition: Good Overall status at discharge: patient is progressing back to baseline - Discharge Instructions Follow Up With: Anabella Hodgson MD [Primary Care Provider] - 11/21/16 1:30 pm (Please follow up as schedule..to established Primary Care) Patricio Castillo MD [Partnered Physician] - 01/27/17 10:00 am (PLease follow up on November 03 at 10:30am for your wound check. December 02 at 8:00am will be your device check.) Cayetano Trevizo DO [Partnered Physician] - 11/04/16 2:00 pm (Please follow up as schedule ... It is important to keep this appointment for Home Health to see you...) Sunny Hammer DO [Partnered Physician] - 11/15/16 12:15 pm (Please follow up as schedule..) Additional Instructions: Follow with primary care physician within the next 7 days. Follow with cardiology within the next 2 weeks. Resume Coumadin in 1 week. Discontinue digoxin permanently and continue amiodarone and metoprolol. Continue use nitroglycerin as needed for esophageal spasms and contact the GI service if this problem persists. - Diet and Activity Activity: increase activity as tolerated Diet: low fat, low cholesterol Hospital course: Ms. Solis is a 89 year old female with past medical history of atrial fibrillation on Coumadin, CHF, DVT, GI bleed, hyperlipidemia, hypertension, peripheral artery disease, renal disease, SVT, thyroid disease, TIA Who presented from Dr. Urbina's office after a f/u visit from recent hospitalization for CHF. 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 Last EF from [facility] was 20%, down from 60%. Was recently started on Digoxin. On Coumadin for A-fib. She presented to Dr. Urbina's office and was noted to be hypotensive with SBP in the 90's, per report and was sent over to the ED. Patient reported feeling very fatigued and weak since hospital discharge, gradually worsening. Denies and chest pain. Does complain of decreased urination, shortness of breath, and chronic/unchanged epigastric abdominal pain. Family reports she has the abdominal pain daily. They are concerned about her fatigue and decreasing mental status. No appetite. The patient had a digoxin level of 1.4 consistent with toxicity. She underwent chemotherapy dialysis and was given Digibind, the patient went to the ICU, a permanent pacemaker was placed. The patient was followed by cardiology and warfarin was recommended to have held for a week. Metoprolol and amiodarone were continued. Also the GI service was consulted for intermittent dysphagia, and swallow study showed severe esophageal dysmotility and patulous esophagous. The patient was scheduled to have a endoscopy but unfortunately no IV access was able to be obtained despite multiple attempts. Risks were evaluated in as they endoscopy is not urgently needed Dr. Edgar discussed the case with the family/daughter and decided to do an endoscopy only if needed as an outpatient. The patient will be discharged on nitroglycerin for esophageal spasms. - Time Spent with Patient Total time spent providing and/or coordinating discharge services: Greater than 30 minutes (40 minutes) - Constitutional Vitals: Temp Pulse Resp BP Pulse Ox 98.4 F 70 18 133/69 95 11/02/16 10:59 11/02/16 10:59 11/02/16 10:59 11/02/16 10:59 11/02/16 10:59 General appearance: Present: A&O X 3, pleasant, no acute distress - Head Head exam: Present: atraumatic, normocephalic - Eye Eye exam: Present: PERRL, conjuntiva pink, sclera anicteric Pupils: Present: PERRL - Neck Neck exam general surgery: Present: supple, trachea midline. Absent: lymphadenopathy - Respiratory Respiratory exam: Present: CTAB. Absent: accessory muscle use, rales, rhonchi, wheezes - Cardiovascular Cardiovascular exam: Present: RRR, +S1, +S2. Absent: diastolic murmur, gallop, rubs, systolic murmur - GI/Abdominal GI/Abdominal exam: Present: normal bowel sounds, soft, no peritoneal signs. Absent: distended, tenderness - Extremities Exam Extremities exam: Present: warm, radial pulses palpable and symetrical. Absent : calf tenderness, cyanotic, pedal edema - Neurological Exam Neurological exam: Present: CN II-XII intact, oriented X3, no focal deficits. Absent: pronater drift, facial droop, speech deficit - Skin Skin exam: Present: dry, intact - VTE Reasons for not Prescribing Prophylaxis: Not indicated-Anticoagulated or INR therapeutic Documentation of Mechanical Device: Intermittent pneumatic compression device
--- NOTE | 2016-11-02 15:16 | Physician Discharge Referral ---
Home Health/Hosp Referral Info Transfer to: Home Health Provider in Charge Post Discharge: PCP - Diagnosis (1) Chronic kidney disease, stage IV (severe) Status: Acute (2) Dysphagia Status: Acute (3) Esophageal dysmotility Status: Acute (4) Nutcracker esophagus Status: Acute (5) Chronic systolic CHF (congestive heart failure) Status: Chronic (6) Bradycardia Status: Resolved (7) Digoxin toxicity Status: Resolved (8) Atrial fibrillation Status: Chronic (9) CAD (coronary artery disease) Status: Chronic (10) DM type 2 (diabetes mellitus, type 2) Status: Chronic - Respiratory Orders Smoking Cessation: Smoking cessation has been advised. For more information, call the [place] Tobacco Quit Line at 3-237-TOCV-NOW. - Diet/Nutrition Diet/Nutrition Orders: Mechanical Soft (If not able to swallow properly) - Services Needed Following services are medically necessary services: Home Health Aide Home Care Orders: Follow with primary care physician within the next 7 days. Follow with cardiology within the next 2 weeks. Resume Coumadin in 1 week. Discontinue digoxin permanently and continue amiodarone and metoprolol. Continue use nitroglycerin as needed for esophageal spasms and contact the GI service if this problem persists. - Transfer Medications Prescriptions: Nitroglycerin 0.4 mg SL Q5MIN PRN #30 tab.subl PRN Reason: Swallowing Pain Amiodarone [Cordarone] 200 mg PO DAILY #30 tablet Bumetanide [Bumex] 2 mg PO BID 30 Days LORazepam [Ativan] 1 mg PO HS PRN #30 tablet PRN Reason: Anxiety Metoprolol XL (24 HR) Succ [Toprol Xl] 200 mg PO QAM #30 tab.er.24h Omeprazole [PriLOSEC] 40 mg PO DAILY #30 capsule.dr Home Medications: Calcitriol [Rocaltrol] 0.25 mcg PO 1200 07/26/15 [History] Levothyroxine [Synthroid] 100 mcg PO QAM 07/26/15 [History] TraZODone 50 mg PO HS 07/27/16 [History] Allopurinol [Zyloprim] 100 mg PO 1200 10/11/16 [History] Ascorbate Calcium [Vitamin C] 500 mg PO HS 10/11/16 [History] Ergocalciferol (VITAMIN D2) [Vitamin D2] 50,000 unit PO SA 10/11/16 [History] Gluc/MSM/C/[place]anganes/Prim [Joint Support Complex Softgel] 1 cap PO QAM 07/18 [History] Loratadine [Claritin] 10 mg PO QAM 10/11/16 [History] Warfarin [Coumadin] 2.5 mg PO 1200 10/11/16 [History] Atorvastatin [Lipitor] 20 mg PO HS #30 tablet 10/22/16 [Rx] HydrALAZINE 50 mg PO Q8HR #90 tablet 10/22/16 [Rx] Isosorbide DInitrate [Isordil] 5 mg PO TIDAC #90 tablet 10/22/16 [Rx] Metolazone [Zaroxolyn] 5 mg PO QMWF 10/26/16 [History] Amiodarone [Cordarone] 200 mg PO DAILY #30 tablet 11/02/16 [Rx] Bumetanide [Bumex] 2 mg PO BID 30 Days 11/02/16 [Rx] LORazepam [Ativan] 1 mg PO HS PRN #30 tablet 11/02/16 [Rx] Metoprolol XL (24 HR) Succ [Toprol Xl] 200 mg PO QAM #30 tab.er.24h 11/02/16 [Rx ] Nitroglycerin 0.4 mg SL Q5MIN PRN #30 tab.subl 11/02/16 [Rx] Omeprazole [PriLOSEC] 40 mg PO DAILY #30 capsule. 11/02/16 [Rx] Allergies/Adverse Reactions: Allergies acetaminophen [From Percocet] Allergy (Verified 10/26/16 09:50) Rash codeine Allergy (Verified 10/26/16 09:50) Rash Oxycodone [From Percocet] Allergy (Verified 10/26/16 09:50) Rash Certification: Further, I certify that my clinical findings support that this patient is homebound (i.e. absences from home require considerable and taxing effort and are for medical reasons or orthodox services or infrequently or short duration when for other reasons) because: Homebound Reason: Patient requires assistance of a person or device to safely leave home Attestation: My signature below is to certify that this patient is under my care and that I, or nurse practitioner, or a physician's assistant to the ceo working with me, has a face-to -face encounter with this patient.
[2016-11-02 15:45] VITALS: BP 114/61
--- NOTE | 2016-11-04 15:26 | Electrocardiograph Report ---
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
== END 2016-11-02 16:41 | disposition home or self-care (01) | DRG 242 ==
LOC: EMEROO 09:41 → 2ANU 09:41 → ICNU 12:55 → SUATTDRO 15:47 → 2ANU 10-28 10:23
PROVIDERS: ADMIT Internal Medicine; ATTEND Internal Medicine

== ENCOUNTER 2016-12-22 14:37 | Observation (INO) ==
[2016-12-22] MEDS ORDERED: Naloxone 0.4 MG/ML INJ IVP ONE (14:42)
--- NOTE | 2016-12-22 14:53 | Emergency Department Note ---
Disposition Clinical Impression: Supratherapeutic INR Anemia Qualifiers: Anemia type: unspecified type Qualified Code(s): D64.9 - Anemia, unspecified Altered mental status Qualifiers: Altered mental status type: unspecified Qualified Code(s): R41.82 - Altered mental status, unspecified Disposition: Admitted As Inpatient Condition: Good Referrals: Unassigned,Provider [Non-Partnered Physician] - Forms: ED Satisfaction Letter Altered Mental Status HPI - General Chief Complaint: ED Altered Mental Status Stated Complaint: AMS, lethargy Time Seen by Provider: 12/22/16 14:42 Source: EMS Mode of arrival: EMS Limitations: altered mental status Nursing Notes Reviewed: Yes Vital Signs Reviewed: Yes - History of Present Illness HPI Narrative: 89-year-old female presents to the ER via EMS due to altered mental status. EMS reports that family called squad because the patient was not acting normal. Squad reports that she recently fell a few days ago injuring her shoulder and was placed on tramadol at that time. No interventions prior to arrival. Upon arrival patient is arousable by verbal stimuli. She does fall back asleep easily when not stimulated. She denies any complaints currently. She does report a little bit of pain in her right shoulder and requests me not to touch it. No other complaints. MD complaint: altered mental status Onset (ago): hour(s) Timing confirmed by: family member Pain Severity: none Context: other (Recently fractured her right shoulder and was placed on narcotics.) Associated symptoms: Reports: denies other symptoms - Related Data Home Medications Medication Instructions Recorded Confirmed Calcitriol [Rocaltrol] 0.25 mcg PO 1200 07/26/15 10/26/16 Levothyroxine [Synthroid] 100 mcg PO QAM 07/26/15 10/26/16 TraZODone 50 mg PO HS 07/27/16 10/26/16 Allopurinol [Zyloprim] 100 mg PO 1200 10/11/16 10/26/16 Ascorbate Calcium [Vitamin C] 500 mg PO HS 10/11/16 10/26/16 Ergocalciferol (VITAMIN D2) 50,000 unit PO SA 10/11/16 10/26/16 [Vitamin D2] Gluc/MSM/C/[place]/Prim 1 cap PO QAM 10/11/16 10/26/16 [Joint Support Complex Softgel] Loratadine [Claritin] 10 mg PO QAM 10/11/16 10/26/16 Warfarin [Coumadin] 2.5 mg PO 1200 10/11/16 10/26/16 Metolazone [Zaroxolyn] 5 mg PO QMWF 10/26/16 10/26/16 Previous Rx's Medication Instructions Recorded Atorvastatin [Lipitor] 20 mg PO HS #30 tablet 10/22/16 HydrALAZINE 50 mg PO Q8HR #90 tablet 10/22/16 Isosorbide DInitrate [Isordil] 5 mg PO TIDAC #90 tablet 10/22/16 Amiodarone [Cordarone] 200 mg PO DAILY #30 tablet 11/02/16 Bumetanide [Bumex] 2 mg PO BID 30 Days 11/02/16 LORazepam [Ativan] 1 mg PO HS PRN #30 tablet 11/02/16 Metoprolol XL (24 HR) Succ [Toprol 200 mg PO QAM #30 tab.er.24h 11/02/16 Xl] Nitroglycerin 0.4 mg SL Q5MIN PRN #30 tab.subl 11/02/16 Omeprazole [PriLOSEC] 40 mg PO DAILY #30 capsule.dr 11/02/16 Tramadol HCl [Ultram] 50 mg PO QID PRN #20 tab 12/17/16 Allergies Allergy/AdvReac Type Severity Reaction Status Date / Time acetaminophen [From Percocet] Allergy Rash Verified 12/22/16 14:51 codeine Allergy Rash Verified 12/22/16 14:51 Oxycodone [From Percocet] Allergy Rash Verified 12/22/16 14:51 All systems ED: reviewed and negative except as stated. Constitutional: Denies: fever Cardiovascular: Denies: chest pain Respiratory: Denies: cough, dyspnea Gastrointestinal: Denies: abdominal pain, nausea, vomiting Musculoskeletal: Reports: other (Right shoulder pain) Neurological: Denies: headache Past Medical History - Past Medical History Attestation: Yes The following information was validated with the patient. Source: patient, old records reviewed Medical history: Reports: atrial fibrillation, CHF, DVT, GI bleed, hyperlipidemia, hypertension, peripheral artery disease, renal disease, SVT, thyroid disease, TIA, other Surgical history: Reports: cataract, cholecystectomy, other Psychiatric history: Reports: no psych history INTAKE ASSESSOR history: Reports: no INTAKE ASSESSOR history - Social History Smoking Status: Never smoker Smokeless Tobacco Status: No Alcohol use: Reports: none Drug use: Reports: none Physical Exam - General Limitations: altered mental status General appearance: alert, in no apparent distress - Head Head exam: atraumatic, normocephalic, normal inspection - Eye Eye exam: Present: normal appearance, EOMI, miosis - ENT ENT exam: normal exam - Neck Neck exam: Present: normal inspection - Chest Chest inspection: Present: normal inspection, symmetric chest wall rise - Respiratory Respiratory exam: Present: normal lung sounds bilaterally - Cardiovascular Cardiovascular exam: Present: regular rate, normal rhythm, normal heart sounds - Abdominal Exam Abdominal exam: Present: soft, Non-Tender. Absent: tenderness - Rectal Exam Trolley Car Operator present during exam: Yes Rectal exam: Present: heme (-) stool, hemorrhoids (Internal) - Extremities Exam Extremities exam: Present: normal inspection, full ROM - Expanded Upper Extremity Exam Shoulder exam: Present: swelling (Patient has swelling to the right shoulder and proximal arm on the right with overlying ecchymosis. Limited range of motion of the right shoulder.) Arm exam: Present: swelling, ecchymosis Elbow exam: Present: normal inspection, full ROM Forearm/Wrist exam: Present: normal inspection, full ROM Hand exam: Present: normal inspection, full ROM - Expanded Lower Extremity Exam Hip/Pelvis exam: Present: normal inspection, full ROM Upper leg exam: Present: normal inspection, full ROM Knee exam: Present: normal inspection, full ROM Lower leg exam: Present: normal inspection, full ROM Ankle exam: Present: normal inspection, full ROM Foot/toe exam: Present: normal inspection, full ROM - Neurological Exam Neurological exam: Present: alert, oriented X3, CN II-XII intact. Absent: motor sensory deficit - Expanded Neurological Exam Patient oriented to: Present: person, place, time Speech: Present: fluid speech Cranial nerves: EOM function (II, III, IV, ): Normal, facial sensation (V): Normal, spinal accessory function (XI): Normal, tongue deviation (XII): Normal Motor strength - LUE: 4/5 Motor strength - RUE: 4/5 Motor strength - LLE: 4/5 Motor strength - RLE: 4/5 Sensory exam upper extremity: light touch: Normal Sensory exam lower extremity: light touch: Normal Coma Scale Eye Opening: To Voice Coma Scale Motor Response: Obeys Commands Coma Scale Verbal Response: Oriented Coma Scale Total: 14 - Psychiatric Psychiatric exam: Present: normal affect, normal mood - Skin Skin exam: Present: warm, dry, intact, normal color Course Course Narrative: Patient seen and examined. Vital signs reviewed. She has pinpoint pupils on exam. Was recently started on tramadol for her right humeral fracture. We will give her a dose of Narcan here. We will also obtain a CT scan of the head , labs and urinalysis as well as EKG and chest x-ray. Disposition pending. - Reevaluation(s) Reevaluation #1: Patient more alert after Narcan. Family at bedside. She has a recent 3 g drop in her hemoglobin with a supratherapeutic INR. Bedside rectal exam demonstrates negative for blood. She does have an internal thrombosed hemorrhoid. Family at bedside do not report any bleeding that they are aware of. No other complaints Vital Signs Temperature 98.3 F 12/22/16 14:42 Pulse Rate 61 12/22/16 14:42 Respiratory Rate 18 12/22/16 14:42 Blood Pressure 136/65 12/22/16 14:42 O2 Sat by Pulse Oximetry 100 12/22/16 14:42 Temperature 98.3 F 12/22/16 14:42 Pulse Rate 60 12/22/16 17:32 Respiratory Rate 18 12/22/16 17:32 Blood Pressure 137/80 12/22/16 17:32 O2 Sat by Pulse Oximetry 97 12/22/16 17:32 Oxygen Delivery Oxygen Delivery Nasal Cannula Altered Mental Status - [facility] Narrative Medical decision making narrative: 89-year-old female presents to the ER with a chief complaint of altered mental status. She was recently put on tramadol after she broke her right humerus. Patient did reverse and is mentating appropriately after getting Narcan. Her labs she was found to have a 3 g drop in her hemoglobin over the last 3 weeks with her INR being supratherapeutic at 5.8. Rectal exam is Hemoccult negative. No obvious source of bleeding. She is on Coumadin for atrial fibrillation. Plan to admit the patient to the hospital for observation. - Lab Data Lab results reviewed: Yes I reviewed the patient's lab results. Result diagrams: 12/22/16 16:25 12/22/16 16:25 Lab Results 12/22/16 12/22/16 12/22/16 Range/Units 15:55 15:55 16:25 WBC 12.3 H (4.3-11.1) K/mcL RBC 2.56 L (3.82-4.97) M/mcL Hgb 8.0 L (11.5-15.4) g/dL Hct 24.3 L (35.3-44.9) % MCV 94.9 (83.0-100.0) fL MCH 31.3 (28.0-33.3) pg MCHC 32.9 (31.6-35.5) g/dL RDW 15.1 H (11.5-14.5) % Plt Count 195 (140-400) K/mcL MPV 10.1 (9.4-12.4) fL Immature Gran % 0.8 (0-4) % Seg Neutrophils % 66.0 % Lymphocytes % 25.1 % Monocytes % 7.1 % Eosinophils % 0.7 % Basophils % 0.3 % Neutrophils # 8.1 (1.6-8.9) K/mcL Lymphocytes # 3.1 (0.6-4.6) K/mcL Monocytes # 0.9 (0.0-1.3) K/mcL Eosinophils # 0.1 (0.0-0.6) K/mcL Basophils # 0.0 (0.0-0.2) K/mcL PT (9.4-12.1) Seconds INR APTT (26.0-36.0) Seconds Sodium (136-145) mEq/L Potassium (3.5-4.5) mEq/L Chloride (98-109) mEq/L Carbon Dioxide (19-29) mEq/L BUN (7-20) mg/dL Creatinine (0.57-1.11) mg/dL Est GFR ( Amer) (> 60) Est GFR (Non-Af Amer) (> 60) BUN/Creatinine Ratio (6-26) Glucose (70-99) mg/dL Calculated Osmolality (280-300) Calcium (8.6-10.8) mg/dL Total Bilirubin (0.2-1.2) mg/dL Direct Bilirubin (0.0-0.5) mg/dL Indirect Bilirubin (0.0-1.2) mg/dL AST (5-34) Units/L ALT (0-55) Units/L Alkaline Phosphatase (38-126) Units/L Troponin I (0-0.03) ng/mL Serum Total Protein (6.0-8.3) g/dL Albumin (3.5-5.0) g/dL Globulin (2.4-3.5) g/dL Albumin/Globulin Ratio (1.1-2.2) Urine Color Yellow (Yellow) Urine Clarity Clear (Clear) Urine pH 6.0 (5.0-8.0) pH Units Ur Specific [place] 1.014 (1.010-1.025) Urine Protein 30 H (Neg-Trace) mg/dL Urine Glucose (UA) Normal (Normal) mg/dL Urine Ketones Negative (Negative) mg/dL Urine Blood Negative (Negative) Urine Nitrite Negative (Negative) Urine Bilirubin Negative (Negative) Urine Urobilinogen Normal (Normal) mg/dL Ur Leukocyte Esterase Small H (Negative) Urine Microscopic RBC 0-3 (0-3) per hpf Urine Microscopic WBC 3-5 H (0-3) per hpf Ur Squamous Epith Cells Moderate H (None-Few) per lpf Ur Culture Indicated? YES A (NO) Urine Opiates Screen Positive H (Yqnrzf=706) ng/mL Ur Barbiturates Screen Negative (Wrfukw=602) ng/mL Ur Phencyclidine Scrn Negative (Cutoff=25) ng/mL Ur Amphetamines Screen Negative (Wjdoxw=6701) ng/mL U Benzodiazepines Scrn Negative (Qbrhjj=883) ng/mL Urine Cocaine Screen Negative (Cutoff= 300) ng/mL U Marijuana (THC) Screen Negative (Cutoff = 50) ng/mL 12/22/16 12/22/16 12/22/16 Range/Units 16:25 16:25 16:25 WBC (4.3-11.1) K/mcL RBC (3.82-4.97) M/mcL Hgb (11.5-15.4) g/dL Hct (35.3-44.9) % MCV (83.0-100.0) fL MCH (28.0-33.3) pg MCHC (31.6-35.5) g/dL RDW (11.5-14.5) % Plt Count (140-400) K/mcL MPV (9.4-12.4) fL Immature Gran % (0-4) % Seg Neutrophils % % Lymphocytes % % Monocytes % % Eosinophils % % Basophils % % Neutrophils # (1.6-8.9) K/mcL Lymphocytes # (0.6-4.6) K/mcL Monocytes # (0.0-1.3) K/mcL Eosinophils # (0.0-0.6) K/mcL Basophils # (0.0-0.2) K/mcL PT 65.8 H* (9.4-12.1) Seconds INR 5.8 H* APTT 48.8 H (26.0-36.0) Seconds Sodium 136 (136-145) mEq/L Potassium 4.4 (3.5-4.5) mEq/L Chloride 97 L (98-109) mEq/L Carbon Dioxide 27 (19-29) mEq/L BUN 50 H (7-20) mg/dL Creatinine 2.49 H (0.57-1.11) mg/dL Est GFR ( Amer) 22 L (> 60) Est GFR (Non-Af Amer) 18 L (> 60) BUN/Creatinine Ratio 20 (6-26) Glucose 133 H (70-99) mg/dL Calculated Osmolality 297 (280-300) Calcium 9.1 (8.6-10.8) mg/dL Total Bilirubin 0.8 (0.2-1.2) mg/dL Direct Bilirubin 0.3 (0.0-0.5) mg/dL Indirect Bilirubin 0.5 (0.0-1.2) mg/dL AST 25 (5-34) Units/L ALT 20 (0-55) Units/L Alkaline Phosphatase 64 (38-126) Units/L Troponin I 0.03 (0-0.03) ng/mL Serum Total Protein 6.6 (6.0-8.3) g/dL Albumin 3.0 L (3.5-5.0) g/dL Globulin 3.6 H (2.4-3.5) g/dL Albumin/Globulin Ratio 0.8 L (1.1-2.2) Urine Color (Yellow) Urine Clarity (Clear) Urine pH (5.0-8.0) pH Units Ur Specific [place] (1.010-1.025) Urine Protein (Neg-Trace) mg/dL Urine Glucose (UA) (Normal) mg/dL Urine Ketones (Negative) mg/dL Urine Blood (Negative) Urine Nitrite (Negative) Urine Bilirubin (Negative) Urine Urobilinogen (Normal) mg/dL Ur Leukocyte Esterase (Negative) Urine Microscopic RBC (0-3) per hpf Urine Microscopic WBC (0-3) per hpf Ur Squamous Epith Cells (None-Few) per lpf Ur Culture Indicated? (NO) Urine Opiates Screen (Zrkutg=215) ng/mL Ur Barbiturates Screen (Ktdljn=630) ng/mL Ur Phencyclidine Scrn (Cutoff=25) ng/mL Ur Amphetamines Screen (Nctgzh=3353) ng/mL U Benzodiazepines Scrn (Opwfst=043) ng/mL Urine Cocaine Screen (Cutoff= 300) ng/mL U Marijuana (THC) Screen (Cutoff = 50) ng/mL - Radiology Data Radiology results reviewed: Yes I reviewed the patient's radiology results. Chest X-Ray 12/22/16 14:42 IMPRESSION: 1. Small right pleural effusion with right basilar airspace consolidation, most likely passive atelectasis, though underlying aspiration or pneumonia are not excluded. 2. Stable cardiomegaly. D/ / Arnold Nolasco MD / Arnold Nolasco MD Interpreting Provider: Arnold Nolasco MD Head CT 12/22/16 14:43 IMPRESSION: No acute intracranial abnormality. D/ / Óscar Ruiz MD / Óscar Ruiz MD Interpreting Provider: Óscar Ruiz MD - EKG Data EKG attestation: Yes I reviewed and interpreted this EKG. EKG results narrative: EKG demonstrates atrially paced rhythm with a rate of 59 bpm. Left axis deviation. KS interval 306 QRS duration 108 QTc 475 there is [address] depression in lead 2. No contiguous lead ST depression. No ST elevations. No acute ischemic findings. No significant changes from previous EKG dated 11/02/16. S.B.[facility].R. - [place] Situation: Demographics, MOA Background: Presenting Complaint, Relevant PMH, Meds, & Allergies Assessment: Vital Signs, Course and respsone to treatment, Exam Concerns, Patient/Family Expectation, Pertinant Lab Results, Outstanding Labs Recommendation: Barrier(s) to disposition, Recommendation based on pending studies, treatments, or consults SRl Report Given to: Maria Victoria Crane Repor Time: 17:34 Attestation Statement - Attestation Attestation: I examined this patient and my medical decision-making was reviewed with the ROOM SERVICE ASSOCIATE/PA/Advanced Practice Nurse/Resident Physician. I agree with the documented findings, disposition and treatment plan as described except to the extent set forth below. Patient to the emergency department complaining of altered mental status. Patient recently broke her shoulder. Has been taking Ultram home. She became difficult to arouse today. On exam she is sleeping. Arousable with sternal rub and loud voice. Pinpoint pupils. Plan. Patient awake and alert with Narcan. Altered mental status workup. The patient's hemoglobin has dropped that her Hemoccult is negative. INR is elevated. We will observe.
[2016-12-22 16:17] LABS: Amphetamine Screen,Urine Negative ng/mL (Cutoff=1000); Barbiturate Screen,Urine Negative ng/mL (Cutoff=200); Benzodiazepines Screen,Urine Negative ng/mL (Cutoff=200); Cannabinoid Screen,Urine Negative ng/mL (Cutoff = 50); Cocaine Screen,Urine Negative ng/mL (Cutoff= 300); Opiate Screen,Urine Positive ng/mL (Cutoff=300); Phencyclidine Screen,Urine Negative ng/mL (Cutoff=25)
[2016-12-22 16:20] LABS: Bilirubin,Urine Negative (Negative); Blood,Urine Negative (Negative); Clarity,Urine Clear (Clear); Color,Urine Yellow (Yellow); Glucose,Urine (UA) Normal (Normal); Ketones,Urine Negative (Negative); Leukocyte Esterase,Urine Small (Negative); Nitrite,Urine Negative (Negative); Protein,Urine 30 mg/dL (Neg-Trace); Specific Gravity,Urine 1.014 (1.010-1.025); Urobilinogen,Urine Normal (Normal)
[2016-12-22 16:30] LABS: RBC,Urine 0-3 per hpf (0-3); Squamous Epithelial Cell,Urine Moderate per lpf (None-Few)
[2016-12-22 16:32] LABS: Basophils % 0.3 %; Eosinophils # 0.1 K/mcL (0.0-0.6); Eosinophils % 0.7 %; Hematocrit 24.3 % (35.3-44.9); Immature Granulocytes % 0.8 % (0-4); Lymphocytes # 3.1 K/mcL (0.6-4.6); Lymphocytes % 25.1 %; Mean Corpuscular HGB Conc 32.9 g/dL (31.6-35.5); Mean Corpuscular Hemoglobin 31.3 pg (28.0-33.3); Mean Corpuscular Volume 94.9 fL (83.0-100.0); Mean Platelet Volume 10.1 fL (9.4-12.4); Monocytes # 0.9 K/mcL (0.0-1.3); Monocytes % 7.1 %; Neutrophils # 8.1 K/mcL (1.6-8.9); Platelet Count 195 K/mcL (140-400); Red Blood Count 2.56 M/mcL (3.82-4.97); Red Cell Distribution Width 15.1 % (11.5-14.5)
[2016-12-22 16:47] LABS: Activated Partial Thrombo Time 48.8 Seconds (26.0-36.0)
[2016-12-22 16:48] LABS: Albumin/Globulin Ratio 0.8 (1.1-2.2); Bilirubin,Direct 0.3 mg/dL (0.0-0.5); Bilirubin,Indirect 0.5 mg/dL (0.0-1.2); Bilirubin,Total 0.8 mg/dL (0.2-1.2); Calcium 9.1 mg/dL (8.6-10.8); Globulin 3.6 g/dL (2.4-3.5); Potassium 4.4 mEq/L (3.5-4.5); Total Protein 6.6 g/dL (6.0-8.3)
[2016-12-22 16:53] LABS: Prothrombin Time 65.8 Seconds (9.4-12.1)
[2016-12-22 16:54] LABS: INR 5.8
[2016-12-22] MEDS ORDERED: *HR* Phytonadione 5 MG TABLET PO ONE (17:16)
--- NOTE | 2016-12-22 21:07 | Internal Med History&Physical ---
Date of Encounter: 12/22/16 Time of Encounter: 21:07 Assessment and Plan (1) Opiate overdose Current visit: Yes Status: Acute Patient had recent right humeral fracture. She was prescribed tramadol 50 mg 4 times a day as needed; but the patient does seem to be using it every 4 hours as needed. She also received Narco today. She had lethargy and pinpoint pupils - improved with Narcan. Will monitor her. Qualifiers: Encounter type: initial encounter Injury intent: accidental or unintentional Qualified Code(s): T40.601A - Poisoning by unspecified narcotics , accidental (unintentional), initial encounter (2) Atelectasis of right lung Current visit: Yes Status: Acute Chest x-ray reported right basilar consolidation likely atelectasis. Start incentive spirometer. On my personal review of CXR - cannot exclude pneumonia - will request CT chest w/o contrast, to exclude pneumonia. (3) Atrial fibrillation Current visit: Yes Status: Chronic EKG shows paced rhythm. On anticoagulation with supratherapeutic INR. Patient' s family is requesting for consult from Dr. Hammer Qualifiers: Atrial fibrillation type: unspecified Qualified Code(s): I48.91 - Unspecified atrial fibrillation (4) Hypothyroidism Current visit: Yes Status: Chronic Continue synthroid. check TSH Qualifiers: Hypothyroidism type: unspecified Qualified Code(s): E03.9 - Hypothyroidism , unspecified (5) DM type 2 (diabetes mellitus, type 2) Current visit: Yes Status: Chronic Start sliding scale insulin Qualifiers: Diabetes mellitus complication status: with kidney complications Diabetes mellitus complication detail: with chronic kidney disease Diabetes mellitus nursing home insulin use: without truck terminal manager use Chronic kidney disease stage: stage 4 (severe) Qualified Code(s): E11.22 - Type 2 diabetes mellitus with diabetic chronic kidney disease; N18.4 - Chronic kidney disease, stage 4 (severe ) (6) CKD (chronic kidney disease) stage 4, GFR 15-29 ml/min Current visit: Yes Status: Chronic Monitor renal function (7) Fracture of humeral head, right, closed Current visit: Yes Status: Acute Continue sling and pain management. Stop tramadol and start norco Qualifiers: Encounter type: subsequent encounter Fracture healing: with routine healing Qualified Code(s): S42.291D - Other displaced fracture of upper end of right humerus, subsequent encounter for fracture with routine healing (8) Supratherapeutic INR Current visit: Yes Status: Acute Hold warfarin and monitor INR (9) Altered mental status Current visit: Yes Status: Acute Likely due to opiates. Improved now Qualifiers: Altered mental status type: unspecified Qualified Code(s): R41.82 - Altered mental status, unspecified (10) Normocytic anemia Current visit: Yes Status: Chronic Recent drop in Hemoglobin could be due to recent fracture versus anemia of chronic disease / CKD. Monitor H&H and consider PRBC transfusion, if there is further drop in H&H. Internal Medicine - H&P: HPI Chief complaint: Lethargy Admitted From: Emergency Dept Plans for Post Hospital Care: Home History of present illness: Ms. Solis is a 89 year old female With past medical history significant for atrial fibrillation - on warfarin for anticoagulation, CHF, DVT, GI bleed, hyperlipidemia, hypertension, peripheral artery disease, CKD has AV fistula in place. She had a fall on 12/17/16 - she was noted to have Mildly displaced fracture of the right humeral head and Dislocation at the glenohumeral joint. She was discharged on tramadol 50 mg 4 times a day as needed (per the ER record) . However the patient does seem to be taking tramadol 50 mg every 4 hours when necessary. Patients family members report that the patient has been lethargic and somnulent for the last 2 days. Today the patient had norco for pain relief. She apparently had an appointment to see Ivana Jaquelin, but the family members could not get her to stand up and move. The family members called Dr. Arredondo office, who recommended the patient go to the emergency department. In the ER, pt was arousable with sternal rub and loud voice. Had Pinpoint pupils was given narcan. INR was 5.8, Hemoglobin was 8 (previously was 11). She reports pain at the right humerus, intermittently and worse on movement. She denies chest pain, palpitations, cough, expectoration, shortness of breath fevers, chills, abdominal pain, dysuria or hematuria. No melena or hematochezia reported. Pt apparently had negative fecal occult blood in the ER. Past Med Surg Social Fam HX - Past Medical History Medical history: atrial fibrillation, CHF, DVT, GI bleed, hyperlipidemia, hypertension, peripheral artery disease, renal disease, SVT, thyroid disease, TIA, other Psychiatric history: no psych history - Past Surgical History Surgical History: cataract, cholecystectomy, other - Social History Smoking Status: Never smoker Smokeless Tobacco Status: No Alcohol use: none Drug use: none - Family History Mother Adopted: No Family Member Ethnicity: Non- Living Status: Hx Family Cardiac Disorders: Yes Hx Family Respiratory Disorders: Yes Hx Family Cancer: No Hx Family GI Disorders: No Hx Family Endocrine Disorder: No Hx Family Neuromuscular Disorders: No Hx Family Neurologic Disorders: No Hx Family HEENT Disorders: No Hx Family Autoimmune Disorders: No Internal Medicine - H&P: Meds Levothyroxine [Synthroid] 100 mcg PO QAM 07/26/15 [History] Allopurinol [Zyloprim] 100 mg PO 1200 10/11/16 [History] Ascorbate Calcium [Vitamin C] 500 mg PO HS 10/11/16 [History] Ergocalciferol (VITAMIN D2) [Vitamin D2] 50,000 unit PO SA 10/11/16 [History] Gluc/MSM/C/[place]anganes/Prim [Joint Support Complex Softgel] 1 cap PO QAM 07/18 [History] Loratadine [Claritin] 10 mg PO QAM 10/11/16 [History] Warfarin [Coumadin] 2.5 mg PO 1200 10/11/16 [History] Atorvastatin [Lipitor] 20 mg PO HS #30 tablet 10/22/16 [Rx] Isosorbide DInitrate [Isordil] 5 mg PO TIDAC #90 tablet 10/22/16 [Rx] LORazepam [Ativan] 1 mg PO HS PRN #30 tablet 11/02/16 [Rx] Nitroglycerin 0.4 mg SL Q5MIN PRN #30 tab.subl 11/02/16 [Rx] Tramadol HCl [Ultram] 50 mg PO QID PRN #20 tab 12/17/16 [Rx] Amiodarone [Cordarone] 200 mg PO HS 12/22/16 [History] Bumetanide [Bumex] 1 mg PO QAM 12/22/16 [History] HYDROcodone/Acet 5/325 mg [[place] 5-325 mg] 1 tab PO Q12H 12/22/16 [History] Hydralazine HCl 50 mg PO TID 12/22/16 [History] Metoprolol Succinate 200 mg PO QAM 12/22/16 [History] Omeprazole [PriLOSEC] 40 mg PO QAM 12/22/16 [History] Trazodone HCl 100 mg PO HS 12/22/16 [History] Allergies acetaminophen [From Percocet] Allergy (Verified 12/22/16 14:51) Rash codeine Allergy (Verified 12/22/16 14:51) Rash Oxycodone [From Percocet] Allergy (Verified 12/22/16 14:51) Rash All Systems PM: A 10-system review of systems was performed and is negative for pertinent findings except as documented above in the HPI. - Constitutional Vitals: Temp Pulse Resp BP Pulse Ox 98.1 F 60 16 104/73 100 12/22/16 20:12 12/22/16 20:12 12/22/16 20:12 12/22/16 20:12 12/22/16 20:12 Exam: General: Not in acute distress at the time of my evaluation HEENT: Oral mucosa is moist. No conjunctival palor or scleral icterus. Pupils normal size and reactive to light. Neck: No obvious neck swellings Lungs: Clear to auscultation Cardiac: Regular rate and rhythm. No significant murmurs Abdomen: Soft, non tender. Bowel sounds present Genitourinary: No gould catheter Neurological: Alert and oriented. No gross localizing deficits Psych: Not aggressive or agitated Extremities: Pt has sling to the right upper extremity; bruising over right arm Skin: No generalized rash Internal Med - H&P Results - Labs CBC & Chem 7: 12/23/16 05:27 12/23/16 05:27 - EKG Data -: EKG Interpreted by Myself - EKG Data EKG comments: Paced rhythm 12/23/16 08:10 - Impressions ITS Impressions Chest X-Ray 12/22/16 14:42 IMPRESSION: 1. Small right pleural effusion with right basilar airspace consolidation, most likely passive atelectasis, though underlying aspiration or pneumonia are not excluded. 2. Stable cardiomegaly. D/ / Arnold Nolasco MD / Arnold Nolasco MD Interpreting Provider: Arnold Nolasco MD Head CT 12/22/16 14:43 IMPRESSION: No acute intracranial abnormality. D/ / Óscar Ruiz MD / Óscar Ruiz MD Interpreting Provider: Óscar Ruiz MD
[2016-12-22] MEDS ORDERED: Naloxone 0.4 MG/ML INJ IVP PRN (21:08)
[2016-12-22] MEDS: *HR* HYDROcodone/Acet 5/325 mg TABLET PO PRN (23:49)
[2016-12-23] MEDS ORDERED: *HR* HYDROmorphone (PF) 1 MG/ML SYRINGE IVP ONE (01:15)
[2016-12-23] MEDS: *HR* HYDROcodone/Acet 5/325 mg TABLET PO PRN (05:42)
[2016-12-23 05:43] LABS: Hematocrit 22.4 % (35.3-44.9); Hemoglobin 7.2 g/dL (11.5-15.4); Mean Corpuscular HGB Conc 32.1 g/dL (31.6-35.5); Mean Corpuscular Hemoglobin 30.4 pg (28.0-33.3); Mean Corpuscular Volume 94.5 fL (83.0-100.0); Mean Platelet Volume 10.1 fL (9.4-12.4); Platelet Count 191 K/mcL (140-400); Red Blood Count 2.37 M/mcL (3.82-4.97); Red Cell Distribution Width 15.1 % (11.5-14.5)
[2016-12-23 06:03] LABS: Calcium 8.9 mg/dL (8.6-10.8); Magnesium 1.2 mg/dL (1.6-2.6)
[2016-12-23 06:07] LABS: Prothrombin Time 45.4 Seconds (9.4-12.1)
--- NOTE | 2016-12-23 06:32 | Electrocardiograph Report ---
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
[2016-12-23] MEDS ORDERED: *HR* LORazepam 1 MG TABLET PO PRN (07:32)
[2016-12-23] MEDS ORDERED: Nitroglycerin 0.4 MG TAB.SUBL SL PRN (07:32)
[2016-12-23] MEDS ORDERED: Magnesium Sulfate 2 GM in D5% in Water 100 ML IVPB ONE (07:43)
[2016-12-23] MEDS ORDERED: Cholecalciferol (D-3) 1,000 UNIT TABLET PO SCH (09:00)
[2016-12-23] MEDS ORDERED: Dextrose Gel 15 GM PO PRN ×2 (10:05)
[2016-12-23] MEDS ORDERED: *HR* Dextrose 50 % in Water (Syg) 50 ML SYRINGE IVP PRN (10:05)
[2016-12-23] MEDS ORDERED: *HR* FentaNYL (PF) 100 MCG/2 ML VIAL IV ONE (13:56)
--- NOTE | 2016-12-23 14:01 | Internal Med Progress Note ---
Date of Encounter: 12/23/16 Time of Encounter: 13:59 - Subjective Interval history: This document has been replaced with a complete progress note and should be discounted from the patient's medical record. - Constitutional Vitals: Temp Pulse Resp BP Pulse Ox 97.9 F 59 16 147/56 100 12/23/16 04:00 12/23/16 07:00 12/23/16 07:00 12/23/16 07:00 12/23/16 08:00 General appearance: Present: mild distress Exam: somnolent, arousable - Eye Eye exam: Present: PERRL, conjuntiva pink, sclera anicteric Pupils: Present: PERRL - Respiratory Respiratory exam: Present: CTAB. Absent: accessory muscle use, rales, rhonchi, wheezes - Cardiovascular Cardiovascular exam: Present: RRR, +S1, +S2. Absent: diastolic murmur, gallop, rubs, systolic murmur - GI/Abdominal GI/Abdominal exam: Present: normal bowel sounds, soft, no peritoneal signs. Absent: distended, tenderness - Extremities Exam Additional comments: R arm in sling w/ upper arm hematoma Internal Medicine: Result - Labs CBC & Chem 7: 12/25/16 05:15 12/25/16 05:15 Labs: Short CBC 12/23/16 Range/Units 05:27 WBC 11.8 H (4.3-11.1) K/mcL Hgb 7.2 L (11.5-15.4) g/dL Hct 22.4 L (35.3-44.9) % Plt Count 191 (140-400) K/mcL BMP 12/23/16 05:27 Sodium 136 Potassium 4.0 Chloride 98 Carbon Dioxide 29 BUN 47 H Creatinine 2.17 H Glucose 116 H Calcium 8.9 - ABG Interpretation ABG results: PT/INR, D-dimer PT 45.4 Seconds (9.4-12.1) H* 12/23/16 05:27 - Impressions Impressions Chest CT 12/23/16 10:45 IMPRESSION: There are patchy micronodular subpleural changes seen in the lungs bilaterally, suspicious for bronchiolitis. There is a small right effusion, which may be reactive. No spiculated lung mass or lymphadenopathy. Cardiomegaly, with atherosclerotic disease and coronary involvement. A pacer is noted. Mixed density fluid collections seen in the right axilla, felt likely to represent mixed density hemorrhage related to patient's recent humeral fracture and dislocation. D/ / Óscar Ruiz MD / Óscar Ruiz MD Interpreting Provider: Óscar Ruiz MD - VTE Reasons for not Prescribing Prophylaxis: Not indicated-Anticoagulated or INR therapeutic Consult Discharge Plan - Plan Referrals: Anabella Hodgson MD [Primary Care Provider] -
[2016-12-23 15:18] LABS: Thyroid Stimulating Hormone 2.447 mcIU/mL (0.350-4.840)
[2016-12-23] MEDS ORDERED: Warfarin perPT PO PRN (18:00)
--- NOTE | 2016-12-23 18:04 | Event Note ---
<Ridge Summers - Last Filed: 12/23/16 17:59> Date of Encounter: 12/23/16 Time of Encounter: 17:59 Pre-Procedure Diagnosis: No access, acute volume loss Post-Procedure Diagnosis: No access, acute volume loss Indication: Unable to gain other forms of venous access on an unstable patient Performing Physician: Tasha Summers DO Type of Procedure: Central Venous Catheter Placement Assisting physician: Felice Lara DO Indication: This is a 89 year-old female with acute blood loss and all other forms of access were unsuccessful Consent: Detailed explanation of the procedure, treatment options, risks including but not limited to infection and bleeding, and benefits were explained to the patient and family. A written informed consent was obtained. Technique: A time out was preformed identifying the correct procedure, the correct location with the nursing staff. The left neck was prepped with 2% chlorhexidine and draped with a full length sterile sheet in the usual fashion. 1% lidocaine was administered subcutaneously for local anesthesia. The left internal jugular was accessed under ultrasound guidance with an 18 gauge thin wall needle. A triple lumen 7 swedish, 16cm central line was inserted via the seldinger technique. Blood was withdrawn from all lumens and flushed with normal saline. The catheter was sutured in place and a sterile dressing was applied over the site prior to removal of drapes. The patient tolerated the procedure well and there were no complications. Chest x ray is pending at this time. EBL: 2ml Complication: None This Central line procedure was precepted by Dr. Armando Cordon who was present for the entirety of the procedure. <Armando Cordon - Last Filed: 12/25/16 07:57> I examined this patient and my medical decision-making was reviewed with the DEBRANDER/PA/Advanced Practice Nurse/Resident Physician. I agree with the documented findings, disposition and treatment plan as described except to the extent set forth below. I have been present and assisted the resident physician during this procedure. The patient tolerated the procedure well. I reviewed the chest x-ray which shows the catheter And the SVC area.
[2016-12-23] MEDS ORDERED: *HR* FentaNYL (PF) 100 MCG/2 ML VIAL IV PRN (18:44)
[2016-12-23] MEDS: Insulin LISPRO 300 UNITS/3 ML VIAL SQ SCH ×3 (19:53→21:20)
[2016-12-23] MEDS: Metoprolol XL (24 HR) Succ 50 MG TAB.ER.24H PO SCH (19:56)
[2016-12-23] MEDS: hydrALAZINE 25 MG TABLET PO SCH ×3 (19:56→21:20)
[2016-12-23] MEDS: Bumetanide 1 MG TABLET PO SCH (19:56)
[2016-12-23] MEDS ORDERED: *HR* LORazepam 2 MG/ML VIAL IVP PRN (20:21)
[2016-12-23] MEDS ORDERED: traZODone 50 MG TABLET PO SCH (21:00)
[2016-12-23 21:16] LABS: Hematocrit 20.9 % (35.3-44.9); Hemoglobin 7.1 g/dL (11.5-15.4)
[2016-12-23] MEDS: Acetaminophen IV 1,000 MG/100 ML INFUS..BTL IVPB SCH (21:18)
--- NOTE | 2016-12-23 21:18 | Internal Med Progress Note ---
Date of Encounter: 12/23/16 Time of Encounter: 15:00 - Assessment and plan (1) Anemia due to blood loss Current Visit: Yes Status: Acute Assessment and plan: We will transfuse 1 unit PRBC and check those transfusion CBC. There is significant blood loss and the right arm hematoma according to the CT scan. (2) Atrial fibrillation Current Visit: Yes Status: Chronic Assessment and plan: Currently paced. She is fully anticoagulated with Coumadin. Qualifiers: Atrial fibrillation type: unspecified Qualified Code(s): I48.91 - Unspecified atrial fibrillation (3) CKD (chronic kidney disease) stage 4, GFR 15-29 ml/min Current Visit: Yes Status: Chronic Assessment and plan: Avoid nephrotoxins including NSAIDs. (4) Supratherapeutic INR Current Visit: No Status: Resolved Assessment and plan: She received vitamin K in the ED. We will check INR level in the morning. (5) Fracture of humeral head, right, closed Current Visit: Yes Status: Acute Assessment and plan: She was deemed nonsurgical by orthopedic surgery this and we will treat her conservatively. She has significant pain for which we will treat her with fentanyl and Ofirmev. Consult pain and palliative. Qualifiers: Encounter type: subsequent encounter Fracture healing: with routine healing Qualified Code(s): S42.291D - Other displaced fracture of upper end of right humerus, subsequent encounter for fracture with routine healing (6) Altered mental status Current Visit: Yes Status: Acute Assessment and plan: Likely secondary to opiate toxicity. We will use Narcan for opiate overdose. She remains at high risk for morbidity and mortality and complications due to IV fentanyl. Qualifiers: Altered mental status type: unspecified Qualified Code(s): R41.82 - Altered mental status, unspecified (7) Opiate overdose Current Visit: Yes Status: Acute Qualifiers: Encounter type: initial encounter Injury intent: accidental or unintentional Qualified Code(s): T40.601A - Poisoning by unspecified narcotics , accidental (unintentional), initial encounter - Subjective Interval history: Patient was sent to the hospital for evaluation of altered mental status and confusion. She was found obtunded with pinpoint pupils and she responded well to Narcan. Currently the patient is more awake. She reports severe 10/10 right shoulder pain secondary to her humerus fracture. The pain improved slightly with Dilaudid but is aggravated - Constitutional Vitals: Temp Pulse Resp BP Pulse Ox 98.9 F 59 19 104/46 96 12/23/16 19:00 12/23/16 19:00 12/23/16 19:00 12/23/16 19:00 12/23/16 19:00 General appearance: Present: mild distress - Respiratory Respiratory exam: Present: CTAB. Absent: accessory muscle use, rales, rhonchi, wheezes - Cardiovascular Cardiovascular exam: Present: RRR, +S1, +S2. Absent: diastolic murmur, gallop, rubs, systolic murmur - GI/Abdominal GI/Abdominal exam: Present: normal bowel sounds, soft, no peritoneal signs. Absent: distended, tenderness - Extremities Exam Additional comments: Right upper extremity immobilized sling. There is a tissue edema swelling and hematoma of the right arm. - Neurological Exam Neurological exam: Present: CN II-XII intact, oriented X3, no focal deficits. Absent: pronater drift, facial droop, speech deficit - Skin Skin exam: Present: dry, intact Internal Medicine: Result - Labs CBC & Chem 7: 12/23/16 05:27 12/23/16 05:27 Labs: Short CBC 12/23/16 Range/Units 05:27 WBC 11.8 H (4.3-11.1) K/mcL Hgb 7.2 L (11.5-15.4) g/dL Hct 22.4 L (35.3-44.9) % Plt Count 191 (140-400) K/mcL BMP 12/23/16 05:27 Sodium 136 Potassium 4.0 Chloride 98 Carbon Dioxide 29 BUN 47 H Creatinine 2.17 H Glucose 116 H Calcium 8.9 - ABG Interpretation ABG results: PT/INR, D-dimer PT 45.4 Seconds (9.4-12.1) H* 12/23/16 05:27 - Impressions Impressions Chest CT 12/23/16 10:45 IMPRESSION: There are patchy micronodular subpleural changes seen in the lungs bilaterally, suspicious for bronchiolitis. There is a small right effusion, which may be reactive. No spiculated lung mass or lymphadenopathy. Cardiomegaly, with atherosclerotic disease and coronary involvement. A pacer is noted. Mixed density fluid collections seen in the right axilla, felt likely to represent mixed density hemorrhage related to patient's recent humeral fracture and dislocation. D/ / Óscar Ruiz MD / Óscar Ruiz MD Interpreting Provider: Óscar Ruiz MD Chest X-Ray 12/23/16 17:58 IMPRESSION: 1. New left IJ central venous catheter projects over the SVC. No pneumothorax identified. 2. Cardiomegaly. 3. Small right pleural effusion with right basilar atelectasis. Improved aeration of the right base compared to previous exam of 12/22/2016. D/ / 12/23/2016 18:26:20 Óscar Perez MD / Courtney Johnston Interpreting Provider: Óscar Perez MD - VTE Reasons for not Prescribing Prophylaxis: Not indicated-Anticoagulated or INR therapeutic Consult Discharge Plan - Plan Referrals: Anabella Hodgson MD [Primary Care Provider] -
[2016-12-23] MEDS: traZODone 50 MG TABLET PO SCH (21:19)
[2016-12-23] MEDS: *HR* Amiodarone 200 MG TABLET PO SCH (21:20)
[2016-12-23] MEDS ORDERED: 0.9 % Sodium Chloride 250 ML ONE (22:20)
[2016-12-24] MEDS: Acetaminophen IV 1,000 MG/100 ML INFUS..BTL IVPB SCH ×4 (02:11→21:46)
[2016-12-24 03:37] LABS: Basophils % 0.2 %; Eosinophils % 0.2 %; Hematocrit 23.7 % (35.3-44.9); Hemoglobin 7.9 g/dL (11.5-15.4); Immature Granulocytes % 0.5 % (0-4); Immature Platelets 4.2 % (1.1-6.1); Lymphocytes # 2.3 K/mcL (0.6-4.6); Lymphocytes % 21.8 %; Mean Corpuscular HGB Conc 33.3 g/dL (31.6-35.5); Mean Corpuscular Hemoglobin 30.3 pg (28.0-33.3); Mean Corpuscular Volume 90.8 fL (83.0-100.0); Monocytes # 1.2 K/mcL (0.0-1.3); Neutrophils # 7.1 K/mcL (1.6-8.9); Platelet Count 178 K/mcL (140-400); Red Blood Count 2.61 M/mcL (3.82-4.97); Red Cell Distribution Width 16.1 % (11.5-14.5); Segmented Neutrophils % 66.3 %
[2016-12-24 03:48] LABS: Activated Partial Thrombo Time 29.3 Seconds (26.0-36.0); Calcium 8.6 mg/dL (8.6-10.8); INR 1.9; Magnesium 1.2 mg/dL (1.6-2.6); Potassium 3.9 mEq/L (3.5-4.5)
[2016-12-24] MEDS ORDERED: Magnesium Sulfate 2 GM in D5% in Water 100 ML IVPB ONE (08:19)
[2016-12-24] MEDS: Insulin LISPRO 300 UNITS/3 ML VIAL SQ SCH ×4 (09:15→22:07)
[2016-12-24] MEDS: hydrALAZINE 25 MG TABLET PO SCH ×3 (09:16→22:07)
[2016-12-24] MEDS: Bumetanide 1 MG TABLET PO SCH (10:40)
[2016-12-24] MEDS: Metoprolol XL (24 HR) Succ 50 MG TAB.ER.24H PO SCH (10:40)
--- NOTE | 2016-12-24 11:07 | Palliative - Consult Note ---
Date of Encounter: 12/24/16 Time of Encounter: 10:00 - Assessment and Plan (1) Pain Current Visit: No Status: Acute Assessment and plan: Patient is s/p right humeral fracture from 12/17/16. Family reports that patient underwent a closed reduction and f/u with [facility]. Presents to health system with change in metal status and suspected opioid overdose from prescribed Tramadol for fracture pain. PC team consulted for pain management. Currently patient is sleeping and awakens easy then drifts back to sleep. Notes reveal that patient received Ativan last night for agitation. Family at bedside. Currently has fentanyl IVP 25 mcg as needed for pain. Might consider restarting Tramadol as family reports that is was effective at home. Home dosage 50 mg every 4 hrs consider changing to every 6 hrs as patient renal function is diminished. Case discussed with Dr. Cordon and agrees to consulting Pain Management for possible nerve block or additional interventions. Patient currently resides at home with family and at baseline can ambulate and go out with family. Patient will need followed closely as outpatient with pain medication needs. (2) Constipation Current Visit: No Status: Acute Assessment and plan: Patient taking pain medications and had a BM this AM. Will add dulcolox PRN for prevention. Will monitor I&O. Qualifiers: Constipation type: drug induced constipation Qualified Code(s): K59.03 - Drug induced constipation (3) Goals of care, counseling/discussion Current Visit: Yes Status: Acute Assessment and plan: Family at bedside and daughter Jaimie reports that patient has completed Advanced directives and I requested them to bring in copy for records. Family reports that goals for patient is to return home and be pain free as much as possible so she can engage with family. Family agrees to DNRCC-A status and wants appropriate care for mother. I discussed DC plan. Patient may benefit from rehab given current fracture. Family reports that patient will likely want to return home. Will follow progress. (4) Fracture of humeral head, right, closed Current Visit: Yes Status: Acute Assessment and plan: Right are painful to move, patient arm in a sling and tolerating at present. Pain Management consult pending. Fentanyl PRN. Qualifiers: Encounter type: subsequent encounter Fracture healing: with routine healing Qualified Code(s): S42.291D - Other displaced fracture of upper end of right humerus, subsequent encounter for fracture with routine healing Palliative-CN HPI - Data of Consult Patient: new to practice Consult date: 12/24/16 Requesting Physician: Armando Cordon MD Primary Care Provider: Anabella Hodgson - Consult Narrative Palliative Care/Comfort Measures: Palliative care Reason for consult: Pain Management History of present illness: Ms. Solis is a 89 year old female who fell and suffered a Right humeral fracture on 12/17/16. The family reports that she underwent a closed reduction and f/u with [facility]. The patient was admitted with altered mental status and was thought to have taken an tramadol for pain. This consult is for pain management. Upon this consult, the chart has been reviewed and her granddaughter is at bedside. The patient is sleeping soundly and awakens easy but then drifts back to sleep. Vital signs are stable, and her right are is in a sling with a warm right hand and 2+ radial pulse. Nursing reports that she became confused through the night and required some ativan for agitation. CC: Armando Cordon MD Past Med Surg Social Fam HX - Past Medical History Source: old records reviewed, obtained from family Medical history: atrial fibrillation, CHF, DVT, GI bleed, hyperlipidemia, hypertension, peripheral artery disease, renal disease, SVT, thyroid disease, TIA, other (Gout) Psychiatric history: no psych history - Past Surgical History Surgical History: cataract, cholecystectomy, other - Social History Smoking Status: Never smoker Smokeless Tobacco Status: No Alcohol use: none Drug use: none Occupational status: retired Current living situation: Home, With Family Activity Level: Independent ambulation Recent Out of Country Travel Within the Last 8 Weeks: No Exposure or Possible Exposure to Illness During Travel: No - Family History Mother Adopted: No Family Member Ethnicity: Non- Living Status: Hx Family Cardiac Disorders: Yes Hx Family Respiratory Disorders: Yes Hx Family Cancer: No Hx Family GI Disorders: No Hx Family Endocrine Disorder: No Hx Family Neuromuscular Disorders: No Hx Family Neurologic Disorders: No Hx Family HEENT Disorders: No Hx Family Autoimmune Disorders: No Medications and Allergies Levothyroxine [Synthroid] 100 mcg PO QAM 07/26/15 [History] Allopurinol [Zyloprim] 100 mg PO 1200 10/11/16 [History] Ascorbate Calcium [Vitamin C] 500 mg PO HS 10/11/16 [History] Ergocalciferol (VITAMIN D2) [Vitamin D2] 50,000 unit PO SA 10/11/16 [History] Gluc/MSM/C/Cookson/Manganes/Prim [Joint Support Complex Softgel] 1 cap PO QAM 07/18 [History] Loratadine [Claritin] 10 mg PO QAM 10/11/16 [History] Warfarin [Coumadin] 2.5 mg PO 1200 10/11/16 [History] Atorvastatin [Lipitor] 20 mg PO HS #30 tablet 10/22/16 [Rx] Isosorbide DInitrate [Isordil] 5 mg PO TIDAC #90 tablet 10/22/16 [Rx] LORazepam [Ativan] 1 mg PO HS PRN #30 tablet 11/02/16 [Rx] Nitroglycerin 0.4 mg SL Q5MIN PRN #30 tab.subl 11/02/16 [Rx] Tramadol HCl [Ultram] 50 mg PO QID PRN #20 tab 12/17/16 [Rx] Amiodarone [Cordarone] 200 mg PO HS 12/22/16 [History] Bumetanide [Bumex] 1 mg PO QAM 12/22/16 [History] HYDROcodone/Acet 5/325 mg [Bishop 5-325 mg] 1 tab PO Q12H 12/22/16 [History] Hydralazine HCl 50 mg PO TID 12/22/16 [History] Metoprolol Succinate 200 mg PO QAM 12/22/16 [History] Omeprazole [PriLOSEC] 40 mg PO QAM 12/22/16 [History] Trazodone HCl 100 mg PO HS 12/22/16 [History] Allergies acetaminophen [From Percocet] Allergy (Verified 12/22/16 14:51) Rash codeine Allergy (Verified 12/22/16 14:51) Rash Oxycodone [From Percocet] Allergy (Verified 12/22/16 14:51) Rash ROS unobtainable: due to mental status (Patient sleeping and unable to stay awake to participate in interview) - Constitutional Constitutional ROS PAL: decreased appetite, frequent falls - EENT Eyes: requires corrective lenses Ears: decreased hearing - Cardiovascular Cardiovascular ROS: irregular heart rhythm - Musculoskeletal Musculoskeletal ROS IM: muscle weakness, other (pain to right shoulder) - Neurological Neurological ROS: as per HPI - Psychiatric Psychiatric general PM: anxiety (from pain to right arm) Palliative Care-Exam - Constitutional Vitals: Temp Pulse Resp BP Pulse Ox 98.4 F 61 16 92/74 93 L 12/24/16 05:33 12/24/16 05:33 12/24/16 05:33 12/24/16 05:33 12/24/16 08:00 General appearance: Present: no acute distress Exam: sleeping soundly, awakens easy but falls back to sleep easy. - Head Head Exam: Present: atraumatic, normal inspection, normocephalic - Eye Eye exam: Present: PERRL Pupils: Present: PERRL - ENT ENT exam: Present: mucous membranes moist - Neck Neck exam: Present: normal inspection - Respiratory Respiratory exam: Present: decreased breath sounds - Expanded Respiratory Exam Location: decreased breath sounds: Left, Right, Lower - Cardiovascular Cardiovascular exam: Present: +S1, +S2 (Paced rhythm) - Expanded Cardiovascular Exam Peripheral pulses: 1+: Femoral (L) PM, Femoral (R) PM, Posterior Tibialis (L), Posterior Tibialis (R), 2+: Carotid (L) PM, Carotid (R) PM, Radial (L), Radial ( R), Dorsalis Pedis (L) PM, Dorsalis Pedis (R) PM - GI/Abdominal Exam GI/Abdominal exam: Present: normal bowel sounds, soft - Rectal Rectal exam: Present: deferred - Extremities Exam Extremities exam: Present: full ROM - Expanded Upper Extremities Exam Shoulder exam: Present: swelling, tenderness (Right shoulder pain with movement) Upper Arm exam: Present: deformity, tenderness Vascular: Present: radial pulse (Right radial 2+) - Neurological Exam Neurological exam: Present: alert (sleeping, awakens easy then falls back to sleep) - Psychiatric Psychiatric exam: Present: normal affect - Skin Skin exam: Present: intact, warm Internal Medicine - CN: Reslt - Labs CBC & Chem 7: 12/24/16 03:20 12/24/16 03:20 Labs: Short CBC 12/23/16 12/24/16 Range/Units 21:05 03:20 WBC 10.8 (4.3-11.1) K/mcL Hgb 7.1 L 7.9 L (11.5-15.4) g/dL Hct 20.9 L 23.7 L (35.3-44.9) % Plt Count 178 (140-400) K/mcL Neutrophils # 7.1 (1.6-8.9) K/mcL BMP 12/24/16 03:20 Sodium 133 L Potassium 3.9 Chloride 98 Carbon Dioxide 29 BUN 41 H Creatinine 1.85 H Glucose 138 H Calcium 8.6 - ABG Interpretation ABG results: PT/INR, D-dimer PT 21.0 Seconds (9.4-12.1) H D 12/24/16 03:20 - Impressions Impressions Chest CT 12/23/16 10:45 IMPRESSION: There are patchy micronodular subpleural changes seen in the lungs bilaterally, suspicious for bronchiolitis. There is a small right effusion, which may be reactive. No spiculated lung mass or lymphadenopathy. Cardiomegaly, with atherosclerotic disease and coronary involvement. A pacer is noted. Mixed density fluid collections seen in the right axilla, felt likely to represent mixed density hemorrhage related to patient's recent humeral fracture and dislocation. D/ / Óscar Ruiz MD / Óscar Ruiz MD Interpreting Provider: Óscar Ruiz MD Chest X-Ray 12/23/16 17:58 IMPRESSION: 1. New left IJ central venous catheter projects over the SVC. No pneumothorax identified. 2. Cardiomegaly. 3. Small right pleural effusion with right basilar atelectasis. Improved aeration of the right base compared to previous exam of 12/22/2016. D/ / 12/23/2016 18:26:20 Óscar Perez MD / Courtney Johnston Interpreting Provider: Óscar Perez MD Consult Discharge Plan - Plan Referrals: Anabella Hodgson MD [Primary Care Provider] - Palliative Quality Palliative Quality: Screen for Code Status: Yes, Screen for Goals of Care: Yes, Screen for Pain: Yes, If Pain Regimen Started, Initiate Bowel Regimen: Yes, Screen for Nausea/Vomitting: Yes Code Status: 12/23/16 13:52 CODE [Resuscitation Status: Active] [RES] Routine Comment: Resuscitation Status: DNR-Comfort Care-Arrest
[2016-12-24] MEDS: Cholecalciferol (D-3) 1,000 UNIT TABLET PO SCH (12:02)
--- NOTE | 2016-12-24 16:28 | Pain Management History & Phys ---
Date of Encounter: 12/24/16 Time of Encounter: 16:26 Assessment and Plan (1) Nondisplaced fracture of right humerus Current Visit: Yes Status: Acute The assessment and plan as outlined above was discussed with the patient and/or family members who expressed understanding and agreement. All questions were answered. This is associated with a hematoma. I would watch closely for any evidence of compartment syndrome. I did not see that to be the case today. My recommendations for pain control are as follows: 1. Start [place] 5 mg/ 325 mg every 6 hours as needed for pain 1 through 5 out of 10. 2. Increase [place] to 7.5 mg by 325 mg every 6 hours as needed for pain score 6 through 10 out of 10. He may consider trialing [place] 10/325 3. Stop IV fentanyl. Start IV hydromorphone 0.25 mg IV up to 0.5 mg IV every 6 hours as needed for breakthrough pain beyond [place] dosing. I would wait for a pain score of 10 out of 10 even after [place] given at 7.5 mg 2 hours after that dose. 4. Recommend parameters for IV Narcan to include a set basement respiratory rate of 6 out of 10 with unarousable patient or evidence of systolic blood pressure less than 90 or mean arterial pressure less than 60. 5. Recommend treatment for constipation and early ambulation with physical therapy. See below. Qualifiers: Encounter type: initial encounter Humerus Location: proximal Fracture type: closed Qualified Code(s): S42.294A - Other nondisplaced fracture of upper end of right humerus, initial encounter for closed fracture (2) Frail elderly Current Visit: Yes Status: Chronic The assessment and plan as outlined above was discussed with the patient and/or family members who expressed understanding and agreement. All questions were answered. I would recommend dosing down on the patient's lorazepam given her normocytic anemia and short-term hypersensitivity to these medications. Continue to treat patient accordingly per recommendations by the hospitalist. (3) Constipation due to opioid therapy Current Visit: Yes Status: Acute The assessment and plan as outlined above was discussed with the patient and/or family members who expressed understanding and agreement. All questions were answered. I recommend starting the patient on Amitiza if available. If not available, regular bowel care per colace, ambulation via hospital based PT (4) Anemia Current Visit: Yes Status: Acute The assessment and plan as outlined above was discussed with the patient and/or family members who expressed understanding and agreement. All questions were answered. Qualifiers: Anemia type: unspecified type Qualified Code(s): D64.9 - Anemia, unspecified (5) Normocytic anemia Current Visit: Yes Status: Chronic The assessment and plan as outlined above was discussed with the patient and/or family members who expressed understanding and agreement. All questions were answered. (6) Constipation Current Visit: No Status: Acute The assessment and plan as outlined above was discussed with the patient and/or family members who expressed understanding and agreement. All questions were answered. Qualifiers: Constipation type: drug induced constipation Qualified Code(s): K59.03 - Drug induced constipation History of Present Illness Chief complaint: Shoulder pain, sedation HPI: Ms. Solis is a 89 year old female With a history of fall and subsequent humeral fracture on the right who is at home and doing well on pain medication, but there was an episode of confusion and hypersomnolence causing concern. The family members called their scrap drop engineer who recommended that family take the patient to the emergency room for fear of something more insidious happening with the patient. The family also noted some increased bleeding or bruising into the right arm with enlargement of that limb. The history was entirely obtained from 3 adult family members as the patient was somnolent but arousable during my interview. The patient states her pain is mild at this point. Family members state that they feel as though [place] was helping them. They state that they were given the patient tramadol every 4 hours automatically at home as they feel as though the prescription reflected this treatment course. They also mention that the patient has not had a bowel movement for an entire week. There is no report of fevers or chills. Otherwise noncontributory history. Past Med Surg Social Fam HX - Past Medical History Medical history: atrial fibrillation, CHF, DVT, GI bleed, hyperlipidemia, hypertension, peripheral artery disease, renal disease, SVT, thyroid disease, TIA, other (Gout) Psychiatric history: no psych history - Past Surgical History Surgical History: cataract, cholecystectomy, other - Social History Smoking Status: Never smoker Smokeless Tobacco Status: No Alcohol use: none Drug use: none - Family History Mother Adopted: No Family Member Ethnicity: Non- Living Status: Hx Family Cardiac Disorders: Yes Hx Family Respiratory Disorders: Yes Hx Family Cancer: No Hx Family GI Disorders: No Hx Family Endocrine Disorder: No Hx Family Neuromuscular Disorders: No Hx Family Neurologic Disorders: No Hx Family HEENT Disorders: No Hx Family Autoimmune Disorders: No Medications and Allergies Levothyroxine [Synthroid] 100 mcg PO QAM 07/26/15 [History] Allopurinol [Zyloprim] 100 mg PO 1200 10/11/16 [History] Ascorbate Calcium [Vitamin C] 500 mg PO HS 10/11/16 [History] Ergocalciferol (VITAMIN D2) [Vitamin D2] 50,000 unit PO SA 10/11/16 [History] Gluc/MSM/C/[place]/Manganes/Prim [Joint Support Complex Softgel] 1 cap PO QAM 07/18 [History] Loratadine [Claritin] 10 mg PO QAM 10/11/16 [History] Warfarin [Coumadin] 2.5 mg PO 1200 10/11/16 [History] Atorvastatin [Lipitor] 20 mg PO HS #30 tablet 10/22/16 [Rx] Isosorbide DInitrate [Isordil] 5 mg PO TIDAC #90 tablet 10/22/16 [Rx] LORazepam [Ativan] 1 mg PO HS PRN #30 tablet 11/02/16 [Rx] Nitroglycerin 0.4 mg SL Q5MIN PRN #30 tab.subl 11/02/16 [Rx] Tramadol HCl [Ultram] 50 mg PO QID PRN #20 tab 12/17/16 [Rx] Amiodarone [Cordarone] 200 mg PO HS 12/22/16 [History] Bumetanide [Bumex] 1 mg PO QAM 12/22/16 [History] HYDROcodone/Acet 5/325 mg [[place] 5-325 mg] 1 tab PO Q12H 12/22/16 [History] Hydralazine HCl 50 mg PO TID 12/22/16 [History] Metoprolol Succinate 200 mg PO QAM 12/22/16 [History] Omeprazole [PriLOSEC] 40 mg PO QAM 12/22/16 [History] Trazodone HCl 100 mg PO HS 12/22/16 [History] Allergies acetaminophen [From Percocet] Allergy (Verified 12/22/16 14:51) Rash codeine Allergy (Verified 12/22/16 14:51) Rash Oxycodone [From Percocet] Allergy (Verified 12/22/16 14:51) Rash Review of Systems - Constitutional Constitutional ROS IM: as per HPI, daytime sleepiness - Cardiovascular Cardiovascular ROS: no chest pain, no leg edema, no lightheadedness - Respiratory Respiratory: no pain on inspiration, no pain with cough - Gastrointestinal Gastrointestinal: constipation - Genitourinary Genitourinary ROS: no difficulty urinating, no flank pain, no urinary hesitancy - Musculoskeletal Musculoskeletal ROS: as per HPI (Right arm pain) - Integumentary Integumentary: as per HPI, swelling - Neurological Neurological ROS: behavioral changes - Psychiatric Psychiatric general: confusion - Hematologic/Lymphatic Hematologic/Lymphatic pediatric: easy bruising Physical Exam Initial Vital Signs Temp Pulse Resp BP Pulse Ox 98.3 F 61 18 136/65 100 12/22/16 14:42 12/22/16 14:42 12/22/16 14:42 12/22/16 14:42 12/22/16 14:42 - General physical appearance General physical appearance: sedated, no distress - Eyes Eye exam: PERRL - Neck trachea midline - Respiratory normal respiratory effort - Cardiovascular Cardiovascular exam: Present: irregular rhythm (Irregularly irregular) - Abdomen Abdomen: soft, non tender, bowel sounds - Musculoskeletal Musculoskeletal: other (Right arm pain) Results - Labs 12/24/16 03:20 12/24/16 03:20 Abnormal lab results RBC 2.61 M/mcL (3.82-4.97) L 12/24/16 03:20 Hgb 7.9 g/dL (11.5-15.4) L 12/24/16 03:20 Hct 23.7 % (35.3-44.9) L 12/24/16 03:20 RDW 16.1 % (11.5-14.5) H 12/24/16 03:20 PT 21.0 Seconds (9.4-12.1) H D 12/24/16 03:20 Sodium 133 mEq/L (136-145) L 12/24/16 03:20 BUN 41 mg/dL (7-20) H 12/24/16 03:20 Creatinine 1.85 mg/dL (0.57-1.11) H 12/24/16 03:20 Est GFR ( Amer) 31 (> 60) L 12/24/16 03:20 Est GFR (Non-Af Amer) 26 (> 60) L 12/24/16 03:20 Glucose 138 mg/dL (70-99) H 12/24/16 03:20 POC Glucose 163 (58-89) H 12/23/16 21:05 Magnesium 1.2 mg/dL (1.6-2.6) L 12/24/16 03:20 Albumin 3.0 g/dL (3.5-5.0) L 12/22/16 16:25 Globulin 3.6 g/dL (2.4-3.5) H 12/22/16 16:25 Albumin/Globulin Ratio 0.8 (1.1-2.2) L 12/22/16 16:25 Urine Protein 30 mg/dL (Neg-Trace) H 12/22/16 15:55 Ur Leukocyte Esterase Small (Negative) H 12/22/16 15:55 Urine Microscopic WBC 3-5 per hpf (0-3) H 12/22/16 15:55 Ur Squamous Epith Cells Moderate per lpf (None-Few) H 12/22/16 15:55 Ur Culture Indicated? YES (NO) A 12/22/16 15:55 Urine Opiates Screen Positive ng/mL (Gtxsfn=[id number]) H 12/22/16 15:55 Diabetes panel 12/24/16 Range/Units 03:20 Sodium 133 L (136-145) mEq/L Potassium 3.9 (3.5-4.5) mEq/L Chloride 98 (98-109) mEq/L Carbon Dioxide 29 (19-29) mEq/L BUN 41 H (7-20) mg/dL Creatinine 1.85 H (0.57-1.11) mg/dL Glucose 138 H (70-99) mg/dL Calcium 8.6 (8.6-10.8) mg/dL Calcium panel 12/24/16 Range/Units 03:20 Calcium 8.6 (8.6-10.8) mg/dL Pituitary panel 12/24/16 Range/Units 03:20 Sodium 133 L (136-145) mEq/L Potassium 3.9 (3.5-4.5) mEq/L Chloride 98 (98-109) mEq/L Carbon Dioxide 29 (19-29) mEq/L BUN 41 H (7-20) mg/dL Creatinine 1.85 H (0.57-1.11) mg/dL Glucose 138 H (70-99) mg/dL Calcium 8.6 (8.6-10.8) mg/dL Adrenal panel 12/24/16 Range/Units 03:20 Sodium 133 L (136-145) mEq/L Potassium 3.9 (3.5-4.5) mEq/L Chloride 98 (98-109) mEq/L Carbon Dioxide 29 (19-29) mEq/L BUN 41 H (7-20) mg/dL Creatinine 1.85 H (0.57-1.11) mg/dL Glucose 138 H (70-99) mg/dL Calcium 8.6 (8.6-10.8) mg/dL All other labs normal. - VTE Reasons for not Prescribing Prophylaxis: Not indicated-Anticoagulated or INR therapeutic
[2016-12-24] MEDS: traZODone 50 MG TABLET PO SCH (21:54)
--- NOTE | 2016-12-24 21:57 | Internal Med Progress Note ---
Date of Encounter: 12/24/16 Time of Encounter: 13:00 - Assessment and plan (1) Anemia due to blood loss Current Visit: Yes Status: Acute Assessment and plan: 12/24/2016: Status post 1 unit PRBC transfusion with good response. Monitor hemoglobin and hematocrit. 12/23/2016 We will transfuse 1 unit PRBC and check those transfusion CBC. There is significant blood loss and the right arm hematoma according to the CT scan. (2) Atrial fibrillation Current Visit: Yes Status: Chronic Assessment and plan: Currently paced. She is fully anticoagulated with Coumadin. We will hold anticoagulation for now due to right upper extremity hematoma and significant anemia. I will discuss the risk benefits with the patient and the family of restarting the Coumadin versus starting aspirin only. Qualifiers: Atrial fibrillation type: unspecified Qualified Code(s): I48.91 - Unspecified atrial fibrillation (3) CKD (chronic kidney disease) stage 4, GFR 15-29 ml/min Current Visit: Yes Status: Chronic Assessment and plan: Avoid nephrotoxins including NSAIDs. (4) Supratherapeutic INR Current Visit: No Status: Resolved Assessment and plan: She received vitamin K in the ED. We will check INR level in the morning. (5) Fracture of humeral head, right, closed Current Visit: Yes Status: Acute Assessment and plan: She was deemed nonsurgical by orthopedic surgery this and we will treat her conservatively. She has significant pain for which we will treat her with fentanyl and Ofirmev. We will consult acute pain service. Qualifiers: Encounter type: subsequent encounter Fracture healing: with routine healing Qualified Code(s): S42.291D - Other displaced fracture of upper end of right humerus, subsequent encounter for fracture with routine healing (6) Altered mental status Current Visit: Yes Status: Acute Assessment and plan: Likely secondary to opiate toxicity. We will use Narcan for opiate overdose. She remains at high risk for morbidity and mortality and complications due to IV fentanyl. Qualifiers: Altered mental status type: unspecified Qualified Code(s): R41.82 - Altered mental status, unspecified (7) Opiate overdose Current Visit: Yes Status: Acute Assessment and plan: Patient was opiate naive and had severe pain due to humerus fracture and was taking tramadol and [place]. Qualifiers: Encounter type: initial encounter Injury intent: accidental or unintentional Qualified Code(s): T40.601A - Poisoning by unspecified narcotics , accidental (unintentional), initial encounter - Subjective Interval history: 12/24: Patient's pain is much better controlled with IV fentanyl. She has been more restful over the last 6 hours 12/23:Patient was sent to the hospital for evaluation of altered mental status and confusion. She was found obtunded with pinpoint pupils and she responded well to Narcan. Currently the patient is more awake. She reports severe 10/10 right shoulder pain secondary to her humerus fracture. The pain improved slightly with Dilaudid but is aggravated - Constitutional Vitals: Temp Pulse Resp BP Pulse Ox 97.9 F 64 14 109/49 100 12/24/16 19:10 12/24/16 19:10 12/24/16 19:10 12/24/16 19:10 12/24/16 19:10 General appearance: Present: mild distress - Respiratory Respiratory exam: Present: CTAB. Absent: accessory muscle use, rales, rhonchi, wheezes - Cardiovascular Cardiovascular exam: Present: RRR, +S1, +S2. Absent: diastolic murmur, gallop, rubs, systolic murmur - GI/Abdominal GI/Abdominal exam: Present: normal bowel sounds, soft, no peritoneal signs. Absent: distended, tenderness - Extremities Exam Additional comments: Right arm swelling and hematoma. Internal Medicine: Result - Labs CBC & Chem 7: 12/24/16 03:20 12/24/16 03:20 Labs: Short CBC 12/24/16 Range/Units 03:20 WBC 10.8 (4.3-11.1) K/mcL Hgb 7.9 L (11.5-15.4) g/dL Hct 23.7 L (35.3-44.9) % Plt Count 178 (140-400) K/mcL Neutrophils # 7.1 (1.6-8.9) K/mcL BMP 12/24/16 03:20 Sodium 133 L Potassium 3.9 Chloride 98 Carbon Dioxide 29 BUN 41 H Creatinine 1.85 H Glucose 138 H Calcium 8.6 - ABG Interpretation ABG results: PT/INR, D-dimer PT 21.0 Seconds (9.4-12.1) H D 12/24/16 03:20 - VTE Reasons for not Prescribing Prophylaxis: Not indicated-Anticoagulated or INR therapeutic Consult Discharge Plan - Plan Referrals: Anabella Hodgson MD [Primary Care Provider] -
[2016-12-24] MEDS: *HR* Amiodarone 200 MG TABLET PO SCH (22:07)
[2016-12-25] MEDS: Acetaminophen IV 1,000 MG/100 ML INFUS..BTL IVPB SCH ×2 (04:43→11:07)
[2016-12-25 05:24] LABS: Basophils % 0.2 %; Eosinophils # 0.2 K/mcL (0.0-0.6); Hematocrit 23.1 % (35.3-44.9); Hemoglobin 7.8 g/dL (11.5-15.4); Immature Granulocytes % 0.7 % (0-4); Lymphocytes # 2.1 K/mcL (0.6-4.6); Lymphocytes % 23.6 %; Mean Corpuscular HGB Conc 33.8 g/dL (31.6-35.5); Mean Corpuscular Hemoglobin 30.6 pg (28.0-33.3); Mean Corpuscular Volume 90.6 fL (83.0-100.0); Mean Platelet Volume 9.8 fL (9.4-12.4); Monocytes % 10.7 %; Neutrophils # 5.7 K/mcL (1.6-8.9); Platelet Count 165 K/mcL (140-400); Red Blood Count 2.55 M/mcL (3.82-4.97); Red Cell Distribution Width 16.4 % (11.5-14.5); Segmented Neutrophils % 62.8 %
[2016-12-25 05:36] LABS: Potassium 3.6 mEq/L (3.5-4.5)
[2016-12-25 05:37] LABS: Calcium 8.5 mg/dL (8.6-10.8)
[2016-12-25] MEDS: Insulin LISPRO 300 UNITS/3 ML VIAL SQ SCH ×4 (10:03→21:38)
[2016-12-25] MEDS: hydrALAZINE 25 MG TABLET PO SCH (10:04)
--- NOTE | 2016-12-25 10:34 | Internal Med Progress Note ---
Date of Encounter: 12/25/16 Time of Encounter: 10:32 - Assessment and plan (1) Atrial fibrillation Current Visit: Yes Status: Chronic Assessment and plan: Currently paced. She is fully anticoagulated with Coumadin. I have discussed the risks and benefits of restarting anticoagulation with the patient's family and POA, given her recent fall and high risk for falls and intracranial bleed and also giving her upper arm hematoma with hemodynamically significant blood loss requiring 2 units of blood transfusion the risks of continuing Coumadin would be much higher than the benefits. I explained this to the family and they opted to hold off on anticoagulation. Qualifiers: Atrial fibrillation type: unspecified Qualified Code(s): I48.91 - Unspecified atrial fibrillation (2) DM type 2 (diabetes mellitus, type 2) Current Visit: Yes Status: Chronic Assessment and plan: Insulin sliding scale. Qualifiers: Diabetes mellitus complication status: with kidney complications Diabetes mellitus complication detail: with chronic kidney disease Diabetes mellitus jail insulin use: without adjunct faculty for medical terminology use Chronic kidney disease stage: stage 4 (severe) Qualified Code(s): E11.22 - Type 2 diabetes mellitus with diabetic chronic kidney disease; N18.4 - Chronic kidney disease, stage 4 (severe ) (3) CHF (congestive heart failure) Current Visit: No Status: Acute Qualifiers: Congestive heart failure type: combined Congestive heart failure chronicity : acute on chronic Qualified Code(s): I50.43 - Acute on chronic combined systolic (congestive) and diastolic (congestive) heart failure (4) Supratherapeutic INR Current Visit: No Status: Resolved Assessment and plan: She received vitamin K in the ED. We will check INR level in the morning. (5) Mental status change Current Visit: No Status: Acute Qualifiers: Altered mental status type: unspecified Qualified Code(s): R41.82 - Altered mental status, unspecified (6) DVT prophylaxis Current Visit: No Status: Acute (7) Opiate overdose Current Visit: Yes Status: Acute Assessment and plan: Patient was opiate naive and had severe pain due to humerus fracture and was taking tramadol and [place] Cob. Qualifiers: Encounter type: initial encounter Injury intent: accidental or unintentional Qualified Code(s): T40.601A - Poisoning by unspecified narcotics , accidental (unintentional), initial encounter (8) Anemia due to blood loss Current Visit: Yes Status: Acute (9) Nondisplaced fracture of right humerus Current Visit: Yes Status: Acute Assessment and plan: Appreciate pain pain service recommendations. Will start patient on [place] and use small doses of Dilaudid for breakthrough pain. Stop the fentanyl. Slowly uptitrate pain medication. Monitor mental status and respiratory function closely. Qualifiers: Encounter type: subsequent encounter Humerus Location: proximal Fracture type: closed Fracture healing: with nonunion Qualified Code(s): S42.294K - Other nondisplaced fracture of upper end of right humerus, subsequent encounter for fracture with nonunion - Subjective Interval history: 12/25/16: Pt says R arm pain better today with use of tylenol, hurts from the elbw down. good peripheral pulse and skin colr, good sensation in the hand and cap refill. No N/V, no constipation, pt is AAOx3 - Constitutional Vitals: Temp Pulse Resp BP Pulse Ox 98.1 F 60 14 113/61 95 12/25/16 06:01 12/25/16 06:01 12/25/16 06:01 12/25/16 06:01 12/25/16 08:15 General appearance: Present: mild distress - Eye Eye exam: Present: PERRL, conjuntiva pink, sclera anicteric Pupils: Present: PERRL - Respiratory Respiratory exam: Present: CTAB. Absent: accessory muscle use, rales, rhonchi, wheezes - Cardiovascular Cardiovascular exam: Present: RRR, +S1, +S2. Absent: diastolic murmur, gallop, rubs, systolic murmur - GI/Abdominal GI/Abdominal exam: Present: normal bowel sounds, soft, no peritoneal signs. Absent: distended, tenderness - Extremities Exam Extremities exam: Present: warm, radial pulses palpable and symetrical. Absent : calf tenderness, cyanotic, pedal edema - Neurological Exam Neurological exam: Present: CN II-XII intact, oriented X3, no focal deficits. Absent: pronater drift, facial droop, speech deficit Internal Medicine: Result - Labs CBC & Chem 7: 12/25/16 05:15 12/25/16 05:15 Labs: Short CBC 12/25/16 Range/Units 05:15 WBC 9.0 (4.3-11.1) K/mcL Hgb 7.8 L (11.5-15.4) g/dL Hct 23.1 L (35.3-44.9) % Plt Count 165 (140-400) K/mcL Neutrophils # 5.7 (1.6-8.9) K/mcL BMP 12/25/16 05:15 Sodium 135 L Potassium 3.6 Chloride 99 Carbon Dioxide 29 BUN 35 H Creatinine 1.83 H Glucose 141 H Calcium 8.5 L - ABG Interpretation ABG results: PT/INR, D-dimer PT 21.0 Seconds (9.4-12.1) H D 12/24/16 03:20 - VTE Reasons for not Prescribing Prophylaxis: Not indicated-Anticoagulated or INR therapeutic Consult Discharge Plan - Plan Referrals: Anabella Hodgson MD [Primary Care Provider] -
[2016-12-25] MEDS: Bumetanide 1 MG TABLET PO SCH ×2 (10:44→11:08)
[2016-12-25] MEDS: Metoprolol XL (24 HR) Succ 50 MG TAB.ER.24H PO SCH ×2 (10:45→11:07)
[2016-12-25] MEDS ORDERED: *HR* HYDROcodone/Acet 7.5/325 mg TABLET PO PRN (10:46)
[2016-12-25] MEDS ORDERED: *HR* HYDROmorphone 2 MG/ML SYRINGE IVP PRN (10:47)
--- NOTE | 2016-12-25 10:58 | Palliative Progress Note ---
Date of Encounter: 12/25/16 Time of Encounter: 10:15 - Assessment and plan (1) Pain Current Visit: No Status: Acute Assessment and plan: Notes reviewed from Pain Management. Recommendations noted and appreciated. Discussed with Dr. Cordon. Ordered [place] to start and increase based on response. Patient rates current pain level at 3/10 dull ache to right shoulder. Has had no IVP fentanyl x 24hrs. Patient reports that tylenol is helping. (2) Constipation Current Visit: No Status: Acute Assessment and plan: Patient with BM yesterday and receiving regimen. Will continue to monitor. Qualifiers: Constipation type: drug induced constipation Qualified Code(s): K59.03 - Drug induced constipation (3) Goals of care, counseling/discussion Current Visit: Yes Status: Acute Assessment and plan: Patient is DNRCC-A. Discussed with family about adding DNI to goals. Daughters agree as does the patient. Will add DNI to status. Updated family on pain regimen plan. (4) Fracture of humeral head, right, closed Current Visit: Yes Status: Inactive Qualifiers: Encounter type: subsequent encounter Fracture healing: with routine healing Qualified Code(s): S42.291D - Other displaced fracture of upper end of right humerus, subsequent encounter for fracture with routine healing - Time Spent With Patient Total time spent is greater than 50% in coordination of care (as documented) at patient's floor/unit and/or counseling patient: 25 - 35 minutes - Subjective Interval history: Patient sitting up in bed, awake. Family at bedside. Patient with poor recall of events in past 24hrs. Right are in a sling and reports pain to better but still rates it at 3/10 as a dull ache to the right shoulder. ROM restricted due to sling. Patient alert and able to verbalize needs and desires. - Constitutional Vitals: Abnormal lab results RBC 2.55 M/mcL (3.82-4.97) L 12/25/16 05:15 Hgb 7.8 g/dL (11.5-15.4) L 12/25/16 05:15 Hct 23.1 % (35.3-44.9) L 12/25/16 05:15 RDW 16.4 % (11.5-14.5) H 12/25/16 05:15 PT 21.0 Seconds (9.4-12.1) H D 12/24/16 03:20 Sodium 135 mEq/L (136-145) L 12/25/16 05:15 BUN 35 mg/dL (7-20) H 12/25/16 05:15 Creatinine 1.83 mg/dL (0.57-1.11) H 12/25/16 05:15 Est GFR ( Amer) 32 (> 60) L 12/25/16 05:15 Est GFR (Non-Af Amer) 26 (> 60) L 12/25/16 05:15 Glucose 141 mg/dL (70-99) H 12/25/16 05:15 POC Glucose 124 (58-89) H 12/24/16 16:47 Calcium 8.5 mg/dL (8.6-10.8) L 12/25/16 05:15 Magnesium 1.2 mg/dL (1.6-2.6) L 12/24/16 03:20 Albumin 3.0 g/dL (3.5-5.0) L 12/22/16 16:25 Globulin 3.6 g/dL (2.4-3.5) H 12/22/16 16:25 Albumin/Globulin Ratio 0.8 (1.1-2.2) L 12/22/16 16:25 Urine Protein 30 mg/dL (Neg-Trace) H 12/22/16 15:55 Ur Leukocyte Esterase Small (Negative) H 12/22/16 15:55 Urine Microscopic WBC 3-5 per hpf (0-3) H 12/22/16 15:55 Ur Squamous Epith Cells Moderate per lpf (None-Few) H 12/22/16 15:55 Ur Culture Indicated? YES (NO) A 12/22/16 15:55 Urine Opiates Screen Positive ng/mL (Bjmaws=115) H 12/22/16 15:55 - Head Head exam: Present: atraumatic, normal inspection - Eye Eye exam: Present: PERRL Pupils: Present: PERRL - ENT ENT exam: Present: mucous membranes moist - Neck Neck exam: Present: full ROM - Respiratory Respiratory exam: Present: CTAB - Cardiovascular Cardiovascular exam: Present: irregular rhythm (paced rhythm ), +S1, +S2 - GI/Abdominal GI/Abdominal exam: Present: normal bowel sounds, soft - Extremities Exam Extremities exam: Present: full ROM - Expanded Upper Extremity Exam Shoulder exam: Present: swelling, tenderness (Right shoulder and upper arm s/p fracture, good ROM to fingers and radial pulse 2+) - Back Exam Back exam: Present: full ROM - Neurological Exam Neurological exam: Present: alert, CN II-XII intact, oriented X3 - Psychiatric Psychiatric exam: Present: normal affect - Skin Skin exam: Present: pallor, warm Palliative Quality Palliative Quality: Screen for Code Status: Yes, Screen for Goals of Care: Yes, Screen for Pain: Yes, If Pain Regimen Started, Initiate Bowel Regimen: Yes, Screen for Nausea/Vomitting: Yes Code Status: 12/23/16 13:52 CODE [Resuscitation Status: Active] [RES] Routine Comment: Resuscitation Status: DNR-Comfort Care-Arrest - Labs CBC & Chem 7: 12/25/16 05:15 12/25/16 05:15 Labs: Laboratory Results - last 24 hr 12/23/16 12/24/16 12/24/16 21:05 07:24 11:35 WBC RBC Hgb Hct MCV MCH MCHC RDW Plt Count MPV Immature Gran % Seg Neutrophils % Lymphocytes % Monocytes % Eosinophils % Basophils % Neutrophils # Lymphocytes # Monocytes # Eosinophils # Basophils # Sodium Potassium Chloride Carbon Dioxide BUN Creatinine Est GFR ( Amer) Est GFR (Non-Af Amer) BUN/Creatinine Ratio Glucose POC Glucose 160 H 167 H Calculated Osmolality Calcium Crossmatch See Detail 12/24/16 12/25/16 12/25/16 16:47 05:15 05:15 WBC 9.0 RBC 2.55 L Hgb 7.8 L Hct 23.1 L MCV 90.6 MCH 30.6 MCHC 33.8 RDW 16.4 H Plt Count 165 MPV 9.8 Immature Gran % 0.7 Seg Neutrophils % 62.8 Lymphocytes % 23.6 Monocytes % 10.7 Eosinophils % 2.0 Basophils % 0.2 Neutrophils # 5.7 Lymphocytes # 2.1 Monocytes # 1.0 Eosinophils # 0.2 Basophils # 0.0 Sodium 135 L Potassium 3.6 Chloride 99 Carbon Dioxide 29 BUN 35 H Creatinine 1.83 H Est GFR ( Amer) 32 L Est GFR (Non-Af Amer) 26 L BUN/Creatinine Ratio 19 Glucose 141 H POC Glucose 124 H Calculated Osmolality 290 Calcium 8.5 L Crossmatch - ABG Interpretation ABG results: PT/INR, D-dimer PT 21.0 Seconds (9.4-12.1) H D 12/24/16 03:20 Consult Discharge Plan - Plan Referrals: Anabella Hodgson MD [Primary Care Provider] -
[2016-12-25] MEDS: Cholecalciferol (D-3) 1,000 UNIT TABLET PO SCH (11:07)
[2016-12-25] MEDS: *HR* HYDROcodone/Acet 5/325 mg TABLET PO PRN ×2 (11:07→17:15)
[2016-12-25] MEDS ORDERED: 0.9 % Sodium Chloride 500 ML ONE (13:29)
[2016-12-25] MEDS: traZODone 50 MG TABLET PO SCH (21:49)
[2016-12-25] MEDS: *HR* Amiodarone 200 MG TABLET PO SCH ×2 (21:49→22:36)
[2016-12-26 03:46] LABS: Basophils % 0.4 %; Eosinophils # 0.3 K/mcL (0.0-0.6); Eosinophils % 3.2 %; Hematocrit 28.2 % (35.3-44.9); Immature Granulocytes % 0.8 % (0-4); Lymphocytes # 1.7 K/mcL (0.6-4.6); Lymphocytes % 20.5 %; Mean Corpuscular Hemoglobin 31.1 pg (28.0-33.3); Mean Corpuscular Volume 91.3 fL (83.0-100.0); Mean Platelet Volume 10.1 fL (9.4-12.4); Monocytes # 0.8 K/mcL (0.0-1.3); Monocytes % 9.8 %; Neutrophils # 5.4 K/mcL (1.6-8.9); Platelet Count 178 K/mcL (140-400); Red Blood Count 3.09 M/mcL (3.82-4.97); Red Cell Distribution Width 15.8 % (11.5-14.5); Segmented Neutrophils % 65.3 %
[2016-12-26 03:52] LABS: Hemoglobin 9.6 g/dL (11.5-15.4)
[2016-12-26 03:59] LABS: Calcium 8.5 mg/dL (8.6-10.8); Potassium 3.6 mEq/L (3.5-4.5)
[2016-12-26 04:13] LABS: INR 2.1; Prothrombin Time 23.3 Seconds (9.4-12.1)
[2016-12-26] MEDS: Insulin LISPRO 300 UNITS/3 ML VIAL SQ SCH ×2 (08:21→12:03)
[2016-12-26] MEDS: Bumetanide 1 MG TABLET PO SCH (08:22)
[2016-12-26] MEDS: Cholecalciferol (D-3) 1,000 UNIT TABLET PO SCH (08:22)
[2016-12-26] MEDS: Metoprolol XL (24 HR) Succ 50 MG TAB.ER.24H PO SCH (08:22)
--- NOTE | 2016-12-26 08:36 | Pain Management Progress Note ---
Date of Encounter: 12/26/16 Time of Encounter: 07:45 - Assessment and Plan (1) Nondisplaced fracture of right humerus Current Visit: Yes Status: Acute Excellent response to PO norco. No longer ob IVP fentanyl. No significant or apparent side effects of the norco seen or reported at this time. Patient OOB to chair and uses bedside toilet. Due to patient improvement, will no longer follow. [place] should be prescribed per discharging physician, and also f/u per family doctor. I do not need to see as an outpatient unless she develops a spine issue. 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 (3) Constipation due to opioid therapy Current Visit: Yes Status: Acute (4) Anemia Current Visit: Yes Status: Acute Qualifiers: Anemia type: unspecified type Qualified Code(s): D64.9 - Anemia, unspecified (5) Normocytic anemia Current Visit: Yes Status: Chronic (6) Constipation Current Visit: No Status: Acute Qualifiers: Constipation type: drug induced constipation Qualified Code(s): K59.03 - Drug induced constipation Subjective Patient reports: no new complaints, feels better, pain is less Objective Vital Signs - Last 8 Hours Temp Pulse Resp BP Pulse Ox 12/26/16 07:30 98.5 F 60 18 124/69 94 L 12/26/16 06:21 98.0 F 63 16 125/72 94 L 12/26/16 00:43 98.1 F 59 12 123/49 96 Intake and Output 12/25/16 12/26/16 12/26/16 23:59 07:59 15:59 Intake Total 430 / 430 Balance 430 / 430 Intake: Oral 100 / 100 Blood Product 330 / 330 Rbcs Leuko Poor As-1 330 / 330 Unit [id number] Other: Meal Dinner Percent of Meal Consumed 50% # Voids 1 1 Weight 82 kg Blood Glucose* 175 110 Patient Weight 12/26/16 23:59 Weight 82 kg - General physical appearance no distress, no pain - Labs 12/26/16 Unknown 12/26/16 Unknown Diabetes panel 12/26/16 Range/Units Unknown Sodium 139 (136-145) mEq/L Potassium 3.6 (3.5-4.5) mEq/L Chloride 103 (98-109) mEq/L Carbon Dioxide 27 (19-29) mEq/L BUN 31 H (7-20) mg/dL Creatinine 1.71 H (0.57-1.11) mg/dL Glucose 125 H (70-99) mg/dL Calcium 8.5 L (8.6-10.8) mg/dL Calcium panel 12/26/16 Range/Units Unknown Calcium 8.5 L (8.6-10.8) mg/dL Pituitary panel 12/26/16 Range/Units Unknown Sodium 139 (136-145) mEq/L Potassium 3.6 (3.5-4.5) mEq/L Chloride 103 (98-109) mEq/L Carbon Dioxide 27 (19-29) mEq/L BUN 31 H (7-20) mg/dL Creatinine 1.71 H (0.57-1.11) mg/dL Glucose 125 H (70-99) mg/dL Calcium 8.5 L (8.6-10.8) mg/dL Adrenal panel 12/26/16 Range/Units Unknown Sodium 139 (136-145) mEq/L Potassium 3.6 (3.5-4.5) mEq/L Chloride 103 (98-109) mEq/L Carbon Dioxide 27 (19-29) mEq/L BUN 31 H (7-20) mg/dL Creatinine 1.71 H (0.57-1.11) mg/dL Glucose 125 H (70-99) mg/dL Calcium 8.5 L (8.6-10.8) mg/dL - VTE Reasons for not Prescribing Prophylaxis: Not indicated-Anticoagulated or INR therapeutic Consult Discharge Plan - Plan Referrals: Anabella Hodgson MD [Primary Care Provider] -
--- NOTE | 2016-12-26 09:39 | Palliative Progress Note ---
Date of Encounter: 12/26/16 Time of Encounter: 09:35 - Assessment and plan (1) Pain Current Visit: No Status: Acute Assessment and plan: Pain management recommendations appreciated. Tolerating [place] with excellent pain response. Currently rates pain 0/10. Last dose of [place] was yesterday. (2) Goals of care, counseling/discussion Current Visit: Yes Status: Acute Assessment and plan: Plans for patient to return home with [address] Resume [facility] home health services and physical therapy at discharge. Discussed case with nurse outreach case manager and social worker delinquency prevention. (3) Constipation due to opioid therapy Current Visit: Yes Status: Acute Assessment and plan: Last BM was 2 days ago. Patient denies feelings of constipation or bloating. Appetite good. Continue to monitor. (4) Nondisplaced fracture of right humerus Current Visit: Yes Status: Acute Qualifiers: Encounter type: subsequent encounter Humerus Location: proximal Fracture type: closed Fracture healing: with nonunion Qualified Code(s): S42.294K - Other nondisplaced fracture of upper end of right humerus, subsequent encounter for fracture with nonunion - Time Spent With Patient Total time spent is greater than 50% in coordination of care (as documented) at patient's floor/unit and/or counseling patient: - Subjective Interval history: Ms. Solis is lying in bed, awake/alert and oriented. She participates in physical therapy and gets out of bed with one assist. Following physical therapy, her pain level was rated 0/10. Her last dose of [place] was last night. Ms. Solis reports feeling "excellent" and is using non-pharm measures such as ice packs for additional comfort. Her last BM was 2 days ago. She reports a healthy appetite. - Constitutional Vitals: Abnormal lab results RBC 3.09 M/mcL (3.82-4.97) L 12/26/16 Unknown Hgb 9.6 g/dL (11.5-15.4) L D 12/26/16 Unknown Hct 28.2 % (35.3-44.9) L 12/26/16 Unknown RDW 15.8 % (11.5-14.5) H 12/26/16 Unknown PT 23.3 Seconds (9.4-12.1) H 12/26/16 Unknown BUN 31 mg/dL (7-20) H 12/26/16 Unknown Creatinine 1.71 mg/dL (0.57-1.11) H 12/26/16 Unknown Est GFR ( Amer) 34 (> 60) L 12/26/16 Unknown Est GFR (Non-Af Amer) 28 (> 60) L 12/26/16 Unknown Glucose 125 mg/dL (70-99) H 12/26/16 Unknown POC Glucose 175 (58-89) H 12/25/16 21:20 Calcium 8.5 mg/dL (8.6-10.8) L 12/26/16 Unknown Magnesium 1.2 mg/dL (1.6-2.6) L 12/24/16 03:20 Albumin 3.0 g/dL (3.5-5.0) L 12/22/16 16:25 Globulin 3.6 g/dL (2.4-3.5) H 12/22/16 16:25 Albumin/Globulin Ratio 0.8 (1.1-2.2) L 12/22/16 16:25 Urine Protein 30 mg/dL (Neg-Trace) H 12/22/16 15:55 Ur Leukocyte Esterase Small (Negative) H 12/22/16 15:55 Urine Microscopic WBC 3-5 per hpf (0-3) H 12/22/16 15:55 Ur Squamous Epith Cells Moderate per lpf (None-Few) H 12/22/16 15:55 Ur Culture Indicated? YES (NO) A 12/22/16 15:55 Urine Opiates Screen Positive ng/mL (Rfevqq=398) H 12/22/16 15:55 General appearance: Present: cooperative, no acute distress - ENT ENT exam: Present: mucous membranes moist - Respiratory Respiratory exam: Present: CTAB. Absent: accessory muscle use, respiratory distress - Cardiovascular Cardiovascular exam: Present: RRR, systolic murmur - GI/Abdominal GI/Abdominal exam: Present: normal bowel sounds, soft. Absent: tenderness - Extremities Exam Extremities exam: Absent: pedal edema - Neurological Exam Neurological exam: Present: alert, oriented X3, no focal deficits Additional comments: decreased ROM to the right arm related to fracture. - Psychiatric Psychiatric exam: Present: normal affect, normal mood. Absent: agitated, anxious - Skin Skin exam: Present: dry, warm Palliative Quality Palliative Quality: Screen for Code Status: Yes, Screen for Goals of Care: Yes, Screen for Pain: Yes, If Pain Regimen Started, Initiate Bowel Regimen: Yes, Screen for Nausea/Vomitting: Yes Code Status: 12/23/16 13:52 CODE [Resuscitation Status: Active] [RES] Routine Comment: Resuscitation Status: DNR-Comfort Care-Arrest 12/25/16 11:07 DNR [Resuscitation Status: Active] [RES] Routine Comment: Resuscitation Status: [id number] - Labs CBC & Chem 7: 12/26/16 Unknown 12/26/16 Unknown Labs: Laboratory Results - last 24 hr 12/23/16 12/24/16 12/25/16 21:05 21:32 07:20 WBC RBC Hgb Hct MCV MCH MCHC RDW Plt Count MPV Immature Gran % Seg Neutrophils % Lymphocytes % Monocytes % Eosinophils % Basophils % Neutrophils # Lymphocytes # Monocytes # Eosinophils # Basophils # PT INR Sodium Potassium Chloride Carbon Dioxide BUN Creatinine Est GFR ( Amer) Est GFR (Non-Af Amer) BUN/Creatinine Ratio Glucose POC Glucose 148 H 126 H Calculated Osmolality Calcium Blood Type B POSITIVE Antibody Screen NEGATIVE Crossmatch See Detail 12/25/16 12/25/16 12/25/16 12:14 17:01 21:20 WBC RBC Hgb Hct MCV MCH MCHC RDW Plt Count MPV Immature Gran % Seg Neutrophils % Lymphocytes % Monocytes % Eosinophils % Basophils % Neutrophils # Lymphocytes # Monocytes # Eosinophils # Basophils # PT INR Sodium Potassium Chloride Carbon Dioxide BUN Creatinine Est GFR ( Amer) Est GFR (Non-Af Amer) BUN/Creatinine Ratio Glucose POC Glucose 172 H 159 H 175 H Calculated Osmolality Calcium Blood Type Antibody Screen Crossmatch 12/26/16 12/26/16 12/26/16 Unknown Unknown Unknown WBC 8.3 RBC 3.09 L Hgb 9.6 L D Hct 28.2 L MCV 91.3 MCH 31.1 MCHC 34.0 RDW 15.8 H Plt Count 178 MPV 10.1 Immature Gran % 0.8 Seg Neutrophils % 65.3 Lymphocytes % 20.5 Monocytes % 9.8 Eosinophils % 3.2 Basophils % 0.4 Neutrophils # 5.4 Lymphocytes # 1.7 Monocytes # 0.8 Eosinophils # 0.3 Basophils # 0.0 PT 23.3 H INR 2.1 Sodium 139 Potassium 3.6 Chloride 103 Carbon Dioxide 27 BUN 31 H Creatinine 1.71 H Est GFR ( Amer) 34 L Est GFR (Non-Af Amer) 28 L BUN/Creatinine Ratio 18 Glucose 125 H POC Glucose Calculated Osmolality 296 Calcium 8.5 L Blood Type Antibody Screen Crossmatch - ABG Interpretation ABG results: PT/INR, D-dimer PT 23.3 Seconds (9.4-12.1) H 12/26/16 Unknown Consult Discharge Plan - Plan Referrals: Anabella Hodgson MD [Primary Care Provider] -
[2016-12-26 12:02] VITALS: BP 129/68
[2016-12-26] MEDS: *HR* HYDROcodone/Acet 5/325 mg TABLET PO PRN (12:03)
[2016-12-26] MEDS ORDERED: *HR* HYDROcodone/Acet 5/325 mg TABLET PO ONE (12:55)
--- NOTE | 2016-12-26 13:45 | Discharge Summary ---
Date of Encounter: 12/26/16 Time of Encounter: 13:43 - Discharge Diagnosis (1) Atrial fibrillation Priority: Secondary Status: Chronic Qualifiers: Atrial fibrillation type: unspecified Qualified Code(s): I48.91 - Unspecified atrial fibrillation (2) DM type 2 (diabetes mellitus, type 2) Priority: Secondary Status: Chronic Qualifiers: Diabetes mellitus complication status: with kidney complications Diabetes mellitus complication detail: with chronic kidney disease Diabetes mellitus custodial insulin use: without custodial use Chronic kidney disease stage: stage 4 (severe) Qualified Code(s): E11.22 - Type 2 diabetes mellitus with diabetic chronic kidney disease; N18.4 - Chronic kidney disease, stage 4 (severe ) (3) CHF (congestive heart failure) Priority: Secondary Status: Acute Qualifiers: Congestive heart failure type: combined Congestive heart failure chronicity : acute on chronic Qualified Code(s): I50.43 - Acute on chronic combined systolic (congestive) and diastolic (congestive) heart failure (4) Supratherapeutic INR Priority: Secondary Status: Resolved (5) Mental status change Priority: Secondary Status: Acute Qualifiers: Altered mental status type: unspecified Qualified Code(s): R41.82 - Altered mental status, unspecified (6) DVT prophylaxis Priority: Secondary Status: Acute (7) Opiate overdose Priority: Primary Status: Acute Qualifiers: Encounter type: initial encounter Injury intent: accidental or unintentional Qualified Code(s): T40.601A - Poisoning by unspecified narcotics , accidental (unintentional), initial encounter (8) Anemia due to blood loss Priority: Secondary Status: Acute (9) Nondisplaced fracture of right humerus Priority: Secondary Status: Acute Qualifiers: Encounter type: subsequent encounter Humerus Location: proximal Fracture type: closed Fracture healing: with nonunion Qualified Code(s): S42.294K - Other nondisplaced fracture of upper end of right humerus, subsequent encounter for fracture with nonunion - Discharge Medications Prescriptions: HYDROcodone/Acet 5/325 mg [[place] 5-325 mg] 1 tab PO Q6HR PRN #30 tablet PRN Reason: Pain Naloxone HCl [Narcan] 4 mg NS Q10MIN PRN #1 spray PRN Reason: opiate overdose Metoprolol XL (24 HR) Succ [Toprol Xl] 50 mg PO DAILY #30 tab.er.24h Home Medications: Levothyroxine [Synthroid] 100 mcg PO QAM 07/26/15 [History] Allopurinol [Zyloprim] 100 mg PO 1200 10/11/16 [History] Ascorbate Calcium [Vitamin C] 500 mg PO HS 10/11/16 [History] Ergocalciferol (VITAMIN D2) [Vitamin D2] 50,000 unit PO SA 10/11/16 [History] Gluc/MSM/C/[place]/Prim [Joint Support Complex Softgel] 1 cap PO QAM 07/18 [History] Loratadine [Claritin] 10 mg PO QAM 10/11/16 [History] Atorvastatin [Lipitor] 20 mg PO HS #30 tablet 10/22/16 [Rx] Isosorbide DInitrate [Isordil] 5 mg PO TIDAC #90 tablet 10/22/16 [Rx] LORazepam [Ativan] 1 mg PO HS PRN #30 tablet 11/02/16 [Rx] Nitroglycerin 0.4 mg SL Q5MIN PRN #30 tab.subl 11/02/16 [Rx] Amiodarone [Cordarone] 200 mg PO HS 12/22/16 [History] Bumetanide [Bumex] 1 mg PO QAM 12/22/16 [History] Omeprazole [PriLOSEC] 40 mg PO QAM 12/22/16 [History] Trazodone HCl 100 mg PO HS 12/22/16 [History] HYDROcodone/Acet 5/325 mg [[place] 5-325 mg] 1 tab PO Q6HR PRN #30 tablet [Rx] Metoprolol XL (24 HR) Succ [Toprol Xl] 50 mg PO DAILY #30 tab.er.24h 12/26/16 [ Rx] Naloxone HCl [Narcan] 4 mg NS Q10MIN PRN #1 spray 12/26/16 [Rx] Allergies/Adverse Reactions: Allergies acetaminophen [From Percocet] Allergy (Verified 12/22/16 14:51) Rash codeine Allergy (Verified 12/22/16 14:51) Rash Oxycodone [From Percocet] Allergy (Verified 12/22/16 14:51) Rash Date of admission: 12/22/16 18:48 Primary care physician: Anabella Hodgson Consults: 12/23/16 09:16 PICC LINE [Consult to Invasive Line Access Team] [CONS] Routine Reason for Consult: needing a line for blood draw and stable line for possible blood transfusion Line Type: PICC 12/23/16 14:21 Consult to Physical Therapy [CONS] Routine Comment: Evaluate, develop and implement POC OT [Consult to Occupational Therapy] [CONS] Routine Comment: Evaluate, develop and implement POC 12/23/16 16:04 Consult to Interventional Radiology [CONS] Stat Consulting Provider: Radiology Interventional [place] Reason for Consult: unable to obtain access, need central line placement Call Completed: No 12/24/16 08:18 Consult to Palliative Care [CONS] Routine Comment: pain management professional Provider: Palliative Care [place] 12/24/16 11:14 Consult to Pain Management [CONS] Routine Consulting Provider: Pain Mgt Interventional [place] Reason for Consult: R humerus fracture, severe pain, noot a surgical candidate Time Notified: 11:15 Call Completed: Yes - Patient Status Disposition: Home Health Service Condition: Good Functional capacity at discharge: uses cane/walker Overall status at discharge: patient is not back to baseline - Discharge Instructions Follow Up With: Anabella Hodgson MD [Primary Care Provider] - Additional Instructions: Stop warfarin 3 next 2 weeks and do not restart unless instructed by primary care physician. Stop hydralazine. Stop tramadol. Decrease Toprol from 200 mg daily to 50 mg daily. - Diet and Activity Activity: as per physical therapy Diet: advance to your usual diet Hospital course: The patient is an 89 year old lady with past medical history significant for atrial fibrillation - on warfarin for anticoagulation, CHF, DVT, GI bleed, hyperlipidemia, hypertension, peripheral artery disease, CKD has AV fistula in place. She had a fall on 12/17/16 - she was noted to have Mildly displaced fracture of the right humeral head and Dislocation at the glenohumeral joint. She was discharged on tramadol 50 mg 4 times a day as needed (per the ER record) . However the patient does seem to be taking tramadol 50 mg every 4 hours when necessary. Patients family members report that the patient has been lethargic and somnulent for the last 2 days. Today the patient had norco for pain relief. She apparently had an appointment to see Mr. Hmamer, but the family members could not get her to stand up and move. The family members called Dr. Arredondo office, who recommended the patient go to the emergency department. In the ER, pt was arousable with sternal rub and loud voice. Had Pinpoint pupils was given narcan. INR was 5.8, Hemoglobin was 8 (previously was 11). She reports pain at the right humerus, intermittently and worse on movement. She denies chest pain, palpitations, cough, expectoration, shortness of breath fevers, chills, abdominal pain, dysuria or hematuria. No melena or hematochezia reported. Pt apparently had negative fecal occult blood in the ER. The patient was admitted to the medical service. She was diagnosed with opiate overdose and toxicity. Initially her opiates were stopped and she was treated with Narcan. Soon she begin having tremendous pain in her right upper extremity and she received treatment with IV fentanyl. Her pain was very difficult to control. She was started on IV Ofirm[place]. Palliative care service was consulted. Pain management service was also consulted. They recommended transitioning back to [place] and discontinuing fentanyl and IV acetaminophen. Her pain started improving. Today she only required 2 tablets of Alcolu and her pain is tolerable. She tolerated physical therapy. She was also diagnosed with anemia secondary to bleed thought to have been due to development of hematoma in her right arm secondary to humeral fracture. She received 2 units of PRBC transfusion and her hemoglobin globin stabilized. She was also diagnosed with supratherapeutic INR and her Coumadin was placed on hold and she received 1 dose of vitamin K. Her INR is 2.1 and her hemoglobin has been stable for the last 48 hours. I have had a discussion with the family regarding her warfarin and due to the high risk of fall with injury improved possible intracranial bleed we decided to stop the warfarin. For pain control she will be prescribed Alcolu to take 1-2 tablets every 6 hours as needed for right arm pain and I was instructed patient's family about administration of her pain medication. I will also prescribe Narcan as rescue dosing for possible opiate overdose and I have also instructed the family how to administer this medication. I have discontinued the tramadol to avoid a compounding medication reactions. She also had acute kidney injury with a BUN of 15 and creatinine of 2.5 on admission which has now improved to a creatinine of 1.7. Her blood pressure has been on the low side her hydralazine has been discontinued and her Toprol has been decreased from 200 mg to 50 mg daily. The patient was evaluated by physical therapy and occupational therapy and was deemed a good candidate for home PT and OT. She is currently medically stable for discharge and will be discharged home with home health. - Time Spent with Patient Total time spent providing and/or coordinating discharge services: Greater than 30 minutes (I have spent 50 minutes coordinating this discharge.) - Constitutional Vitals: Temp Pulse Resp BP Pulse Ox 98.6 F 59 18 129/68 95 12/26/16 12:00 12/26/16 12:00 12/26/16 12:00 12/26/16 12:00 12/26/16 12:00 General appearance: Present: mild distress - Cardiovascular Cardiovascular exam: Present: RRR, +S1, +S2. Absent: diastolic murmur, gallop, rubs, systolic murmur - GI/Abdominal GI/Abdominal exam: Present: normal bowel sounds, soft, no peritoneal signs. Absent: distended, tenderness - Extremities Exam Additional comments: Right upper extremity immobilized in a sling. - Skin Skin exam: Present: dry, intact - VTE Reasons for not Prescribing Prophylaxis: Not indicated-Anticoagulated or INR therapeutic
--- NOTE | 2016-12-26 14:11 | Physician Discharge Referral ---
Home Health/Hosp Referral Info Transfer to: Home Health Provider in Charge Post Discharge: PCP - Diagnosis (1) Atrial fibrillation Status: Chronic (2) DM type 2 (diabetes mellitus, type 2) Status: Chronic (3) CHF (congestive heart failure) Status: Acute (4) Supratherapeutic INR Status: Resolved (5) Mental status change Status: Acute (6) DVT prophylaxis Status: Acute (7) Opiate overdose Status: Acute (8) Anemia due to blood loss Status: Acute (9) Nondisplaced fracture of right humerus Status: Acute - Respiratory Orders Oxygen / L per min Smoking Cessation: Smoking cessation has been advised. For more information, call the [employer] Tobacco Quit Line at 2-343-YJLT-NOW. - Diet/Nutrition Diet/Nutrition Orders: Cardiac, No Concentrated Sweets - Services Needed Following services are medically necessary services: Nursing, Home Health Aide, Physical Therapy - Transfer Medications Prescriptions: HYDROcodone/Acet 5/325 mg [[place] 5-325 mg] 1 tab PO Q6HR PRN #30 tablet PRN Reason: Pain Naloxone HCl [Narcan] 4 mg NS Q10MIN PRN #1 spray PRN Reason: opiate overdose Metoprolol XL (24 HR) Succ [Toprol Xl] 50 mg PO DAILY #30 tab.er.24h Home Medications: Levothyroxine [Synthroid] 100 mcg PO QAM 07/26/15 [History] Allopurinol [Zyloprim] 100 mg PO 1200 10/11/16 [History] Ascorbate Calcium [Vitamin C] 500 mg PO HS 10/11/16 [History] Ergocalciferol (VITAMIN D2) [Vitamin D2] 50,000 unit PO SA 10/11/16 [History] Gluc/MSM/C/[place]/Prim [Joint Support Complex Softgel] 1 cap PO QAM 07/18 [History] Loratadine [Claritin] 10 mg PO QAM 10/11/16 [History] Atorvastatin [Lipitor] 20 mg PO HS #30 tablet 10/22/16 [Rx] Isosorbide DInitrate [Isordil] 5 mg PO TIDAC #90 tablet 10/22/16 [Rx] LORazepam [Ativan] 1 mg PO HS PRN #30 tablet 11/02/16 [Rx] Nitroglycerin 0.4 mg SL Q5MIN PRN #30 tab.subl 11/02/16 [Rx] Amiodarone [Cordarone] 200 mg PO HS 12/22/16 [History] Bumetanide [Bumex] 1 mg PO QAM 12/22/16 [History] Omeprazole [PriLOSEC] 40 mg PO QAM 12/22/16 [History] Trazodone HCl 100 mg PO HS 12/22/16 [History] HYDROcodone/Acet 5/325 mg [[place] 5-325 mg] 1 tab PO Q6HR PRN #30 tablet [Rx] Metoprolol XL (24 HR) Succ [Toprol Xl] 50 mg PO DAILY #30 tab.er.24h 12/26/16 [ Rx] Naloxone HCl [Narcan] 4 mg NS Q10MIN PRN #1 spray 12/26/16 [Rx] Allergies/Adverse Reactions: Allergies acetaminophen [From Percocet] Allergy (Verified 12/22/16 14:51) Rash codeine Allergy (Verified 12/22/16 14:51) Rash Oxycodone [From Percocet] Allergy (Verified 12/22/16 14:51) Rash Certification: Further, I certify that my clinical findings support that this patient is homebound (i.e. absences from home require considerable and taxing effort and are for medical reasons or yarsani services or infrequently or short duration when for other reasons) because: Homebound Reason: Patient requires assistance of a person or device to safely leave home, Leaving home requires considerable and taxing effort due to condition, Severity of cardiac or pulmonary status limits activity tolerance Attestation: My signature below is to certify that this patient is under my care and that I, or nurse practitioner, or a physician's retail loan originator assistant working with me, has a face-to -face encounter with this patient.
== END 2016-12-26 16:02 | disposition home health service (06) ==
LOC: EMEROO 14:37 → 2NENU 14:37 → SUATTDRO 18:48 → 2NENU 19:57
PROVIDERS: ADMIT Internal Medicine; ATTEND Internal Medicine